=== PATIENT | female | born 1990 | race Caucasian/White ===

== ENCOUNTER 2018-01-15 17:02 | Emergency (ER) | payer MEDICAID, SELFPAY ==
[2018-01-15 17:03] VITALS: BP 155/73; PULSE 108; RESP 16; TEMP 37.2; O2SAT 98; BMI 33.2
[2018-01-15 17:13] VITALS: O2SAT 96
--- NOTE | 2018-01-15 17:17 | ED.VISSUMM ---
- ER Visit Summary Date of Service: 01/15/18 Chief Complaint: Shortness of breath History of Present Illness: The patient is a 27 F with history of asthma presents with an asthma exacerbation that started last night. No fever or chills she has a cough which is nonproductive. She is 28 weeks . She has no abdominal pain no urinary symptoms no vaginal bleeding. Physical Examination: She appears in some respiratory distress. Moist mucous membranes, no obvious facial deformity No C-spine tenderness supple neck. Regular rate and rhythm without any obvious murmurs Bilateral wheezing, speaks in full sentences without any difficulty but has some obvious mild respiratory distress Abdomen soft and nontender no guarding or rebound. It is gravid above the umbilicus Moves all extremities without any difficulty or pain. Skin does not show any obvious rashes or lesions, no trauma. Alert oriented ?3 with no gross focal deficit Emergency Department Course and Treatment: She received nebulizers and Kenalog IM. She significantly improved. At this time states is chronic and recurrent consistent with her normal asthma she is and I am reluctant to do an x-ray since she does not meet criteria. She has a normal heart rate and will be discharged in stable condition. She has an inhaler at home. Disposition: Discharge stable condition Impression: Asthma exacerbation This note was generated with [employer] dictation software. It may contain incorrect words, spelling, and punctuation that were not noted in review of the chart prior to signing ED Disposition - Plan for ED Patient: Disposition: Home or Assisted Living Chief Complaint: Asthma Instructions: ED Bronchitis Asthmatic Referrals: Addi Prabhakar MD [STAFF PHYSICIAN] - 3-5 Days
[2018-01-15] MEDS: Ipratropium/Albuterol Sulfate 3 ML AMPUL.NEB INHALATION (17:27)
[2018-01-15 17:30] VITALS: PULSE 105; RESP 24; O2SAT 96
[2018-01-15] MEDS: Triamcinolone Acetonide 40 MG/ML Vial IM (17:44)
[2018-01-15 17:55] VITALS: PULSE 117; RESP 20; O2SAT 97
[2018-01-15] MEDS: Albuterol 2.5 MG/3 ML VIAL.NEB. INHALATION ×2 (17:55→18:36)
[2018-01-15 18:36] VITALS: PULSE 125; RESP 18
[2018-01-15 19:03] VITALS: BP 125/82; PULSE 121; RESP 18; O2SAT 99
--- NOTE | 2018-01-16 14:10 | CM.ED ---
ED CALLBACK: Follow-up call placed to patient. Patient states she is feeling much better today. She states she has used her inhaler a few times, but feels this is due to weather changes as she just moved back to [place] from [place]. Upon inquiring whether the patient has initiated care here, the patient tells me she does not yet have an strike out machine operator. We discussed local options and I gave her my call back number. I encouraged patient to contact me if she has any questions or needs assistance finding an strike out machine operator. Patient states she grew up in the foster system in [place] and has medicaid anywhere she goes. She states she needs to have it transferred from [place] to here and has begun that process. Patient denies further needs or questions at this time.
== END 2018-01-15 19:06 | disposition home or self-care (01) ==
PROVIDERS: Emergency Provider Emergency Medicine
DX: O99.513 Diseases of the respiratory system complicating pregnancy, third trimester (principal); J45.901 Unspecified asthma with (acute) exacerbation; Z3A.28 28 weeks gestation of pregnancy
CPT/HCPCS: 94640; 96372; 99282

== ENCOUNTER 2018-03-02 22:17 | Outpatient (CLI) | payer MEDICAID, SELFPAY ==
[2018-03-02 22:46] VITALS: BMI 35.0
[2018-03-02] MEDS: 0.9% NaCl Peripheral Flush Adult/Peds IV (23:15)
[2018-03-02 23:32] LABS: Bacteria 0 SEEN /hpf (None Seen); Mucous, Urine 0 SEEN /hpf (<or=2+); Red Blood Cells-Urine 0 SEEN /hpf (0-5)
[2018-03-02 23:35] LABS: Hematocrit 36.9 % (37-47); Hemoglobin 12.2 g/dl (12.0-15.0); Mean Corp Hgb Conc 33.1 g/gl (32-36); Mean Corpuscular Hgb 28.7 pg (27.0-32.0); Mean Corpuscular Volume 86.8 fL (81-99); Mean Platelet Vol. 9.9 fl (6.2-12.0); Platelet Count 252 K/mm3 (150-450); RBC Distribution Width SD 47.5 fl (35.1-43.9); Red Blood Count 4.25 M/mm3 (4.2-5.4); Scan Indicated on CBC? Y/N NO; White Blood Count 11.8 K/mm3 (4.4-11.0)
[2018-03-02 23:37] LABS: Color, Urine Yellow (Yellow); Glucose, Dipstick Normal (Normal); Ketone-Dipstick Negative (Negative); Leukocyte Esterase-Dipstick 100 /ul (Negative); Nitrite-Dipstick Negative (Negative); Occult Blood-Urine Negative /ul (Negative); Protein-Dipstick Negative (Negative); Urine Bilirubin Dipstick Negative (Negative); Urine Clarity Sl. Cloudy (Clear); Urine Urobilinogen Normal (Normal)
[2018-03-03 00:12] LABS: Amorphous Sediment 2+; Squamous Epithelial Cells - UA 25-50 SEEN /hpf (5-10); White Blood Cells 0-5 SEEN /hpf (0-5)
[2018-03-03] MEDS: Lactated Ringers 1,000 ML 999 ML IV (00:37)
--- NOTE | 2018-03-03 02:43 | OB.TRI.HP_ITS ---
History of Present Illness Date of Service: 03/03/18 Was patient seen by the physician?: Yes Reason For Visit: R/O LABOR Date of Service: 03/02/18 Final RACHEL: 04/09/18 Gestational age: 34 Weeks and 5 Days History of Present Illness: 27-year-old 1 para 0 at 34-5/7 weeks gestation presents tonight complaining of abdominal pain. She states it started suddenly and sharp and it was right lower quadrant in her groin area. It was worse when she walked. She denied any gross vaginal bleeding or leaking of fluid. She had good movement. She had been eating and drinking normally today. She denied any regular contractions. Allergies prednisone Adverse Reaction (Verified 01/15/18 17:05) Nausea Laboratory Studies: Laboratory Tests 03/02/18 03/02/18 Range/Units 23:14 22:25 WBC 11.8 H (4.4-11.0) K/mm3 RBC 4.25 (4.2-5.4) M/mm3 Hgb 12.2 (12.0-15.0) g/dl Hct 36.9 L (37-47) % MCV 86.8 (81-99) fL MCH 28.7 (27.0-32.0) pg MCHC 33.1 (32-36) g/gl RDW 15.0 H (11.6-14.6) % RDW Differential 47.5 H (35.1-43.9) fl Plt Count 252 (150-450) K/mm3 MPV 9.9 (6.2-12.0) fl Urine Color Yellow (Yellow) Urine Clarity Sl. Cloudy (Clear) Urine pH 7.0 (5.0 - 8.0) Ur Specific [place] 1.010 (1.002-1.030) Urine Protein Negative (Negative) mg/dl Urine Glucose (UA) Normal (Normal) mg/dl Urine Ketones Negative (Negative) mg/dl Urine Occult Blood Negative (Negative) /ul Urine Nitrite Negative (Negative) Urine Bilirubin Negative (Negative) mg/dL Urine Urobilinogen Normal (Normal) mg/dl Ur Leukocyte Esterase 100 H (Negative) /ul Urine RBC 0 SEEN (0-5) /hpf Urine WBC 0-5 SEEN (0-5) /hpf Ur Squamous Epith Cells 25-50 SEEN (5-10) /hpf Amorphous Sediment 2+ Urine Bacteria 0 SEEN (None Seen) /hpf Urine Mucus 0 SEEN (<or=2+) /hpf Review of Systems Constitutional: Denies: Chills, Fever Gastrointestinal: Denies: Constipation, Diarrhea, Dyspepsia, Nausea, Vomiting Genitourinary: Reports: - - She denied any abnormal vaginal discharge, itching or burning. Denies: Dysuria, Frequency, Hematuria Physical Exam General: Alert, Cooperative, No apparent distress Abdomen: Soft, Non Tender, Non-Distended, Gravid, Appropriate for Gestational Age, - - No hernia, rebound or guarding. Extremities:: No edema Estimated gestational size: Appropriate for gestational size Presentation: Cephalic NST - FHR Rate Baby A Baseline: 140 Variability:: Moderate Decelerations:: None NST Reactive:: Yes FHR Category:: Category I Uterine Activity:: Initially irregular contractions and irritability, then quiet Impression/Plan 27-year-old 1 para 0 at 34-5/7 weeks gestation with right lower quadrant pain and threatened labor. Contractions resolved with IV hydration. Patient is feeling much better. Encourage patient to push fluids and follow-up at the next appointment. Right-sided abdominal and groin pain is likely round ligament and/or musculoskeletal from . She was discharged home with labor per instructions and follow-up in our office as scheduled or as needed. Patient was comfortable with plan.
== END 2018-03-03 02:10 | disposition home or self-care (01) ==
LOC: WPOUT 22:35 → WP 22:35
PROVIDERS: Visit Provider Obstetrics & Gynecology
DX: O60.03 Preterm labor without delivery, third trimester (principal); O26.893 Other specified pregnancy related conditions, third trimester; R10.31 Right lower quadrant pain; Z3A.34 34 weeks gestation of pregnancy
CPT/HCPCS: 96360; 36415; 59025; 59050; 81001; 85027; 86850; 86900; 99218; J7120; A4216; G0378

== ENCOUNTER 2018-03-26 19:55 | Outpatient (CLI) | payer MEDICAID, SELFPAY ==
[2018-03-26 22:36] VITALS: BMI 35.9
--- NOTE | 2018-04-04 05:49 | OB.TRI.NOTE ---
- Problem List (1) False labor after 37 completed weeks of gestation Status: Acute History of Present Illness Date of Service: 03/26/18 Was patient seen by the physician?: No Reason For Visit: R/O LABOR Date of Service: 03/26/18 Final RACHEL: 04/09/18 Final RACHEL Source: US <20 weeks Gestational age: 39 Weeks and 2 Days History of Present Illness: Shirin is a 27 y/o presents reporting strong uncomfortable contractions on and off for the last few days. Patient reports no vaginal bleeding, vaginal discharge or decreased movement. Allergies prednisone Adverse Reaction (Verified 01/15/18 17:05) Nausea Review of Systems Constitutional: Denies: Chills, Fever, Weight Change HEENT: Denies: Head Aches, Sinus Congestion, Sinus Drainage Cardiovascular: Denies: Chest Pain, Palpitations Respiratory: Denies: Cough, Shortness of breath at rest, Sputum production Gastrointestinal: Denies: Abdominal Pain, Nausea, Vomiting Genitourinary: Denies: Dysuria Musculoskeletal: Denies: Joint Pain, Joint Tenderness Skin: Denies: Rash, Wounds Neurological: Denies: Numbness, Tingling, Focal weakness Psychiatric: Denies: Anxiety, Depression, Homicidal Ideations, Suicidal Ideations Hematologic/ Lymphatic: Denies: Easy Bruising, Easy Bleeding Unable to obtain accurate/complete ROS d/t: RPS collected by nursing staff - see nursing notes Physical Exam Vitals: See nursing notes for vital signs and PE NST - FHR Rate Baby A Baseline: 130 Variability:: Moderate Accelerations:: 15 x 15 Decelerations:: None NST Reactive:: Yes, Appropriate for gestational age FHR Category:: Category I Uterine Activity:: Irregular ctx noted on tocometer, uterine irritability Impression/Plan 27 y/o @ 38 wks by LMP and 1st trimester u/s dating, False Labor, Category I FHT P: 1) Discharge patient to home with labor and [facility] teaching precautions 2) Follow-up as scheduled with [facility] as scheduled Juhi ATKINSON
== END 2018-03-26 22:50 | disposition home or self-care (01) ==
LOC: WPOUT 20:29 → WP 20:29
PROVIDERS: Visit Provider Obstetrics & Gynecology
DX: O47.1 False labor at or after 37 completed weeks of gestation (principal); Z3A.38 38 weeks gestation of pregnancy
CPT/HCPCS: 59025; 59050; 99218; G0378

== ENCOUNTER 2018-04-07 14:10 | Outpatient (CLI) | payer MEDICAID, SELFPAY ==
[2018-04-07 14:41] VITALS: BMI 35.6
[2018-04-07 15:46] VITALS: BP 129/79; PULSE 80; RESP 18; TEMP 37.4; O2SAT 98
--- NOTE | 2018-04-09 11:30 | OB.TRI.NOTE ---
- Problem List (1) Irregular contractions Status: Acute History of Present Illness Date of Service: 04/07/18 Was patient seen by the physician?: No Reason For Visit: RULE OUT Date of Service: 04/07/18 Final RACHEL: 04/09/18 Final RACHEL Source: US <20 weeks Gestational age: 40 Weeks and 0 Days History of Present Illness: Presented for irregular contractions. No vaginal bleeding, leakage of fluid, or decreased movement. Allergies prednisone Adverse Reaction (Verified 01/15/18 17:05) Nausea Physical Exam Vitals: Vital Signs Temp Pulse Resp BP Pulse Ox 99.3 F H 80 18 129/79 H 98 04/07/18 15:46 04/07/18 15:46 04/07/18 15:46 04/07/18 15:46 04/07/18 15:46 NST - FHR Rate Baby A Baseline: 140 Variability:: Moderate Accelerations:: 15 x 15 Decelerations:: None NST Reactive:: Yes Uterine Activity:: Irregular Impression/Plan A:False Labor Reactive NST P: 1) D/C home. Labor instructions reviewed.
--- NOTE | 2018-04-12 18:46 | OB.TRI.NOTE ---
History of Present Illness Date of Service: 04/07/18 Was patient seen by the physician?: No Reason For Visit: RULE OUT Date of Service: 04/07/18 Final RACHEL: 04/09/18 Final RACHEL Source: US <20 weeks Gestational age: 38 5/7 Allergies prednisone Adverse Reaction (Verified 01/15/18 17:05) Nausea Physical Exam Vitals: Vital Signs Temp Pulse Resp BP Pulse Ox 99.3 F H 80 18 129/79 H 98 04/07/18 15:46 04/07/18 15:46 04/07/18 15:46 04/07/18 15:46 04/07/18 15:46 NST - FHR Rate Baby A Baseline: 135 bpm Variability:: Moderate Accelerations:: 15 x 15 Decelerations:: None NST Reactive:: Yes FHR Category:: Category I Uterine Activity:: irreg ctxs Impression/Plan 27 YOF primigravida @ 39 5/7 weeks w/ false labor NST reactive d/c home, f/u as scheduled or prn
--- OUTSIDE RECORDS SUMMARY | 2018-06-02 13:53 | XMS RPT_ITS ---
:1990 Author Organization OHIP Care Team Providers Name Role Phone JUHI EPPERSON (CNM) Attending Unavailable JUHI EPPERSON (CNM) Referring Unavailable JUHI EPPERSON (CNM) Attending Unavailable JUHI EPPERSON (CNM) Referring Unavailable YULISSA STOKES Attending Unavailable JUHI EPPERSON (CNM) Referring Unavailable SILVERIO DÍAZ Attending Unavailable JUHI EPPERSON (CNM) Attending Unavailable SARAVANAN PUENTES Attending Unavailable JUHI EPPERSON (CNM) Attending Unavailable JUHI EPPERSON (CNM) Attending Unavailable SARAVANAN PUENTES Attending Unavailable JUHI EPPERSON (CNM) Attending Unavailable DEIRDRE, KARMON Attending Unavailable ORLY MORAN (DIALYSIS EQUIPMENT TECHNICIAN) Attending Unavailable Deirdre, Karmon Attending Unavailable Deirdre, Karmon Referring Unavailable Primay Care Physicia, No Primary Care Unavailable Addi Sharif Attending Unavailable Primay Care Physicia, No Primary Care Unavailable Primay Care Physicia, No Primary Care Unavailable Deirdre, Karmon Admitting Unavailable Deirdre, Karmon Attending Unavailable Deirdre, Karmon Referring Unavailable Denisse Nolasco Attending Unavailable Primay Care Physicia, No Primary Care Unavailable Deirdre, Karmon Attending Unavailable Primay Care Physicia, No Primary Care Unavailable Javy, Desiree Attending Unavailable Palafox, Desiree Referring Unavailable Primay Care Physicia, No Primary Care Unavailable Palafox, Desiree Attending Unavailable Primay Care Physicia, No Primary Care Unavailable PROBLEMS PROBLEMS DATE TYPE CONDITION / CODE ATTENDING STATUS SOURCE 04/24/2018 Unknown Z34.03 - Rubén Gilmore Active Maura Encounter for [facility] normal first Repository , third trimester / Z34.03(ICD-10) 01/30/2018 Active Encounter for Active [facility] supervision of [facility] normal first Repository , third trimester / Z34.03(ICD-10) 04/13/2018 Unknown R06.02 - Addi Sharif Active Maura Shortness of Community breath / [facility] R06.02(ICD-10) Repository PROCEDURES PROCEDURES No Procedure Records FoundRESULTS RESULTS PROGRESS Observed: 04/21/2018 Status: COMPLETED Source: [place] 4:22 PM [facility] REPOSITORY HNO ID: [id number] Author: Orly (Antonieta) Dean Service: (none) Author Type: Nurse Practitioner Type: Progress Notes Filed: 04/21/2018 4:51 PM Note Text: DATE OF SERVICE: 04/21/2018 PROBLEM: Win Power presents for postop visit. SURGERY AND DATE: Section 04/15/18 SUBJECTIVE/INTERVAL HISTORY: Win Power reports that she feels well. No fever or chills. No shortness of breath, cough, or chest pain. Has asthma and using inhaler and Singulair as per her usual. No incisional redness, swelling, or drainage. Patient reports that her appetite is good. See HPI No abdominal pain, nausea, vomiting, diarrhea, or constipation. See HPI and No dysuria, gross hematuria, urinary frequency, urinary urgency, or incontinence. Had BM today. well. OBJECTIVE: VITALS: 100/60 HEENT: Normocephalic, atraumatic, mucus membranes moist and no lesions NECK: Supple, no adenopathy; thyroid symmetric, normal size, no bruits LUNGS: Clear to auscultation bilaterally. HEART: Regular rate and rhythm, no murmurs. ABDOMEN: Incision healing well. Mepilex dressing removed and given incision care instructions. Tiny area of scant drainage to right side of incision when dressing removed - steristrips applied. LOWER EXTREMITIES: No pitting edema, no palpable cords and no skin changes. ASSESSMENT/PLAN: 1. Post-operative state - ICD9: V45.89, ICD10: Z98.890 - doing well, incision healing. Post-op restrictions and incision care reviewed. Follow-up at 6 week visit. Orly Moran APRN.DIALYSIS EQUIPMENT TECHNICIAN DISCHARGE SUMMARY Observed: 04/19/2018 Status: F Source: [place] 8:55 AM [facility] REPOSITORY [facility] Medical Records Department [address] [place] [id number] Discharge Summary 04/19/18 0843 MR#: [id number] Acct: [id number] Name: WIN POWER Rep #: [id number] : 1990 27 From: Juhi Epperson CNM PCP: Care Physician, No Primary Status: ADM IN Location: [place] [address] Discharge Summary Date of Admission: 04/15/18 Date of Discharge: 04/19/18 Summary: Patient presented to triage for reports of decreased movement at 40+5 weeks, decision was made for IOL at that time. Patient labor course uneventful until second stage; prolonged 2nd stage of labor noted with pushing efforts >3.5 hours. Decision made for Primary LTCS for Second Stage Arrest. Viable baby boy born on 04/15/18 and normal PP course has been noted. Plan to discharge patient home today, POD #4 in stable condition. Subjective: Patient reports milk is in; patient has leaking noted bilaterally. Patient reports no issues with ambulation or urination. Patient pain well controlled with pain medications. Patient denies PHAM, scotoma or dizziness. Denies bleeding or drainage from incision. Objective: Nipples without cracks or blisters, no erythema noted BL Abdomen NT x 4 quadrants, FF 2FB below umbilicus, incisional dressing dry and intact - no blood or exudate noted on bandage +2/4 reflexes in LE, trace pedal edema, negative calf tenderness BL in LE scant rubra lochia - Physical Exam General: Alert, Oriented x3, Cooperative HEENT: Atraumatic, Normocephalic Neck: Supple Lungs: Normal air movement Cardiovascular: Regular rate, No murmurs Abdomen: Bowel Sounds Present, Soft, Non Tender Extremities: No edema, Capillary Refill Less than 3 Seconds Skin: No rashes, No breakdown Musculoskeletal: No Tenderness to Palpation of Joints or Extremities Neurological: Cranial nerves II-XII grossly intact Psych/Mental Status: Normal Affect, Appropriate Vital Signs Temp Pulse Resp BP Pulse Ox 98 F 87 16 112/75 95 04/19/18 02:03 04/19/18 02:03 04/19/18 02:03 04/19/18 02:03 04/19/18 02:03 Oxygen Delivery Method Room Air Weight: 194 lb 3.636 oz Body Mass Index (BMI) 36.6 Intake and Output for Last 24 Hours Intake Total Balance 04/19/18 0855 <Electronically signed by Juhi Epperson CNM> Date Juhi Epperson CNM Cosigner Signature (if applicable): Date CC: CHAPITO Epperson; No Primary Care Physician Signed PROGRESS Observed: 04/18/2018 Status: COMPLETED Source: [place] 3:49 PM [facility] REPOSITORY O ID: [id number] Author: Jatin Abbott LPN Service: (none) Author Type: (none) Type: Progress Notes Filed: 04/18/2018 3:51 PM Note Text: Pt delivered via C/S at [facility] on 04/15/[address] Stoddard. See OB Outcome note. Jatin Abbott LPN DISCHARGE INSTRUCTION Observed: 04/18/2018 Status: F Source: [place] 8:04 AM [facility] REPOSITORY [facility] Medical Records Department [address] [place] [address] Instructions for Home/Discharge Instructions 04/18/18 0803 MR#: [id number] Acct: [id number] Name: WIN POWER Rep #: [id number] : 1990 27 From: Rubén Gilmore PCP: Care Physician, No Primary Status: ADM IN Discharge Diet: No Restrictions Discharge Activity: May not drive while taking narcotic pain medications., May Shower May resume sexual activity in: 4-6 weeks Weight Bearing Status: Weight bearing as tolerated Additional Instructions: If you experience any of the following, contact your healthcare provider. * Bleeding that soaks a pad every hour for 2 hours * Fever 100.4 or higher * Unrelieved incision or abdominal pain * Swelling, redness, discharge or bleeding from your incision or episiotomy site * Your incision begins to separate * Problems urinating (including inability to urinate or burning while urinating). * Visual changes * Severe headache * Flu-like symptoms * Pain or redness in one of both of your breasts * Pain, warmth, tenderness or swelling in your legs, especially the calf area * Frequent nausea and vomiting * Symptoms of depression or anxiety If you experience any of the following, call 911 or go to the nearest Emergency Room. * Chest pain * Problems breathing * Seizure activity * Partial or complete paralysis of a body part, slurred speech, weakness or drooping of the face, or a sudden inability to walk or hold your balance Allergies/Adverse Reactions: Allergies prednisone Adverse Reaction (Verified 01/15/18 17:05) Nausea Medications to take at Discharge Albuterol Inhaler [Ventolin Hfa] 1 - 2 puff INHALATION Q6H PRN PRN #1 inhaler 03/22/13 Albuterol Aerosols [Ventolin Aerosols] 2.5 mg INHALATION Q6H PRN PRN 05/03/13 Loratadine [Claritin] 10 mg PO DAILY 03/02/18 Vits [Prenatabs FA ] 1 tablet PO DAILY 03/02/18 Docusate Sodium [Colace] 100 mg PO BID PRN PRN #60 cap 04/18/18 Ferrous Sulfate 325 mg PO DAILY@0800 #30 tab 04/18/18 Oxycodone HCl/Acetaminophen [Percocet 5/325] 1 tab PO Q6H PRN PRN 7 Days #28 tab 04/18/18 The following prescriptions were given: Oxycodone HCl/Acetaminophen [Percocet 5/325] 1 tab PO Q6H PRN PRN 7 Days #28 tab PRN Reason: Pain Docusate Sodium [Colace] 100 mg PO BID PRN PRN #60 cap PRN Reason: Constipation Ferrous Sulfate 325 mg PO DAILY@0800 #30 tab Follow-Up: Call to make an appointment with your doctor for an incision check in 1-2 weeks. You will also need a 6 week post- follow up appointment. Test results from this visit will be discussed in further detail at your follow-up appointment, if applicable. Primary Care Physician: Care Physician,No Primary [Primary Care Provider] - 04/18/18803 <Electronically signed by Rubén Gilmore > Date Rubén Gilmore CC: No Primary Care Physician HOSP Observed: 04/18/2018 Status: COMPLETED Source: OBION 12:00 AM [facility] REPOSITORY Patient Update (WOOB) WIN POWER ([id number]) 1990 F Date Time Provider Department 04/18/18 RUBÉN GILMORE During your visit today, we recorded the following information about you: Jatin Abbott LPN 04/18/2018 3:51 PM Signed Pt delivered via C/S at [facility] on 04/15/[address] Gilmore and HULL BUILDER. See OB Outcome note. Jatin Abbott LPN Allergies As of Date: 04/18/2018 Noted Allergy Reaction PREDNISONE 01/30/2018 5 - Intolerance Comments: vomiting SEASONAL ALLERGIES 11/17/2009 14 - Other: See Comments Comments: Cats Dogs Birds Dust mites molds (July through March) trees (July, August and September) grasses (September and October) weeds (December, January and February) Date Reviewed: 04/12/2018 Reviewed by: Juhi Epperson - Fully Assessed Prescriptions as of 04/18/2018 Sig: ACETAMINOPHEN 325 MG CAPSULE Take by mouth as needed. ALBUTEROL SULFATE 2.5 MG/3 ML* Use 3 mL via nebulizer every * ALBUTEROL SULFATE HFA 90 MCG/* Inhale 2 Puffs as instructed * LORATADINE 10 MG TABLET Take 1 tablet by mouth once d* VITAMIN,CALCIUM,MINE* Take 1 tablet by mouth. Problem List As Of Date 04/18/2018 Noted Resolved Asthma [J45.909] INVALID FOR* Depression [F32.9] INVALID FOR*09/12/2012 Severe persistent asthma [J45.50] INVALID FOR* Allergic rhinitis, cause unspecified [J30.9] INVALID FOR* Acute atopic conjunctivitis [H10.10] INVALID FOR* with care elsewhere in third*INVALID FOR* More... History of depression [Z86.59] INVALID FOR* More... History of asthma [Z87.09] INVALID FOR* More... Family history of genetic disease [Z84.89] INVALID FOR* More... Single umbilical artery affecting management of*INVALID FOR* More... Encounter Status:Closed by JATIN ABBOTT LPN on 04/18/18 CBC-COMPLETE BLOOD CNT Collected: 04/16/2018 Status: F Source: [place] NO DIFF 5:50 AM [facility] REPOSITORY Order Comment: Comments: Day #1 Reason for Laboratory Test TYPE CODE TESTS RESULT OUT OF RANGE REFERENCE UNITS LAB L100.1000 4.4-11.0 K/mm3 High WBC 12.8 LAB L100.1200 4.2-5.4 M/mm3 Low RBC 2.98 LAB L100.1300 12.0-15.0 g/dl Low HGB 9.0 LAB L100.1400 37-47 % Low HCT 26.5 LAB L100.1500 81-99 fL Normal MCV 88.9 LAB L100.1600 27.0-32.0 pg Normal MCH 30.2 LAB L100.1700 32-36 g/gl Normal MCHC 34.0 LAB L100.1810 11.6-14.6 % High RDW CV 15.0 LAB L100.1820 35.1-43.9 fl High RDW SD 47.5 LAB L100.1900 150-450 K/mm3 Normal PLT 188 LAB L100.2000 6.2-12.0 fl Normal MPV 10.2 Performed By: #### L100.0500 #### [facility] [address] [place], [address] OPERATIVE REPORT Observed: 04/15/2018 Status: F Source: [place] 4:42 PM [facility] REPOSITORY [facility] Medical Records Department [address] [place] [address] Operative Report 04/15/18 1535 MR#: [id number] Acct: [id number] Name: WIN POWER Vera Rep #: [id number] : 1990 27 From: Rubén Gilmore PCP: Care Physician, No Primary Status: ADM IN Location: [id number] Delivery Final RACHEL: 04/09/18 Gestational age: 40 Weeks and 6 Days Indications: Patient admitted for induction for postdates AND decreased FM. After pushing for almost 4 hours fetus was still at 0 station. Indications for : Failure of Descent Description of Procedure: Epidural anesthesia was dosed in the OR. She was prepped and draped in normal sterile fashion in a dorsal lithotomy position with a leftward tilt. After ensuring adequacy of anesthesia the Pfannensteil skin incision was made and carried through to the underlying fascia with a bovie. The fascia was incised in the midline and carried laterally with the Hawthorne scissors. The rectus muscles were in the midline and the peritoneum was entered bluntly. The bladder flap was dissected down carefully with the Metzenbaum scissors and blunt dissection. The uterus was incised in a transverse fashion and then incision extended with cephalocaudad traction. The fetus was vertex and the head was brought to the incision in the flexed position. With good fundal pressure the head easily delivered. Gentle traction placed on head to allow delivery of anterior AND posterior shoulders. No excess traction placed on head at any time. The body delivered easily. The 2VC cord was clamped and cut at 10 second delay. Male infant then handed off to the waiting RN. The placenta was delivered w/ gentle traction and fundal massage and the uterus was exteriorized and cleared of all clots and debris. The uterine incision was closed with 1-0vicryl suture in a running locked fashion. A second imbricating layer of monocryl was placed. The uterus was returned to the peritoneal cavity. The pelvis was irrigated AND then cleared of all clots and debris. The uterine incision was reexamined and found to be hemostatic. Some leoncio was placed over the uterine incision due to the denuded areas. The parietal peritoneum was reapproximated with running vicryl suture. The fascia was closed with looped PDS suture in a running standard fashion. The subcutaneous tissue was examined AND any bleeding bovie cauterized. The subcutaneous tissue was reapproximated with 3-0 plain gut suture. The skin was closed in a subcuticular fashion by the HULL BUILDER with me present in the labor and delivery suite. I performed the remainder of the procedure w/ assistance. Amniotic Membrane Rupture Type: Artificial Amniotic Fluid Description: Lightly stained meconium Placenta Disposition: [facility] Drain: Lauren to straight drain Cord Entanglement: None Cord Vessel Description: 2 Vessels Infant Gender: Male (1 minute): 7 (5 minute): 7 - 9 @ 10 minutes Pre-op Antibiotic Given: Ancef 2 grams IV x1 - Azithromycin 500mg IV x1 Complications: None 04/15/18 1642 <Electronically signed by Rubén Gilmore > Date Rubén Gilmore CC: No Primary Care Physician; Rubén Gilmore Signed HISTORY AND PHYSICAL Observed: 04/14/2018 Status: F Source: [place] EXAM 7:22 PM [facility] REPOSITORY [facility] Medical Records Department [address] [facility] [place] [address] History and Physical 04/14/181917 MR#: [id number] Acct: [id number] Name: WIN POWER Rep #: [id number] : 1990 From: Rubén Gilmore PCP: Care Physician, No Primary Status: ADM IN Location: [place]107-0 History Date of Admission: 04/14/18 Final RACHEL: 04/09/18 Final RACHEL Source: US <20 weeks Gestational age: 40 Weeks and 5 Days History of this : This is a 27 year-old, G [], P [], at 40 weeks gestational age. Allergies prednisone Adverse Reaction (Verified 01/15/18 17:05) Nausea Home Medications: Home Medications Albuterol Inhaler [Ventolin Hfa] 1 - 2 puff INHALATION Q6H PRN PRN #1 inhaler 03/22/13 Albuterol Aerosols [Ventolin Aerosols] 2.5 mg INHALATION Q6H PRN PRN 05/03/13 Loratadine [Claritin] 10 mg PO DAILY 03/02/18 Vits [Prenatabs FA] 1 tablet PO DAILY 03/02/18 Smoking Status: Former smoker Heart Tracin moderate variability, accels TOCO Analysis: Irregular History Past Pregnancies: Past Pregnancies Delivery Name GA/Weeks Outcome Route WeiInfant GeLabor LenAnesthesiDelivery Provider [facility] Location Labs: GBS positive Physical Exam General: Alert, Oriented x3 Abdomen: Soft, Non Tender, Non-Distended - gravid Estimated gestational size: Appropriate for gestational size Cervix Dilation (cm): 3 - AROM thin meconium fluid Station: -2 Effacement (%): 90 Assessment/Plan All Active Problems False labor after 37 completed weeks of gestation (Acute) Irregular contractions (Acute) This is a 27 year old, at 40 AND 5 weeks gestational age. Admit to L AND D Induction for postdates AND tachycardia with decel in the office. On pitocin AND s/p AROM. EFW less than 4500g, patient with adequate pelvis. GBS positive - on pcn Routine care 04/14/181921 <Electronically signed by Rubén Gilmore > Date Rubén Gilmore Cosigner Signature: Date (if applicable) CC: No Primary Care Physician; Rubén Gilmore Signed CBC-COMPLETE BLOOD CNT Collected: 04/14/2018 Status: F Source: [place] NO DIFF 5:32 PM [facility] REPOSITORY TYPE CODE TESTS RESULT OUT OF RANGE REFERENCE UNITS LAB L100.1000 4.4-11.0 K/mm3 Normal WBC 10.5 LAB L100.1200 4.2-5.4 M/mm3 Normal RBC 4.56 LAB L100.1300 12.0-15.0 g/dl Normal HGB 13.2 LAB L100.1400 37-47 % Normal HCT 39.3 LAB L100.1500 81-99 fL Normal MCV 86.2 LAB L100.1600 27.0-32.0 pg Normal MCH 28.9 LAB L100.1700 32-36 g/gl Normal MCHC 33.6 LAB L100.1810 11.6-14.6 % High RDW CV 15.1 LAB L100.1820 35.1-43.9 fl High RDW SD 47.5 LAB L100.1900 150-450 K/mm3 Normal PLT 246 LAB L100.2000 6.2-12.0 fl Normal MPV 10.5 Performed By: #### L100.0500 #### [facility] [address] [place], [place], [id number] TYPE AND SCREEN Collected: 04/14/2018 Status: F Source: [place] 5:32 PM [facility] REPOSITORY Order Comment: Reason for Type AND Screen/Red Cells: ROUTINE TYPE CODE TESTS RESULT OUT OF RANGE REFERENCE UNITS LAB B10.0800 AB Normal BLOOD TYPE GEL POSITIVE LAB B100.4000 Normal Antibody NEGATIVE Screen Performed By: #### B101.7450 #### [facility] [address] [place], [place], [address] PROGRESS Observed: 04/14/2018 Status: COMPLETED Source: OB[place] 4:46 PM [facility] REPOSITORY HNO ID: [id number] Author: Rubén Gilmore Service: (none) Author Type: Physician Type: Progress Notes Filed: 04/14/2018 4:50 PM Note Text: NST SUMMARY PROVIDER ASSESSMENT AND INTERPRETATION Win Power is a 27 year old female, , who is at 40w5d with an RACHEL of 04/09/2018, by Last Menstrual Period dating method. Indications for NST: Decreased Movement Baseline: 170 Variability: Moderate Accelerations: Present 15 X 15 Decelerations: Variable AND possible late Contractions: TOCO: Irregular Interpretation: Equivocal To [facility] for induction of labor SIGNATURE: Rubén Gilmore MD PROGRESS Observed: 04/12/2018 Status: COMPLETED Source: OBION 5:36 PM [facility] [place] REPOSITORY HNO ID: [id number] Author: Juhi Harrell) Jose Service: (none) Author Type: Rail Switch Operator Type: Progress Notes Filed: 04/12/2018 5:37 PM Note Text: CM - S: Win Power presents for a routine OB visit at 40w3d. She denies LOF, VB, DFM or cramping/contractions. Patient reports an increase in cramping and blood-tinged mucus. Patient desires to discuss options for IOL today - Risks/Benefits/Alternatives discussed. Patient and open to IOL at 41 weeks. O: See flow sheet Gen: A+O x 3, NAD Abdomen: NT x 4 quadrants, S=D, THERESA by True's with EFW 7.5# Extremities: No edema in LE A/P: 40w3d IUP. Normal . RTO <1 Weeks for follow up. Call with LOF, VB, DFM or cramping/contractions. 1. Encounter for supervision of normal first in third trimester -[facility] teaching and Labor Precautions reviewed - URINE OB DIP B/O 2. 40 weeks gestation of -IOL scheduled Tuesday PM @ 41 weeks if spontaneous labor doesn't occur. -Postdates management discussed - URINE OB DIP B/O Juhi Epperson APRN.CNM (ROM) RUPTURE OF Collected: 04/09/2018 Status: F Source: [place] [facility]AN[facility] 1:20 PM [facility] REPOSITORY TYPE CODE TESTS RESULT OUT OF RANGE REFERENCE UNITS LAB L205.1310 Negative Normal ROM Negative Result Comment: Amniotic fluid not present indicates No Rupture of Membranes at time of specimen collection. Performed By: #### L205.1000 #### [facility] [address] [place], [place], [address] PROGRESS Observed: 03/21/2018 Status: COMPLETED Source: OBION 9:15 AM [facility] REPOSITORY HNO ID: [id number] Author: Kiley Canseco RN Service: (none) Author Type: (none) Type: Progress Notes Filed: 03/21/2018 9:16 AM Note Text: CLASS Date Attended: March 20, 2018 Introduction Credentials Expectations of a 3-hour class 1. Review of handouts 2. Hospital tour 3. Baby care class Stages of labor video Stages to call the doctor 1. SROM 2. Cervical changes 3. Bleeding vs. bloody show 4. Decreased movement Hospital Procedures 1. Internal/external monitors 2. IV therapy 3. AROM 4. Pitocin Pain Management 1. Epidural 2. Other pain medications 3. No medicinal comfort measures 4. Breathing/pushing Delivery methods 1. 2. Forceps 3. Vacuum extractor Physician presentations 1. OB-network infrastructure architect 2. Record Filing Clerk 1. Mom's first hour 2. baby's first hour 3. baby's discharge protocol Completed childbirth education class. Kiley Canseco RN CNCNPATED Observed: 03/20/2018 Status: COMPLETED Source: OBION 12:00 AM [facility] REPOSITORY Education (WOOB) WIN POWER ([id number]) 1990 F Date Time Provider Department 03/20/18 NURSE PNOB [facility] WOOB Reason for Visit: Class [1645] Progress Notes: Kiley Canseco RN 03/21/2018 9:16 AM Signed CLASS Date Attended: March 20, 2018 Introduction Credentials Expectations of a 3-hour class 1. Review of handouts 2. Hospital tour 3. Baby care class Stages of labor video Stages to call the doctor 1. SROM 2. Cervical changes 3. Bleeding vs. bloody show 4. Decreased movement Hospital Procedures 1. Internal/external monitors 2. IV therapy 3. AROM 4. Pitocin Pain Management 1. Epidural 2. Other pain medications 3. No medicinal comfort measures 4. Breathing/pushing Delivery methods 1. 2. Forceps 3. Vacuum extractor Physician presentations 1. OB-network infrastructure architect 2. Record Filing Clerk 1. Mom's first hour 2. baby's first hour 3. baby's discharge protocol Completed childbirth education class. Kiley Canseco RN During your visit today, we recorded the following information about you: Allergies As of Date: 03/20/2018 Noted Allergy Reaction PREDNISONE 01/30/2018 5 - Intolerance Comments: vomiting SEASONAL ALLERGIES 11/17/2009 14 - Other: See Comments Comments: Cats Dogs Birds Dust mites molds (July through March) trees (July, August and September) grasses (September and October) weeds (December, January and February) Date Reviewed: 03/13/2018 Reviewed by: Juhi PerryEzio Epperson - Fully Assessed Prescriptions as of 03/20/2018 Sig: ACETAMINOPHEN 325 MG CAPSULE Take by mouth as needed. VITAMIN,CALCIUM,MINE* Take 1 tablet by mouth. ALBUTEROL SULFATE HFA 90 MCG/* Inhale 2 Puffs as instructed * ALBUTEROL SULFATE 2.5 MG/3 ML* Use 3 mL via nebulizer every * LORATADINE 10 MG TABLET Take 1 tablet by mouth once d* Encounter Status:Closed by KILEY CANSECO RN on 03/21/18 GROUP B STREP PCR Collected: 03/13/2018 Status: F Source: OBION 4:00 PM [facility] REPOSITORY TYPE CODE TESTS RESULT OUT OF RANGE REFERENCE UNITS LAB GBPCRT Positive for Abnormal Group B Alert GROUP B Streptococcus by STREP PCR PCR. If susceptibility testing is needed and was not requested with initial test order, call lab ([phone]) within 5 days to initiate workup. Performed By: #### GBPCR #### [facility] [address], [place] [address] CBC-COMPLETE BLOOD CNT Collected: 03/02/2018 Status: F Source: MAURA NO DIFF 11:14 PM [facility] REPOSITORY TYPE CODE TESTS RESULT OUT OF RANGE REFERENCE UNITS LAB L100.1000 4.4-11.0 K/mm3 High WBC 11.8 LAB L100.1200 4.2-5.4 M/mm3 Normal RBC 4.25 LAB L100.1300 12.0-15.0 g/dl Normal HGB 12.2 LAB L100.1400 37-47 % Low HCT 36.9 LAB L100.1500 81-99 fL Normal MCV 86.8 LAB L100.1600 27.0-32.0 pg Normal MCH 28.7 LAB L100.1700 32-36 g/gl Normal MCHC 33.1 LAB L100.1810 11.6-14.6 % High RDW CV 15.0 LAB L100.1820 35.1-43.9 fl High RDW SD 47.5 LAB L100.1900 150-450 K/mm3 Normal PLT 252 LAB L100.2000 6.2-12.0 fl Normal MPV 9.9 Performed By: #### L100.0500, B101.7450 #### [facility] [address] [place], [place], [address] TYPE AND SCREEN Collected: 03/02/2018 Status: F Source: KOPPERL 11:14 PM [facility] REPOSITORY Order Comment: Has pt arrived? Y Reason for Type AND Screen/Red Cells: ROUTINE TYPE CODE TESTS RESULT OUT OF RANGE REFERENCE UNITS LAB B10.0800 AB Normal BLOOD TYPE GEL POSITIVE LAB B100.4000 Normal Antibody NEGATIVE Screen Performed By: #### L100.0500, B101.7450 #### [facility] [address] [place], [place], [address] URINALYSIS, COMPLETE Collected: 03/02/2018 Status: F Source: KOPPERL 10:25 PM [facility] REPOSITORY Order Comment: Has pt arrived? Y How was Urine Obtained? PEDIATRICS TEACHER TO SPECIFY TYPE CODE TESTS RESULT OUT OF RANGE REFERENCE UNITS LAB L400.3000 Yellow COLOR Normal Yellow LAB L400.3050 Clear Normal CLARITY Sl. Cloudy LAB L400.3200 Normal mg/dl Normal GLUCOSE, UR Normal LAB L400.3300 Negative mg/dL Normal BILIRUBIN URINE Negative LAB L400.3400 Negative mg/dl Normal KETONE UR Negative LAB L400.3465 1.002-1.030 Normal SP.GR. DIPSTX 1.010 LAB L400.3550 5.0 - 8.0 pH UR Normal 7.0 LAB L400.3600 Negative mg/dl PROT Normal DIPSTX Negative LAB L400.3700 Normal mg/dl Normal UROBILI Normal LAB L400.3750 Negative Normal NITRITE UR Negative LAB L400.3780 Negative /ul Normal OCCULT BLOOD-UR Negative LAB L400.3800 Negative /ul High LEUK ESTERASE 100 LAB L400.4050 0-5 /hpf WBC Normal 0-5 SEEN LAB L400.4100 0-5 /hpf 0 Normal RBC-UA SEEN LAB L400.4150 5-10 /hpf SQUAM Normal EPI 25-50 SEEN LAB L400.4300 None Seen /hpf 0 Normal BACTERIA SEEN LAB L400.4350 <or=2+ /hpf 0 Normal MUCUS, URINE SEEN LAB L400.4900 2+ Normal AMORPHOUS Performed By: #### L400.0001 #### [facility] [address] [facility] [place], [place], [address] Observed: 02/27/2018 Status: F Source: OBION URINE CULTURE 2:30 PM [facility] REPOSITORY Sp. Request/Comment: - Specimen received in preservative Culture Result - >=100,000 CFU/ml Normal urogenital beth Performed By: #### URCUL #### [facility] [address] [place], [place] [address] PROGRESS Observed: 02/16/2018 Status: COMPLETED Source: OBION 5:32 PM [facility] REPOSITORY HNO ID: [id number] Author: Yulissa Stokes Service: (none) Author Type: Physician Type: Progress Notes Filed: 02/16/2018 5:32 PM Note Text: A gamboa intrauterine The size is AGA Estimated Date of Delivery: 04/09/18 EGA = 32w4d The anatomy appears normal in the areas visualized. The amniotic fluid volume is normal. SUA There is no evidence of effusions and/ or hydrops. The placenta is fundal. RECOMMENDATIONS: - Self-assessment of kick counts - Follow up ultrasound as clinically indicated Observed: 02/13/2018 Status: F Source: OBION BACT/CAND VAG GRM ST 9:43 AM [facility] REPOSITORY Sp. Request/Comment: - Swab Smear Result - Stain results consistent with normal vaginal beth. Moderate --> ABNORMAL ALERT Budding yeast --> ABNORMAL ALERT Moderate Polymorphonuclear leukocytes Performed By: #### BVCNSM #### [facility] [address] [place], [place] [address] TOXICOLOGY SCREEN,UR Collected: 01/30/2018 Status: F Source: OBION 1:00 PM [facility] REPOSITORY TYPE CODE TESTS RESULT OUT OF REFERENCE UNITS RANGE LAB UPCP2 Negative Negative Phencyclidin e, Urine Result Comment: Cutoff threshold at 25 ng/mL. LAB UBENZ2 Negative Benzodiazepines, Ur Negative Result Comment: Cutoff threshold at 200 ng/mL. LAB UCOC2 Negative Cocaine, Negative Urine Result Comment: Cutoff threshold at 300 ng/mL. LAB UAMPH2 Negative Amphetamines, Urine Negative Result Comment: Cutoff threshold at 1000 ng/mL. LAB UTHC2 Negative Cannabinoids, Urine Negative Result Comment: Cutoff threshold at 50 ng/mL. LAB UOPI2 Negative Opiates, Negative Urine Result Comment: Cutoff threshold at 300 ng/mL. LAB UBARB2 Negative Barbiturates, Urine Negative Result Comment: Cutoff threshold at 200 ng/mL. LAB UETOH <11 mg/dL <11 Ethanol, Urine LAB UOXYC Negative Oxycodone, Negative Urine Result Comment: Cutoff threshold at 100 ng/mL. Comment: Immunoassay screen only. Cross reactivity with other substances can occur with immunoassay screening. Detection of any drug(s) in this urine toxicology panel is presumptive only. These tests are for med ica purposes only and should not be used for compliance monitoring, legal, or forensic use. Samples should be within normal physiological conditions (e.g. pH). This assay does not include adulteration/specimen validity testing. In clinical settings, confirmatory testing is at the practitioner's discretion [1]. If clinically indicated, confirmation by high specificity, quantitative methodology, which includes adulteration/spec imen validity testing, may be requested on the same specimen through Client Services ([phone]) if contacted within 48 hours of initial testing. [1]Substance Abuse and Mental Health Services Administration (2012). Clinical Drug Testing in Primary Care Technical Assistance Publication Series 32. Department of Health and Human Services, [place], p.10. These tests were developed and their performance characteristics determined by [facility] ([facility]). They have not been cleared or a pproved by the FDA. [facility] is regulated under CLIA as qualified to perform high complexity testing. These tests are used for clinical purposes. They should not be regarded as investigational or for research. Performed By: #### UTOX2 #### [facility] [address] [place] [id number] Observed: 01/30/2018 Status: F Source: OBION URINE CULTURE 1:00 PM [facility] REPOSITORY Sp. Request/Comment: - Specimen received in preservative Culture Result - <10,000 CFU/ml Normal urogenital beth Performed By: #### URCUL #### [place] [id number] [place] [id number] 50G, 1HR GEST. Collected: 01/30/2018 Status: F Source: OBION GSCRN 9:56 AM [facility] REPOSITORY TYPE CODE TESTS RESULT OUT OF REFERENCE UNITS RANGE LAB GLUP 74-134 mg/dL Low Glucose 73 Screen, Preg Result Comment: [place] [employer] (Ha/Coustan) guidelines state a gestational diabetes mellitus positive screen is made, in women not previously diagnosed with overt diabetes, when the 1 hr plasma glucose level is equal to or above 140 mg/dL. The [facility] [employer] Salesperson and [facility] recommends a 135 mg/dL cutoff. Performed By: #### GLTGST #### [place] [id number] [place] [id number] CBC AND DIFFERENTIAL Collected: 01/30/2018 Status: F Source: OBION 9:56 AM [facility] REPOSITORY TYPE CODE TESTS RESULT OUT OF REFERENCE UNITS RANGE LAB WBC 3.70-11.00 k/uL WBC 10.20 LAB RBC 3.90-5.20 m/uL RBC 4.07 LAB HGB 11.5-15.5 g/dL Hemoglobin 12.1 LAB HCT 36.0-46.0 % Hematocrit 36.1 LAB MCV 80.0-100.0 fL MCV 88.7 LAB MCH 26.0-34.0 pG MCH 29.7 LAB MCHC 30.5-36.0 g/dL MCHC 33.5 LAB RDWCV 11.5-15.0 % RDW-CV 14.1 LAB PLTCT 150-400 k/uL Platelet Count 294 LAB MPV 9.0-12.7 fL MPV 10.5 LAB ANEUT % Neut% 72.9 LAB AANEUT 1.45-7.50 k/uL Abs Neut 7.44 LAB ALYMP % Lymph% 16.9 LAB AALYMP 1.00-4.00 k/uL Abs Lymph 1.72 LAB AMONO % Pecos% 6.1 LAB AAMONO <0.87 k/uL Abs Pecos 0.62 LAB AEOS % Eosin% 3.8 LAB AAEOS <0.46 k/uL Abs Eosin 0.39 LAB ABASO % Baso% 0.3 LAB AABASO <0.11 k/uL Abs Baso 0.03 LAB AUNRBC 0 /100 WBC NRBCs 0.0 LAB ABNRBC <0.01 k/uL Absolute nRBC <0.01 LAB DTYP DTYPE Auto Diff Performed By: #### CBCDIF #### [facility] [address] [place], [place] [address] PROGRESS Observed: 01/30/2018 Status: COMPLETED Source: OBION 8:39 AM [facility] REPOSITORY HNO ID: [id number] Author: Juhi Epperson Service: (none) Author Type: Rail Switch Operator Type: Progress Notes Filed: 01/30/2018 8:04 PM Note Text: INITIAL OB ASSESSMENT OB Provider: HPI: Winlexy Power is a 27 year old female here to establish Obstetrical Care. Patient's last menstrual period was 07/03/2017 (lmp unknown). from OB Dating Form. Cycle length: 28 days Complaints: vaginal bleeding at 9 weeks with passage of blood clot, morning sickness for 2 weeks was planned but happened earlier than they thought it would. Obstetric History T0 L0 SAB0 TAB0 Ectopic0 Multiple0 Live Births0 Prior : never History of 4th degree laceration: No Patient's Risk Screening for delivery: History of abnormal pap: No Prior treatment for cervical dysplasia: none. History of STDs: None Tobacco use: No - quit 3 years ago Caffeine use: No - stays away from caffeine Drug use: No Alcohol use: No Multivitamin with Folic acid: Yes Occupation: Unemployed Sikh or heritage: No Would refuse blood transfusion if medically necessary: No BMI 33.71 kg/(m2) Patient BMI over 30? No Marital Status: Partner: Name: Dusty Age: 53 Occupation: Unemployed - establishing his job as recently moved to [place] Gender: male History of STDs: None PAST MEDICAL HISTORY Diagnosis Date - Allergic rhinitis Dr. Castelan - Depression 12/09/2009 resolved - Menarche age 14 - NEGATIVE HISTORY OF 08/29/2009 Normal color vision - Unspecified asthma, with status asthmaticus Dr. Castelan PAST SURGICAL HISTORY Procedure Laterality Date - NONE Current Outpatient Prescriptions on File Prior to Visit: montelukast (SINGULAIR) 10 mg tablet Take 1 tablet by mouth once daily. (Patient not taking: Reported on 01/30/2018 ) phenazopyridine 200 mg tablet Take 1 tablet by mouth three times daily as needed. (Patient not taking: Reported on 01/30/2018 ) albuterol HFA 90 mcg/actuation inhaler Inhale 2 Puffs as instructed every 6 hours as needed for Wheezing/Shortness of Breath. albuterol 2.5 mg /3 mL (0.083 %) nebulizer solution Use 3 mL via nebulizer every 6 hours as needed for Wheezing/Shortness of Breath. 1 vial contains 3 ml. loratadine (CLARITIN) 10 mg tablet Take 1 tablet by mouth once daily as needed (for itching, sneezing or runny nose. ). etonogestrel subdermal implant 68 mg (NEXPLANON) 68 mg by SUBDERMAL route one time only. No current facility-administered medications on file prior to visit. Review of Systems: GENERAL: Negative for: Fever or Chills HEENT: Negative for: Headache, Impaired Vision, Ringing in Ears, Nosebleeds NECK: Negative for: Swelling, Pain, Stiffness RESPIRATORY: Negative for: Cough, Shortness of breath, Wheezing GASTROINTESTINAL: Negative for: Heartburn, Constipation, Diarrhea, Blood in stool, Vomiting MUSCULOSKELETAL: Negative for: Muscle or joint pain, stiffness, Joint swelling NEUROLOGIC/PSYCHIATRIC: Negative for: Weakness, Paralysis, Numbness, Tingling, Tremor, Anxiety, Depression, Memory loss SKIN: Negative for: Rash, Itching GENITOURINARY: Negative for: vaginal itching, vaginal discharge, hematuria or dysuria PHYSICAL EXAM: BP 132/82 Ht 5' 1.811 (1.57m) Wt 183 lb 3.2 oz (83.1kg) LMP 07/03/2017 BMI 33.71 kg/(m2). GENERAL: pleasant female in no apparent distress DERMATOLOGY: Normal, without lesions, non-icteric and non-hirsute NECK: Supple, full range of motion, no adenopathy and thyroid normal CHEST: Normal inspiratory effort BREAST: soft, non-tender, symmetric, no dominant mass, normal nipple-areolar complex, no lymphadenopathy and no nipple discharge ABDOMEN: soft, non-tender and no masses, fundal height 30cm. positioning by True's THERESA NEURO: alert and oriented x3,exam grossly non-focal PELVIS: Deferred Clinical Pelvimetry: Not assessed Limited OB ultrasound exam: not performed ASSESSMENT: 27 year old at 30 wks gestational age, Late Transfer of Care PLAN: 1) Patient oriented to practice. Discussed nutrition, folic acid supplementation, dietary guidelines, exercise, smoking, alcohol, caffeine, and drug use. Discussed routine OB labs including STD/HIV - previously drawn records requested 1 hour GCT and rpt CBC drawn today 2) LARC options discussed - patient unsure. Will discuss further at future visits. 3) Declines flu vaccine and Tdap vaccine Follow up in 2 weeks or sooner prn. Juhi Epperson APRN.CNM SBSANDHYAT Win Gamez Kimani was given the 4P's screening tool. Win answered as follows: OB Opioid Screening - Last Recorded (since 05/05/2017) Did any of your parents have a problem with alcohol or other drug use? (!) Yes (Father was an alcoholic) Does your partner have a problem with alcohol or other drug use? No In the past, have you had difficulties in your life because of alcohol or other drugs, including prescription medications? No In the past month have you drunk any alcohol or used other drugs? No Are you taking medication for pain during the either prescribed or not? No Based on the screen and further questions, she is considered at Low risk due to:No past or current use. Positive reinforcement of current behavior. Plan to rescreen early third trimester. Juhi Epperson APRN.CNM CNNURSE Observed: 01/30/2018 Status: COMPLETED Source: OBION 8:00 AM [facility] REPOSITORY Nurse Visit (WOOB) WIN POWER ([id number]) 1990 F Date Time Provider Department 01/30/18 8:00 AM [facility] During your visit today, we recorded the following information about you: Last Period 07/03/17 Jennifer Griggs RN 01/30/2018 8:31 AM Signed SEQUENTIAL SCREENINGS The [facility] offers sequential screenings for women who are interested in screenings for chromosomal abnormalities and certain defects during a . The sequential screen combines ultrasound and blood tests to determine the risk of chromosomal abnormalities, including Down's Syndrome (Trisomy 21) and Trisomy 18, as well as open neural tube defects including spina bifida. Ultrasound examination is performed between 11 weeks and 13 weeks gestational age. Blood tests are drawn after the ultrasound and again later in the between 15 and 21 weeks gestational age. Please let your physician know if you are interested in this testing. It will require an appointment with our in shop service technician. This is not an ultrasound performed by a physician in our office during a routine visit. SIGNS AND SYMPTOMS OF LABOR 1. Contractions every 10 minutes or more often 2. Clear, pink, or brownish fluid (water) leaking from vagina 3. Feeling that baby is pushing down, pressure 4. Low, dull backache 5. Cramps that feel like a period 6. Cramps with or without diarrhea If you notice any of the above symptoms, contact our office at [phone] and ask to speak with a nurse. After hours, you can call doctors registry at [phone] OR call [facility] at [phone] and ask to have the doctor satellite communications engineer paged. If you consider this an emergency, dial [phone] or go to your nearest emergency department. Cord-Blood Banking Up until recently, the umbilical cord--along with the blood that remained in it after a baby was born and the cord cut--was simply discarded by the hospital. Then, in the late , researchers discovered that cord blood possessed unusual properties that made it useful in the treatment of patients with some cancers and other illnesses. While the actual process of collecting cord blood is straightforward, many parents are not even aware that this option now exists, much less familiar with all the issues involved. The case for saving your baby's cord blood The blood running back and forth between your baby and the placenta is full of immature cells called stem cells. Unlike embryonic stem cells, which have the ability to develop into any type of body cell, cord-blood stem cells already are locked into a certain, vital function: making all the different components of the blood, such as platelets, white blood cells, and red blood cells-serving, in effect, like bone marrow. When transfused into a patient whose own blood cells have faulty genetic coding or have been destroyed by chemotherapy or other cancer treatments, the cord-blood cells can implant themselves in the bone marrow and generate legions of new, healthy cells. These days, cord-blood transplants most commonly are used in cancer patients when a donor can't be found for a bone-marrow transplant. The treatment is particularly effective in young patients-the [facility] Cord Blood [facility] reports a 70 percent success rate in children, but only 20 to 40 percent in adults. Researchers envision improving those odds and see many future applications as well, such as curing sickle cell disease and other blood-related genetic illnesses. So there is a possibility that your child, or someone else, may need these super-healthy and versatile cells one day. The drawbacks Aside from not knowing about this medical option, the main reason most people do not save their baby's stem cells is cost. In a private blood bank, the initial costs run from $275 to $1,500. Most also charge a yearly storage fee of $50 to $95. The advantage of using a private bank is that your sample is saved for only you to use. An alternative to private banking Public cord-blood willson are an alternative. These cost no money to use, but your sample is not specifically saved for you. Another person with a more immediate need may use it. If the time should come that you need stem cells, yours may still be available, or you may use donations from other people without charge. You also can direct your sample to go to a relative with an immediate need if the blood type matches. Anyone else needing to use stem cells from a public bank who has not been a donor must pay for it, sometimes tens of thousands of dollars. Will my family benefit from saving stem cells? Right now, situations in which stem cells would be helpful are quite rare. As mentioned earlier, stem-cell transplants are most commonly used for rare genetic conditions and for some types of cancer, including leukemia and lymphoma. And even with these present uses, many questions remain. In cancer treatment, for example, some researchers are concerned about the wisdom of transplanting back into the child the same cells that already showed a propensity to become malignant. Doctors also aren't sure if the number of cells taken at the time of would be enough to treat a full-grown 16-year-old. It is also not completely clear how active the cells would be after years of being stored. The treatment is so new and rare, we just don't have the data yet to resolve these important issues. What do the experts say? The [place] [employer] encourages philanthropic blood banking in public willson, but only for families with a current or potential need. Blood-bank proponents encourage any kind of banking, pointing out that research is getting closer and closer to many diverse, live-saving applications. How do I decide? Each family must weigh the pros and cons for themselves. Some families say that any cost is worth their peace of mind. Others say that in the face of uncertainty about the effectiveness of the treatment, they will use their resources elsewhere. Some choose the middle ground of donating publicly, knowing that their sample might benefit another family, if not themselves. For more information, ask your doctor or nurse, and be sure to check out our article on the technical aspects of cord-blood banking. Technical Aspects of Cord-Blood Banking If you are interested in storing your baby's umbilical-cord blood because of its possible use in emerging medical treatments, you must make arrangements with a blood bank before your child is born. The collection procedure is quite simple: After delivery of the baby, the umbilical cord is clamped and cut in the usual way. The blood that remains in the umbilical-cord vessels is then collected in sterile containers. The blood may be removed from the cord with a large needle or allowed to flow freely, depending on the company's collection system. The containers may look like large test tubes or like the plastic bags used in a blood bank. It does not cause the mother or the baby any pain to collect the blood, and no blood is taken that the baby needs at the moment. The nurse, cutter operator helper, or physician will then label the samples, check them over with you, and package them for a special pickup arranged with a commercial carrier. When the blood arrives at the blood-bank facility, it is processed and the parents are notified. It is then kept in an advanced storage system for years. How do I know that my sample is safe? Power outages and bankruptcies potentially could threaten any organization, but so far none have been reported. It is to be hoped that the scientists in these willson would arrange for safe transfer to another facility if the need arose. YOU MUST MAKE ARRANGEMENTS AHEAD OF TIME! Public cord-blood willson--DONATION: [employer] [phone] [facility]'s Placental Blood Program, [facility] Umbilical Cord Blood Bank, Private cord-blood willson--SAVING FOR YOUR OWN USE: [employer], (I think this is the least expensive) [employer] [phone] [employer], [phone]) [employer] [place] [facility], [phone], [phone] [place] [facility], Cord Blood Registry, [phone]) [employer], An Internet search may provide you with additional listings. Referring Provider: SELF [200] Allergies As of Date: 01/30/2018 Noted Allergy Reaction PREDNISONE 01/30/2018 5 - Intolerance Comments: vomiting SEASONAL ALLERGIES 11/17/2009 14 - Other: See Comments Comments: Cats Dogs Birds Dust mites molds (July through March) trees (July, August and September) grasses (September and October) weeds (December, January and February) Date Reviewed: 01/30/2018 Reviewed by: Kiersten Zaidi Ma - Fully Assessed Reason for Visit: Care [86] Cmt: Pre-New OB Primary Visit Diagnosis: with care elsewhere, antepartum [Z34.90] Order(s):MELINA PT ED SHOT GRINDER OPERATOR [] Order #: [id number]: 1 MELINA PT ED ANESTHESIA [[id number]] Order #: [id number]: 1 MELINA PT ED SHOT GRINDER OPERATOR [] Order #: [id number]: 1 MELINA WHAT TO EXPECT DURING YOUR HOSPITAL STAY [] Order #: [id number]: 1 MELINA PT ED SHOT GRINDER OPERATOR [] Order #: [id number]: 1 MELINA PT ED SHOT GRINDER OPERATOR [] Order #: [id number]: 1 MELINA PT ED SHOT GRINDER OPERATOR [] Order #: [id number]: 1 Prescriptions as of 01/30/2018 Sig: VITAMIN,CALCIUM,MINE* Take 1 tablet by mouth. ALBUTEROL SULFATE HFA 90 MCG/* Inhale 2 Puffs as instructed * ALBUTEROL SULFATE 2.5 MG/3 ML* Use 3 mL via nebulizer every * LORATADINE 10 MG TABLET Take 1 tablet by mouth once d* MONTELUKAST 10 MG TABLET Take 1 tablet by mouth once d* Patient not taking: Reported on 01/30/2018 PHENAZOPYRIDINE 200 MG TABLET Take 1 tablet by mouth three * Patient not taking: Reported on 01/30/2018 ETONOGESTREL 68 MG SUBDERMAL * 68 mg by SUBDERMAL route one * Problem List As Of Date 01/30/2018 Noted Resolved Asthma [J45.909] INVALID FOR* Depression [F32.9] INVALID FOR*09/12/2012 Severe persistent asthma [J45.50] INVALID FOR* Allergic rhinitis, cause unspecified [J30.9] INVALID FOR* Acute atopic conjunctivitis [H10.10] INVALID FOR* with care elsewhere in third*INVALID FOR* More... History of depression [Z86.59] INVALID FOR* More... History of asthma [Z87.09] INVALID FOR* More... Family history of genetic disease [Z84.89] INVALID FOR* More... Other instructions from your clinician: SEQUENTIAL SCREENINGS The [facility] offers sequential screenings for women who are interested in screenings for chromosomal abnormalities and certain defects during a . The sequential screen combines ultrasound and blood tests to determine the risk of chromosomal abnormalities, including Down's Syndrome (Trisomy 21) and Trisomy 18, as well as open neural tube defects including spina bifida. Ultrasound examination is performed between 11 weeks and 13 weeks gestational age. Blood tests are drawn after the ultrasound and again later in the between 15 and 21 weeks gestational age. Please let your physician know if you are interested in this testing. It will require an appointment with our in shop service technician. This is not an ultrasound performed by a physician in our office during a routine visit. SIGNS AND SYMPTOMS OF LABOR 1. Contractions every 10 minutes or more often 2. Clear, pink, or brownish fluid (water) leaking from vagina 3. Feeling that baby is pushing down, pressure 4. Low, dull backache 5. Cramps that feel like a period 6. Cramps with or without diarrhea If you notice any of the above symptoms, contact our office at [phone] and ask to speak with a nurse. After hours, you can call [facility] at [phone] OR call [facility] at [phone] and ask to have the doctor satellite communications engineer paged. If you consider this an emergency, dial 9-1-1 or go to your nearest emergency department. Cord-Blood Banking Up until recently, the umbilical cord--along with the blood that remained in it after a baby was born and the cord cut--was simply discarded by the hospital. Then, in the late 1980s, researchers discovered that cord blood possessed unusual properties that made it useful in the treatment of patients with some cancers and other illnesses. While the actual process of collecting cord blood is straightforward, many parents are not even aware that this option now exists, much less familiar with all the issues involved. The case for saving your baby's cord blood The blood running back and forth between your baby and the placenta is full of immature cells called stem cells. Unlike embryonic stem cells, which have the ability to develop into any type of body cell, cord-blood stem cells already are locked into a certain, vital function: making all the different components of the blood, such as platelets, white blood cells, and red blood cells-serving, in effect, like bone marrow. When transfused into a patient whose own blood cells have faulty genetic coding or have been destroyed by chemotherapy or other cancer treatments, the cord-blood cells can implant themselves in the bone marrow and generate legions of new, healthy cells. These days, cord-blood transplants most commonly are used in cancer patients when a donor can't be found for a bone-marrow transplant. The treatment is particularly effective in young patients- the [facility] Cord Blood [facility] reports a 70 percent success rate in children, but only 20 to 40 percent in adults. Researchers envision improving those odds and see many future applications as well, such as curing sickle cell disease and other blood-related genetic illnesses. So there is a possibility that your child, or someone else, may need these super-healthy and versatile cells one day. The drawbacks Aside from not knowing about this medical option, the main reason most people do not save their baby's stem cells is cost. In a private blood bank, the initial costs run from $275 to $1,500. Most also charge a yearly storage fee of $50 to $95. The advantage of using a private bank is that your sample is saved for only you to use. An alternative to private banking Public cord-blood willson are an alternative. These cost no money to use, but your sample is not specifically saved for you. Another person with a more immediate need may use it. If the time should come that you need stem cells, yours may still be available, or you may use donations from other people without charge. You also can direct your sample to go to a relative with an immediate need if the blood type matches. Anyone else needing to use stem cells from a public bank who has not been a donor must pay for it, sometimes tens of thousands of dollars. Will my family benefit from saving stem cells? Right now, situations in which stem cells would be helpful are quite rare. As mentioned earlier, stem-cell transplants are most commonly used for rare genetic conditions and for some types of cancer, including leukemia and lymphoma. And even with these present uses, many questions remain. In cancer treatment, for example, some researchers are concerned about the wisdom of transplanting back into the child the same cells that already showed a propensity to become malignant. Doctors also aren't sure if the number of cells taken at the time of would be enough to treat a full-grown 16-year-old. It is also not completely clear how active the cells would be after years of being stored. The treatment is so new and rare, we just don't have the data yet to resolve these important issues. What do the experts say? The [employer] encourages philanthropic blood banking in public willson, but only for families with a current or potential need. Blood-bank proponents encourage any kind of banking, pointing out that research is getting closer and closer to many diverse, live-saving applications. How do I decide? Each family must weigh the pros and cons for themselves. Some families say that any cost is worth their peace of mind. Others say that in the face of uncertainty about the effectiveness of the treatment, they will use their resources elsewhere. Some choose the middle ground of donating publicly, knowing that their sample might benefit another family, if not themselves. For more information, ask your doctor or nurse, and be sure to check out our article on the technical aspects of cord-blood banking. Technical Aspects of Cord-Blood Banking If you are interested in storing your baby's umbilical- cord blood because of its possible use in emerging medical treatments, you must make arrangements with a blood bank before your child is born. The collection procedure is quite simple: After delivery of the baby, the umbilical cord is clamped and cut in the usual way. The blood that remains in the umbilical-cord vessels is then collected in sterile containers. The blood may be removed from the cord with a large needle or allowed to flow freely, depending on the company's collection system. The containers may look like large test tubes or like the plastic bags used in a blood bank. It does not cause the mother or the baby any pain to collect the blood, and no blood is taken that the baby needs at the moment. The nurse, cutter operator helper, or physician will then label the samples, check them over with you, and package them for a special pickup arranged with a commercial carrier. When the blood arrives at the blood- bank facility, it is processed and the parents are notified. It is then kept in an advanced storage system for years. How do I know that my sample is safe? Power outages and bankruptcies potentially could threaten any organization, but so far none have been reported. It is to be hoped that the scientists in these willson would arrange for safe transfer to another facility if the need arose. YOU MUST MAKE ARRANGEMENTS AHEAD OF TIME! Public cord-blood willson--DONATION: [employer] [phone] [facility]'s Placental Blood Program, [facility] Umbilical Cord Blood Bank, Private cord-blood willson--SAVING FOR YOUR OWN USE: [employer], (I think this is the least expensive) [employer] [phone] [employer], (898) [employer] [place] [facility], [phone] 700-[employer], [phone]-BABY [place] [facility], Cord Blood [facility], (830) [employer], An Internet search may provide you with additional listings. Disposition: Return for New OB with Juhi Epperson. Follow-up and Disposition History Recorded Encounter Status:Closed by JENNIFER GRIGGS RN on 01/30/18 EMERGENCY DEPARTMENT Observed: 01/15/2018 Status: F Source: [place] SUMMARY 10:37 PM [facility] REPOSITORY [facility] Medical Records Department [address] [place] [address] Emergency Department Summary 01/15/18 1717 MR#: [id number] Acct: [id number] Name: WIN POWER Rep #: [id number] : 1990 27 From: Addi Sharif MD PCP: Care Physician, No Primary Status: DEP ER - ER Visit Summary Date of Service: 01/15/18 Chief Complaint: Shortness of breath History of Present Illness: The patient is a 27 F with history of asthma presents with an asthma exacerbation that started last night. No fever or chills she has a cough which is nonproductive. She is 28 weeks . She has no abdominal pain no urinary symptoms no vaginal bleeding. Physical Examination: She appears in some respiratory distress. Moist mucous membranes, no obvious facial deformity No C-spine tenderness supple neck. Regular rate and rhythm without any obvious murmurs Bilateral wheezing, speaks in full sentences without any difficulty but has some obvious mild respiratory distress Abdomen soft and nontender no guarding or rebound. It is gravid above the umbilicus Moves all extremities without any difficulty or pain. Skin does not show any obvious rashes or lesions, no trauma. Alert oriented 3 with no gross focal deficit Emergency Department Course and Treatment: She received nebulizers and Kenalog IM. She significantly improved. At this time states is chronic and recurrent consistent with her normal asthma she is and I am reluctant to do an x-ray since she does not meet criteria. She has a normal heart rate and will be discharged in stable condition. She has an inhaler at home. Disposition: Discharge stable condition Impression: Asthma exacerbation This note was generated with Pufetto dictation software. It may contain incorrect words, spelling, and punctuation that were not noted in review of the chart prior to signing ED Disposition - Plan for ED Patient: Disposition: Home or Assisted Living Chief Complaint: Asthma Instructions: ED Bronchitis Asthmatic Referrals: Addi Prabhakar MD [STAFF PHYSICIAN] - 3-5 Days What to do if you have Problems For any increased pain, shortness of breath, bleeding, nausea or vomiting, chest pain, or any unexpected problems, contact your Primary Care Provider. Call [facility] ([phone]) or report to the closest Emergency Room. Call 911 if necessary. 01/15/182236 <Electronically signed by Addi Sharif MD> Date Addi Sharif MD Cosigner Signature (If Indicated): Date CC: No Primary Care Physician ALLERGIES ALLERGIES DATE TYPE / CODE NAME / CODE REACTION SEVERITY SOURCE 01/30/2018 DRUG PREDNISONE INTOLERANCE [facility] INGREDI/419 [facility] [id number]([facility] Repository ED CT) 01/15/2018 Drug prednisone/F0060 Nausea Unknown [facility] Allergy/416 52851(RXNORM) [facility] [id number]([facility] ED CT) Repository 11/17/2009 Environ/420 SEASONAL OTHER: SEE C [facility] [id number]([facility] ALLERGIES [facility] ED CT) Repository ENCOUNTERS ENCOUNTERS ADMIT/DISCHARGE ACCOUNT ADMITTING ENCOUNTER LOCATION SOURCE NUMBER CLASS 04/25/2018/04/25/20 [id number] Ambulatory [facility] [address] [place] [address] ing:WPOUTRoom Repository : [id number] 04/21/2018/04/25/20 [id number] Ambulatory [address] [place] Repository 04/14/2018/04/19/20 [id number] Rubén Gilmore Inpatient [facility] 18 Encounter [facility] ing:WPRoom: Repository [id number]: 1 04/14/2018/04/17/20 [id number] Ambulatory [address] [place] Repository 04/12/2018/04/13/20 [id number] Ambulatory [address] [place] Repository 04/09/2018/04/09/20 [id number] Ambulatory [facility] 18 [facility] ing:WPOUT Repository 04/07/2018/04/07/20 [id number] Ambulatory Maura Maura 18 [facility] ing:WPOUTRoom Repository : [id number] 04/05/2018/04/06/20 [id number] Ambulatory [address] [place] Repository 04/03/2018/04/04/20 [id number] Ambulatory [address] [place] Repository 03/27/2018/03/28/20 [id number] Ambulatory [address] [place] Repository 03/26/2018/03/26/20 [id number] Ambulatory [facility] 18 [facility] ing:WPOUTRoom Repository : [id number] 03/21/2018/03/22/20 [id number] Ambulatory [address] [place] Repository 03/13/2018/03/28/20 [id number] Ambulatory [address] [place] Repository 03/02/2018/03/03/20 [id number] Ambulatory [facility]a [facility] 18 [facility] ing:WPOUTRoom Repository : [id number] 02/27/2018/02/29/20 [id number] Ambulatory [address] [place] Repository 02/16/2018/03/28/20 [id number] Ambulatory [place] 18 [facility] Main [place] Repository 02/13/2018/02/15/20 [id number] Ambulatory [address] [place] Repository 01/30/2018/03/28/20 [id number] Ambulatory [address] [place] Repository 01/30/2018/02/01/20 [id number] Ambulatory [address] [place] Repository 01/30/2018/01/31/20 [id number] Ambulatory [address] Repository 01/15/2018/01/16/20 [id number] Emergency Maura Maura [address] [place] [address] ing:ED Repository PAYERS PAYERS ENCOUNTER GUARANTOR PAYER SUBSCRIBER SOURCE 04/25/2018 WIN Gamez Primary WIN Lorenzo [id number] 1/2 Insurance:MOLINAPolic SHIRESDOB: [facility]ly [facility] JOAN y Number: [id number] [id number] Repository 56193Nom: ([phone]) Date:4533-10-21YO [phone] (HP) [address] [place] [address] 25153AI: 04/25/2018 Secondary NOT GIVENUNK Maura Insurance:SELF PAY [facility] Number: Effective Repository Date:2018-04-25 04/14/2018 WIN Gamez Primary WIN Lorenzo [id number] 1/2 Insurance:MOLINAPolic SHIRESDOB: [facility]ly [facility] y Number: [id number], [place] [id number] Repository 92720Etp: ([phone]) Date:5464-68-31HX [phone] (HP) [address] [place] [address] [id number]: 04/14/2018 Secondary NOT GIVENUNK Maura Insurance:SELF PAY [facility] Number: Effective Repository Date:2018-02-24 04/09/2018 WIN Gamez Primary WIN Lorenzo [id number] 1/2 Insurance:MOLINAPolic SHIRESDOB: [facility]ly [facility] JOAN y Number: [id number], [place] [id number] Repository 69861Gun: ([phone]) Date:5225-94-55WS [phone] (HP) [address] [place] [address] 22030IQ: 04/09/2018 Secondary NOT GIVENUNK [facility] Insurance:SELF PAY [facility] Number: Effective Repository Date:2018-04-09 04/07/2018 WIN Gamez Primary WIN Junioroster [id number] 1/2 Insurance:MOLINAPolic SHIRESDOB: Community JOAN y Number: [id number], [place] [id number] Repository 97665Cdz: ([phone]) Date:3093-22-26EM [phone] () [address] [place] [address] 95037CF: 04/07/2018 Secondary NOT GIVENUNK [facility] Insurance:SELF PAY [facility] Number: Effective Repository Date:2018-04-07 03/26/2018 WIN Gamez Primary WIN J [facility] [id number] 1/2 Insurance:MOLINAPolic SHIRESDOB: [facility]ly [facility] JOAN y Number: [id number], [place] [id number] Repository 28553Sai: ([phone]) Date:8357-82-75XQ [phone] () [address] [place] [address] 18888KO: 03/26/2018 Secondary NOT GIVENUNK [facility] Insurance:SELF PAY [facility] Number: Effective Repository Date:2018-03-26 03/02/2018 WIN Gamez Primary WIN J [facility] [id number] 1/2 Insurance:MOLINAPolic SHIRESDOB: [facility]ly [facility] JOAN y Number: [id number], [place] [id number] Repository 86227Eyj: ([phone]) Date:5988-53-69ZR [phone] () [address] [place] [address] 02425KB: 03/02/2018 Secondary NOT GIVENUNK Maura Insurance:SELF PAY [facility] Number: Effective Repository Date:2018-03-02 01/15/2018 WIN Gamez Primary WIN J [facility] [id number] 1/2 Insurance:MEDICAIDPol SHIRESDOB: Community JOAN icy Number: [id number], [place] [id number] Repository 76270Yvp: ([phone]) Date:2018-01-15 [phone] () 01/15/2018 Secondary NOT GIVENUNK [facility] Insurance[facility]LF PAY [facility]: Effective Repository Date:2018-01-15
== END 2018-04-07 15:55 | disposition home or self-care (01) ==
LOC: WPOUT 14:21 → WP 14:22
PROVIDERS: Referring Provider Advanced Practice Midwife; Visit Provider Advanced Practice Midwife
DX: O47.1 False labor at or after 37 completed weeks of gestation (principal); Z3A.40 40 weeks gestation of pregnancy
CPT/HCPCS: 59025; 59050; 99218; G0378

== ENCOUNTER 2018-04-09 13:00 | Outpatient (CLI) | payer MEDICAID, SELFPAY ==
[2018-04-09 13:19] VITALS: BMI 31.7
[2018-04-09 13:52] LABS: ROM Internal Control Test YES-OK TO RESULT pt. (Internal QC); ROM Patient Test Negative (Negative)
--- NOTE | 2018-04-12 18:42 | OB.TRI.NOTE ---
History of Present Illness Date of Service: 04/09/18 Was patient seen by the physician?: No Reason For Visit: DECREASED MOVEMENT Date of Service: 04/09/18 Final RACHEL: 04/09/18 Final RACHEL Source: US <20 weeks Gestational age: 40 Allergies prednisone Adverse Reaction (Verified 01/15/18 17:05) Nausea Laboratory Studies: Laboratory Tests 04/09/18 Range/Units 13:20 Vag Amniotic Fld Detect Negative (Negative) NST - FHR Rate Baby A Baseline: 135 bpm Variability:: Moderate Accelerations:: 15 x 15 Decelerations:: None NST Reactive:: Yes FHR Category:: Category I Uterine Activity:: irreg ctxs Impression/Plan 27 YOF primigravida @ 40 weeks gestation with decreased FM NST reactive kick counts f/u in office as scheduled or prn
--- OUTSIDE RECORDS SUMMARY | 2018-06-02 23:27 | XMS RPT_ITS ---
[...] Unavailable DEIRDRE, KARMON Attending Unavailable ORLY MORAN (INDUSTRIAL GAS SERVICER SUPERVISOR) Attending Unavailable Deirdre, Karmon Attending Unavailable Deirdre, [...] - Rubén Gilmore Active Maura Encounter for [facility] normal first Repository , third trimester / Z34.03(ICD-10) 01/30/2018 Active Encounter for Active [facility] supervision of [facility] normal first Repository , third trimester / Z34.03(ICD-10) 04/13/2018 Unknown R06.02 - Addi Sharif Active Maura Shortness of Community breath / [facility] R06.02(ICD-10) Repository PROCEDURES PROCEDURES No Procedure Records FoundRESULTS RESULTS PROGRESS Observed: 04/21/2018 Status: COMPLETED Source: [place] 4:22 PM [facility] REPOSITORY HNO ID: [id number] Author: Orly (Antonieta) Dean Service: (none) Author [...] Follow-up at 6 week visit. Orly Moran APRN.INDUSTRIAL GAS SERVICER SUPERVISOR DISCHARGE SUMMARY Observed: 04/19/2018 Status: F Source: [place] 8:55 AM [facility] REPOSITORY [facility] Medical Records Department [address] [place] [address] Discharge Summary 04/19/18 0843 MR#: [id number] Acct: [id number] Name: WIN POWER Rep #: [id number] : 1990 27 From: Juhi Epperson CNM PCP: Care Physician, No Primary Status: ADM IN Location: [place] [address] Discharge Summary Date of Admission: 04/15/18 Date [...] Signed PROGRESS Observed: 04/18/2018 Status: COMPLETED Source: [place] 3:49 PM [facility] REPOSITORY O ID: [id number] Author: Jatin Abbott LPN Service: (none) Author Type: (none) Type: Progress Notes Filed: 04/18/2018 3:51 PM Note Text: Pt delivered via C/S at [facility] on 04/15/[address] Stoddard. See OB Outcome note. Jatin Abbott LPN DISCHARGE INSTRUCTION Observed: 04/18/2018 Status: F Source: [place] 8:04 AM [facility] REPOSITORY [facility] Medical Records Department [address] [place] [address] Instructions for Home/Discharge Instructions 04/18/18 0803 MR#: [id number] Acct: [id number] Name: WIN POWER Rep #: [id number] : 1990 27 From: Rubén Gilmore PCP: [...] Physician HOSP Observed: 04/18/2018 Status: COMPLETED Source: [place] 12:00 AM [facility] REPOSITORY Patient Update (WOOB) WIN POWER ([id number]) 1990 F Date Time Provider Department 04/18/18 RUBÉN GILMORE During your visit today, we recorded the following information about you: Jatin Abbott LPN 04/18/2018 3:51 PM Signed Pt delivered via C/S at [facility] on 04/15/[address] Gilmore and DIGGING MACHINE OPERATOR. See OB Outcome note. Jatin Abbott LPN [...] F Source: [place] NO DIFF 5:50 AM [facility] REPOSITORY Order Comment: Comments: Day #1 Reason [...] MPV 10.2 Performed By: #### L100.0500 #### [facility] [address] [facility] [place], [address] OPERATIVE REPORT Observed: 04/15/2018 Status: F Source: [place] 4:42 PM [facility] REPOSITORY [facility] Medical Records Department [address] [place] [address] Operative Report 04/15/18 1535 MR#: [id number] Acct: [id number] Name: WIN POWER Vera Rep #: [id number] : 1990 27 From: Rubén Gilmore PCP: Care Physician, No Primary Status: ADM IN Location: [id number] Delivery Final RACHEL: 04/09/18 Gestational age: 42 [...] closed in a subcuticular fashion by the DIGGING MACHINE OPERATOR with me present in the labor and [...] AND PHYSICAL Observed: 04/14/2018 Status: F Source: [place] EXAM 7:22 PM [facility] REPOSITORY [facility] Medical Records Department [address] [facility] [place] [address] History and Physical 04/14/181917 MR#: [id number] Acct: [id number] Name: WIN POWER Rep #: [id number] : 1990 From: Rubén Gilmore PCP: Care Physician, No Primary Status: ADM IN Location: [id number] History Date of Admission: 04/14/18 Final RACHEL: [...] WeiInfant GeLabor LenAnesthesiDelivery Provider FOB [facility] Location Labs: GBS positive Physical Exam [...] F Source: [place] NO DIFF 5:32 PM [facility] REPOSITORY TYPE CODE TESTS RESULT OUT OF [...] MPV 10.5 Performed By: #### L100.0500 #### [facility] [address] [place], [place], [id number] TYPE AND SCREEN Collected: 04/14/2018 Status: F Source: [place] 5:32 PM [facility] REPOSITORY Order Comment: Reason for Type AND Screen/Red Cells: ROUTINE TYPE CODE TESTS RESULT OUT OF RANGE REFERENCE UNITS LAB B10.0800 AB Normal BLOOD TYPE GEL POSITIVE LAB B100.4000 Normal Antibody NEGATIVE Screen Performed By: #### B101.7450 #### [facility] [address] [place], [place], [address] PROGRESS Observed: 04/14/2018 Status: COMPLETED Source: [place] 4:46 PM [facility] REPOSITORY HNO ID: [id number] Author: Rubén Gilmore Service: (none) Author Type: [...] late Contractions: TOCO: Irregular Interpretation: Equivocal To [facility] for induction of labor SIGNATURE: Rubén Gilmore MD PROGRESS Observed: 04/12/2018 Status: COMPLETED Source: [place] 5:36 PM [facility] [place] REPOSITORY HNO ID: [id number] Author: Juhi Harrell) Jose Service: (none) Author Type: Consumer Loan Manager Type: Progress Notes Filed: 04/12/2018 5:37 PM [...] supervision of normal first in third trimester -[facility] teaching and Labor Precautions reviewed - URINE OB DIP B/O 2. 40 weeks gestation of -IOL scheduled Tuesday PM @ 41 weeks if spontaneous labor doesn't occur. -Postdates management discussed - URINE OB DIP B/O Juhi Epperson APRN.CNM (ROM) RUPTURE OF Collected: 04/09/2018 Status: F Source: [place] 1:20 PM [facility] REPOSITORY TYPE CODE TESTS RESULT OUT OF RANGE REFERENCE UNITS LAB L205.1310 Negative Normal ROM Negative Result Comment: Amniotic fluid not present indicates No Rupture of Membranes at time of specimen collection. Performed By: #### L205.1000 #### [facility] [address] [place], [place], [address] PROGRESS Observed: 03/21/2018 Status: COMPLETED Source: [place] 9:15 AM [facility] REPOSITORY HNO ID: [id number] Author: Kiley Canseco RN Service: (none) Author [...] Forceps 3. Vacuum extractor Physician presentations 1. OB-wreath machine tender 2. Accounts Payable Representative 1. Mom's first hour 2. baby's first hour 3. baby's discharge protocol Completed childbirth education class. Kiley Canseco RN CNCNPATED Observed: 03/20/2018 Status: COMPLETED Source: [place] 12:00 AM [facility] REPOSITORY Education (WOOB) WIN PWOER ([id number]) 1990 F Date Time Provider Department 03/20/18 NURSE PNOB [facility] WOOB Reason for Visit: Class [8559] Progress Notes: Kiley Canseco RN 03/21/2018 9:16 [...] Forceps 3. Vacuum extractor Physician presentations 1. OB-wreath machine tender 2. Accounts Payable Representative 1. Mom's first hour 2. baby's first [...] STREP PCR Collected: 03/13/2018 Status: F Source: [place] 4:00 PM [facility] REPOSITORY TYPE CODE TESTS RESULT OUT OF RANGE REFERENCE UNITS LAB GBPCRT Positive for Abnormal Group B Alert GROUP B Streptococcus by STREP PCR PCR. If susceptibility testing is needed and was not requested with initial test order, call lab ([phone]) within 5 days to initiate workup. Performed By: #### GBPCR #### [facility] [address] [place], [place] [address] CBC-COMPLETE BLOOD CNT Collected: 03/02/2018 Status: F Source: [place] NO DIFF 11:14 PM [facility] REPOSITORY TYPE CODE TESTS RESULT OUT OF [...] 9.9 Performed By: #### L100.0500, B101.7450 #### [facility] [address] [place], [place], [address] TYPE AND SCREEN Collected: 03/02/2018 Status: F Source: [place] 11:14 PM [facility] REPOSITORY Order Comment: Has pt arrived? Y Reason for Type AND Screen/Red Cells: ROUTINE TYPE CODE TESTS RESULT OUT OF RANGE REFERENCE UNITS LAB B10.0800 AB Normal BLOOD TYPE GEL POSITIVE LAB B100.4000 Normal Antibody NEGATIVE Screen Performed By: #### L100.0500, B101.7450 #### [facility] [address] [place], [place], [address] URINALYSIS, COMPLETE Collected: 03/02/2018 Status: F Source: [place] 10:25 PM [facility] REPOSITORY Order Comment: Has pt arrived? Y How was Urine Obtained? MANAGER WINTER TO SPECIFY TYPE CODE TESTS RESULT OUT [...] Normal AMORPHOUS Performed By: #### L400.0001 #### [facility] [address] [facility] [place], [place], [address] Observed: 02/27/2018 Status: F Source: [place] URINE CULTURE 2:30 PM [facility] REPOSITORY Sp. Request/Comment: - Specimen received in preservative Culture Result - >=100,000 CFU/ml Normal urogenital beth Performed By: #### URCUL #### [facility] [address] [place], [place] [address] PROGRESS Observed: 02/16/2018 Status: COMPLETED Source: [place] 5:32 PM [facility] REPOSITORY HNO ID: [id number] Author: Yulissa Stokes Service: (none) Author Type: [...] clinically indicated Observed: 02/13/2018 Status: F Source: [place] BACT/CAND VAG GRM ST 9:43 AM [facility] REPOSITORY Sp. Request/Comment: - Swab Smear Result - Stain results consistent with normal vaginal beth. Moderate --> ABNORMAL ALERT Budding yeast --> ABNORMAL ALERT Moderate Polymorphonuclear leukocytes Performed By: #### BVCNSM #### [facility] [address] [place], [place] [address] TOXICOLOGY SCREEN,UR Collected: 01/30/2018 Status: F Source: [place] 1:00 PM [facility] REPOSITORY TYPE CODE TESTS RESULT [...] on the same specimen through Client Services ([phone]) if contacted within 48 hours of initial testing. [1]Substance Abuse and Mental Health Services Administration (2012). Clinical Drug Testing in Primary Care Technical Assistance Publication Series 32. Department of Health and Human Services, [place], p.10. These tests were developed and their performance characteristics determined by [facility]'s [facility] [place] (RT PLMI). They have not been cleared or a pproved by the FDA. [facility] is regulated under CLIA as qualified to perform high complexity testing. These tests are used for clinical purposes. They should not be regarded as investigational or for research. Performed By: #### UTOX2 #### [facility] [address] [place] [address] Observed: 01/30/2018 Status: F Source: [place] URINE CULTURE 1:00 PM [facility] REPOSITORY Sp. Request/Comment: - Specimen received in preservative Culture Result - <10,000 CFU/ml Normal urogenital beth Performed By: #### URCUL #### [place] [address] [place] [address] 50G, 1HR GEST. Collected: 01/30/2018 Status: F Source: [place] GSCRN 9:56 AM [facility] REPOSITORY TYPE CODE TESTS RESULT OUT OF REFERENCE UNITS RANGE LAB GLUP 74-134 mg/dL Low Glucose 73 Screen, Preg Result Comment: [place] [employer] of [employer]st[employer]ians and Gynec[employer] (Ha/Coustan) guidelines state a gestational diabetes mellitus positive screen is made, in women not previously diagnosed with overt diabetes, when the 1 hr plasma glucose level is equal to or above 140 mg/dL. The [facility] Outbound Sales Specialist and [facility] [place] recommends a 135 mg/dL cutoff. Performed By: #### GLTGST #### [place] [address] [place] [address] CBC AND DIFFERENTIAL Collected: 01/30/2018 Status: F Source: [place] 9:56 AM [facility] REPOSITORY TYPE CODE TESTS RESULT [...] k/uL Abs Lymph 1.72 LAB AMONO % Yuma% 6.1 LAB AAMONO <0.87 k/uL Abs Yuma 0.62 LAB AEOS % Eosin% 3.8 LAB AAEOS <0.46 k/uL Abs Eosin 0.39 LAB ABASO % Baso% 0.3 LAB AABASO <0.11 k/uL Abs Baso 0.03 LAB AUNRBC 0 /100 WBC NRBCs 0.0 LAB ABNRBC <0.01 k/uL Absolute nRBC <0.01 LAB DTYP DTYPE Auto Diff Performed By: #### CBCDIF #### [facility] [address] [place], [place] [address] PROGRESS Observed: 01/30/2018 Status: COMPLETED Source: [place] 8:39 AM [facility] REPOSITORY HNO ID: [id number] Author: Juhi Epperson Service: (none) Author Type: Consumer Loan Manager Type: Progress Notes Filed: 01/30/2018 8:04 PM [...] Multivitamin with Folic acid: Yes Occupation: Unemployed Baptist or heritage: No Would refuse blood transfusion if medically necessary: No BMI 33.71 kg/(m2) Patient BMI over 30? No Marital Status: Partner: Name: Dusty Age: 53 Occupation: Unemployed - establishing his job as recently moved to [place] Gender: male History of STDs: None PAST [...] APRN.CNM CNNURSE Observed: 01/30/2018 Status: COMPLETED Source: [place] 8:00 AM [facility] REPOSITORY Nurse Visit (WOOB) WIN POWER ([id number]) 1990 F Date Time Provider Department 01/30/18 8:00 AM NURSE PNOB [facility] WSTR WOOB During your visit today, we recorded the following information about you: Last Period 07/03/17 Jennifer Griggs RN 01/30/2018 8:31 AM Signed SEQUENTIAL SCREENINGS The [facility] offers sequential screenings for women [...] It will require an appointment with our pathology lab technician. This is not an ultrasound performed [...] the above symptoms, contact our office at [phone] and ask to speak with a nurse. After hours, you can call doctors registry at [phone] OR call [facility] at [phone] and ask to have the doctor exploration geologist paged. If you consider this an emergency, [...] treatment is particularly effective in young patients-the [facility] Cord Blood Bank reports a 70 percent [...] issues. What do the experts say? The [place] [employer] encourages philanthropic blood banking [...] baby needs at the moment. The nurse, farm hand, or physician will then label the samples, [...] AHEAD OF TIME! Public cord-blood willson--DONATION: [employer] [phone] [facility]'s Placental Blood Program, [facility] Umbilical Cord Blood Bank, Private cord-blood willson--SAVING FOR YOUR OWN USE: Cryo-Cell [employer], (I think this is the least expensive) [employer] [phone] [employer], (101) [employer] [place] Cord Blood Bank, [phone] 700-CORD Cells, [phone]-BABY [place] Cryobank, Cord Blood Registry, (392) CORDBLOOD [employer], An Internet search may provide [...] care elsewhere, antepartum [Z34.90] Order(s):MELINA PT ED LEVERS LACE MACHINE OPERATOR [] Order #: [id number]: 1 MELINA PT ED ANESTHESIA [[id number]] Order #: [id number]: 1 MELINA PT ED LEVERS LACE MACHINE OPERATOR [] Order #: [id number]: 1 MELINA WHAT TO EXPECT DURING YOUR HOSPITAL STAY [] Order #: [id number]: 1 MELINA PT ED LEVERS LACE MACHINE OPERATOR [] Order #: [id number]: 1 MELINA PT ED LEVERS LACE MACHINE OPERATOR [] Order #: [id number]: 1 MELINA PT ED LEVERS LACE MACHINE OPERATOR [] Order #: [id number]: 1 Prescriptions as of 01/30/2018 Sig: VITAMIN,CALCIUM,MINE* [...] instructions from your clinician: SEQUENTIAL SCREENINGS The [facility] offers sequential screenings for women [...] It will require an appointment with our pathology lab technician. This is not an ultrasound performed [...] the above symptoms, contact our office at [phone] and ask to speak with a nurse. After hours, you can call [facility] at [phone] OR call [facility] at [phone] and ask to have the doctor exploration geologist paged. If you consider this an emergency, [...] is particularly effective in young patients- the [facility] Cord Blood Bank reports a 70 percent [...] issues. What do the experts say? The [place] [employer] encourages philanthropic blood banking [...] baby needs at the moment. The nurse, farm hand, or physician will then label the samples, [...] AHEAD OF TIME! Public cord-blood willson--DONATION: [employer] [phone] [facility] Placental Blood Program, [facility] Umbilical Cord Blood Bank, Private cord-blood willson--SAVING FOR YOUR OWN USE: [employer], (I think this is the least expensive) [employer]Bank [phone] [employer], (192) [employer] [place] Cord Blood Bank, [phone]) 700-CORD Cells, [phone]-BABY [place] Cryobank, Cord Blood Registry, (667) CORDBLOOD [employer], An Internet search may provide you with additional listings. Disposition: Return for New OB with Juhi Epperson. Follow-up and Disposition History Recorded Encounter Status:Closed by JENNIFER GRIGGS RN on 01/30/18 EMERGENCY DEPARTMENT Observed: 01/15/2018 Status: F Source: [place] SUMMARY 10:37 PM [facility] REPOSITORY [facility] Medical Records Department [address] [place] [address] Emergency Department Summary 01/15/18 1717 MR#: [id number] Acct: [id number] Name: WIN POWER Rep #: [id number] : 1990 27 From: Addi Sharif MD [...] Asthma exacerbation This note was generated with Minutizer dictation software. It may contain incorrect words, [...] your Primary Care Provider. Call Doctors Registry ([phone]) or report to the closest Emergency Room. Call 911 if necessary. 01/15/182236 <Electronically signed by Addi Sharif MD> Date Addi Sharif MD Cosigner Signature (If Indicated): Date CC: No Primary Care Physician ALLERGIES ALLERGIES DATE TYPE / CODE NAME / CODE REACTION SEVERITY SOURCE 01/30/2018 DRUG PREDNISONE INTOLERANCE [facility] INGREDI/419 [facility] 891706([facility] Repository ED CT) 01/15/2018 Drug prednisone/F0060 Nausea Unknown [place] Allergy/416 64002(RXNORM) [facility] 118259([facility] ED CT) Repository 11/17/2009 Environ/420 SEASONAL OTHER: SEE C [facility] 698024([facility] ALLERGIES [facility] ED CT) Repository ENCOUNTERS ENCOUNTERS ADMIT/DISCHARGE ACCOUNT ADMITTING ENCOUNTER LOCATION SOURCE NUMBER CLASS 04/25/2018/04/25/20 [id number] Ambulatory Boyd Boyd [address] [place] [address] ing:WPOUTRoom Repository : WPOLRM 04/21/2018/04/25/20 [id number] Ambulatory [address] [place] Repository 04/14/2018/04/19/20 [id number] Rubén Gilmore Inpatient Boyd [place] [facility] ing:WPRoom: Repository UB460Eep: 1 04/14/2018/04/17/20 [id number] Ambulatory [address] [place] Repository 04/12/2018/04/13/20 [id number] Ambulatory [address] [place] Repository 04/09/2018/04/09/20 [id number] Ambulatory [place] [facility] ing:WPOUT Repository 04/07/2018/04/07/20 [id number] Ambulatory Maura Maura [facility] ing:WPOUTRoom Repository : WP014 04/05/2018/04/06/20 [id number] Ambulatory [address] [place] Repository 04/03/2018/04/04/20 [id number] Ambulatory [address] [place] Repository 03/27/2018/03/28/20 [id number] Ambulatory [address] [place] Repository 03/26/2018/03/26/20 [id number] Ambulatory Maura [place] [facility] ing:WPOUTRoom Repository : WP015 03/21/2018/03/22/20 [id number] Ambulatory [address] [place] Repository 03/13/2018/03/28/20 [id number] Ambulatory [address] [place] Repository 03/02/2018/03/03/20 [id number] Ambulatory Maura [place] [facility] ing:WPOUTRoom Repository : WP011 02/27/2018/02/29/20 [id number] Ambulatory [address] [place] Repository 02/16/2018/03/28/20 [id number] Ambulatory [place] [facility] [place] Repository 02/13/2018/02/15/20 [id number] Ambulatory [address] [place] Repository 01/30/2018/03/28/20 [id number] Ambulatory [address] [place] Repository 01/30/2018/02/01/20 [id number] Ambulatory [address] [place] Repository 01/30/2018/01/31/20 [id number] Ambulatory [address] Repository 01/15/2018/01/16/20 [id number] Emergency Maura Maura [address] [place] [address] ing:ED Repository PAYERS PAYERS ENCOUNTER GUARANTOR PAYER SUBSCRIBER SOURCE 04/25/2018 WIN Gamez Primary WIN Lorenzo [id number] 1/2 Insurance:MOLINAPolic SHIRESDOB: [facility] JOAN y Number: [id number], [place] [id number] Repository [address]Rxo: ([phone]) Date:5993-51-26VU [phone] (HP) [address] [place] [address]GH: 04/25/2018 Secondary NOT GIVENUNK Maura Insurance:SELF PAY [facility] Number: Effective Repository Date:2018-04-25 04/14/2018 WIN Gamez Primary WIN Lorenzo [id number] 1/2 Insurance:MOLINAPolic SHIRESDOB: [facility] y Number: [id number], [place] [id number] Repository [address]Dvi: ([phone]) Date:8861-55-01MU [phone] (HP) [address] [place] [address] 30000CI: 04/14/2018 Secondary NOT GIVENUNK Maura Insurance:SELF PAY [facility] Number: Effective Repository Date:2018-02-24 04/09/2018 WIN Gamez Primary WIN Lorenzo [id number] 1/2 Insurance:MOLINAPolic SHIRESDOB: [facility] JOAN y Number: [id number], [place] [id number] Repository [address]Cyj: ([phone]) Date:8433-35-67CV [phone] (HP) [address] [place] [address]CI: 04/09/2018 Secondary NOT GIVENUNK Boyd Insurance:SELF PAY [facility] Number: Effective Repository Date:2018-04-09 04/07/2018 WIN Gamez Primary WIN Junioroster [id number] 1/2 Insurance:MOLINAPolic SHIRESDOB: Community JOAN y Number: [id number], [place] [id number] Repository [address]Rga: ([phone]) Date:8154-44-83KQ [phone] () [address] [place] [address] 76797YP: 04/07/2018 Secondary NOT GIVENUNK Boyd Insurance:SELF PAY [facility] Number: Effective Repository Date:2018-04-07 03/26/2018 WIN Gamez Primary WIN J Boyd [id number] 1/2 Insurance:MOLINAPolic SHIRESDOB: [facility] JOAN y Number: [id number], [place] [id number] Repository [address]87[address]Pou: ([phone]) Date:3637-15-38QU [phone] () [address] [place] [address] 78771XO: 03/26/2018 Secondary NOT GIVENUNK Boyd Insurance:SELF PAY [facility] Number: Effective Repository Date:2018-03-26 03/02/2018 WIN Gamez Primary WIN J [place] [id number] 1/2 Insurance:MOLINAPolic SHIRESDOB: [facility] JOAN y Number: [id number], [place] [id number] Repository 30867Pak: [phone]) Date:9853-08-75DM [phone] () [address] [place] [address] 47634SV: 03/02/2018 Secondary NOT GIVENUNK Maura Insurance:SELF PAY [facility] Number: Effective Repository Date:2018-03-02 01/15/2018 WIN Gamez Primary WIN J Boyd [id number] 1/2 Insurance:MEDICAIDPol SHIRESDOB: Community JOAN icy Number: [id number], [place] [id number] Repository 35818Srn: ([phone]) Date:2018-01-15 [phone] () 01/15/2018 Secondary NOT GIVENUNK Boyd Insurance:SELF PAY [facility] Number: Effective Repository Date:2018-01-15
== END 2018-04-09 14:30 | disposition home or self-care (01) ==
LOC: WPOUT 13:18 → WP 04-10 13:04
PROVIDERS: Visit Provider Advanced Practice Midwife
DX: O36.8130 Decreased fetal movements, third trimester, not applicable or unspecified (principal); Z3A.40 40 weeks gestation of pregnancy
CPT/HCPCS: 59025; 59050; 84112; 99218; G0378

== ENCOUNTER 2018-04-14 16:50 | Inpatient (IN) | payer MEDICAID, SELFPAY ==
[2018-04-14 17:18] VITALS: BMI 36.6
[2018-04-14 17:50] LABS: Hematocrit 39.3 % (37-47); Hemoglobin 13.2 g/dl (12.0-15.0); Mean Corp Hgb Conc 33.6 g/gl (32-36); Mean Corpuscular Hgb 28.9 pg (27.0-32.0); Mean Corpuscular Volume 86.2 fL (81-99); Mean Platelet Vol. 10.5 fl (6.2-12.0); Platelet Count 246 K/mm3 (150-450); RBC Distribution Width CV 15.1 % (11.6-14.6); RBC Distribution Width SD 47.5 fl (35.1-43.9); Red Blood Count 4.56 M/mm3 (4.2-5.4); White Blood Count 10.5 K/mm3 (4.4-11.0)
[2018-04-14 18:02] LABS: Scan Indicated on CBC? Y/N NO
[2018-04-14] MEDS: Lactated Ringers 1,000 ML 50 ML IV ×3 (18:03→22:42)
[2018-04-14] MEDS: Oxytocin 30 units/NS 500 ml 30 UNITS/500 ML IV.SOLN IV (18:34)
--- NOTE | 2018-04-14 19:18 | PCM.HP.OB ---
History Date of Admission: 04/14/18 Final RACHEL: 04/09/18 Final RACHEL Source: US <20 weeks Gestational age: 40 Weeks and 5 Days History of this : This is a 27 year-old, G [], P [], at 40 weeks gestational age. Allergies prednisone Adverse Reaction (Verified 01/15/18 17:05) Nausea Home Medications: Home Medications Albuterol Inhaler [Ventolin Hfa] 1 - 2 puff INHALATION Q6H PRN PRN #1 inhaler 03/22/13 Albuterol Aerosols [Ventolin Aerosols] 2.5 mg INHALATION Q6H PRN PRN 05/03/13 Loratadine [Claritin] 10 mg PO DAILY 03/02/18 Vits [Prenatabs FA] 1 tablet PO DAILY 03/02/18 Smoking Status: Former smoker Heart Tracin moderate variability, accels TOCO Analysis: Irregular History Past Pregnancies: Past Pregnancies Delivery Date Name GA/Weeks Outcome Route Weight Gender Labor Length Anesthesia Delivery Location Provider FOB Labs: GBS positive Physical Exam General: Alert, Oriented x3 Abdomen: Soft, Non Tender, Non-Distended - gravid Estimated gestational size: Appropriate for gestational size Cervix Dilation (cm): 3 - AROM thin meconium fluid Station: -2 Effacement (%): 90 Assessment/Plan All Active Problems False labor after 37 completed weeks of gestation (Acute) Irregular contractions (Acute) This is a 27 year old, at 40&5 weeks gestational age. Admit to L&D Induction for postdates & tachycardia with decel in the office. On pitocin & s/p AROM. EFW less than 4500g, patient with adequate pelvis. GBS positive - on pcn Routine care
[2018-04-14] MEDS: Acetaminophen 325 MG Tablet PO (21:45)
[2018-04-15] VITALS (18 sets, daily range): BP systolic 96–145; BP diastolic 57–92; PULSE 98–129; RESP 16–20; TEMP 36.9–37.2; O2SAT 91–98
[2018-04-15] MEDS: Lactated Ringers 1,000 ML 50 ML IV ×3 (03:32→14:03)
[2018-04-15] MEDS: Ondansetron 4 MG/2 ML Vial IV (03:41)
[2018-04-15] MEDS: Amnioinfusion- 0.9% NS 1,000 ML IV.SOLN. INTRA-UTER (04:05)
[2018-04-15] MEDS: fentaNYL-bupivacaine (epidural) 100 ML BAG EPIDURAL ×2 (08:47→11:42)
--- NOTE | 2018-04-15 12:05 | PCM.PN.BLA ---
Progress Note S: Patient comfortable with epidural O: cvx - c/c/0 fhts - 135 with moderate variability at this time tocos - ctxs not tracing well A&P: continue pitocin induction FWB - overall reassuring s/p prolonged decel with pushing. Patient now pushing in hands & knees & fetus tolerating well.
[2018-04-15] MEDS: Sodium Citrate/Citric Acid 30 ML UDC PO (15:20)
--- NOTE | 2018-04-15 15:37 | OP.PCM_ITS ---
Delivery Final RACHEL: 04/09/18 Gestational age: 40 Weeks and 6 Days Indications: Patient admitted for induction for postdates & decreased FM. After pushing for almost 4 hours fetus was still at 0 station. Indications for : Failure of Descent Description of Procedure: Epidural anesthesia was dosed in the OR. She was prepped and draped in normal sterile fashion in a dorsal lithotomy position with a leftward tilt. After ensu ring adequacy of anesthesia the Pfannensteil skin incision was made and carried through to the underlying fascia with a bovie. The fascia was incised in the midline and carried laterally with the Hawthorne scissors. The rectus muscles were in the midline and the peritoneum was entered bluntly. The bladder flap was dissected down carefully with the Metzenbaum scissors and blunt dissection. The uterus was incised in a transverse fashion and then incision extended with cephalocaudad traction. The fetus was vertex and the head was brought to the incision in the flexed position. With good fundal pressure the head easily delivered. Gentle traction placed on head to allow delivery of anterior & posterior shoulders. No excess traction placed on head at any time. The body delivered easily. The 2VC cord was clamped and cut at 10 second delay. Male then handed off to the waiting RN. The placenta was delivered w/ gentle traction and fundal massage and the uterus was exteriorized and cleared of all clots and debris. The uterine incision was closed with 1-0vicryl suture in a running locked fashion. A second imbricating layer of monocryl was placed. The uterus was returned to the peritoneal cavity. The pelvis was irrigated & then cleared of all clots and debris. The uterine incision was reexamined and found to be hemostatic. Some leoncio was placed over the uterine incision due to the denuded areas. The parietal peritoneum was reapproximated with running vicryl suture. The fascia was closed with looped PDS suture in a running standard fashion. The subcutaneous tissue was examined & any bleeding bovie cauterized. The subcutaneous tissue was reapproximated with 3-0 plain gut suture. The skin was closed in a subcuticular fashion by the STAFF NURSE ICU RESOURCE TEAM with me present in the labor and delivery suite. I performed the remainder of the procedure w/ assistance. Amniotic Membrane Rupture Type: Artificial Amniotic Fluid Description: Lightly stained meconium Placenta Disposition: [facility] Drain: Lauren to straight drain Cord Entanglement: None Cord Vessel Description: 2 Vessels Infant Gender: Male (1 minute): 7 (5 minute): 7 - 9 @ 10 minutes Pre-op Antibiotic Given: Ancef 2 grams IV x1 - Azithromycin 500mg IV x1 Complications: None
[2018-04-15] MEDS: Cefazolin 2 GM in 0.9% Normal Saline 100 ML IV (15:44)
[2018-04-15] MEDS: Oxytocin 30 units/NS 500 ml 30 UNITS/500 ML IV.SOLN 167 UNITS IV (15:58)
[2018-04-15] MEDS: Methylergonovine 0.2 MG/ML Ampul IM ×2 (16:01→16:53)
[2018-04-15] MEDS: Ketorolac 30 MG/ML Syringe IV ×2 (16:30→23:14)
--- NOTE | 2018-04-15 16:43 | PCM.IMED.CSR ---
[id number] PostOp Date of Procedure: 04/15/18 Primary Surgeon/Physician: Sascha Sinclair business analytics analyst: Jaquelin Khan Pre-op Diagnosis: Failure of Descent Post-Op Diagnosis: Failure of Descent Surgery/Procedure Performed: Primary low transverse Section Description of Surgical Findings:: Epidural anesthesia was dosed in the OR. She was prepped and draped in normal sterile fashion in a dorsal lithotomy position with a leftward tilt. After ensuring adequacy of anesthesia the Pfannensteil skin incision was made and carried through to the underlying fascia with a bovie. The fascia was incised in the midline and carried laterally with the Hawthorne scissors. The rectus muscles were in the midline and the peritoneum was entered bluntly. The bladder flap was dissected down carefully with the Metzenbaum scissors and blunt dissection. The uterus was incised in a transverse fashion and then incision extended with cephalocaudad traction. The fetus was vertex and the head was brought to the incision in the flexed position. With good fundal pressure the head easily delivered. Gentle traction placed on head to allow delivery of anterior & posterior shoulders. No excess traction placed on head at any time. The body delivered easily. The 2VC cord was clamped and cut at 10 second delay. Male then handed off to the waiting RN. The placenta was delivered w/ gentle traction and fundal massage and the uterus was exteriorized and cleared of all clots and debris. The uterine incision was closed with 1-0vicryl suture in a running locked fashion. A second imbricating layer of monocryl was placed. The uterus was returned to the peritoneal cavity. The pelvis was irrigated & then cleared of all clots and debris. The uterine incision was reexamined and found to be hemostatic. Some leoncio was placed over the uterine incision due to the denuded areas. The parietal peritoneum was reapproximated with running vicryl suture. The fascia was closed with looped PDS suture in a running standard fashion. The subcutaneous tissue was examined & any bleeding bovie cauterized. The subcutaneous tissue was reapproximated with 3-0 plain gut suture. The skin was closed in a subcuticular fashion by the PLANT AND INSTRUMENT ENGINEER with me present in the labor and delivery suite. I performed the remainder of the procedure w/ assistance. Estimated Blood Loss: 800ml Specimens Removed: placenta Drain: Lauren to straight drain Type of Anesthesia: Epidural
[2018-04-15] MEDS: Lactated Ringers 1,000 ML 100 ML IV ×2 (17:10→23:12)
[2018-04-15] MEDS: Albuterol 2.5 MG/3 ML VIAL.NEB. INHALATION (18:37)
--- NOTE | 2018-04-15 18:43 | NURSING ---
pt with audible wheeze, resp therapy called and gave pt a breathing tx for the wheezing
[2018-04-16] VITALS (13 sets, daily range): BP systolic 101–126; BP diastolic 60–81; PULSE 98–112; RESP 16–18; TEMP 36.7–37.7; O2SAT 93–98
[2018-04-16] MEDS: Ketorolac 30 MG/ML Syringe IV ×3 (05:40→18:33)
[2018-04-16 06:01] LABS: Hematocrit 26.5 % (37-47); Mean Corpuscular Hgb 30.2 pg (27.0-32.0); Mean Corpuscular Volume 88.9 fL (81-99); Mean Platelet Vol. 10.2 fl (6.2-12.0); Platelet Count 188 K/mm3 (150-450); RBC Distribution Width SD 47.5 fl (35.1-43.9); Red Blood Count 2.98 M/mm3 (4.2-5.4); White Blood Count 12.8 K/mm3 (4.4-11.0)
[2018-04-16 06:02] LABS: Scan Indicated on CBC? Y/N NO
--- NOTE | 2018-04-16 07:46 | PCM.PN.OB ---
Subjective: Pain controlled. Overall doing well. - Physical Exam General: Alert, Oriented x3 Abdomen: Soft, Non Tender, Non-Distended - ff mid & below umb Extremities: No Calf Tenderness Vital Signs Temp Pulse Resp BP Pulse Ox 98.9 F 110 H 17 118/81 H 94 04/16/18 04:00 04/16/18 05:43 04/16/18 05:43 04/16/18 05:43 04/16/18 03:09 Oxygen Delivery Method Room Air Weight: 194 lb 3.636 oz Body Mass Index (BMI) 36.6 Intake and Output for Last 24 Hours 04/14/18 04/15/18 04/16/18 23:59 23:59 23:59 Intake Total 2100 / 2100 1000 / 1000 Output Total 100 / 100 2350 / 2350 750 / 750 Balance -100 / -100 -250 / -250 250 / 250 Laboratory Tests Past 24 Hrs 04/16/18 05:50 WBC 12.8 H RBC 2.98 L Hgb 9.0 L Hct 26.5 L MCV 88.9 MCH 30.2 MCHC 34.0 RDW 15.0 H RDW Differential 47.5 H Plt Count 188 MPV 10.2 Medical Necessity - Tobacco Use Smoking Status: Former smoker Assessment/Plan All Active Problems (Last Updated 04/14/18 @ 19:18 by Sascha Sinclair) False labor after 37 completed weeks of gestation (Acute) Irregular contractions (Acute) POD#1 Heme - cbc reviewed. start iron when tolerating PO. mild tachycardia likely d/t hb 9 and pain. ID - AF, no signs infection - adequate UOP, d/c mullins later today GI - ADAT Routine care
[2018-04-16] MEDS: Lactated Ringers 1,000 ML 100 ML IV (08:08)
[2018-04-16] MEDS: 0.9% Saline Lock 10 ML Syringe IV ×3 (11:59→18:33)
--- NOTE | 2018-04-16 14:30 | NURSING ---
Lauren discontinued 04/16/18 at 1430.
[2018-04-16] MEDS: Acetaminophen 500 MG Tablet 1000 MG PO (17:23)
[2018-04-16] MEDS: Senna/Docusate Sodium 1 Tablet PO (20:32)
[2018-04-17] MEDS: Ketorolac 30 MG/ML Syringe IV ×3 (00:24→11:41)
[2018-04-17] MEDS: 0.9% Saline Lock 10 ML Syringe IV ×3 (00:25→11:40)
[2018-04-17 02:15] VITALS: BP 104/60; PULSE 101; RESP 18; TEMP 36.9; O2SAT 95
--- NOTE | 2018-04-17 05:05 | NURSING ---
Pt. has a small blood blister on her left nipple. Shells provided to help keep gown from rubbing against the blister. RN informed pt. to continue nursing on that breast to ensure it was being stimulated. Pt. reported throughout the night that the wouldn't latch on that side for more than a minute or two. Pt. nurses independently on right side.
[2018-04-17] MEDS: Ferrous Sulfate 325 MG Tablet PO (08:42)
[2018-04-17] MEDS: Senna/Docusate Sodium 1 Tablet PO (08:42)
--- NOTE | 2018-04-17 08:56 | PCM.PN.OB ---
Subjective: Doing well per patient and nursing staff. Still getting some assistance from nursing staff for care of baby. Ambulating and taking PO without difficulty. Voiding and passing flatus. attentive and helpful. well. Denies PHAM,vis chg's,CP,SOB, increased vaginal bleeding or clots, or leg pain. Pain controlled. Planning D/C home tomorrow. - Physical Exam General: Alert, Oriented x3, Cooperative HEENT: Atraumatic, Normocephalic Neck: Supple Lungs: Clear to auscultation, Normal air movement, No rhonchi, No wheeze Cardiovascular: Regular rate, Regular Rhythm, No murmurs Abdomen: Bowel Sounds Present, Soft, - - Abdominal dressing clean and dry. No drainage. Extremities: Edema - +1 BLE, non pitting. Raquel's negative. Musculoskeletal: No Tenderness to Palpation of Joints or Extremities Neurological: Deep Tendon Reflexes 2+/4 and Symmetrical Psych/Mental Status: Normal Affect, Appropriate Vital Signs Temp Pulse Resp BP Pulse Ox 98.4 F 101 H 18 104/60 95 04/17/18 02:15 04/17/18 02:15 04/17/18 02:15 04/17/18 02:15 04/17/18 02:15 Oxygen Delivery Method Room Air Weight: 194 lb 3.636 oz Body Mass Index (BMI) 36.6 Intake and Output for Last 24 Hours 04/15/18 04/16/18 04/17/18 23:59 23:59 23:59 Intake Total 2100 / 2100 1000 / 1000 Output Total 2350 / 2350 3650 / 3650 Balance -250 / -250 -2650 / -2650 Medical Necessity - Tobacco Use Smoking Status: Former smoker Assessment/Plan All Active Problems (Last Updated 04/14/18 @ 19:18 by Sascha Sinclair) False labor after 37 completed weeks of gestation (Acute) Irregular contractions (Acute) A:Post Op Day #2 Primary Section P: 1) Routine Post op care. 2) Pain management 3) Planning D/C home tomorrow
[2018-04-17 09:47] VITALS: BP 107/71; PULSE 93; RESP 24; TEMP 36.9
[2018-04-17] MEDS: oxyCODONE 5 MG Tablet PO ×2 (11:41→18:54)
[2018-04-17 14:00] VITALS: BP 116/74; PULSE 103; RESP 16; TEMP 37.1
[2018-04-17 20:25] VITALS: BP 116/68; PULSE 114; RESP 16; TEMP 37.7; O2SAT 96
[2018-04-18 02:30] VITALS: BP 112/71; PULSE 100; RESP 16; TEMP 37.1; O2SAT 100
[2018-04-18] MEDS: oxyCODONE 5 MG Tablet PO ×3 (04:12→15:37)
--- NOTE | 2018-04-18 08:02 | PCM.PN.OB ---
Subjective: No complaints - Physical Exam General: Alert, Oriented x3 Abdomen: Soft, Non Tender, Non-Distended - ff mid & below umb; incision - bandage c/d/i Extremities: No Calf Tenderness Vital Signs Temp Pulse Resp BP Pulse Ox 98.8 F 100 16 112/71 100 04/18/18 02:30 04/18/18 02:30 04/18/18 02:30 04/18/18 02:30 04/18/18 02:30 Oxygen Delivery Method Room Air Weight: 194 lb 3.636 oz Body Mass Index (BMI) 36.6 Intake and Output for Last 24 Hours 04/16/18 04/17/18 04/18/18 23:59 23:59 23:59 Intake Total 1000 / 1000 Output Total 3650 / 3650 Balance -2650 / -2650 Medical Necessity - Tobacco Use Smoking Status: Former smoker Assessment/Plan All Active Problems (Last Updated 04/14/18 @ 19:18 by Sascha Sinclair) False labor after 37 completed weeks of gestation (Acute) Irregular contractions (Acute) POD#3 Routine care Possible d/c home later today or tomorrow
--- NOTE | 2018-04-18 08:04 | DCINST_ITS ---
Discharge Diet: No Restrictions Discharge Activity: May not drive while taking narcotic pain medications., May Shower May resume sexual activity in: 4-6 weeks Weight Bearing Status: Weight bearing as tolerated Additional Instructions: If you experience any of the following, contact your healthcare provider. * Bleeding that soaks a pad every hour for 2 hours * Fever 100.4 or higher * Unrelieved incision or abdominal pain * Swelling, redness, discharge or bleeding from your incision or episiotomy site * Your incision begins to separate * Problems urinating (including inability to urinate or burning while urinating). * Visual changes * Severe headache * Flu-like symptoms * Pain or redness in one of both of your breasts * Pain, warmth, tenderness or swelling in your legs, especially the calf area * Frequent nausea and vomiting * Symptoms of depression or anxiety If you experience any of the following, call 911 or go to the nearest Emergency Room. * Chest pain * Problems breathing * Seizure activity * Partial or complete paralysis of a body part, slurred speech, weakness or drooping of the face, or a sudden inability to walk or hold your balance Allergies/Adverse Reactions: Allergies prednisone Adverse Reaction (Verified 01/15/18 17:05) Nausea Medications to take at Discharge Albuterol Inhaler [Ventolin Hfa] 1 - 2 puff INHALATION Q6H PRN PRN #1 inhaler 03/22/13 Albuterol Aerosols [Ventolin Aerosols] 2.5 mg INHALATION Q6H PRN PRN 05/03/13 Loratadine [Claritin] 10 mg PO DAILY 03/02/18 Vits [Prenatabs FA ] 1 tablet PO DAILY 03/02/18 Docusate Sodium [Colace] 100 mg PO BID PRN PRN #60 cap 04/18/18 Ferrous Sulfate 325 mg PO DAILY@0800 #30 tab 04/18/18 Oxycodone HCl/Acetaminophen [Percocet 5/325] 1 tab PO Q6H PRN PRN 7 Days #28 tab 04/18/18 The following prescriptions were given: Oxycodone HCl/Acetaminophen [Percocet 5/325] 1 tab PO Q6H PRN PRN 7 Days #28 tab PRN Reason: Pain Docusate Sodium [Colace] 100 mg PO BID PRN PRN #60 cap PRN Reason: Constipation Ferrous Sulfate 325 mg PO DAILY@0800 #30 tab Follow-Up: Call to make an appointment with your doctor for an incision check in 1-2 weeks. You will also need a 6 week post- follow up appointment. Test results from this visit will be discussed in further detail at your follow- up appointment, if applicable. Primary Care Physician: Care Physician,No Primary [Primary Care Provider] -
[2018-04-18] MEDS: Ferrous Sulfate 325 MG Tablet PO (09:19)
[2018-04-18] MEDS: Senna/Docusate Sodium 1 Tablet PO (09:20)
[2018-04-18 09:30] VITALS: BP 110/75; PULSE 115; RESP 18; TEMP 37.3
[2018-04-18] MEDS: Ibuprofen 600 MG Tablet PO ×2 (10:22→20:25)
[2018-04-18 14:00] VITALS: BP 111/75; PULSE 93; RESP 18; TEMP 36.8
--- NOTE | 2018-04-18 16:28 | CASEMGMT ---
Social Work Labor and Delivery Unit Spoke with patient/mother of baby (MOB) and father of baby (FOB) in the hallway today. Parents report things are going well, but that MOB is planning to stay another day. FOB has to go back to work tomorrow and both parents want MOB to have one more day of support/extra set of hands. Let MOB and and FOB know that this technical document writer will see MOB prior to discharge for provision of resources discussed during social work assessment (completed on 04.17.18). Plan: Continue to follow this family. -JERAMY Bauer, ANALYTICS INTERN
[2018-04-18 20:30] VITALS: BP 119/80; PULSE 97; RESP 16; TEMP 37.4; O2SAT 99
[2018-04-19 02:03] VITALS: BP 112/75; PULSE 87; RESP 16; TEMP 36.6; O2SAT 95
--- NOTE | 2018-04-19 08:43 | PCM.DC.BLA ---
Discharge Summary Date of Admission: 04/15/18 Date of Discharge: 04/19/18 Summary: Patient presented to triage for reports of decreased movement at 40+5 weeks, decision was made for IOL at that time. Patient labor course uneventful until second stage; prolonged 2nd stage of labor noted with pushing efforts >3.5 hours. Decision made for Primary LTCS for Second Stage Arrest. Viable baby boy born on 04/15/18 and normal PP course has been noted. Plan to discharge patient home today, POD #4 in stable condition. Subjective: Patient reports milk is in; patient has leaking noted bilaterally. Patient reports no issues with ambulation or urination. Patient pain well controlled with pain medications. Patient denies PHAM, scotoma or dizziness. Denies bleeding or drainage from incision. Objective: Nipples without cracks or blisters, no erythema noted BL Abdomen NT x 4 quadrants, FF 2FB below umbilicus, incisional dressing dry and intact - no blood or exudate noted on bandage +2/4 reflexes in LE, trace pedal edema, negative calf tenderness BL in LE scant rubra lochia - Physical Exam General: Alert, Oriented x3, Cooperative HEENT: Atraumatic, Normocephalic Neck: Supple Lungs: Normal air movement Cardiovascular: Regular rate, No murmurs Abdomen: Bowel Sounds Present, Soft, Non Tender Extremities: No edema, Capillary Refill Less than 3 Seconds Skin: No rashes, No breakdown Musculoskeletal: No Tenderness to Palpation of Joints or Extremities Neurological: Cranial nerves II-XII grossly intact Psych/Mental Status: Normal Affect, Appropriate Vital Signs Temp Pulse Resp BP Pulse Ox 98 F 87 16 112/75 95 04/19/18 02:03 04/19/18 02:03 04/19/18 02:03 04/19/18 02:03 04/19/18 02:03 Oxygen Delivery Method Room Air Weight: 194 lb 3.636 oz Body Mass Index (BMI) 36.6 Intake and Output for Last 24 Hours 04/17/18 04/18/18 04/19/18 23:59 23:59 23:59 Intake Total Balance
--- NOTE | 2018-04-19 08:56 | PCM.PN.OB ---
Subjective: Patient sitting up in bed without complaints, milk is in and patient reports that baby is latching well. Incision pain well controlled with PO meds, patient desires discharge to home today. Objective: Nipples without cracks or blisters, no erythema Abdomen NT x 4 quadrants, incisional dressing dry and intact FF midline 2FB below umbilicus +2/4 reflexes in LE or edema, no calf pain to palpation scant rubra lochia - Physical Exam General: Alert, Oriented x3, Cooperative HEENT: Atraumatic, Normocephalic Neck: Supple Lungs: Normal air movement Cardiovascular: Regular rate, Regular Rhythm Abdomen: Soft, Non Tender Extremities: No edema, Capillary Refill Less than 3 Seconds Skin: No rashes, No breakdown Musculoskeletal: No Tenderness to Palpation of Joints or Extremities Neurological: Cranial nerves II-XII grossly intact Psych/Mental Status: Normal Affect, Appropriate Vital Signs Temp Pulse Resp BP Pulse Ox 98 F 87 16 112/75 95 04/19/18 02:03 04/19/18 02:03 04/19/18 02:03 04/19/18 02:03 04/19/18 02:03 Oxygen Delivery Method Room Air Weight: 194 lb 3.636 oz Body Mass Index (BMI) 36.6 Intake and Output for Last 24 Hours 04/17/18 04/18/18 04/19/18 23:59 23:59 23:59 Intake Total Balance Medical Necessity - Tobacco Use Smoking Status: Former smoker Assessment/Plan All Active Problems (Last Updated 04/14/18 @ 19:18 by Sascha Sinclair) False labor after 37 completed weeks of gestation (Acute) Irregular contractions (Acute) 27 y/o s/p LTCS for secondary stage arrest, POD #4 P: 1) Discharge patient to home pending discharge 2) Anticipatory discharge teaching done 3) RTC at 1 weeks for incision check and then 6 weeks PP for PP visit Juhi ATKINSON
[2018-04-19 09:15] VITALS: BP 111/68; PULSE 94; RESP 16; TEMP 37.2
[2018-04-19] MEDS: oxyCODONE 5 MG Tablet PO ×2 (09:43→15:55)
[2018-04-19] MEDS: Ferrous Sulfate 325 MG Tablet PO (12:17)
[2018-04-19] MEDS: Senna/Docusate Sodium 1 Tablet PO (12:18)
[2018-04-19 15:10] VITALS: BP 125/87; PULSE 111; RESP 20; TEMP 37.2
== END 2018-04-19 18:15 | disposition home or self-care (01) | DRG 540 ==
PROVIDERS: Admitting Provider Obstetrics & Gynecology; Referring Provider Obstetrics & Gynecology; Visit Provider Obstetrics & Gynecology
DX: O48.0 Post-term pregnancy (principal); O76 Abnormality in fetal heart rate and rhythm complicating labor and delivery; O63.1 Prolonged second stage (of labor); O99.824 Streptococcus B carrier state complicating childbirth; O77.0 Labor and delivery complicated by meconium in amniotic fluid; O36.8190 Decreased fetal movements, unspecified trimester, not applicable or unspecified; J45.909 Unspecified asthma, uncomplicated; K21.9 Gastro-esophageal reflux disease without esophagitis; Z87.891 Personal history of nicotine dependence; Z3A.40 40 weeks gestation of pregnancy; Z37.0 Single live birth
CPT/HCPCS: 59025; 59050; 85027; 86850; 86900; 94640; 99218; J7030; J7120; A4216; G0378; J2405

== ENCOUNTER 2018-04-25 16:30 | Outpatient (CLI) | payer MEDICAID, SELFPAY ==
--- OUTSIDE RECORDS SUMMARY | 2018-07-28 05:14 | XMS RPT_ITS ---
[...] Unavailable JUHI EPPERSON (CNM) Attending Unavailable DEIRDRE, RUBÉN Attending Unavailable ORLY MORAN ([facility]) Attending Unavailable DEIRDRE, RUBÉN Attending Unavailable Deirdre, Rickmon Attending Unavailable Deirdre, Rickmon Referring Unavailable Primay Care Physicia, No Primary Care Unavailable Addi Sharif Attending Unavailable Primay Care Physicia, No Primary Care Unavailable Primay Care Physicia, No Primary Care Unavailable Rubén Gilmore Admitting Unavailable Rubén Gilmore Attending Unavailable Deirdre, Karmon Referring Unavailable Denisse Nolasco Attending Unavailable Primay Care Physicia, No Primary Care Unavailable Deirdre, Rubén Attending Unavailable Primay Care Physicia, No Primary Care Unavailable Desiree Palafox Attending Unavailable Desiree Palafox Referring Unavailable Primay Care Physicia, No Primary Care Unavailable Desiree Palafox Attending Unavailable Primay Care Physicia, No Primary Care Unavailable PROBLEMS PROBLEMS DATE TYPE CONDITION / CODE ATTENDING STATUS SOURCE 04/24/2018 Unknown Z34.03 - Rubén Gilmore Active Maura Encounter for [facility] normal first Repository , third trimester / Z34.03(ICD-10) 01/30/2018 Active Encounter for Active [facility] supervision of [facility] normal first Repository , third trimester / Z34.03(ICD-10) 04/13/2018 Unknown R06.02 - Addi Sharif Active [facility] breath / [facility] R06.02(ICD-10) Repository PROCEDURES PROCEDURES No Procedure Records FoundRESULTS RESULTS PROGRESS Observed: 05/30/2018 Status: COMPLETED Source: MOBILE 3:59 PM [facility] REPOSITORY HNO ID: [id number] Author: Rubén Gilmore Service: (none) Author Type: Physician Type: Progress Notes Filed: 05/30/2018 4:58 PM Note Text: Obstetric History T1 L1 SAB0 TAB0 Ectopic0 Multiple0 Live Births1 Name of Baby Donovan: Kiet Date: 04/15/18 GA: 40w6d Delivery: C- Section, Low Transverse Apgar1: 7 Apgar5: 7 Living: Living VISIT Win Power is a 27 year old year old here for visit. Delivery Summary: Recovery: Feeding: Breast feeding problems: None Menses since delivery: Not resumed Menstrual pattern prior to : Irregular periods [place] since delivery: attempted, decreased libido Depression: denies symptoms of depression. See depression screening tab. She has some anxiety. Emotional support: Yes Bowel symptoms: Negative for abdominal discomfort, blood in stools or black stools and change in bowel habits Bladder symptoms: No dysuria, gross hematuria, urinary frequency, urinary urgency, or incontinence Other issues:decreased libido Last Pap: 3 years ago PAST MEDICAL HISTORY Diagnosis Date - Allergic rhinitis Dr. Castelan - Depression 12/09/2009 resolved - Menarche age 14 - NEGATIVE HISTORY OF 08/29/2009 Normal color vision - Unspecified asthma, with status asthmaticus Dr. Castelan PAST SURGICAL HISTORY Procedure Laterality Date - DELIVERY ONLY 04/15/2018 C/S low transverse - NONE FAMILY HISTORY Problem Relation Age of Onset - Diabetes Maternal Grandmother - Heart Paternal Grandmother [place] - Psychiatry Father - No Known Problems Mother - other (manic depression) Sister - No Known Problems Brother - Skin Cancer Maternal Grandfather - Stroke Paternal Grandfather - Asthma Sister - other (form of giantism cali-hypertrophy) Sister - No Known Problems Sister SOCIAL HISTORY Social History Marital status: Spouse name: Dusty Years of education: 12 Number of children: Occupational History Occupation Employer Comment unemployed Social History Main Topics Smoking status: Former Smoker Packs/day: 0.00 Years: 2.00 Quit date: 2015 Smokeless tobacco: Never Used Alcohol use: Yes Comment: occasionally, but not while Drug use: No Sexual activity: Yes Partners with: Male Other Topics Concern No BLOOD TRANSFUSIONS No CAFFEINE No OCCUPATIONAL EXPOSURE No HOBBY HAZARD No SLEEP CONCERN No STRESS CONCERN No WEIGHT CONCERN No DIET No BACK CARE No BIKE HELMET Yes SEAT BELT Yes SELF EXAMS No Social History Narrative Lives in Boyfriend, has a bird and frog PHYSICAL EXAMINATION: There were no vitals taken for this visit. GENERAL: pleasant, female in no apparent distress HEENT: Normocephalic, atraumatic, mucus membranes moist and no lesions NECK: Supple, full range of motion, no adenopathy and thyroid normal DERMATOLOGY: Normal, without lesions, non-icteric and non-hirsute BREAST: soft, non-tender, symmetric, no dominant mass, normal nipple-areolar complex, no lymphadenopathy and no nipple discharge CHEST: Normal inspiratory effort ABDOMEN: soft, non-tender and no masses. No incisional redness, swelling, or drainage. PELVIC: external genitalia normal, normal Bartholin's glands, urethra, [place]'s glands, no vulvar lesions, no cervical lesions, good vaginal support, physiologic discharge present, normal appearing perineal body and perianal region BIMANUAL: uterus normal size, shape and consistency, no adnexal masses and non-tender NEURO: alert and oriented x3,exam grossly non-focal EXTREMITIES: normal ASSESSMENT AND PLAN: 27 year old status post CS with normal course. Contraception plan: condoms ; declines other options. Discussed importance of interpregnancy interval. Pap today Follow up: RTC for annual exams and PRN Anxiety - counseling information given. Reviewed SI/HI precautions. Rubén Gilmore MD PROGRESS Observed: 04/21/2018 Status: COMPLETED Source: MOBILE 4:22 PM [facility] REPOSITORY HNO ID: [id number] Author: Orly Zaidi) Dean Service: (none) Author Type: Nurse Practitioner [...] Follow-up at 6 week visit. Orly Moran APRN.[facility] DISCHARGE SUMMARY Observed: 04/19/2018 Status: F Source: [place] 8:55 AM [facility] REPOSITORY [facility] Medical Records Department [address] [place] [address] Discharge Summary 04/19/18 0843 MR#: [id number] Acct: [id number] Name: WIN POWER Rep #: [id number] : 1990 27 From: Juhi Epperson CNM PCP: Care Physician, No Primary Status: ADM IN Y Location: [place] [address] Discharge Summary Date of Admission: 04/15/18 Date [...] Signed PROGRESS Observed: 04/18/2018 Status: COMPLETED Source: MOBILE 3:49 PM [facility] REPOSIT[facility] O ID: [id number] Author: Jatin Abbott LPN Service: (none) Author Type: (none) Type: Progress Notes Filed: 04/18/2018 3:51 PM Note Text: Pt delivered via C/S at [facility] on 04/15/[address] Stoddard. See OB Outcome note. Jatin Abbott LPN DISCHARGE INSTRUCTION Observed: 04/18/2018 Status: F Source: [place] 8:04 AM [facility] REPOSITORY [facility] Medical Records Department [address] [place] [address] Instructions for Home/Discharge Instructions 04/18/18 0803 MR#: [id number] Acct: [id number] Name: WIN POWER Rep #: [id number] : 1990 27 From: Rubén Gilmore PCP: [...] Physician HOSP Observed: 04/18/2018 Status: COMPLETED Source: MOBILE 12:00 AM [facility] REPOSITORY Patient Update (WOOB) WIN POWER ([id number]) 1990 F Date Time Provider Department 04/18/18 RUBÉN GILMORE During your visit today, we recorded the following information about you: Jatin Abbott LPN 04/18/2018 3:51 PM Signed Pt delivered via C/S at [facility] on 04/15/[address] Gilmore and GLORIA. See OB Outcome note. Jatin Abbott LPN [...] F Source: MAURA NO DIFF 5:50 AM [facility] REPOSITORY Order Comment: Comments: Day #1 Reason [...] MPV 10.2 Performed By: #### L100.0500 #### [facility] [place], [address] OPERATIVE REPORT Observed: 04/15/2018 Status: F Source: MAURA 4:42 PM [facility] REPOSITORY [facility] Medical Records Department [address] [place] [address] Operative Report 04/15/18 1535 MR#: [id number] Acct: [id number] Name: WIN POWER Rep #: [id number] : 1990 27 From: Rubén Gilmore PCP: Care Physician, No Primary Status: ADM IN Location: PF668-0 Delivery Final RACHEL: 04/09/18 Gestational age: 40 [...] closed in a subcuticular fashion by the OPERATOR WEAPON LOCATING RADAR with me present in the labor and [...] AND PHYSICAL Observed: 04/14/2018 Status: F Source: [place] EXAM 7:22 PM [facility] REPOSITORY [facility] Medical Records Department [address] [place] [address] History and Physical 04/14/181917 MR#: [id number] Acct: [id number] Name: WIN POWER Rep #: [id number] : 1990 27 From: Rubén Gilmore PCP: Care Physician, No Primary Status: ADM IN Y Location: MS096-2 History Date of Admission: 04/14/18 Final RACHEL: [...] Route WeiInfant GeLabor LenAnesthesiDelivery Provider FOB Date [facility] Location Labs: GBS positive Physical [...] by Rubén Gilmore > Date Rubén Gilmore Cosign Signature: Date (if applicable) CC: No Primary Care Physician; Rubén Gilmore Signed CBC-COMPLETE BLOOD CNT Collected: 04/14/2018 Status: F Source: MAURA NO DIFF 5:32 PM [facility] REPOSITORY TYPE CODE TESTS RESULT OUT [...] MPV 10.5 Performed By: #### L100.0500 #### [facility] [address] [place], [place], [address] TYPE AND SCREEN Collected: 04/14/2018 Status: F Source: [place] 5:32 PM [facility] REPOSITORY Order Comment: Reason for Type AND Screen/Red Cells: ROUTINE TYPE CODE TESTS RESULT OUT OF RANGE REFERENCE UNITS LAB B10.0800 AB Normal BLOOD TYPE GEL POSITIVE LAB B100.4000 Normal Antibody NEGATIVE Screen Performed By: #### B101.7450 #### [facility] [address] [place], [place], [address] PROGRESS Observed: 04/14/2018 Status: COMPLETED Source: MOBILE 4:46 PM [facility] REPOSITORY HNO ID: [id number] Author: Rubén Gilmore Service: (none) Author Type: [...] late Contractions: TOCO: Irregular Interpretation: Equivocal To [facility] for induction of labor SIGNATURE: Rubén Gilmore MD PROGRESS Observed: 04/12/2018 Status: COMPLETED Source: MOBILE 5:36 PM [facility] REPOSITORY HNO ID: [id number] Author: Juhi (Chapito) Jose Service: (none) Author Type: Records Manager Type: Progress Notes Filed: 04/12/2018 5:37 [...] supervision of normal first in third trimester -[facility] teaching and Labor Precautions reviewed - URINE OB DIP B/O 2. 40 weeks gestation of -IOL scheduled Tuesday PM @ 41 weeks if spontaneous labor doesn't occur. -Postdates management discussed - URINE OB DIP B/O Juhi Epperson, CAMACHO (ROM) RUPTURE OF Collected: 04/09/2018 Status: F Source: [facility] 1:20 PM [facility] REPOSITORY TYPE CODE TESTS RESULT OUT OF RANGE REFERENCE UNITS LAB L205.1310 Negative Normal ROM Negative Result Comment: Amniotic fluid not present indicates No Rupture of Membranes at time of specimen collection. Performed By: #### L205.1000 #### [facility] [address] [place], [address] PROGRESS Observed: 03/21/2018 Status: COMPLETED Source: MOBILE 9:15 AM [facility] REPOSITORY HNO ID: [id number] Author: Kiley Canseco RN Service: (none) Author [...] Forceps 3. Vacuum extractor Physician presentations 1. OB-outboard motorboat rigger 2. Supervisor Cigarette Making Department 1. Mom's first hour 2. baby's first hour 3. baby's discharge protocol Completed childbirth education class. Kiley Canseco RN CNCNPATED Observed: 03/20/2018 Status: COMPLETED Source: MOBILE 12:00 AM [facility] REPOSITORY Education (WOOB) WIN POWER ([id number]) 1990 F Date Time Provider Department 03/20/18 NURSE PNOB [facility] WSTR WOOB Reason for Visit: Class [4072] Progress Notes: Kiley Canseco RN 03/21/2018 9:16 [...] Forceps 3. Vacuum extractor Physician presentations 1. OB-outboard motorboat rigger 2. Supervisor Cigarette Making Department 1. Mom's first hour 2. baby's first [...] February) Date Reviewed: 03/13/2018 Reviewed by: Juhi Epperson - Fully Assessed [...] STREP PCR Collected: 03/13/2018 Status: F Source: MOBILE 4:00 PM [facility] REPOSITORY TYPE CODE TESTS RESULT OUT OF RANGE REFERENCE UNITS LAB GBPCRT Positive for Abnormal Group B Alert GROUP B Streptococcus by STREP PCR PCR. If susceptibility testing is needed and was not requested with initial test order, call lab ([phone]) within 5 days to initiate workup. Performed By: #### GBPCR #### [facility] [address] [place], [place] [address] CBC-COMPLETE BLOOD CNT Collected: 03/02/2018 Status: F Source: [place] NO DIFF 11:14 PM [facility] REPOSITORY TYPE CODE TESTS RESULT OUT [...] 9.9 Performed By: #### L100.0500, B101.7450 #### [facility] [address] [place], [address] TYPE AND SCREEN Collected: 03/02/2018 Status: F Source: [place] 11:14 PM [facility] REPOSITORY Order Comment: Has pt arrived? Y Reason for Type AND Screen/Red Cells: ROUTINE TYPE CODE TESTS RESULT OUT OF RANGE REFERENCE UNITS LAB B10.0800 AB Normal BLOOD TYPE GEL POSITIVE LAB B100.4000 Normal Antibody NEGATIVE Screen Performed By: #### L100.0500, B101.7450 #### [facility] [address] [place], [address] URINALYSIS, COMPLETE Collected: 03/02/2018 Status: F Source: [place] 10:25 PM [facility] REPOSITORY Order Comment: Has pt arrived? Y How was Urine Obtained? DATA WAREHOUSE ADMINISTRATOR TO SPECIFY TYPE CODE TESTS RESULT OUT [...] Normal AMORPHOUS Performed By: #### L400.0001 #### [facility] [address] [place], [address] Observed: 02/27/2018 Status: F Source: MOBILE URINE CULTURE 2:30 PM [facility] REPOSITORY Sp. Request/Comment: - Specimen received in preservative Culture Result - >=100,000 CFU/ml Normal urogenital beth Performed By: #### URCUL #### [facility] [address], [place] [address] PROGRESS Observed: 02/16/2018 Status: COMPLETED Source: MOBILE 5:32 PM [facility] REPOSITORY HNO ID: [id number] Author: Yulissa Stokes Service: (none) Author Type: [...] clinically indicated Observed: 02/13/2018 Status: F Source: MOBILE BACT/CAND VAG GRM ST 9:43 AM [facility] REPOSITORY Sp. Request/Comment: - Swab Smear Result - Stain results consistent with normal vaginal beth. Moderate --> ABNORMAL ALERT Budding yeast --> ABNORMAL ALERT Moderate Polymorphonuclear leukocytes Performed By: #### BVCNSM #### [facility] [address], [place] [address] TOXICOLOGY SCREEN,UR Collected: 01/30/2018 Status: F Source: MOBILE 1:00 PM [facility] REPOSITORY TYPE CODE TESTS RESULT OUT OF [...] presumptive only. These tests are for med ical purposes only and should not be used [...] on the same specimen through Client Services ([phone]) if contacted within 48 hours of initial testing. [1]Substance Abuse and Mental Health Services Administration (2012). Clinical Drug Testing in Primary Care Technical Assistance Publication Series 32. Department of Health and Human Services, [place], p.10. These tests were developed and their performance characteristics determined by [facility]'s [facility] [place] ( [facility]). They have not been cleared or a pproved by the FDA. [facility] is regulated under CLIA as qualified to perform high complexity testing. These tests are used for clinical purposes. They should not be regarded as investigational or for research. Performed By: #### UTOX2 #### [facility] [address] [place], [place] [address] Observed: 01/30/2018 Status: F Source: MOBILE URINE CULTURE 1:00 PM [facility] REPOSITORY Sp. Request/Comment: - Specimen received in preservative Culture Result - <10,000 CFU/ml Normal urogenital beth Performed By: #### URCUL #### [facility] [address] [place], [place] [address] 50G, 1HR GEST. Collected: 01/30/2018 Status: F Source: MOBILE GSCRN 9:56 AM [facility] REPOSITORY TYPE CODE TESTS RESULT OUT OF REFERENCE UNITS RANGE LAB GLUP 74-134 mg/dL Low Glucose 73 Screen, Preg Result Comment: [place] Congress of Obstetricians and Gynecologists (Ha/Coustan) guidelines state a gestational diabetes mellitus positive screen is made, in women not previously diagnosed with overt diabetes, when the 1 hr plasma glucose level is equal to or above 140 mg/dL. The [facility] [place] recommends a 135 mg/dL cutoff. Performed By: #### GLTGST #### [facility] [address] [place], [place] [address] CBC AND DIFFERENTIAL Collected: 01/30/2018 Status: F Source: MOBILE 9:56 AM [facility] REPOSITORY TYPE CODE TESTS RESULT OUT OF [...] k/uL Abs Lymph 1.72 LAB AMONO % Bosque% 6.1 LAB AAMONO <0.87 k/uL Abs Bosque 0.62 LAB AEOS % Eosin% 3.8 LAB AAEOS <0.46 k/uL Abs Eosin 0.39 LAB ABASO % Baso% 0.3 LAB AABASO <0.11 k/uL Abs Baso 0.03 LAB AUNRBC 0 /100 WBC NRBCs 0.0 LAB ABNRBC <0.01 k/uL Absolute nRBC <0.01 LAB DTYP DTYPE Auto Diff Performed By: #### CBCDIF #### [facility] [address] [place], [place] [address] PROGRESS Observed: 01/30/2018 Status: COMPLETED Source: MOBILE 8:39 AM [facility] REPOSITORY HNO ID: [id number] Author: Juhi (Chapito) Jose Service: (none) Author Type: Records Manager Type: Progress Notes Filed: 01/30/2018 8:04 PM Note Text: INITIAL OB ASSESSMENT OB Provider: HPI: Win Power is a 27 year old female [...] Multivitamin with Folic acid: Yes Occupation: Unemployed Taoist or heritage: No Would refuse blood transfusion if medically necessary: No BMI 33.71 kg/(m2) Patient BMI over 30? No Marital Status: Partner: Name: Don Age: 53 Occupation: Unemployed - establishing his job as recently moved to [place] Gender: male History of STDs: None PAST [...] 2 weeks or sooner prn. Juhi Epperson APRN.CHAPITO SBSANDHYAT Win Power was given the 4's screening tool. Win answered as follows: OB [...] to rescreen early third trimester. Juhi Epperson APRN.CHAPITO CNNURSE Observed: 01/30/2018 Status: COMPLETED Source: MOBILE 8:00 AM [facility] REPOSITORY Nurse Visit (WOOB) WIN POWER ([id number]) 1990 F Date Time Provider Department 01/30/18 8:00 AM NURSE PNOB [facility] WSTR WOOB During your visit today, we recorded the following information about you: Last Period 07/03/17 Jennifer Griggs RN 01/30/2018 8:31 AM Signed SEQUENTIAL SCREENINGS The [facility] offers sequential screenings for women [...] It will require an appointment with our cardiovascular technician. This is not an ultrasound performed [...] the above symptoms, contact our office at [phone] and ask to speak with a nurse. After hours, you can call [facility] at [phone] OR call [facility] at [phone] and ask to have the doctor floral designer salesperson paged. If you consider this an emergency, [...] treatment is particularly effective in young patients-the [facility] Cord Blood Bank reports a 70 [...] issues. What do the experts say? The [place] Academy [employer] Pediatric[employer] encourages philanthropic blood banking [...] baby needs at the moment. The nurse, seamless tube mill operator, or physician will then label the samples, [...] AHEAD OF TIME! Public cord-blood willson--DONATION: [employer] [phone] [facility]'s Placental Blood Program, [facility] Umbilical Cord Blood Bank, Private cord-blood willson--SAVING FOR YOUR OWN USE: [employer], (I think this is the least expensive) [employer] [phone] [employer], (789) [employer] [place] Cord Blood Bank, [phone] 700-CORD Cells, [phone] [place] Cryobank, Cord Blood Registry, (091) CORDBLOOD [employer], An Internet search may provide [...] care elsewhere, antepartum [Z34.90] Order(s):MELINA PT ED SHRIMP PACKER [] Order #: [id number]: 1 MELINA PT ED ANESTHESIA [[id number]] Order #: [id number]: 1 MELINA PT ED SHRIMP PACKER [] Order #: [id number]: 1 MELINA WHAT TO EXPECT DURING YOUR HOSPITAL STAY [] Order #: [id number]: 1 MELINA PT ED SHRIMP PACKER [] Order #: [id number]: 1 MELINA PT ED SHRIMP PACKER [] Order #: [id number]: 1 MELINA PT ED SHRIMP PACKER [] Order #: [id number]: 1 Prescriptions as of 01/30/2018 Sig: VITAMIN,CALCIUM,MINE* [...] instructions from your clinician: SEQUENTIAL SCREENINGS The [facility] offers sequential screenings for women [...] It will require an appointment with our cardiovascular technician. This is not an ultrasound performed [...] the above symptoms, contact our office at [phone] and ask to speak with a nurse. After hours, you can call doctors registry at [phone] OR call [facility] at [phone] and ask to have the doctor floral designer salesperson paged. If you consider this an emergency, dial [phone]--1 or go to your nearest emergency department. [...] is particularly effective in young patients- the [facility] Cord Blood Bank reports a 70 [...] issues. What do the experts say? The [place] [employer] Pediatrics encourages philanthropic blood banking [...] baby needs at the moment. The nurse, seamless tube mill operator, or physician will then label the samples, [...] AHEAD OF TIME! Public cord-blood willson--DONATION: [employer] [phone] [facility] Placental Blood Program, [facility] Umbilical Cord Blood Bank, Private cord-blood willson--SAVING FOR YOUR OWN USE: [employer], (I think this is the least expensive) [employer] [phone] [employer], (250) [employer] [place] Cord Blood Bank, [phone] 700-CORD Cells, [phone] [place] Cryobank, Cord Blood Registry, (716) CORDBLOOD [employer], An Internet search may provide you with additional listings. Disposition: Return for New OB with Juhi Epperson. Follow-up and Disposition History Recorded Encounter Status:Closed by JENNIFER GRIGGS RN on 01/30/18 EMERGENCY DEPARTMENT Observed: 01/15/2018 Status: F Source: [place] SUMMARY 10:37 PM [facility] REPOSITORY [facility] Medical Records Department [address] [place] [address] Emergency Department Summary 01/15/18 1717 MR#: [id number] Acct: [id number] Name: WIN POWER Rep #: [id number] : 1990 27 From: Addi Sharif MD [...] Asthma exacerbation This note was generated with Moonshoot dictation software. It may contain incorrect words, [...] your Primary Care Provider. Call [facility] ([phone]) or report to the closest Emergency Room. Call 911 if necessary. 01/15/182236 <Electronically signed by Addi Sharif MD> Date Addi Sharif MD Cosigner Signature (If Indicated): Date CC: No Primary Care Physician ALLERGIES ALLERGIES DATE TYPE / CODE NAME / CODE REACTION SEVERITY SOURCE 01/30/2018 DRUG PREDNISONE INTOLERANCE [facility] INGREDI/419 [facility] 633650([facility] Repository ED CT) 01/15/2018 Drug prednisone/F0060 Nausea Unknown [place] Allergy/416 09362(RXNORM) [facility] 097679([facility] ED CT) Repository 11/17/2009 Environ/420 SEASONAL OTHER: SEE C [facility] 715605([facility] ALLERGIES [place]) Repository ENCOUNTERS ENCOUNTERS ADMIT/DISCHARGE ACCOUNT ADMITTING ENCOUNTER LOCATION SOURCE NUMBER CLASS 05/30/2018/05/31/[id number] [place] Repository 04/25/2018/04/25/[id number] ing:WPOUTRoom Repository : WPOLRM 04/21/2018/04/25/20 [id number] Ambulatory [address] Repository 04/14/2018/04/19/20 [id number] Rubén Gilmore Inpatient [place] [facility] Encounter [facility] ing:WPRoom: Repository [id number]: 1 04/14/2018/04/17/20 [id number] Ambulatory [address] Repository 04/12/2018/04/13/20 [id number] Ambulatory [address] Repository 04/09/2018/04/09/20 [id number] Ambulatory [address] ing:WPOUT Repository 04/07/2018/11/30 [id number] Ambulatory Maura Roosevelt 18 [facility] ing:WPOUTRoom Repository : [id number] 04/05/2018/04/06/20 [id number] Ambulatory [address] [place] Repository 04/03/2018/04/04/20 [id number] Ambulatory [address] [place] Repository 03/27/2018/03/28/20 [id number] Ambulatory [address] [place] Repository 03/26/2018/03/26/20 [id number] Ambulatory Roosevelt Maura 18 [facility] ing:WPOUTRoom Repository : [id number] 03/21/2018/03/22/20 [id number] Ambulatory [address] [place] Repository 03/13/2018/03/28/20 [id number] Ambulatory [address] Repository 03/02/2018/03/03/20 [id number] Ambulatory Roosevelt Roosevelt[address] ing:WPOUTRoom Repository : WP011 02/27/2018/02/29/20 [id number] Ambulatory [address] [place] Repository 02/16/2018/03/28/20 [id number] Ambulatory [address] [place] Repository 02/13/2018/02/15/20 [id number] Ambulatory [address] [place] Repository 01/30/2018/03/28/20 [id number] Ambulatory [address] [place] Repository 01/30/2018/02/01/20 [id number] Ambulatory [address] [place] Repository 01/30/2018/01/31/20 [id number] Ambulatory [address] [place] Repository 01/15/2018/01/16/20 [id number] Emergency Maura Maura[address] ing:ED Repository PAYERS PAYERS ENCOUNTER GUARANTOR PAYER SUBSCRIBER SOURCE 04/25/2018 WIN Gamez Primary WIN [id number] 05/10 Insurance:Sascha HANKS: Criss FRANCO y Number: [id number], [place] [id number] Repository 30910Zzy: [phone]) Date:0968-08-38SU [phone] ([facility] [address] [place] [address] [id number]: 04/25/2018 Secondary NOT GIVENUNK Roosevelt Insurance:SELF PAY [facility] Number: Effective Repository Date:2018-04-25 04/14/2018 WIN Vera Primary WIN Gamez Roosevelt [id number] 1/2 Insurance:MOLINAPolic SHIRESDOB: Community JOAN y Number: [id number], [place] [id number] Repository 08392Rpn: ([phone]) Date:9355-74-38DQ [phone] () [address] [place] [address] [id number]: 04/14/2018 Secondary NOT GIVENUNK Roosevelt Insurance:SELF PAY [facility] Number: Effective Repository Date:2018-02-24 04/09/2018 WIN Gamez Primary WIN Gamez Maura [id number] 1/2 Insurance:MOLINAPolic SHIRESDOB: Community JOAN y Number: [id number], [place] [id number] Repository 20321Qgd: ([phone]) Date:0107-89-52JT [phone] () [address] [place] [address] [id number]: 04/09/2018 Secondary NOT GIVENUNK Roosevelt Insurance:SELF PAY [facility] Number: Effective Repository Date:2018-04-09 04/07/2018 WIN Gamez Primary WIN Gamez Roosevelt [id number] 1/2 Insurance:MOLINAPolic SHIRESDOB: Community JOAN y Number: [id number], [place] [id number] Repository 51994Fyu: ([phone]) Date:4677-30-80VL [phone] () [address] [place] [address] [id number]: 04/07/2018 Secondary NOT GIVENUNK Roosevelt Insurance:SELF PAY [facility] Number: Effective Repository Date:2018-04-07 03/26/2018 WIN Gamez Primary WIN Gamez Maura [id number] 1/2 Insurance:MOLINAPolic SHIRESDOB: Community JOAN y Number: [id number], [place] [id number] Repository 47140Dmc: ([phone]) Date:3329-92-26TP [phone] () [address] [place] [address] [id number]: 03/26/2018 Secondary NOT GIVENUNK Maura Insurance:SELF PAY [facility] Number: Effective Repository Date:2018-03-26 03/02/2018 WIN Gamez Primary WIN J Roosevelt [id number] 1/2 Insurance:MOLINAPolic SHIRESDOB: [facility] JOAN y Number: [id number], [place] [id number] Repository 48979Shx: ([phone]) Date:4929-35-41YA [phone] () [address] [place] [address] [id number]: 03/02/2018 Secondary NOT GIVENUNK Maura Insurance:SELF PAY [facility] Number: Effective Repository Date:2018-03-02 01/15/2018 WIN Gamez Primary WIN J Maura [id number] 1/2 Insurance:MEDICAIDPol SHIRESDOB: [facility] JOAN icy Number: [id number], [place] [id number] Repository 46850Vbh: ([phone]) Date:2018-01-15 [phone] () 01/15/2018 Secondary NOT GIVENUNK Roosevelt Insurance:SELF PAY [facility] Number: Effective Repository Date:2018-01-15
== END 2018-04-25 17:45 | disposition home or self-care (01) ==
LOC: WPOUT 16:30 → WP 16:31
PROVIDERS: Referring Provider Obstetrics & Gynecology; Visit Provider Obstetrics & Gynecology
DX: Z39.1 Encounter for care and examination of lactating mother (principal)
CPT/HCPCS: 96152

== ENCOUNTER 2018-06-23 16:29 | Emergency (ER) | payer MEDICAID, SELFPAY ==
[2018-06-23 16:30] VITALS: BP 172/93; PULSE 84; RESP 16; TEMP 36.2; O2SAT 95; BMI 31.0
--- NOTE | 2018-06-23 16:43 | RAD_ITS ---
STUDY: X-RAY CHEST REASON FOR EXAM: Female, 27 years old. Bronchitis. Short of breath. TECHNIQUE: Single AP portable view of the chest. COMPARISON: None. FINDINGS: The lungs are clear and expanded. There is no demonstrated pleural abnormality. Normal size heart. Normal mediastinum and clifford. Normal visualized pulmonary arteries. Normal visualized aortic arch and descending thoracic aorta. Normal visualized thoracic spine. Normal visualized ribs, clavicles, and shoulders. There is no demonstrated abnormality of the visualized soft tissue structures of the upper abdomen. RAD/Chest 1 View (Portable) IMPRESSION: Normal x-ray examination of the chest. Electronically Signed: Destin Harris MD at 17:04 EST , Service support ,
[2018-06-23 17:21] VITALS: TEMP 36.3; O2SAT 95
--- NOTE | 2018-06-23 17:21 | ED.DCSUM_ITS ---
- ER Visit Summary Date of Service: 06/23/18 Chief Complaint: Cough History of Present Illness: The patient is a 27 F who has had cough for the past 2 weeks. She states the cough was nonproductive but started being productive today. She does hear herself wheezing. She has a history of asthma. She has been using her inhaler more often. She has had mild temperature elevations at home. She has been using Tylenol at home. Physical Examination: Vital signs reviewed. HEENT exam unremarkable. Heart is regular rate and rhythm without murmurs. Lungs have slight expiratory wheezing. Abdomen is soft and nontender. Extremities reveal no edema. Skin exam normal. Neurologic exam normal. Test Results: Chest x-ray reveals no acute findings Emergency Department Course and Treatment: The patient likely has a viral etiology. I will treat her with Medrol and albuterol at home. She will follow- up with her PCP. Treatment Plan: [] Disposition: Discharge Impression: Acute bronchitis This note was generated with [employer] dictation software. It may contain incorrect words, spelling, and punctuation that were not noted in review of the chart prior to signing ED Disposition - Plan for ED Patient: Referrals: Care Physician,No Primary [Primary Care Provider] -
--- NOTE | 2018-06-23 17:21 | ED.DEP ---
ED Disposition - Plan for ED Patient: Disposition: Home or Assisted Living Instructions: ED Bronchitis Asthmatic Prescriptions: RX: Albuterol Inhaler [Ventolin Hfa] 1 - 2 puff INHALATION Q4H PRN PRN #1 inhaler PRN Reason: Wheezing MethylPREDNISolone DosePak [Medrol DosePak] 4 mg PO UD #1 box Referrals: Care Physician,No Primary [Primary Care Provider] -
[2018-06-23 17:53] VITALS: PULSE 110; RESP 17; O2SAT 94
== END 2018-06-23 17:54 | disposition home or self-care (01) ==
PROVIDERS: Emergency Provider Emergency Medicine
DX: J20.9 Acute bronchitis, unspecified (principal)
CPT/HCPCS: 71045; 94760; 99282

== ENCOUNTER 2019-03-04 10:51 | Emergency (ER) | payer MEDICAID, SELFPAY ==
[2019-03-04 10:52] VITALS: BP 125/74; PULSE 97; RESP 24; TEMP 36.6; O2SAT 99; BMI 31.1
--- NOTE | 2019-03-04 11:05 | RAD_ITS ---
STUDY: X-RAY CHEST REASON FOR EXAM: Female, 28 years old. Shortness of breath and cough for a couple days TECHNIQUE: PA and lateral views of the chest. COMPARISON: 06/23/2018 FINDINGS: The lungs are clear and expanded. There is no demonstrated pleural abnormality. Normal size heart. Normal mediastinum and clifford. Normal visualized pulmonary arteries. Normal visualized aortic arch and descending thoracic aorta. Normal visualized thoracic spine. Normal visualized ribs, clavicles, and shoulders. There is no demonstrated abnormality of the visualized soft tissue structures of the upper abdomen. RAD/Chest PA and Lateral IMPRESSION: No airspace consolidation or pleural effusion. Electronically Signed: Christiano Stone MD (Brooks) at 12:26 EDT , Service support ,
--- NOTE | 2019-03-04 11:06 | US_ITS ---
STUDY: FIRST TRIMESTER OBSTETRICAL ULTRASOUND REASON FOR EXAM: Female, 28 years old pelvic pain with coughing, positive hCG LMP: 01/16/2019 TECHNIQUE: Transabdominal TECHNICAL QUALITY: Adequate. PRIOR ULTRASOUND: None. FINDINGS: No intrauterine gestational sac/embryo seen. The uterus measures 6.9 x 4.9 x 3.6 cm. There is no demonstrated uterine fibroid. The cervix is closed. The right ovary measures 3.1 x 2.2 x 1.8 cm. Isoechoic lesion of the right ovary measuring 1 cm could represent a corpus luteum cyst. There is no visualized right adnexal mass or complex lesion. The left ovary measures 2.8 x 2.5 x 1.2 cm. There is no left ovarian cyst. There is no visualized left adnexal mass or complex lesion. Moderate free fluid within the pelvis. US/Transvaginal w/Preg US IMPRESSION: No intrauterine gestational sac/embryo. Moderate pelvic free fluid. Could represent early , however, ectopic should also be considered. Sonographic and serologic follow-up recommended. Electronically Signed: Christiano Stone MD (Brooks) at 13:41 EDT , Service support ,
--- NOTE | 2019-03-04 11:08 | ED.DCSUM_ITS ---
History of Present Illness Chief Complaint: Asthma Informant: Patient Onset: Weeks - 2, worse in past 3 days Context: Gradual Onset Timing: Continuous Quality: wheezing Location: chest Current Severity: Moderate Maximum Severity: Moderate Worsened by: coughing, exertion Relieved by: albuterol but not much Associated Symptoms: productive cough Narrative: Patient does have seasonal allergies, has been having a productive cough and increasing asthma symptoms over the past couple weeks. No fevers. Some chest tightness when she is wheezing but no other chest pains. No lower extremity edema. Her last menstrual period was January 16, and she missed her usually regular cycle this month, initially took a test that was negative but just recently took 2 urine tests at home that were both positive and now she has been having pain in her left pelvis only with coughing for the past week or so. No vaginal bleeding or other discharge. No urinary symptoms. She had a ultrasound and an hCG prior, ultrasound was unremarkable, the hCG was just barely positive. This was about 2-3 weeks ago. - Past Medical History (1) Asthma Status: Chronic (2) Seasonal allergies Status: Chronic Past Medical History - Allergies and Home Meds Allergies/Adverse Reactions: Allergies prednisone Adverse Reaction (Verified 03/04/19 10:55) Nausea Primary Care Physician: Sascha Sinclair [STAFF PHYSICIAN] - 2 Days Lives: With Family Smoking Status: Never smoker Drugs: None Review of Systems General: Denies: Chills, Fever, Sweats Eyes: Denies: Visual changes - bilaterally, Diplopia ENT: Denies: Rhinorrhea, Sore throat Cardiovascular: Denies: Chest pain, Palpitations Respiratory: Reports: Dyspnea, Cough, Sputum, Dyspnea on exertion. Denies: Orthopnea Gastrointestinal: Reports: Abdominal pain. Denies: Nausea, Vomiting, Diarrhea, Melena, Hematochezia Genitourinary: Reports: - - no vaginal bleeding. Denies: Dysuria, Hematuria, Frequency Musculoskeletal: Denies: Neck pain, Back pain, Swelling, Extremity Pain Skin: Denies: Rash, Wounds Neurological: Denies: Headache, Weakness, Numbness Physical Exam Vital Signs/Narrative: Vital Signs Temp Pulse Resp BP Pulse Ox 03/04/19 10:52 98 F 97 24 H 125/74 H 99 Inital Vital Signs reviewed: Yes General: Well nourished, Well developed, Acute Distress - mild resp distress, speaking in 7-10 word sentences Head: Normocephalic, Atraumatic Eyes: Perrl, EOMI ENT: Moist mucous membranes, No rhinorrhea Neck: Supple, Nontender Cardiovascular: Regular rate, Regular rhythm, No murmurs Respiratory: Chest nontender, Wheezing. Negative for: Rales, Rhonchi Abdomen: Soft, Nondistended, Normal bowel sounds, Tender - just left of suprapubic, Guarding - voluntary. Negative for: Rebound tenderness Back: Nontender, Normal Inspection Extremities: Nontender, No edema. Negative for: Calf Tenderness Skin: Normal color, No rash, No Trauma Neurological: Alert, Oriented x3, Cranial nerves II-XII grossly intact, Normal Strength, Normal Sensation Psychological: Normal affect, Normal Mood Diagnostic/Tx/Re-eval Impressions Chest X-Ray 03/04/19 11:05 IMPRESSION: No airspace consolidation or pleural effusion. Electronically Signed: Christiano Stone MD (Brooks) at 12:26 EDT , Service support , Obstetrics Ultrasound 03/04/19 11:06 IMPRESSION: No intrauterine gestational sac/embryo. Moderate pelvic free fluid. Could represent early , however, ectopic should also be considered. Sonographic and serologic follow-up recommended. Electronically Signed: Christiano Stone MD (Brooks) at 13:41 EDT , Service support , 03/04/19 11:05 Chest PA and Lateral [RAD] Stat 03/04/19 11:06 US Vaginal [Transvaginal w/Preg US] [US] Stat Laboratory Results 03/04/19 03/04/19 03/04/19 11:20 11:39 11:39 HCG, Quant 431 H Serum , Qual Cancelled Urine Test Positive H - Medical Decision Making After a duo nebulizer treatment she is not wheezing anymore feels a lot better. Chest x-ray shows no pneumonia. Likely viral illness or seasonal allergies exacerbating her asthma, she does not tolerate oral prednisone well so we gave her an injection of Kenalog which should help her asthma. With regards to the early and pain, it certainly could be muscle strain, but with her tenderness at rest, ultrasound and quant were obtained after confirming a positive test, the ultrasound is negative except for some free fluid, but no signs of an obvious ectopic nor intrauterine but her quant is only 431. Therefore, I would not expect to see anything right now. At 48-hour repeat quant is indicated. She is clinically and hemodynamically stable to follow-up as an outpatient. Discussed with Dr. Velázquez who is in agreement with this plan and they will set up the blood draw as an outpatient to be obtained in 2 days. She will follow-up after that. ED Disposition - Plan for ED Patient: Disposition: Home or Assisted Living Diagnosis: Pelvic pain affecting , Asthma exacerbation, Acute bronchitis Instructions: ASTHMA, Acute (Adult), ABDOMINAL PAIN, Early Referrals: Sascha Sinclair [STAFF PHYSICIAN] - 5-7 Days (This week-the office will call you about the appointment) Additional Instructions: You have an order for the blood test to be obtained at the [facility] laboratory on Tuesday. You will not have an appointment with the doctor that same day.
[2019-03-04 11:20] VITALS: PULSE 93; RESP 16
[2019-03-04] MEDS: Ipratropium/Albuterol Sulfate 3 ML AMPUL.NEB INHALATION (11:20)
[2019-03-04 11:31] LABS: Internal QC Validated? YES +Cl - CLEAR BKGD; Pregnancy, Urine Positive Negative
[2019-03-04] MEDS: Triamcinolone Acetonide 40 MG/ML Vial IM (11:41)
[2019-03-04 12:14] LABS: hCG Titer Quant., Serum 431 mIU/mL (1-3)
[2019-03-04 14:11] VITALS: RESP 18
== END 2019-03-04 14:12 | disposition home or self-care (01) ==
PROVIDERS: Emergency Provider Emergency Medicine; Family Provider Family Medicine; PCP Family Medicine
DX: O26.899 Other specified pregnancy related conditions, unspecified trimester (principal); O99.519 Diseases of the respiratory system complicating pregnancy, unspecified trimester; J45.901 Unspecified asthma with (acute) exacerbation; J20.9 Acute bronchitis, unspecified; Z3A.00 Weeks of gestation of pregnancy not specified
CPT/HCPCS: 71046; 76817; 81025; 84702; 94640; 96372; 99282

== ENCOUNTER 2019-03-05 14:50 | Day surgery (SDC) | payer MEDICAID, SELFPAY ==
[2019-03-04 10:52] VITALS: BMI 31.1
[2019-03-05] VITALS (11 sets, daily range): BP systolic 110–139; BP diastolic 71–86; PULSE 81–120; RESP 16–19; TEMP 36.1–37.2; O2SAT 91–99; BMI 31.1
--- NOTE | 2019-03-05 15:00 | FAL_PTH ---
PATIENT: WIN POWER LOC: [facility] [place] U#:[id number] AGE/SX: 28/F ROOM: RE03/05/[address]: Dr. Saira Pizarro, MDDOB: 1990 BED: DIS: 03/05/2019 SPEC #: [id number] RECD: 03/06/19 07:53 STATUS: MARGARETH JA #: [id number] BHARGAVI: 03/05/19 15:[address]: Saira Pizarro DEPT: SURGICAL PATHOLOGY RECD BY: Gilmar Ornelas ENTERED: 03/06/19 08:03 SP TYPE: ECTOPIC OTHR DR: Dr. David Alexis MD Tissues: ECTOPIC PREG Procedures: Surgery Specimen Level IV HEADER OPERATION: Laparoscopic left salpingectomy, removal ectopic PRE-OP DIAGNOSIS: Ruptured ectopic TISSUE SUBMITTED: Left fallopian tube, ectopic MICROSCOPIC DIAGNOSIS Left fallopian tube, salpingectomy: Chorionic villi consistent with tubal . VIOLA:tiburcio 03/07/19 COMMENT Case has been reviewed in consultation with Dr. Mahajan who concurs with the above diagnosis. IDC:VIOLA MICROSCOPIC DESCRIPTION Slides are reviewed. GROSS DESCRIPTION Received in fixative is one container labeled with the patient's name and designated left fallopian tube and ectopic . The specimen consists of a fallopian tube measuring 5.5 cm in length and up to 1 cm in diameter. The fimbrial end is identified. The central portion of the fallopian tube is congested and distended and measures up to 1.3 cm in diameter. Also present in the container are multiple blood clots measuring in aggregate 6 x 4 x 2 cm. Record Label Intern sections are submitted in four cassettes as follows: 1 & 2 - entire fallopian tube, 3 & 4 - blood clots. / VIOLA:tiburcio 03/06/19 TC:5 CPT: 71641
[2019-03-05] MEDS: Ipratropium/Albuterol Sulfate 3 ML AMPUL.NEB INHALATION (15:23)
--- NOTE | 2019-03-05 15:32 | HP.PCM_ITS ---
History and Physical Date of Admission: 03/05/19 Pre-Op History and Physical ? HPI: The patient is a 28 year old female presenting for pre-operative visit. She is scheduled for?laparoscopy with removal of ectopic , possible salpingectomy, for?acute pelvic pain and suspected ruptured ectopic on?03/05/2019. ??Procedure discussed along with risks, benefits and complications. ?Other alternatives discussed for management. Consent form signed??Yes.? PAST?MEDICAL?HISTORY PAST MEDICAL HISTORY Diagnosis Date ? Allergic rhinitis ? ? Dr. Castelan ? Depression 12/09/2009 ? resolved ? Ex-smoker 11/01/2018 ? Started at age 16 up to 05/10 PPD quit at age 25 ? Family history of genetic disease 01/30/2018 ? 01/30/2018Patient's sister diagnosed with hemihypertrophy. TKRN ? Menarche age 14 ? Mild persistent asthma without complication 04/04/2013 ? NEGATIVE HISTORY OF 08/29/2009 ? Normal color vision ? ? PAST?SURGICAL?HISTORY PAST SURGICAL HISTORY Procedure Laterality Date ? DELIVERY ONLY ? 04/15/2018 ? C/S low transverse ? ? CURRENT?MEDICATIONS Current Outpatient Medications Medication Sig Dispense Refill ? fluconazole (DIFLUCAN) 100 mg tablet Take 2 (100 mg) tablets on day one, then one tablet daily for the next 13 days 15 tablet 0 ? ketotifen fumarate (ZADITOR) 0.025 % (0.035 %) ophthalmic solution Use 1 Drop in both eyes twice daily. 1 Bottle 0 ? nystatin (MYCOSTATIN) 100,000 unit/mL suspension Apply to nipples after nursing 50 mL 0 ? loratadine (CLARITIN) 10 mg tablet Take 1 tablet by mouth once daily. 30 tablet 0 ? fluticasone (FLONASE) 50 mcg/actuation nasal spray Use 2 Sprays in each nostril once daily. Rinse mouth after use. 1 Bottle 0 ? albuterol HFA (PROVENTIL HFA, VENTOLIN HFA) 90 mcg/actuation inhaler Inhale 2 Puffs as instructed every 6 hours as needed for Wheezing/Shortness of Breath. 1 Inhaler 5 ? acetaminophen (TYLENOL) 325 mg cap Take by mouth as needed. ? ? ? Akfdmlgb-Qj-Zca-Fe-FA ( VITAMIN) tab Take 1 tablet by mouth. ? ? ? albuterol 2.5 mg /3 mL (0.083 %) nebulizer solution Use 3 mL via nebulizer every 6 hours as needed for Wheezing/Shortness of Breath. 1 vial contains 3 ml. 100 Vial 0 ? No current facility-administered medications for this visit.? ? ALLERGIES:?Prednisone; Seasonal Allergies ? PERSONAL HISTORY:? SOCIAL?HISTORY Social History ??Socioeconomic History ?Marital status: ?Spouse name: Don ?Number of children: Not on file ?Years of education: 12 ?Highest education level: Not on file ??Occupational History ?Occupation: unemployed ??Social Needs ?Financial resource strain: Not on file ?Food insecurity: ?Worry: Not on file ?Inability: Not on file ?Transportation needs: ?Medical: Not on file ?Non-medical: Not on file ??Tobacco Use ?Smoking status: Former Smoker ?Years: 2.00 ?Quit date: 2015 ?Years since quittin.8 ?Smokeless tobacco: Never Used ??Substance and Sexual Activity ?Alcohol use: Yes ?Comment: occasionally, but not while ?Drug use: No ?Sexual activity: Yes ?Partners: Male ??Lifestyle ?Physical activity: ?Days per week: Not on file ?Minutes per session: Not on file ?Stress: Not on file ??Relationships ?Social connections: ?Talks on phone: Not on file ?Gets together: Not on file ?Attends shinto service: Not on file ?Active member of club or organization: Not on file ?Attends meetings of clubs or organizations: Not on file ?Relationship status: Not on file ?Intimate partner violence: ?Fear of current or ex partner: Not on file ?Emotionally abused: Not on file ?Physically abused: Not on file ?Forced sexual activity: Not on file ??Other Topics ?Concerns: ?ADL RESPONSE: No ?ADL RESPONSE: No ?ADL RESPONSE: No ?ADL RESPONSE: No ?ADL RESPONSE: No ?ADL RESPONSE: No ?ADL RESPONSE: No ?ADL RESPONSE: No ?ADL RESPONSE: No ?ADL RESPONSE: No ?ADL RESPONSE: Not Asked ?ADL RESPONSE: Yes ?ADL RESPONSE: Yes ?ADL RESPONSE: No ??Social History Narrative ?Lives in Boyfriend, has a bird and frog ? FAMILY HISTORY:? FAMILY?HISTORY FAMILY HISTORY Problem Relation Age of Onset ? Diabetes Maternal Grandmother ? ? Coronary Artery Disease Paternal Grandmother ?had MA ? Psychiatry Father ? ? No Known Problems Mother ? ? other (manic depression) Sister ? ? No Known Problems Brother ? ? Skin Cancer Maternal Grandfather ? ? Stroke Paternal Grandfather ? ? Asthma Sister ? ? other (form of giantism cali-hypertrophy) Sister ? ? No Known Problems Sister ? ? Alzheimer's Disease No Family History ? ? Colon Cancer No Family History ? ? Breast Cancer No Family History ? ? Ovarian cancer No Family History ? ? Uterine Cancer No Family History ? ? Hypertension No Family History ? ? Hyperlipidemia No Family History ? ? Kidney Disease No Family History ? ? Seizures No Family History ? ? Thyroid No Family History ? ? ? GENERAL: denies fevers or chills ENDOCRINOLOGY: no heat or cold intolerance, on steroids for asthma Cardiology : denies palpitations or chest pain Respiratory: some wheezing and cough, nonproductive - no abnormal vaginal discharge, itching or burning, no dysuria or hematuria Hematology: denies history of prolonged bleeding or easy bruising or VTE Allergy: Denies history of personal or family history of allergy to anesthesia ? ? BP 110/64 ? Wt 165 lb (74.8 kg) ? LMP 01/15/2019 ? BMI 30.67 kg/m? ? GENERAL: pleasant, ?female in mild distress HEENT: Normocephalic, atraumatic, mucus membranes moist and no lesions NECK: Supple, full range of motion, no adenopathy and thyroid normal DERMATOLOGY: Normal, without lesions, non-icteric and non-hirsute CHEST: Some wheezing, some tachypnea ABDOMEN: soft, no hernia, no masses, Moderate tenderness in LLQ, rebound Absent, guarding Absent and pannus mild PELVIC: external genitalia normal, normal mons pubis, normal hair distribution pattern normal Bartholin's glands, urethra, Ball Club's glands, no vulvar lesions, no cervical lesions, good vaginal support, normal vaginal rugae, pink, smooth, closed pale cervix, normal appearing perineal body and perianal region, small amount of blood in the vault BIMANUAL: uterus normal size, shape and consistency, no adnexal masses and moderate tenderness to palpation of the uterus, the uterus is small and mobile. ?Severe pain in the left adnexal region. ?No discrete masses able to be palpated but I did not try to press firmly in the area since I was suspicious of a rupturing ectopic . RECTOVAGINAL: deferred. Transvaginal ultrasound shows moderate amount of free fluid in the cul-de-sac, thickened endometrial stripe, no intrauterine gestational sac is noted. ? ? IMPRESSION:?Ruptured ectopic ? PLAN:???The risks/benefits/alternatives and personal involved for the planned?laparoscopic evacuation of ectopic and possible salpingectomy?were reviewed with the patient. Her questions were answered to her satisfaction and she desires to proceed. ?Consent was signed. ?I reviewed with her postop instructions and expectations. ? ? I have reviewed and updated past medical and surgical history, medications and allergies?
[2019-03-05] MEDS: Lactated Ringers 1,000 ML 75 ML IV (15:35)
[2019-03-05 15:56] LABS: Hematocrit 40.9 % (37-47); Hemoglobin 13.9 g/dL (12.0-15.0); Mean Corpuscular Hgb 28.5 pg (27.0-32.0); Mean Corpuscular Volume 83.8 fL (81-99); Mean Platelet Vol. 9.1 fl (6.2-12.0); Platelet Count 359 K/mm3 (150-450); RBC Distribution Width CV 12.8 % (11.6-14.6); RBC Distribution Width SD 38.5 fl (35.1-43.9); Red Blood Count 4.88 M/mm3 (4.2-5.4); White Blood Count 10.7 K/mm3 (4.4-11.0)
[2019-03-05 16:12] LABS: hCG Titer Quant., Serum 449 mIU/mL (1-3)
[2019-03-05] MEDS: Bupivacaine Mpf 0.5% 30 ML VIAL (16:28)
--- NOTE | 2019-03-05 16:49 | PCM.OPRPT ---
Report of Operation Date of Procedure: 03/05/19 Pre-Operative Diagnosis: Pelvic pain, ruptured ectopic Post-Operative Diagnosis: same Surgery/Procedure Performed:: Laparoscopic left salpingectomy with removal of ectopic Description of Surgical Findings:: approximately 50cc Hemoperitoneum evacuated- Left ruptured ectopic identified. Right tube with some clubbing noted on fibriated end and adhesion to round ligament with simple paratubal cyst assistant restaurant general manager: Maryjo Lyons assistant restaurant general manager: rajani Romero ms 3 Type of Anesthesia:: General Special Medications: 0.5% marcaine Specimen's removed: left fallopian tube and ectopic Drains: none Estimated Blood Loss (mL): 10 Fluids Replaced: 800 Description of Procedure: Operative note: After informed consent was obtained patient was taken to the operating room she was placed in supine position she was given anesthesia. She was then placed in the [facility] stirrups and she was prepped and draped in normal sterile fashion. Bladder was drained prior to the start of procedure approximately 25 cc of clear yellow urine was expelled. At this time attention was turned to the vaginal portion where weighted speculum placed at posterior fornix vagina single-tooth tenaculum was used to gently grasp the internal the cervix. Uterine manipulator was placed without difficulty. Legs then placed in parallel with the abdomen the tenaculum and the weighted speculum were removed. 2 towel clamps were placed superior to umbilicus. After Marcaine was injected intraumbilical a small incision was made and a 5 mm trocar was placed under direct visualization. CO2 gas was used to insufflate the intra-abdominal cavity. Upon inspection omenatal adhesions to anterior abdominal wall noted, hemoperitoneum and left fallopian tube ectopic noted. At this time then the LLQ and RLQ ports were placed again Marcaine was injected small incision was made a knife and the 5 mm trocar was placed. clots noted coming out of fimbriated end of left tube, swelling and discoloration mid portion of tube noted- containing likely ectopic. Ligasure was used to coagulate and ligate along mesosalpinx to remove tube and ectopic. Good hemostasis was appreciated. right tube and ovary evaluted- small paratubal cyst with adhesion to round ligament- and mild clubbing at fimbriated end. LLQ port was extended to allow 10mm bag introduction- at this time the specimen was placed in bag and removed intact. Copious irrigation was then performed. Good hemostasis was appreciated. Gunnar Nettles was then used to close the left lower quadrant port using 0 Vicryl suture. At this time procedure was deemed complete successful. The gas was desufflated on from the intra-abdominal cavity. The trochars were removed. Skin was closed using 4-0 Monocryl in a subcutaneous fashion. Dermabond glue was placed. Instrument lap and needle counts were correct ?2. The uterine manipulator was removed. Vaginal sweep was performed it was negative. There were no complications anticipated normal postoperative course for this patient. Grafts/Implants Used: none - Complications none - Admit VTE Documentation VTE Present on Admission: Yes VTE Mechan Device Prophylaxis: SCD's VTE Pharm Prophylaxis ordered?: No
--- NOTE | 2019-03-05 17:02 | PCM.DC.TUB ---
Discharge Diet: No Restrictions, - - Increase fluid intake for 48 hours. Discharge Activity: Return to Normal Activity, May Drive - when you are no longer taking narcotic pain medications., May Shower, May Take a Tub Bath - in 7 days., - - Ambulate often the next week after surgery. May shower in (days): 1 May resume sexual activity in: 4 weeks Lifting Restrictions: 25 Additional Activity Instructions:: Nothing in the vagina for the next 5 days. Call your doctor if your incision/area has: Continuous Slow Oozing, Sudden Increased Bleeding, Increased Pain/ Swelling, Increased Redness, Foul Smelling Discharge, Swelling at the incision site Call your doctor if you observe: Fever of 101 or Higher, Using more than one pad per hour Cleanse incision/area with: - - do not pick off skin glue - may shower and let soap and water run over and dab dry. Allergies/Adverse Reactions: Allergies prednisone Adverse Reaction (Verified 03/04/19 10:55) Nausea Medications to take at Discharge Loratadine [Claritin] 10 mg PO DAILY 03/02/18 Albuterol Inhaler [Ventolin Hfa] 1 - 2 puff INHALATION Q4H PRN PRN #1 inhaler 06/23/18 Ibuprofen [Motrin] 800 mg PO Q8H PRN PRN #30 tab 03/05/19 The following prescriptions were given: Ibuprofen [Motrin] 800 mg PO Q8H PRN PRN #30 tab PRN Reason: Pain Transmission Status: Pending to [facility] Primary Care Physician: David Alexis MD [Primary Care Provider] - Test Results: Test results from this visit will be discussed in further detail at your follow-up appointment, if applicable. Please Follow Up With: Saira Pizarro MD When: 2 weeks call for appt [phone]
== END 2019-03-05 20:50 | disposition home or self-care (01) ==
LOC: SDC 14:53 → AC 14:53
PROVIDERS: Family Provider Family Medicine; PCP Family Medicine; Referring Provider Obstetrics & Gynecology; Visit Provider Obstetrics & Gynecology
PROC: 10T24ZZ Resection of Products of Conception, Ectopic, Percutaneous Endoscopic Approach (ICD-10-PCS; CPT 59150; principal; 2019-03-05 14:45)
DX: O00.90 Unspecified ectopic pregnancy without intrauterine pregnancy (principal); J45.30 Mild persistent asthma, uncomplicated; Z79.899 Other long term (current) drug therapy; Z87.891 Personal history of nicotine dependence
CPT/HCPCS: 59151; 84702; 85027; 86850; 86900; 86901; 88305; 94640; J7120; J2405

== ENCOUNTER 2019-10-10 17:38 | Emergency (ER) | payer MEDICAID, SELFPAY ==
[2019-03-05 15:20] VITALS: BMI 31.1
[2019-10-10 17:38] VITALS: BP 131/86; PULSE 92; RESP 18; TEMP 36.1; O2SAT 95; BMI 29.3
--- NOTE | 2019-10-10 18:09 | US_ITS ---
STUDY: FIRST TRIMESTER OBSTETRICAL ULTRASOUND REASON FOR EXAM: Female, 28 years old PELVIC PAIN-LLQ HX C SECTION LT TUBE REMOVED-ECTOPIC LMP: TECHNIQUE: Transvaginal TECHNICAL QUALITY: Adequate. PRIOR ULTRASOUND: None. FINDINGS: There is visualization of a single gestational sac in a normal intrauterine position. The mean sac diameter (MSD) measures 2.26 cm, indicating an estimated gestational age (EGA) of 7 weeks, 2 days. The gestational sac shape is within normal limits. There is a visualized yolk sac. The yolk sac measures 4 mm. The placenta is non-visualized. There is visualization of a live embryo. The crown-rump length (CRL) measures 5.5 mL, indicating an estimated gestational age (EGA) of 6 weeks, 3 days. There is demonstrated cardiac activity with a heart rate of 141 bpm. The estimated gestation age (EGA) by LMP is 7 weeks, 0 days. The estimated date of delivery (RACHEL) by LMP is May 28, 2020. The estimated gestation age (EGA) by US is 6 weeks, 6 days. The estimated date of delivery (RACHEL) by US is May 29, 2020. The uterus measures 8.5 x 7.2 x 5 cm. There is no demonstrated uterine fibroid. The cervix is closed. The right ovary measures 3.2 x 2.3 x 2 cm. There is no right ovarian cyst. There is no visualized right adnexal mass or complex lesion. The left ovary measures 3.1 x 2.7 x 2.1 cm. Small cyst measuring 1.7 x 1.7 x 1.8 cm likely corpus luteum There is no visualized left adnexal mass or complex lesion. There is minimal free fluid in the cul de sac. US/Transvaginal w/Preg US IMPRESSION: Viable intrauterine gestation approximately 7 weeks gestational age. Small left ovarian cyst likely corpus luteum. Electronically Signed: David Salazar MD at 19:09 EDT , Service support ,
--- NOTE | 2019-10-10 18:19 | ED.VISSUMM ---
- ER Visit Summary Date of Service: 10/10/19 Chief Complaint: Pelvic pain History of Present Illness: The patient is a 28 F presenting with pelvic pain. She complains of left lower pelvic pain. She states this started 3 days ago. She denies vaginal bleeding. She is approximately 7 weeks by dates. She is G3, P1 Ab1. History of ectopic . She states her quant was drawn on September 23 and was 1126, on September 25 it was repeated and was 2626. She denies other complaints. Physical Examination: Vitals are stable. Patient is afebrile. Alert no acute distress. HEENT exam is unremarkable. Neck is supple. Lungs are clear and equal bilaterally. Heart is regular rate and rhythm. Abdomen is soft mild left lower quadrant tenderness with no guarding or rebound Extremities are unremarkable. Skin is warm and dry. No focal neurologic deficit. Remainder of exam is unremarkable. Emergency Department Course and Treatment: Pelvic ultrasound shows viable intrauterine gestation approximately 7 weeks gestational age. Small left ovarian cyst [place] [address]. Blood type AB+. On reevaluation, patient is resting comfortably. She is advised to take Tylenol as needed. Advised to follow up with her DIRECTOR OF FOOD AND [employer]. Advised return to ED if worsening complaints. Disposition: Discharge home Impression: Intrauterine This note was generated with appbackr dictation software. It may contain incorrect words, spelling, and punctuation that were not noted in review of the chart prior to signing ED Disposition - Plan for ED Patient: Instructions: Care for a Healthy Baby Referrals: David Alexis MD [Primary Care Provider] - Denisse Nolasco MD [STAFF PHYSICIAN] -
[2019-10-10 19:40] VITALS: RESP 17
[2019-10-10 19:54] VITALS: BP 115/76; PULSE 77; RESP 17; O2SAT 96
--- NOTE | 2019-10-10 20:13 | ED.DEP ---
ED Disposition - Plan for ED Patient: Instructions: Care for a Healthy Baby Referrals: David Alexis MD [Primary Care Provider] - Denisse Nolasco MD [STAFF PHYSICIAN] -
[2019-10-10 20:28] VITALS: RESP 16
== END 2019-10-10 20:28 | disposition home or self-care (01) ==
PROVIDERS: Emergency Provider Emergency Medicine; PCP Family Medicine
DX: O26.891 Other specified pregnancy related conditions, first trimester (principal); N83.202 Unspecified ovarian cyst, left side; O99.511 Diseases of the respiratory system complicating pregnancy, first trimester; J45.909 Unspecified asthma, uncomplicated; Z79.899 Other long term (current) drug therapy; Z3A.01 Less than 8 weeks gestation of pregnancy
CPT/HCPCS: 76817; 84702; 86900; 86901; 99282; A4216

== ENCOUNTER → 2019-11-15 15:22 | Outpatient (CLI) | payer MEDICAID, SELFPAY ==
[2019-11-15 15:19] VITALS: BMI 28.9
[2019-11-15 16:22] LABS: Absolute Lymphocyte Count 1.81 X10^3/uL (0.83-4.51); Absolute Neutrophil Count 5.7 X10^3/uL (2.0-7.7); Basophil# 0.03 X10^3/uL; Basophil% 0.4 % (0-1); Eosinophils% 3.6 % (0-5); Hematocrit 40.2 % (37-47); Hemoglobin 13.7 g/dL (12.0-15.0); Lymphocyte # 1.81 X10^3/ul (4.0); Lymphocyte % 21.8 % (19-41); Mean Corp Hgb Conc 34.1 g/dL (32-36); Mean Corpuscular Hgb 29.5 pg (27.0-32.0); Mean Corpuscular Volume 86.5 fL (81-99); Mean Platelet Vol. 9.7 fl (6.2-12.0); Monocyte# 0.43 X10^3/uL; Monocyte% 5.2 % (0-10); NRBC Flagged by Analyzer 0 % (0-5); Neutrophil # 5.72 X10^3/uL (2.7-7.7); Neutrophil % 68.8 % (47-70); Platelet Count 309 K/mm3 (150-450); RBC Distribution Width CV 12.7 % (11.6-14.6); RBC Distribution Width SD 39.2 fl (35.1-43.9); Red Blood Count 4.65 M/mm3 (4.2-5.4); White Blood Count 8.3 K/mm3 (4.4-11.0)
[2019-11-15 17:26] LABS: Amphetamine Urine VISTA NEGATIVE (<1000 ng/mL); Barbiturate Urine VISTA NEGATIVE (< 200 ng/mL); Benzodiazepine Urine VISTA NEGATIVE (< 200 ng/mL); Cocaine Urine VISTA NEGATIVE (< 300 ng/mL); Ecstacy Urine VISTA NEGATIVE (< 500 ng/mL); Methadone Urine VISTA NEGATIVE (< 300 ng/mL); PCP Urine VISTA NEGATIVE (< 25 ng/mL); THC Urine VISTA NEGATIVE (< 50 ng/mL); Vista UDS pH Range 6
[2019-11-16 10:23] LABS: HIV - WCH Non-Reactive (Nonreactive); Hepatitis B Surface Antigen Non-Reactive (Nonreactive); Hepatitis C Antibody Non-Reactive (Nonreactive); Rubella IgG 25.5 IU/mL
[2019-11-22 03:25] LABS: Rapid Plasmin Reagin (RPR) NONREACTIVE (NONREACTIVE)
== END ==
PROVIDERS: Referring Provider Nurse Practitioner Women's Health; Visit Provider Nurse Practitioner Women's Health
DX: Z34.90 Encounter for supervision of normal pregnancy, unspecified, unspecified trimester (principal)
CPT/HCPCS: 36415; 80307; 85025; 86592; 86703; 86762; 86803; 86850; 86900; 86901; 87086; 87340

== ENCOUNTER → 2020-02-11 | Outpatient (CLI) | payer MEDICAID, SELFPAY ==
[2020-02-11 16:14] VITALS: BMI 31.4
== END | disposition home or self-care (01) ==
LOC: LABSPEC 16:55
PROVIDERS: PCP Internal Medicine; Referring Provider Obstetrics & Gynecology; Visit Provider Obstetrics & Gynecology
DX: O26.899 Other specified pregnancy related conditions, unspecified trimester (principal); R10.2 Pelvic and perineal pain; Z3A.00 Weeks of gestation of pregnancy not specified
CPT/HCPCS: 87086; 87088

== ENCOUNTER 2020-03-04 20:42 | Outpatient (CLI) | payer MEDICAID, SELFPAY ==
[2020-02-11 16:14] VITALS: BMI 31.4
[2020-03-04 21:10] VITALS: BP 123/76; PULSE 95; PULSE 96; TEMP 37.2; O2SAT 98
[2020-03-04 21:14] VITALS: BMI 32.5
[2020-03-04 21:51] LABS: Mucous, Urine 0 SEEN /hpf (<or=2+); Red Blood Cells-Urine 0 SEEN /hpf (0-5); White Blood Cells 0 SEEN /hpf (0-5)
[2020-03-04] MEDS: cycloBENZAPRine HCl 10 MG Tablet PO (21:52)
[2020-03-04 21:57] LABS: Absolute Lymphocyte Count 2.14 X10^3/uL (0.83-4.51); Absolute Neutrophil Count 7.6 X10^3/uL (2.0-7.7); Basophil# 0.02 X10^3/uL; Basophil% 0.2 % (0-1); Eosinophil# 0.36 X10^3/uL; Eosinophils% 3.3 % (0-5); Hematocrit 34.6 % (37-47); Hemoglobin 11.6 g/dL (12.0-15.0); Lymphocyte # 2.14 X10^3/ul (4.0); Lymphocyte % 19.8 % (19-41); Mean Corp Hgb Conc 33.5 g/dL (32-36); Mean Corpuscular Hgb 29.4 pg (27.0-32.0); Mean Corpuscular Volume 87.8 fL (81-99); Mean Platelet Vol. 9.9 fl (6.2-12.0); Monocyte# 0.64 X10^3/uL; Monocyte% 5.9 % (0-10); NRBC Flagged by Analyzer 0 % (0-5); Neutrophil # 7.59 X10^3/uL (2.7-7.7); Neutrophil % 70.3 % (47-70); Platelet Count 283 K/mm3 (150-450); RBC Distribution Width CV 13.2 % (11.6-14.6); RBC Distribution Width SD 42.2 fl (35.1-43.9); Red Blood Count 3.94 M/mm3 (4.2-5.4); White Blood Count 10.8 K/mm3 (4.4-11.0)
[2020-03-04 22:06] LABS: Color, Urine Yellow (Yellow); Glucose, Dipstick Normal (Normal); Ketone-Dipstick Negative (Negative); Leukocyte Esterase-Dipstick 100 /ul (Negative); Nitrite-Dipstick Negative (Negative); Occult Blood-Urine Negative /ul (Negative); Protein-Dipstick Negative (Negative); Urine Bilirubin Dipstick Negative (Negative); Urine Clarity Clear (Clear); Urine Urobilinogen 1 mg/dl (Normal); Urine pH 6.5 (5.0 - 8.0)
[2020-03-04 22:07] LABS: Fibrinogen 509 mg/dl (203-444)
[2020-03-04 22:44] LABS: Bacteria 1+ /hpf (None Seen); Calcium Oxalate Crystals Ur 2+ /hpf (<or=2+); Squamous Epithelial Cells - UA 5-10 SEEN /hpf (5-10)
--- NOTE | 2020-03-06 13:00 | OB.TRI.PN ---
Progress Notes Date of Service: 03/04/20 Progress Note: patient seen for abdominal pain reassuring FHT no vb ua and culture sent no contractions dc home fu as scheduled Laboratory Studies: Laboratory Tests 03/04/20 03/04/20 03/04/20 Range/Units 21:45 21:45 21:45 WBC 10.8 (4.4-11.0) K/mm3 RBC 3.94 L (4.2-5.4) M/mm3 Hgb 11.6 L (12.0-15.0) g/dL Hct 34.6 L (37-47) % MCV 87.8 (81-99) fL MCH 29.4 (27.0-32.0) pg MCHC 33.5 (32-36) g/dL RDW Std Deviation 42.2 (35.1-43.9) fl RDW Coeff of Von 13.2 (11.6-14.6) % Plt Count 283 (150-450) K/mm3 MPV 9.9 (6.2-12.0) fl Immature Gran % (Auto) 0.500 (0.0-0.9) % Neut % (Auto) 70.3 H (47-70) % Lymph % (Auto) 19.8 (19-41) % Davidson % (Auto) 5.9 (0-10) % Eos % (Auto) 3.3 (0-5) % Baso % (Auto) 0.2 (0-1) % Absolute Neuts (auto) 7.6 (2.0-7.7) X10^3/uL Absolute Lymphs (auto) 2.14 (0.83-4.51) X10^3/uL Nucleated RBC % 0 (0-5) % Fibrinogen 509 H (203-444) mg/dl Urine Color Yellow (Yellow) Urine Clarity Clear (Clear) Urine pH 6.5 (5.0 - 8.0) Ur Specific [place] 1.020 (1.002-1.030) Urine Protein Negative (Negative) mg/dl Urine Glucose (UA) Normal (Normal) mg/dl Urine Ketones Negative (Negative) mg/dl Urine Occult Blood Negative (Negative) /ul Urine Nitrite Negative (Negative) Urine Bilirubin Negative (Negative) mg/dL Urine Urobilinogen 1 H (Normal) mg/dl Ur Leukocyte Esterase 100 H (Negative) /ul Urine RBC 0 SEEN (0-5) /hpf Urine WBC 0 SEEN (0-5) /hpf Ur Squamous Epith Cells 5-10 SEEN (5-10) /hpf Calcium Oxalate Crystal 2+ (<or=2+) /hpf Urine Bacteria 1+ (None Seen) /hpf Urine Mucus 0 SEEN (<or=2+) /hpf
== END 2020-03-04 22:25 | disposition home or self-care (01) ==
LOC: WPOUT 20:51 → OBT 21:08
PROVIDERS: PCP Internal Medicine; Visit Provider Obstetrics & Gynecology
DX: O26.899 Other specified pregnancy related conditions, unspecified trimester (principal); R10.9 Unspecified abdominal pain; Z3A.00 Weeks of gestation of pregnancy not specified
CPT/HCPCS: 36415; 59025; 59050; 81001; 85025; 85384; 87086; 87088; 99218; G0378

== ENCOUNTER → 2020-03-07 10:43 | Outpatient (CLI) | payer MEDICAID, SELFPAY ==
[2020-03-05 10:21] VITALS: BMI 32.6
[2020-03-07 11:26] LABS: Absolute Lymphocyte Count 1.45 X10^3/uL (0.83-4.51); Basophil# 0.02 X10^3/uL; Basophil% 0.2 % (0-1); Eosinophil# 0.27 X10^3/uL; Eosinophils% 2.7 % (0-5); Hematocrit 37.5 % (37-47); Hemoglobin 12.1 g/dL (12.0-15.0); Lymphocyte # 1.45 X10^3/ul (4.0); Lymphocyte % 14.2 % (19-41); Mean Corp Hgb Conc 32.3 g/dL (32-36); Mean Corpuscular Hgb 28.6 pg (27.0-32.0); Mean Corpuscular Volume 88.7 fL (81-99); Mean Platelet Vol. 10.2 fl (6.2-12.0); Monocyte# 0.36 X10^3/uL; Monocyte% 3.5 % (0-10); NRBC Flagged by Analyzer 0 % (0-5); Neutrophil # 8.01 X10^3/uL (2.7-7.7); Neutrophil % 78.7 % (47-70); Platelet Count 310 K/mm3 (150-450); RBC Distribution Width CV 13.3 % (11.6-14.6); RBC Distribution Width SD 43.6 fl (35.1-43.9); Red Blood Count 4.23 M/mm3 (4.2-5.4); White Blood Count 10.2 K/mm3 (4.4-11.0)
[2020-03-07 11:33] LABS: Glucose Challenge Gest 1H 50g 161 mg/dL (70-140)
== END ==
PROVIDERS: PCP Internal Medicine; Referring Provider Obstetrics & Gynecology; Visit Provider Obstetrics & Gynecology
DX: O09.90 Supervision of high risk pregnancy, unspecified, unspecified trimester (principal); Z13.1 Encounter for screening for diabetes mellitus; Z3A.00 Weeks of gestation of pregnancy not specified
CPT/HCPCS: 36415; 82950; 85025

== ENCOUNTER → 2020-03-12 10:06 | Outpatient (CLI) | payer MEDICAID, SELFPAY ==
[2020-03-07 11:30] VITALS: BMI 32.5
[2020-03-12 11:05] LABS: Glucose GTT-Gestation. Fasting 87 mg/dL (<105)
[2020-03-12 12:43] LABS: Glucose GTT-Gestational 1 Hr 160 mg/dL (<190)
[2020-03-12 13:02] LABS: Glucose GTT-Gestational 2 Hr 120 mg/dL (<165)
[2020-03-12 13:56] LABS: Glucose GTT-Gestational 3 Hr 64 L (<145)
== END ==
PROVIDERS: PCP Internal Medicine; Visit Provider Obstetrics & Gynecology
DX: Z13.1 Encounter for screening for diabetes mellitus (principal)
CPT/HCPCS: 36415; 82951; 82952

== ENCOUNTER 2020-04-05 14:25 | Outpatient (CLI) | payer MEDICAID, SELFPAY ==
[2020-03-20 09:51] VITALS: BMI 33.0
[2020-04-05 14:54] VITALS: BMI 33.6
[2020-04-05 14:57] VITALS: O2SAT 98
[2020-04-05 15:00] VITALS: BP 124/78; PULSE 98; TEMP 36.8
[2020-04-05 15:19] LABS: ROM Internal Control Test YES-OK TO RESULT pt. (Internal QC); ROM Patient Test Negative (Negative)
--- NOTE | 2020-04-07 07:28 | OB.TRI.PN_ITS ---
Progress Notes Date of Service: 04/05/20 Progress Note: Patient presents for triage evaluation secondary to possible ROM FHT: 130 Moderate variability reactive no decelerations category I tracing [place]: no regular Contractions Assessment and plan: rom plus negative threatened labor Reactive NST, reassuring maternal and status patient discharged to home to follow-up as scheduled. See problem list details for additional plan information. Laboratory Studies: Laboratory Tests 04/05/20 Range/Units 14:40 Vag Amniotic Fld Detect Negative (Negative) - Problem List (1) False labor Status: Acute (2) Abnormal glucose affecting Status: Acute Comment: Normal 3 hr GTT (3) History of Status: Acute Comment: RLTCS with SM 05/22/20 @ 7:30 (4) History of ectopic Status: Acute Comment: 02/2019 lap left salpingectomy (5) Status: Acute Comment: Plans Carrier and NIPT. declines afp. nl anatomy. (6) Supervision of high risk , antepartum Status: Acute Comment: PRR RACHEL 05/28/20 boy Mayito PC: Kiet. Spouse: Dusty Ortiz (7) Asthma Status: Chronic Qualifiers: Asthma severity: moderate Asthma persistence: persistent Asthma complication type: uncomplicated Qualified Code(s): J45.40 - Moderate persistent asthma, uncomplicated (8) Seasonal allergies Status: Chronic Multi Select Codes - Urinary/Genital Urinary/Genital CPT Codes: 85436-18 non-stress test Interp
== END 2020-04-05 15:40 | disposition home or self-care (01) ==
LOC: WPOUT 14:38 → WP 04-06 19:53
PROVIDERS: PCP Internal Medicine; Referring Provider Obstetrics & Gynecology; Visit Provider Obstetrics & Gynecology
DX: O47.9 False labor, unspecified (principal); Z3A.00 Weeks of gestation of pregnancy not specified
CPT/HCPCS: 59050; 84112; 99218; G0378

== ENCOUNTER 2020-04-25 20:46 | Outpatient (CLI) | payer MEDICAID, SELFPAY ==
[2020-04-24 10:14] VITALS: BMI 32.8
[2020-04-25 21:09] VITALS: BP 131/80; PULSE 93; PULSE 99; O2SAT 98
[2020-04-25 21:22] VITALS: BP 123/76; PULSE 95
[2020-04-25 21:40] VITALS: BMI 34.4
[2020-04-25 21:42] LABS: Color, Urine Yellow (Yellow); Glucose, Dipstick Normal (Normal); Ketone-Dipstick Negative (Negative); Leukocyte Esterase-Dipstick 100 /ul (Negative); Nitrite-Dipstick Negative (Negative); Occult Blood-Urine Negative /ul (Negative); Protein-Dipstick Negative (Negative); Urine Bilirubin Dipstick Negative (Negative); Urine Clarity Clear (Clear); Urine Urobilinogen Normal (Normal); Urine pH 6.5 (5.0 - 8.0)
[2020-04-25 21:53] VITALS: BP 123/81; PULSE 94
[2020-04-25 22:05] LABS: ROM Internal Control Test YES-OK TO RESULT pt. (Internal QC); ROM Patient Test Negative (Negative)
--- NOTE | 2020-04-28 08:48 | OB.TRI.PN ---
Progress Notes Date of Service: 04/26/20 Progress Note: Patient presents for triage evaluation secondary to leakage of fluid. ROM plus negative. Not deangelo regularly on toco. FHT: Moderate variability reactive no decelerations category I tracing [place]: Irregular Contractions Assessment and plan: Reactive NST, reassuring maternal and status patient discharged to home to follow-up in office next week. See problem list details for additional plan information. Laboratory Studies: Laboratory Tests 04/25/20 04/25/20 Range/Units 21:30 21:30 Urine Color Yellow (Yellow) Urine Clarity Clear (Clear) Urine pH 6.5 (5.0 - 8.0) Ur Specific [place] 1.020 (1.002-1.030) Urine Protein Negative (Negative) mg/dl Urine Glucose (UA) Normal (Normal) mg/dl Urine Ketones Negative (Negative) mg/dl Urine Occult Blood Negative (Negative) /ul Urine Nitrite Negative (Negative) Urine Bilirubin Negative (Negative) mg/dL Urine Urobilinogen Normal (Normal) mg/dl Ur Leukocyte Esterase 100 H (Negative) /ul Vag Amniotic Fld Detect Negative (Negative) Multi Select Codes - Urinary/Genital Urinary/Genital CPT Codes: 59111-22 non-stress test Interp
== END 2020-04-25 22:15 | disposition home or self-care (01) ==
LOC: WPOUT 20:58 → WP 21:01
PROVIDERS: PCP Internal Medicine; Visit Provider Obstetrics & Gynecology
DX: O26.899 Other specified pregnancy related conditions, unspecified trimester (principal); Z3A.00 Weeks of gestation of pregnancy not specified
CPT/HCPCS: 59025; 59050; 81002; 84112; 99218; G0378

== ENCOUNTER → 2020-04-30 | Outpatient (CLI) | payer MEDICAID, SELFPAY ==
[2020-04-30 10:30] VITALS: BMI 34.9
== END | disposition home or self-care (01) ==
LOC: LABSPEC 14:24
PROVIDERS: PCP Internal Medicine; Referring Provider Nurse Practitioner Women's Health; Visit Provider Nurse Practitioner Women's Health
DX: Z34.93 Encounter for supervision of normal pregnancy, unspecified, third trimester (principal); Z3A.36 36 weeks gestation of pregnancy
CPT/HCPCS: 87081

== ENCOUNTER 2020-05-09 20:40 | Inpatient (IN) | payer MEDICAID, SELFPAY ==
[2020-05-07 10:07] VITALS: BMI 35.3
[2020-05-09] VITALS (9 sets, daily range): BP systolic 113–139; BP diastolic 56–94; PULSE 74–109; RESP 12–20; TEMP 36.8–37.2; O2SAT 95–99; BMI 34.9
[2020-05-09 20:35] LABS: ROM Internal Control Test YES-OK TO RESULT pt. (Internal QC); ROM Patient Test Negative (Negative)
[2020-05-09] MEDS: Acetaminophen 500 MG Tablet 1000 MG PO (20:55)
[2020-05-09] MEDS: Lactated Ringers 1,000 ML 999 ML IV (20:58)
--- NOTE | 2020-05-09 21:00 | PCM.HPOB.BLA ---
- Problem List (1) Active labor at term Status: Acute (2) History of Status: Acute Comment: RLTCS with SM 05/22/20 @ 7:30 (3) History of ectopic Status: Acute Comment: 02/2019 lap left salpingectomy (4) Status: Acute Qualifiers: Comment: Plans Carrier and NIPT. declines afp. nl anatomy. (5) Supervision of high risk , antepartum Status: Acute Comment: PRR RACHEL 05/28/20 boy Mayito PC: Kiet. Spouse: Dusty Ortiz (6) Asthma Status: Chronic Qualifiers: (7) Seasonal allergies Status: Chronic History and Physical Date of Admission: 05/09/20 Intake Vital Signs 05/07/20 Height 5 ft 1 in 05/07/20 Weight: 187 lb 2 oz 05/07/20 BMI 35.3 05/07/20 BP 130/80 H Intake Visit Reasons: 37 WK OB, SM out of office Typer Required: No Is patient in pain?: No Allergies prednisone Adverse Reaction (Verified 05/07/20 10:08) Nausea Medications Loratadine [Claritin] 10 mg PO DAILY 03/02/18 [History Confirmed 05/07/20] acetaminophen 325 mg capsule 325 mg PO ONCE PRN 11/15/19 [History Confirmed 05/07/20] prenat.vits,sebastián,ikf-whbt-vnxmt 1 tab PO DAILY 11/15/19 [History Confirmed 05/07/20] albuterol sulfate 90 mcg/actuation aerosol inhaler 2 puff INHALATION Q6H PRN #8.5 g 02/07/20 [Rx Confirmed 05/07/20] budesonide 90 mcg/actuation breath activated powder inhaler 2 inh INHALATION BID #1 ea 02/07/20 [Rx Confirmed 05/07/20] Last Menstral Period: 08/22/19 Zika: Zika virus screening: Negative : No PFSH PFSH Medical History Anxiety and depression (Acute) Asthma (Acute) Surgical History Ectopic (Acute) History of (Acute) Family History Grandfather CVA (cerebral vascular accident) Skin cancer Grandmother Diabetes Heart disease Lung cancer Sister Bipolar 1 disorder Unknown Alcoholism Depression Social History (Updated 05/07/20 @ 12:[address] Danelle Ryan MD) household members: spouse, children housing: house number of children: 1 current occupational status: unemployed history of recent travel: No sexually active: Yes Smoking Status: Former smoker alcohol intake: never what type of physical activity do you participate in: none seatbelt use: always do you feel safe at home: Yes Pregancy History 3 Elective abortions Hx Para 1 Spontaneous abortions Hx # Term Pregnancies 1 Ectopic pregnancies 1 Hx # Pregnancies 0 Multiple births # of living children 1 Past Pregnancies Del. Date Name GA/Weeks Outcome Route Bth Weight Infant Gen Labor Lgth Anesthesia Del Locatn Provider FOB 04/15/18 Kiet Wilson 40 live - full term 7'3 Male 20 epidural [facility] Dr Yahir Ortiz HPI 37 WK OB, SM out of office: Details: WIN POWER is a 29 year old who presents for routine OB visit. OB Visit RACHEL Calculator Estimated Delivery Date Method Current WG Current Estimate 05/28/20 LMP (Certain) 37w 0d Other Estimates 05/26/20 Ultrasound #1 37w 2d Expected Delivery Route/Plan RLTCS with SM at 39 weeks Specific Issue/Plans flu vaccine: declined tdap vaccine: declined rhogam: na LARC form signed: declined movement and labor precautions reviewed. Problem list reviewed and updated with the most current plan of care details and appropriate orders placed. Relevant counseling for the gestational age provided. Continue routine care and follow up unless otherwise noted in visit notes/problem list details Initial Weight: 150 lb Date EGA Weight BP Urine Prot Glucose FHR FuHt Pres Dilation Effaced St Visit Note 11/15/19 12w 1d 153 lb 4 oz (+3 lb 4 oz) 108/60 108/60 Negative Negative 158 Brief US to confirm FHT. No VB, LOF. Recent exam at [facility]. Needs NOB labs. Wants to meet both SM and GP before deciding who will do CS. 12/14/19 16w 2d 158 lb 2 oz (+8 lb 2 oz) 116/70 Negative Negative 155 SM- no vb cramping 01/18/20 21w 2d 163 lb (+13 lb) 120/72 Negative Negative 140 SM- no vb lof good fm no regular ctx asthma worsening, SM- no vb lof good fm no regular ctx asthma worsening, start inhaler daily 02/07/20 24w 1d 166 lb (+16 lb) 102/70 Negative Negative 150 25 SM- no vb lof good fm no regular ctx, asthma better 02/11/20 24w 5d 168 lb (+18 lb) 122/82 Negative Negative 150 26 SM- seen for pelvic pain and right back pain radiating into front , ua and culture sent 03/07/20 28w 2d 172 lb (+22 lb) 120/68 Negative Negative 145 28 SM- no vb lof good fm no regular ctx some crmaping on and off 03/20/20 30w 1d 175 lb (+25 lb) 120/72 Negative Negative 145 30 Breech 0.5 0 -4 SM- no vb lof good fm no regular ctx some increased discharge 04/24/20 35w 1d 185 lb (+35 lb) 110/77 140 35 SM- no vb lof good fm no regular ctx 04/30/20 36w 0d 185 lb (+35 lb) 136/70 Trace Negative 36 0.5 MH-DFM. No VB, LOF or reg CTX. GBS. NST today 05/07/20 37w 0d 187 lb 2 oz (+37 lb 2 oz) 130/80 Negative Negative 145 37 Cephalic 1 50 -2 GP - no LOF, VB, DFM, ctx. Baby initially tachycardic on monitor - NST done with baseline 145 Diagnostics Diagnostics Diagnostics Gest Glucose Tolerance MG/DL 03/12/20 Glucose 1 Hr 50 gm 161 mg/dL (70-140) H 03/07/20 Hgb 12.1 g/dL (12.0-15.0) 03/07/20 Hct 37.5 % (37-47) 03/07/20 Details: HIV: Urine Culture: Sequential Screen: NIPT Screen: ROS Const Reports system reviewed and no additional complaints, except as docu Eyes Reports system reviewed and no additional complaints, except as docu ENT Reports system reviewed and no additional complaints, except as docu Card Reports system reviewed and no additional complaints, except as docu Resp Reports system reviewed and no additional complaints, except as docu GI Reports system reviewed and no additional complaints, except as docu Reports system reviewed and no additional complaints, except as docu, Denies abnormal vaginal bleeding, Denies painful urination, Denies pelvic pain, Denies vaginal discharge, Denies vaginal odor, Denies vaginal itching Musc Reports system reviewed and no additional complaints, except as docu Skin/Breast Reports system reviewed and no additional complaints, except as docu Neuro Yes system reviewed and no additional complaints, except as docu Psych Reports system reviewed and no additional complaints, except as docu Endo Reports system reviewed and no additional complaints, except as docu Exam Const General: cooperative, healthy appearing, comfortable, no acute distress, well developed, well groomed Nutritional Appearance: average body habitus, well nourished Orientation: alert, awake, oriented x3 HENMT Head: normal to inspection, normocephalic, atraumatic Eyes Pupils: PERRL, accommodation normal Resp Effort & Inspection: normal respiratory effort, able to speak in complete sentences, symmetric chest movement Cardio Rate: regular rate GI Palpation: soft, no guarding, no masses, nontender Skin General: no rashes or lesions noted, elasticity normal, turgor normal Neuro General: alert, awake, oriented x3 Cranial Nerves: CN's II-XI intact bilaterally, sense of smell intact, PERRL, accommodation normal, EOM intact bilaterally Speech: speech normal Gait: normal gait Psych Appearance: grossly normal, well kempt Mental Status: mental status grossly normal Mood: congruent mood Affect: normal affect Speech and Movement: speech and movement normal Attitude: cooperative Thought Process: normal Thought Content: normal Judgment: judgment good Office Procedures OB NST Non-Stress Test Indications for Monitoring: Yes other ( tachycardia) Heart Rate Baseline: 145 Heart Rate Variability: moderate Movement: Present Heart Rate Accelerations: Present Decelerations: Absent Contractions: Absent Impression: Yes Reactive Non-Stress Test Results POC Urinalysis 2 Dip (Clinic) Office Urine Glucose Negative Last Edit by Zenobia Pino on 05/07/20 10:23 Office Urine Protein Negative Last Edit by Zenobia Pino on 05/07/20 10:23 Assessment & Plan Problems 1. History of Z98.891 RLTCS with SM 05/22/20 @ 7:30 2. 37 weeks gestation of Z3A.37 Plans Carrier and NIPT. declines afp. nl anatomy. 3. Supervision of high risk , antepartum O09.90 PRR RACHEL 05/28/20 boy Mayito PC: Kiet. Spouse: Dusty Ortiz 4. History of ectopic Z87.59 02/2019 lap left salpingectomy 5. Asthma J45.909 6. Seasonal allergies J30.2 UPDATE- I have seen the patient and performed any clinically relevant updates to the history and physical exam. Danelle Ryan MD
[2020-05-09 21:14] LABS: Absolute Lymphocyte Count 2.32 X10^3/uL (0.83-4.51); Absolute Neutrophil Count 7.3 X10^3/uL (2.0-7.7); Basophil# 0.04 X10^3/uL; Basophil% 0.4 % (0-1); Eosinophil# 0.21 X10^3/uL; Hematocrit 37.3 % (37-47); Hemoglobin 12.5 g/dL (12.0-15.0); Lymphocyte # 2.32 X10^3/ul (4.0); Lymphocyte % 22.1 % (19-41); Mean Corp Hgb Conc 33.5 g/dL (32-36); Mean Corpuscular Hgb 27.7 pg (27.0-32.0); Mean Corpuscular Volume 82.5 fL (81-99); Monocyte# 0.58 X10^3/uL; Monocyte% 5.5 % (0-10); NRBC Flagged by Analyzer 0 % (0-5); Neutrophil # 7.32 X10^3/uL (2.7-7.7); Neutrophil % 69.7 % (47-70); Platelet Count 290 K/mm3 (150-450); RBC Distribution Width CV 14.8 % (11.6-14.6); RBC Distribution Width SD 43.5 fl (35.1-43.9); Red Blood Count 4.52 M/mm3 (4.2-5.4); White Blood Count 10.5 K/mm3 (4.4-11.0)
--- NOTE | 2020-05-09 21:23 | PCM.OPRPT ---
Problem List (1) Active labor at term Status: Acute (2) History of Status: Acute Comment: RLTCS with SM 05/22/20 @ 7:30 (3) History of ectopic Status: Acute Comment: 02/2019 lap left salpingectomy (4) Status: Acute Qualifiers: Comment: Plans Carrier and NIPT. declines afp. nl anatomy. (5) Supervision of high risk , antepartum Status: Acute Comment: PRR RACHEL 05/28/20 boy Mayito PC: Kiet. Spouse: Dusty Ortiz (6) Asthma Status: Chronic Qualifiers: (7) Seasonal allergies Status: Chronic Delivery Classification: MEETA Final RACHEL: 05/28/20 Gestational age: 37 Weeks and 2 Days Type of Anesthesia:: Spinal Date of Procedure: 05/09/20 Pre-Operative Diagnosis: Term , history of x1, declines TOLAC, active labor Post-Operative Diagnosis: Same Indications: 29-year-old G3, P1 at 37 weeks gestation presenting with contractions and found to be in active labor. Patient has a history of x1 and declines trial of labor. Risk, benefits, indications, and alternatives to the were discussed with the patient gave bleeding, infection, and visceral or vascular injury. She voices understanding and agrees to proceed. Indications for : Repeat Elective Description of Procedure: The patient is a G3, P1 at 37 weeks gestation who presented for repeat for active labor. Spinal anesthesia was placed without difficulty. Lauren catheter was placed. The patient was placed in the dorsal supine position with leftward tilt. Patient was prepped and draped in the normal sterile fashion. Pfannenstiel skin incision was made with the scalpel and carried through to the underlying layer of fascia with the scalpel. Fascia was nicked in the midline and the incision extended laterally. The rectus bellies were dissected off superiorly and inferiorly with out complication both sharply and bluntly. The peritoneum was entered digitally. The incision was stretched and a low transverse uterine incision was made with the scalpel. The 's head was delivered atraumatically followed by the anterior and posterior shoulders without complication the rest of the infant delivered. The cord was clamped and cut and the infant was handed off to awaiting nurse. The placenta was delivered spontaneously immediately following and was noted to be intact and have a three-vessel cord. The uterus was exteriorized cleared of all clots and debris, and the incision was closed in a double layer closure using #1 Monocryl. The ovaries and fallopian tubes were noted to be within normal limits. The uterus was returned to the maternal abdomen and gutters were cleared of all clots and debris. The peritoneum was closed with 3-0 Monocryl in a running fashion. Gloves were changed prior to fascial closure. Fascia was closed with 0 PDS in a running fashion. Subcutaneous tissue was copiously irrigated and the skin was closed with 3-0 Monocryl in a subcuticular fashion. Mepilex dressing was applied without complication. Patient was taken to recovery in stable condition. Amniotic Membrane Rupture Type: Artificial Amniotic Fluid Description: Clear Placenta Disposition: [facility] Fluids Replaced: 1500 Cord Entanglement: None Cord Vessel Description: 3 Vessels Esitmated Blood Loss (ml): 800 Infant Gender: Male Delayed cord clamping: Yes Antibiotic Given: Ancef 2 grams IV x1 Pt instructed on risks of surgery: Bleeding, Anesthesia Risks, Infection, Need for Future C-Sections, Injury to surrounding structure(s) including bowel and bladder Complications: None - Admit VTE Documentation VTE Present on Admission: No VTE Mechan Device Prophylaxis: SCD's VTE Pharm Prophylaxis ordered?: No Multi Select Codes - Urinary/Genital Urinary/Genital CPT Codes: 20258 delivery+ Care([facility])
--- NOTE | 2020-05-09 21:29 | DCINST_ITS ---
Discharge Diet: No Restrictions Discharge Activity: May Not Drive - for 2 weeks or while taking narcotic pain meds., May Shower, May Take a Tub Bath - in 7 days. May resume sexual activity in: 4-6 weeks Lifting Restrictions: 20 pounds Additional Activity Instructions:: Nothing in the vagina for 4-6 weeks. You may return to work/school in 6 weeks. Call your doctor if your incision/area has: Continuous Slow Oozing, Sudden Increased Bleeding, Increased Pain/ Swelling, Increased Redness, Foul Smelling Discharge Call your doctor if you observe: Fever of 101 or Higher Suture Line Care: Avoid Pulling/Pushing, Avoid Pinching/Bending Additional Instructions: If you experience any of the following, contact your healthcare provider. * Bleeding that soaks a pad every hour for 2 hours * Fever 100.4 or higher * Unrelieved incision or abdominal pain * Swelling, redness, discharge or bleeding from your incision or episiotomy site * Your incision begins to separate * Problems urinating (including inability to urinate or burning while urinating). * Visual changes * Severe headache * Flu-like symptoms * Pain or redness in one of both of your breasts * Pain, warmth, tenderness or swelling in your legs, especially the calf area * Frequent nausea and vomiting * Symptoms of depression or anxiety If you experience any of the following, call 911 or go to the nearest Emergency Room. * Chest pain * Problems breathing * Seizure activity * Partial or complete paralysis of a body part, slurred speech, weakness or drooping of the face, or a sudden inability to walk or hold your balance Allergies/Adverse Reactions: Allergies prednisone Adverse Reaction (Verified 05/09/20 19:41) Nausea Medications to take at Discharge Loratadine [Claritin] 10 mg PO DAILY 03/02/18 acetaminophen 325 mg capsule 325 mg PO ONCE PRN 11/15/19 prenat.vits,sebastián,wra-bbga-gthsh 1 tab PO DAILY 11/15/19 albuterol sulfate 90 mcg/actuation aerosol inhaler 2 puff INHALATION Q6H PRN #8.5 g 02/07/20 budesonide 90 mcg/actuation breath activated powder inhaler 2 inh INHALATION BID #1 ea 02/07/20 Follow-Up: Call to make an appointment with your doctor for an incision check in 1-2 weeks. You will also need a 6 week post- follow up appointment. Test results from this visit will be discussed in further detail at your follow- up appointment, if applicable. Primary Care Physician: Hema Bird MD [Primary Care Provider] -
[2020-05-09] MEDS: Sodium Citrate/Citric Acid 30 ML UDC PO (21:33)
[2020-05-09] MEDS: Cefazolin 2 GM in 0.9% Normal Saline 100 ML IV (21:41)
[2020-05-09] MEDS: Oxytocin 30 units/NS 500 ml 30 UNITS/500 ML IV.SOLN 167 UNITS IV (22:52)
[2020-05-09 23:07] LABS: Chlamydia Trachomatis by PCR Negative (Negative); Neisserai gonorrhoeae by PCR Negative (Negative); Probe Check PASS; Sample Adequacy Control PASS; Specimen Processing Control PASS
[2020-05-10] VITALS (16 sets, daily range): BP systolic 99–139; BP diastolic 54–94; PULSE 74–101; RESP 12–20; TEMP 36.4–37.3; O2SAT 96–100
[2020-05-10] MEDS: Ondansetron 4 MG/2 ML Vial IV (01:15)
[2020-05-10] MEDS: DiphenhydrAMINE 25 MG Capsule PO (01:35)
--- NOTE | 2020-05-10 02:08 | NURSING ---
pt has indwelling urinary catheter
[2020-05-10] MEDS: Acetaminophen 500 MG Tablet 1000 MG PO ×4 (02:10→22:27)
[2020-05-10] MEDS: Lactated Ringers 1,000 ML 100 ML IV (02:13)
[2020-05-10] MEDS: proCHLORPERazine 10 MG/2 ML Vial IV (03:38)
[2020-05-10] MEDS: Nalbuphine 10 MG/ML Ampul 5 MG IV ×2 (03:50→13:35)
[2020-05-10] MEDS: Ketorolac 30 MG/ML Syringe IV ×3 (05:35→18:06)
[2020-05-10 06:07] LABS: Hematocrit 33.9 % (37-47); Mean Corp Hgb Conc 32.4 g/dL (32-36); Mean Corpuscular Hgb 27.1 pg (27.0-32.0); Mean Corpuscular Volume 83.5 fL (81-99); Mean Platelet Vol. 10.5 fl (6.2-12.0); Platelet Count 241 K/mm3 (150-450); RBC Distribution Width CV 14.7 % (11.6-14.6); RBC Distribution Width SD 44.7 fl (35.1-43.9); Red Blood Count 4.06 M/mm3 (4.2-5.4); White Blood Count 13.6 K/mm3 (4.4-11.0)
[2020-05-10] MEDS: Loratadine 10 MG Tablet PO (09:16)
[2020-05-10] MEDS: Senna/Docusate Sodium 1 Tablet PO (09:17)
[2020-05-10] MEDS: Budesonide Respules 0.5 MG/2 ML AMPUL.NEB. INHALATION ×2 (09:25→20:24)
--- NOTE | 2020-05-10 09:55 | PN.OBGYN_ITS ---
Patient Problems: Active and Suspected Problems (Last Reviewed 05/07/20 @ 10:07 by Zenobia Pino) Active labor at term (Acute) History of (Acute) RLTCS with SM 05/22/20 @ 7:30 (Acute) Plans Carrier and NIPT. declines afp. nl anatomy. Supervision of high risk , antepartum (Acute) PRR RACHEL 05/28/20 boy Mayito PC: Kiet. Spouse: Dusty Ortiz History of ectopic (Acute) 02/2019 lap left salpingectomy Subjective: Patient doing well without complaints. Tolerating PO. Lauren in place. Has not yet attempted ambulation. Breast feeding well. Denies chest pain, shortness of breath, calf pain/swelling, fevers, chills, lightheadedness. Objective: Laboratory Tests 05/10/20 05/09/20 05/09/20 Range/Units 05:53 20:57 20:57 WBC 13.6 H 10.5 (4.4-11.0) K/mm3 RBC 4.06 L 4.52 (4.2-5.4) M/mm3 Hgb 11.0 L 12.5 (12.0-15.0) g/dL Hct 33.9 L 37.3 (37-47) % MCV 83.5 82.5 (81-99) fL MCH 27.1 27.7 (27.0-32.0) pg MCHC 32.4 33.5 (32-36) g/dL RDW Std Deviation 44.7 H 43.5 (35.1-43.9) fl RDW Coeff of Von 14.7 H 14.8 H (11.6-14.6) % Plt Count 241 290 (150-450) K/mm3 MPV 10.5 11.0 (6.2-12.0) fl Immature Gran % (Auto) 0.300 (0.0-0.9) % Neut % (Auto) 69.7 (47-70) % Lymph % (Auto) 22.1 (19-41) % [place] % (Auto) 5.5 (0-10) % Eos % (Auto) 2.0 (0-5) % Baso % (Auto) 0.4 (0-1) % Absolute Neuts (auto) 7.3 (2.0-7.7) X10^3/uL Absolute Lymphs (auto) 2.32 (0.83-4.51) X10^3/uL Nucleated RBC % 0 (0-5) % Vag Amniotic Fld Detect (Negative) Chlam trachomat DNA PCR (Negative) N.gonorrhoeae DNA (PCR) (Negative) Blood Type AB POSITIVE Antibody Screen NEGATIVE 05/09/20 05/09/20 Range/Units 19:53 19:45 WBC (4.4-11.0) K/mm3 RBC (4.2-5.4) M/mm3 Hgb (12.0-15.0) g/dL Hct (37-47) % MCV (81-99) fL MCH (27.0-32.0) pg MCHC (32-36) g/dL RDW Std Deviation (35.1-43.9) fl RDW Coeff of Von (11.6-14.6) % Plt Count (150-450) K/mm3 MPV (6.2-12.0) fl Immature Gran % (Auto) (0.0-0.9) % Neut % (Auto) (47-70) % Lymph % (Auto) (19-41) % [place] % (Auto) (0-10) % Eos % (Auto) (0-5) % Baso % (Auto) (0-1) % Absolute Neuts (auto) (2.0-7.7) X10^3/uL Absolute Lymphs (auto) (0.83-4.51) X10^3/uL Nucleated RBC % (0-5) % Vag Amniotic Fld Detect Negative (Negative) Chlam trachomat DNA PCR Negative (Negative) N.gonorrhoeae DNA (PCR) Negative (Negative) Blood Type Antibody Screen - Physical Exam Vitals/I&O's: Vital Signs Temp Pulse Resp BP Pulse Ox 97.7 F L 83 18 111/73 98 05/10/20 09:32 05/10/20 09:32 05/10/20 09:32 05/10/20 09:32 05/10/20 09:32 Oxygen Delivery Method Room Air Weight: 185 lb 3.2 oz Body Mass Index (BMI) 34.9 Intake and Output for Last 24 Hours 05/08/20 05/09/20 05/10/20 23:59 23:59 23:59 Intake Total 1110 / 1110 500 / 500 Output Total 550 / 550 Balance 1110 / 1110 -50 / -50 General: Alert, Oriented x3, Cooperative, No apparent distress, Well developed, Well nourished HEENT: Atraumatic, PERRLA, EOMI, Normocephalic Neck: Supple, No JVD Lungs: Normal air movement Cardiovascular: Regular Rhythm Abdomen: Soft, Non Tender, Non-Distended, - - incision c/d/i, fundus firm Extremities: No edema, No Calf Tenderness Neurological: Cranial nerves II-XII grossly intact, Neuro grossly intact Psych/Mental Status: Normal Affect, Appropriate Microbiology Past 72 Hours 05/09/20 20:55 Mucosa - Nose SARS-CoV-2 Antigen (Rapid) - Final Laboratory Results 05/09/20 19:45: Chlam trachomat DNA PCR Negative, N.gonorrhoeae DNA (PCR) Negative 05/09/20 19:53: Vag Amniotic Fld Detect Negative 05/09/20 20:57: WBC 10.5, RBC 4.52, Hgb 12.5, Hct 37.3, MCV 82.5, MCH 27.7, MCHC 33.5, RDW Std Deviation 43.5, RDW Coeff of Von 14.8 H, Plt Count 290, MPV 11.0, Immature Gran % (Auto) 0.300, Neut % (Auto) 69.7, Lymph % (Auto) 22.1, [place] % (Auto) 5.5, Eos % (Auto) 2.0, Baso % (Auto) 0.4, Absolute Neuts (auto) 7.3, Absolute Lymphs (auto) 2.32, Nucleated RBC % 0 05/09/20 20:57: Blood Type AB POSITIVE, Antibody Screen NEGATIVE 05/10/20 05:53: WBC 13.6 H, RBC 4.06 L, Hgb 11.0 L, Hct 33.9 L, MCV 83.5, MCH 27.1, MCHC 32.4, RDW Std Deviation 44.7 H, RDW Coeff of Von 14.7 H, Plt Count 241, MPV 10.5 Current Medications Acetaminophen (Acetaminophen 500 Mg Tablet) 1,000 mg PO Q6H [facility] Last Admin: 05/10/20 09:17 Dose: 1,000 mg Documented by: Albuterol Sulfate (Albuterol 2.5 Mg/3 Ml Vial.Neb.) 2.5 mg INHALATION Q4H PRN PRN PRN Reason: SHORTNESS OF BREATH Bisacodyl (Bisacodyl 10 Mg Suppository) 10 mg RECTAL UD PRN PRN Reason: If no BM Budesonide (Budesonide Respules 0.5 Mg/2 Ml Ampul.Neb.) 0.5 mg INHALATION Q12H.RT [facility] Diphenhydramine HCl (Diphenhydramine 25 Mg Capsule) 25 mg PO Q6H PRN PRN PRN Reason: ITCHING Stop: 05/10/20 23:57 Last Admin: 05/10/20 01:35 Dose: 25 mg Documented by: Diphenhydramine HCl (Diphenhydramine 25 Mg Capsule) 25 mg PO Q6H PRN PRN PRN Reason: ITCHING Stop: 05/11/20 02:41 Enoxaparin Sodium (Enoxaparin 40 Mg/0.4 Ml Syringe) 40 mg SC DAILY [facility] Hydrocortisone (Hydrocortisone 2.5% Crm) 1 applic TOPICAL TID PRN PRN; Protocol PRN Reason: Discomfort Lactated Ringer's () 1,000 mls @ 100 mls/hr IV .Q10H [facility] Last Admin: 05/10/20 02:13 Dose: 100 mls/hr Documented by: Ketorolac Tromethamine (Ketorolac 30 Mg/Ml Syringe) 30 mg IV Q6H [facility] Stop: 05/10/20 17:01 Last Admin: 05/10/20 05:35 Dose: 30 mg Documented by: Loratadine (Loratadine 10 Mg Tablet) 10 mg PO DAILY [facility] Last Admin: 05/10/20 09:16 Dose: 10 mg Documented by: Methylergonovine Maleate (Methylergonovine 0.2 Mg/Ml Ampul) 0.2 mg IM X1 PRN PRN Reason: Uterine Atony Nalbuphine HCl (Nalbuphine 10 Mg/Ml Ampul) 5 mg IV Q3H PRN PRN PRN Reason: ITCHING Stop: 05/10/20 23:57 Last Admin: 05/10/20 03:50 Dose: 5 mg Documented by: Nalbuphine HCl (Nalbuphine 10 Mg/Ml Ampul) 5 mg IV Q3H PRN PRN PRN Reason: ITCHING Stop: 05/11/20 02:41 Naloxone HCl (Naloxone 0.4 Mg/Ml Syringe) 0.02 mg IV Q1M PRN PRN Reason: RR <10 and pt unresponsive Naloxone HCl (Naloxone 0.4 Mg/Ml Syringe) 0.02 mg IV Q1M PRN PRN Reason: RR <10 and pt unresponsive Naproxen (Naproxen 250 Mg Tablet) 500 mg PO Q8H [facility] Ondansetron HCl (Ondansetron 4 Mg/2 Ml Vial) 4 mg IV Q4H PRN PRN PRN Reason: Nausea Last Admin: 05/10/20 01:15 Dose: 4 mg Documented by: Oxycodone HCl (Oxycodone 5 Mg Tablet) 5 - 10 mg PO Q4H PRN PRN PRN Reason: Pain Score 4-10 Prochlorperazine Edisylate (Prochlorperazine 10 Mg/2 Ml Vial) 10 mg IV Q6H PRN PRN PRN Reason: NAUSEA Last Admin: 05/10/20 03:38 Dose: 10 mg Documented by: Senna/Docusate Sodium (Senna/Docusate Sodium 1 Tablet) 0 tablet PO DAILY [facility] Last Admin: 05/10/20 09:17 Dose: 2 tablet Documented by: Simethicone (Simethicone 80 Mg Tablet) 80 mg PO PCHS PRN PRN Reason: Indigestion/stomach pain Sodium Chloride (0.9% Saline Lock 10 Ml Syringe) 5 - 15 ml IV UD PRN PRN Reason: SALINE FLUSH Medical Necessity - Tobacco Use Smoking Status: Former smoker Assessment/Plan All Active Problems (Last Reviewed 05/07/20 @ 10:07 by Zenobia Pino) Active labor at term (Acute) History of (Acute) (Acute) Supervision of high risk , antepartum (Acute) History of ectopic (Acute) False labor (Resolved) s/p LTCS PPD #1 1. routine post care 2. breast feeding- support given 3. rh positive 4. rubella immune
[2020-05-10] MEDS: Enoxaparin 40 MG/0.4 ML Syringe SC (10:44)
[2020-05-10] MEDS: 0.9% Saline Lock 10 ML Syringe IV ×3 (11:05→18:06)
--- NOTE | 2020-05-10 12:40 | CASEMGMT ---
Social Work Brief Assessment Labor and Delivery Unit Refer documentation below for further details. Date of Referral/Notification: 05/09/2020 Time of Referral: 23:45 Reason for Referral: History of Post- Anxiety, depression. Baby transferred to [facility]. Date of Intervention: 05/10/2020 Time of Intervention: 12:40p Informant: Medical record and mother of baby (MOB) Assessment: Met with MOB and FOB, Dusty Ortiz in room. Introduced role and reason for referral. MOB logging into [facility] to view Mayito mac in NICU upon this worker entering room. Emotional support provided. FOB reports has been getting updates and plans to leave later today to visit baby. MOB discussed history of Post- anxiety with first child, son-Kiet. MOB reports to have sought counseling services through her [employer] at that time. MOB reports is ?feeling good? and does not have concerns for her mental health at this time. MOB states sonKiet is connected with [facility] and has already discussed possibility of Mayito shah getting signed up with [facility] worker, Delaney. MOB denies need for referral. MOB and FOB coping appropriately with baby?s transfer to [facility]. MOB hopeful for discharge tomorrow from hospital. MOB inquiring about breast pump, nursing was updated in room and will follow up. Nursing updated on this worker?s assessment. No additional concerns. Plan: MOB anticipates discharge tomorrow. FOB to visit Mayito mac today. No further needs requested or indicated.
--- NOTE | 2020-05-10 15:36 | NURSING ---
IBCLC round on mother. Has a consistent pumping plan in place. Has been pumping every 2-3 hours , has been nursing her toddler as well throughout so was able to pump 1 oz shortly after delivery of . Mother axious to be able to get back to baby and to her toddler at home. Was wanting to get another breast pump from her insurance but used her medicaid 2 years ago. It is only covered once every 5 years so instructed her on use of the hand pump she got with pump kit, explained use of hospital pumps in NICU, hand expression and advised her to contact [facility] jorge to see about pump rental if needed due to baby's NICU admission. Mother aware of support resources available once d/c. Denies problems or concerns with pumping and handles pump equipment well.
[2020-05-11] MEDS: Naproxen 250 MG Tablet 500 MG PO ×2 (00:15→08:25)
[2020-05-11 02:30] VITALS: BP 101/69; PULSE 70; RESP 16; TEMP 36.9
[2020-05-11] MEDS: Acetaminophen 500 MG Tablet 1000 MG PO ×2 (05:13→10:23)
[2020-05-11 08:26] VITALS: BP 105/73; PULSE 82; RESP 18; TEMP 36.7; O2SAT 97
--- NOTE | 2020-05-11 09:50 | PCM.PN.OB ---
Patient Problems: Active and Suspected Problems (Last Reviewed 05/07/20 @ 10:07 by Zenobia Pino) Active labor at term (Acute) History of (Acute) RLTCS with SM 05/22/20 @ 7:30 (Acute) Plans Carrier and NIPT. declines afp. nl anatomy. Supervision of high risk , antepartum (Acute) PRR RACHEL 05/28/20 boy Mayito PC: Kiet. Spouse: Dusty Ortiz History of ectopic (Acute) 02/2019 lap left salpingectomy Subjective: Patient doing well without complaints. Tolerating PO. Ambulating and voiding without difficulty. Breast feeding well. Denies chest pain, shortness of breath, calf pain/swelling, fevers, chills, lightheadedness. Objective: Laboratory Tests 05/10/20 05/09/20 05/09/20 Range/Units 05:53 20:57 20:57 WBC 13.6 H 10.5 (4.4-11.0) K/mm3 RBC 4.06 L 4.52 (4.2-5.4) M/mm3 Hgb 11.0 L 12.5 (12.0-15.0) g/dL Hct 33.9 L 37.3 (37-47) % MCV 83.5 82.5 (81-99) fL MCH 27.1 27.7 (27.0-32.0) pg MCHC 32.4 33.5 (32-36) g/dL RDW Std Deviation 44.7 H 43.5 (35.1-43.9) fl RDW Coeff of Von 14.7 H 14.8 H (11.6-14.6) % Plt Count 241 290 (150-450) K/mm3 MPV 10.5 11.0 (6.2-12.0) fl Immature Gran % (Auto) 0.300 (0.0-0.9) % Neut % (Auto) 69.7 (47-70) % Lymph % (Auto) 22.1 (19-41) % [place] % (Auto) 5.5 (0-10) % Eos % (Auto) 2.0 (0-5) % Baso % (Auto) 0.4 (0-1) % Absolute Neuts (auto) 7.3 (2.0-7.7) X10^3/uL Absolute Lymphs (auto) 2.32 (0.83-4.51) X10^3/uL Nucleated RBC % 0 (0-5) % Vag Amniotic Fld Detect (Negative) Chlam trachomat DNA PCR (Negative) N.gonorrhoeae DNA (PCR) (Negative) Blood Type AB POSITIVE Antibody Screen NEGATIVE 05/09/20 05/09/20 Range/Units 19:53 19:45 WBC (4.4-11.0) K/mm3 RBC (4.2-5.4) M/mm3 Hgb (12.0-15.0) g/dL Hct (37-47) % MCV (81-99) fL MCH (27.0-32.0) pg MCHC (32-36) g/dL RDW Std Deviation (35.1-43.9) fl RDW Coeff of Von (11.6-14.6) % Plt Count (150-450) K/mm3 MPV (6.2-12.0) fl Immature Gran % (Auto) (0.0-0.9) % Neut % (Auto) (47-70) % Lymph % (Auto) (19-41) % [place] % (Auto) (0-10) % Eos % (Auto) (0-5) % Baso % (Auto) (0-1) % Absolute Neuts (auto) (2.0-7.7) X10^3/uL Absolute Lymphs (auto) (0.83-4.51) X10^3/uL Nucleated RBC % (0-5) % Vag Amniotic Fld Detect Negative (Negative) Chlam trachomat DNA PCR Negative (Negative) N.gonorrhoeae DNA (PCR) Negative (Negative) Blood Type Antibody Screen - Physical Exam Vitals/I&O's: Vital Signs Temp Pulse Resp BP Pulse Ox 98.1 F 82 18 105/73 97 05/11/20 08:26 05/11/20 08:26 05/11/20 08:26 05/11/20 08:26 05/11/20 08:26 Oxygen Delivery Method Room Air Weight: 185 lb 3.2 oz Body Mass Index (BMI) 34.9 Intake and Output for Last 24 Hours 01/01/21 01/02/21 01/03/21 23:59 23:59 23:59 Intake Total 1110 / 1110 2986.67 / 2986.67 Output Total 1550 / 1550 Balance 1110 / 1110 1436.67 / 1436.67 General: Alert, Oriented x3, Cooperative, No apparent distress, Well developed, Well nourished HEENT: Atraumatic, PERRLA, EOMI, Normocephalic Neck: Supple, No JVD Lungs: Normal air movement Cardiovascular: Regular rate Abdomen: Soft, Non Tender, Non-Distended, - - incision c/d/i with dressing in place, fundus firm Extremities: No edema, No Calf Tenderness Neurological: Cranial nerves II-XII grossly intact, Neuro grossly intact Psych/Mental Status: Normal Affect, Appropriate Microbiology Past 72 Hours 05/09/20 20:55 Mucosa - Nose SARS-CoV-2 Antigen (Rapid) - Final Current Medications Acetaminophen (Acetaminophen 500 Mg Tablet) 1,000 mg PO Q6H [facility] Last Admin: 05/11/20 05:13 Dose: 1,000 mg Documented by: Albuterol Sulfate (Albuterol 2.5 Mg/3 Ml Vial.Neb.) 2.5 mg INHALATION Q4H PRN PRN PRN Reason: SHORTNESS OF BREATH Bisacodyl (Bisacodyl 10 Mg Suppository) 10 mg RECTAL UD PRN PRN Reason: If no BM Budesonide (Budesonide Respules 0.5 Mg/2 Ml Ampul.Neb.) 0.5 mg INHALATION Q12H.RT [facility] Last Admin: 05/10/20 20:24 Dose: 0.5 mg Documented by: Enoxaparin Sodium (Enoxaparin 40 Mg/0.4 Ml Syringe) 40 mg SC DAILY [facility] Last Admin: 05/10/20 10:44 Dose: 40 mg Documented by: Hydrocortisone (Hydrocortisone 2.5% Crm) 1 applic TOPICAL TID PRN PRN; Protocol PRN Reason: Discomfort Loratadine (Loratadine 10 Mg Tablet) 10 mg PO DAILY [facility] Last Admin: 05/10/20 09:16 Dose: 10 mg Documented by: Methylergonovine Maleate (Methylergonovine 0.2 Mg/Ml Ampul) 0.2 mg IM X1 PRN PRN Reason: Uterine Atony Naloxone HCl (Naloxone 0.4 Mg/Ml Syringe) 0.02 mg IV Q1M PRN PRN Reason: RR <10 and pt unresponsive Naloxone HCl (Naloxone 0.4 Mg/Ml Syringe) 0.02 mg IV Q1M PRN PRN Reason: RR <10 and pt unresponsive Naproxen (Naproxen 250 Mg Tablet) 500 mg PO Q8H [facility] Last Admin: 05/11/20 08:25 Dose: 500 mg Documented by: Ondansetron HCl (Ondansetron 4 Mg/2 Ml Vial) 4 mg IV Q4H PRN PRN PRN Reason: Nausea Last Admin: 05/10/20 01:15 Dose: 4 mg Documented by: Oxycodone HCl (Oxycodone 5 Mg Tablet) 5 - 10 mg PO Q4H PRN PRN PRN Reason: Pain Score 4-10 Prochlorperazine Edisylate (Prochlorperazine 10 Mg/2 Ml Vial) 10 mg IV Q6H PRN PRN PRN Reason: NAUSEA Last Admin: 05/10/20 03:38 Dose: 10 mg Documented by: Senna/Docusate Sodium (Senna/Docusate Sodium 1 Tablet) 0 tablet PO DAILY [facility] Last Admin: 05/10/20 09:17 Dose: 2 tablet Documented by: Simethicone (Simethicone 80 Mg Tablet) 80 mg PO PCHS PRN PRN Reason: Indigestion/stomach pain Last Admin: 05/10/20 22:31 Dose: 80 mg Documented by: Sodium Chloride (0.9% Saline Lock 10 Ml Syringe) 5 - 15 ml IV UD PRN PRN Reason: SALINE FLUSH Last Admin: 05/10/20 18:06 Dose: 10 ml Documented by: Medical Necessity - Tobacco Use Smoking Status: Former smoker Assessment/Plan All Active Problems (Last Reviewed 05/07/20 @ 10:07 by Zenobia Pino) Active labor at term (Acute) History of (Acute) (Acute) Supervision of high risk , antepartum (Acute) History of ectopic (Acute) False labor (Resolved) s/p LTCS PPD # 2 1. routine post care 2. breast feeding- support given 3. rh positive 4. rubella immune
[2020-05-11] MEDS: Senna/Docusate Sodium 1 Tablet PO (10:14)
[2020-05-11] MEDS: Loratadine 10 MG Tablet PO (10:14)
[2020-05-11] MEDS: Enoxaparin 40 MG/0.4 ML Syringe SC (10:25)
[2020-05-11] MEDS: oxyCODONE 5 MG Tablet PO (10:25)
[2020-05-11 10:41] VITALS: PULSE 82; RESP 19
[2020-05-11] MEDS: Budesonide Respules 0.5 MG/2 ML AMPUL.NEB. INHALATION (10:41)
[2020-05-11 12:27] VITALS: BP 124/79; PULSE 95; RESP 20; TEMP 36.8; O2SAT 96
== END 2020-05-11 12:35 | disposition home or self-care (01) | DRG 540 ==
LOC: WPOUT 20:44 → WP 20:44
PROVIDERS: Admitting Provider Obstetrics & Gynecology; PCP Internal Medicine; Referring Provider Obstetrics & Gynecology; Visit Provider Obstetrics & Gynecology
DX: O34.211 Maternal care for low transverse scar from previous cesarean delivery (principal); O99.52 Diseases of the respiratory system complicating childbirth; J45.909 Unspecified asthma, uncomplicated; Z87.891 Personal history of nicotine dependence; Z3A.37 37 weeks gestation of pregnancy; Z37.0 Single live birth
CPT/HCPCS: 59025; 59050; 84112; 85025; 85027; 86850; 86900; 86901; 87426; 87491; 87591; 94640; 99218; J7120; A4216; G0378; J2405

== ENCOUNTER → 2020-12-19 10:43 | Outpatient (CLI) | payer MEDICAID, SELFPAY ==
[2020-12-19 10:18] VITALS: BMI 33.2
[2020-12-19 12:30] LABS: Absolute Lymphocyte Count 2.31 X10^3/uL (0.83-4.51); Basophil# 0.06 X10^3/uL; Basophil% 0.6 % (0-1); Eosinophil# 0.45 X10^3/uL; Eosinophils% 4.8 % (0-5); Hematocrit 42.1 % (37-47); Hemoglobin 13.8 g/dL (12.0-15.0); Lymphocyte # 2.31 X10^3/ul (0.83-4.51); Lymphocyte % 24.6 % (19-41); Mean Corp Hgb Conc 32.8 g/dL (32-36); Mean Corpuscular Hgb 27.9 pg (27.0-32.0); Mean Corpuscular Volume 85.2 fL (81-99); Monocyte# 0.55 X10^3/uL; Monocyte% 5.9 % (0-10); NRBC Flagged by Analyzer 0 % (0-5); Neutrophil # 5.99 X10^3/uL (2.7-7.7); Neutrophil % 63.8 % (47-70); Platelet Count 387 K/mm3 (150-450); RBC Distribution Width CV 12.9 % (11.6-14.6); RBC Distribution Width SD 39.4 fl (35.1-43.9); Red Blood Count 4.94 M/mm3 (4.2-5.4); White Blood Count 9.4 K/mm3 (4.4-11.0)
[2020-12-19 12:41] LABS: Hemoglobin A1c 5.2 % (3.8-5.6)
[2020-12-19 12:58] LABS: ALB/GLOB Ratio 0.9 RATIO (0.9-2.4); AST(SGOT) 15 U/L (15-37); Alanine Aminotransfer ALT/SGPT 25 U/L (13-56); Albumin, Serum 3.7 g/dL (3.2-5.0); Alkaline Phosphatase 76 U/L (45-117); Anion Gap 5 (5-15); BUN 15 mg/dL (7-18); Chloride 105 mmol/L (98-107); Creatinine, Serum 0.65 mg/dL (0.55-1.02); EST Glomerular Filtration Rate 115 mL/min (>60); Est Glom Filt Rate - Afr Amer 139 mL/min (>60); Globulin 4.2 g/dL (2.2-4.2); Glucose 81 mg/dL (74-106); Potassium 3.8 mmol/L (3.5-5.1); Protein, Total 7.9 g/dL (6.4-8.2); Sodium Level 137 mmol/L (136-145); Thyroid Stim Hormone (TSH) 1.16 uIU/mL (0.358-3.74)
[2020-12-19 14:16] LABS: Vitamin B12 313 pg/mL (211-911); Vitamin D,25 Hydroxy 28.8 ng/mL
== END ==
PROVIDERS: PCP Internal Medicine; Referring Provider Nurse Practitioner Family; Visit Provider Nurse Practitioner Family
DX: R53.83 Other fatigue (principal); R73.09 Other abnormal glucose; E56.9 Vitamin deficiency, unspecified; F32.9 Major depressive disorder, single episode, unspecified
CPT/HCPCS: 36415; 80053; 82306; 82607; 83036; 84443; 85025

== ENCOUNTER 2022-01-21 08:00 | Outpatient (RCR) | payer MEDICAID, SELFPAY ==
--- NOTE | 2022-01-21 09:05 | BH.SGPN.GN ---
Behaviors/Verbalizations/Mental Status: [] Eye contact is good. Motor activity is appropriate. Appearance is casual. Speech is Appropriate. Mood is depressed. Affect is congruent. Thoughts are linear and logical. No evidence of psychosis. Reviewed daily check in sheet and no reports of suicidal ideations or intent. Client Response/Progress/Benefit: [] Pt participated at times during the group discussion. Attentive. Daily symptom tracker notes 3/5 for anxiety and irritability; 2/5 for depression. Pt shared that today was her first day in IOP level of care. Shared that she has been struggling with depression and crying spells recently. Tearful. States that January is the anniversary of her 's a year ago and I feel like I'm not enough for my kids. Pt is raising two children. She discussed how her depression has impacted her mental health as well as erratic moods. Group was empathetic and provided support which was beneficial. o progress noted as this was her first day. Will continue in IOP to prevent decompensation, increase healthy coping, and stabilize mood. Narrative Note: []
--- NOTE | 2022-01-25 09:10 | BH.SGPN.GN ---
Behaviors/Verbalizations/Mental Status: []Pt alert and oriented, casually dressed and groomed. Eye contact fair to good. Motor activity appropriate. Speech within normal limits. Affect constricted, mood depressed and anxious. Thoughts linear, logical, no signs of hallucinations or delusions. Reviewed pt?s symptom tracker, no risk for suicidal ideation, plan, or intent as of 01/25/22. Client Response/Progress/Benefit: []Pt responded well to session AEB pt sharing thoughts and feelings, as well as listening attentively to others. Pt stated current mental health wins include achieving small cleaning goals, as well as taking the steps to begin addressing her mental health sx. Pt went on to indicate struggling with the grieving process as the one year anniversary of her ?s is next week. Shared that she has struggled with knowing how to grieve or process this and feels she is trying to avoid her emotions all together. Receptive of and appearing to benefit from group support and feedback provided. Progress limited as pt new to IOP program. Pt to continue IOP to increase healthy coping repetoire, stabilize mood, and prevent decompensation. Narrative Note: []
--- NOTE | 2022-01-25 10:10 | BH.SGPN.GN ---
Behaviors/Verbalizations/Mental Status: []Client alert and oriented, casually dressed and groomed. Eye contact good. Motor activity appropriate. Speech within normal limits. Affect congruent, mood euthymic, slightly anxious. Thoughts linear, logical, no signs of hallucinations or delusions. Client Response/Progress/Benefit: []Client receptive to session AEB contributing to discussion and listening attentively to others. Taking notes. Worked with group to brainstorm the positive and negative aspects of stress on physical and mental health. Group did well to identify the benefits of stress as well as the impact of distress on performance and mental health. Client identified their personal top stressors as: husbands anniversary coming up, the dishes, and spending too much money. Client reports when the stress overflows client reacts by impulsively spending more money which she recognizes causes increased stress in the long-term. Client seemed to benefit from increased awareness of current stressors and impact stress has on mental health. Recommended to continue IOP tx to increase healthy coping skills, improve emotion regulation and prevent decompensation.
--- NOTE | 2022-01-25 11:20 | BH.SGPN.GN ---
Behaviors/Verbalizations/Mental Status: []Pt alert and oriented, casually dressed and groomed. Eye contact good. Motor activity appropriate. Speech within normal limits. Affect congruent, mood euthymic. Thoughts linear, logical, no signs of hallucinations or delusions. Client Response/Progress/Benefit: []Pt participated at times during group discussions. Attentive during psychoeducation on the 4 A's of Coping with Stress (Avoid, Alter, Adapt, Accept). Participated in experiential activity in which group members had to utilize stress management skills in the moment. Pt did well to problem-solve and express ideas to peers. Pt engaged in review of the 4 A?s and picked wanting to work on altering her perspective on doing her dishes which pt hopes will help her wash them. Benefited from processing in the moment stress management strategies and identifying new ways to cope with stress. Will continue in IOP tx to prevent decompensation, gain healthy coping skills, and improve overall functioning. Narrative Note: []
--- NOTE | 2022-01-26 09:00 | BH.SGPN.GN ---
Behaviors/Verbalizations/Mental Status: [] Eye contact is good. Motor activity is appropriate. Appearance is casual. Speech is Appropriate. Mood is depressed. Affect is congruent. Thoughts are linear and logical. No evidence of psychosis. Reviewed daily check in sheet and no reports of suicidal ideations or intent. Client Response/Progress/Benefit: [] Pt was an active participant in group discussion. Attentive. Provided appropriate feedback. Emotion for today is apprehensive. Mental health win was completing small things around the house. Shared that this is a win as she has struggled with motivation and completing tasks. She immediately minimized her wins stating there are things most people should do everyday Group reframed her cognitive distortions and discussed how those wins are very important. She also shared depression and anxiety related to her child taking his first school picture this week. States that it has been tough experiencing these firsts without her as he is .Beneifted from group support, encouragement, and feedback. Will continue in IOP to prevent decompensation, stabilize mood, and improve functioning. Narrative Note: []
--- NOTE | 2022-01-26 11:02 | BH.SGPN.GN ---
Behaviors/Verbalizations/Mental Status: []Client alert and oriented, casually dressed and groomed. Eye contact good. Motor activity appropriate. Speech within normal limits. Affect congruent, mood anxious and depressed. Thoughts linear, logical, no signs of hallucinations or delusions. Client Response/Progress/Benefit: []Client responded well to session AEB completing the resilience worksheet provided. Client participated in the discussion of how each resiliency component can help increase personal resiliency and worked cooperatively with group to identify strategies to enhance each of the components discussed. Client reported she feels she is doing well with the resilience traits of ?make connections? and ?move towards your goals?. Client stated she would like to continue to develop resilience trait of ?take care of yourself? by challenging herself to pay more attention to her emotions and develop a more consistent exercise routine. Client seemed to benefit from discussing strategies for improving personal resilience and identifying resilience traits client already possesses. Progress limited as pt still new to IOP program. Will continue IOP tx to prevent decompensation, continue to promote use of healthy coping skills, and reduce depressive sx. Narrative Note: []
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
--- NOTE | 2022-01-27 11:10 | BH.SGPN.GN ---
Behaviors/Verbalizations/Mental Status: []Client alert and oriented, casually dressed and groomed. Eye contact good. Motor activity appropriate. Speech within normal limits. Affect congruent, mood anxious. Thoughts linear, logical, no signs of hallucinations or delusions. Client Response/Progress/Benefit: []Client engaged during activity and contributed as group brainstormed ideas on how to cope with internal barriers that keep clients stuck from moving towards goals. Able to identify barriers to desired reality. Client identified wanting to work on overcoming the barrier of taking on other?s stressors by more consistently challenging herself to say ?no? to others. Shared that this will help her to feel a little more confident in herself and her abilities, as well as reduce stress levels. Benefited from group by identifying obstacles and solutions to desired reality. Client will continue IOP tx to continue to improve use of healthy coping skills, as well as further improve mood management and overall functioning. Narrative Note: []
[2022-01-27 11:40] VITALS: BP 140/89; PULSE 85
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
--- NOTE | 2022-01-27 12:09 | BH.DR.ITP ---
Initial Treatment Plan Patient Information Visit Information: ADMISSION DATE: EXPECTED LOS: 4-6 weeks Problems/Symptoms Problem #1:: Mood instability Symptom:: Sadness, hopelessness, worthlessness, apathy, guilt, recent passive thoughts of , occasional irritability and erratic moods, biological disruption of sleep Problem #2:: Anxiety Symptom:: Worry, rumination, avoidance
--- NOTE | 2022-01-27 14:23 | BH.MTP ---
Master Treatment Plan - Patient Information Program Physician:: Dr. Tootie Burleson Primary Therapist:: BILL Velez - Psychiatric Diagnoses Psychiatric Diagnoses:: Bipolar, NOS (F31.9), Generalized anxiety disorder, PTSD Diagnosis Code(s):: F 31.9 - Estimated LOS Estimated LOS (in weeks):: 6 Problem/Goal #1 - Problem/Goal #1 Stated Goal:: Client will increase mood stability, decrease depressive symptoms, irritability, and improve stress management through Intensive Outpatient Program AEB decrease in DSM Depression and Irritability scales. Description of Barriers: hx of poor communication and unhealthy coping skills. Grief. Limited support. Functional Impact: The patient is a 31-year-old , female who was referred to the [facility] IOP program by her primary care provider for worsening depression following the of her 1 year ago and recent passive thoughts of . Patient has a history of depression, PTSD and ADHD. The patient is now raising her 2 sons, ages 2 and 4, as a single parent which has been a primary stressor for her. The anniversary of her ?s is approaching which is also a stressor. Pt reports for the past several months she has experienced apathy, difficulty accomplishing her activities of daily living, difficulty getting out of bed, hopelessness, worthlessness, guilt, excessive worry and rumination, anger and irritability, as well as mood swings. Reports worsening sx since running out of Seroquel several days ago. Pt reports she has a significant trauma hx which has impacted her ability to trust others and notes PTSD sx associated with this. Additional stressors include finances as pt is not working and interpersonal relationships. Pt would like to work on improving emotion regulation, boundaries, self-confidence, and stress management skills. - Objectives Objective #1 Stated Objective: Client will reduce anger outbursts and irritability due to Bipolar, NOS through IOP. Interventions: Through individual and group counseling Client will learn and implement 2 stress management and calming skills to prevent escalation to point of outburst and manage daily stressors. Discharge Criteria: Pt will identify 2 strategies to improve stress management and calm self when feeling overwhelmed AEB self report and reduction in DSM scores for irritability, as well as use these consistently. Target Date: 03/04/22 Review Date: 02/11/22 Objective #2 Stated Objective: Client will increase mood stability, improve management of depressive symptoms, and reduce passive thoughts of . Interventions: Through group and individual counseling Client will learn and utilize 2-3 healthy coping strategies to better manage depressive symptoms, and identify ways to engage in habits that improve overall mood as shown by reduced DSM-5 scores. Discharge Criteria: Pt will be able to identify and consistently apply at least 2 healthy coping skills for depressive episodes. Target Date: 03/04/22 Review Date: 02/11/22 Problem/Goal #2 - Problem/Goal #2 Stated Goal:: Client will increase emotional regulation and reduce intensity and duration of anxiety symptoms as evidenced by pt's self report and reduction in Anxiety subscales of the DSM cross-cutting scales. Description of Barriers: hx of poor communication and unhealthy coping skills. Grief. Limited support. Functional Impact: The patient is a 31-year-old , female who was referred to the [facility] IOP program by her primary care provider for worsening depression following the of her 1 year ago and recent passive thoughts of . Patient has a history of depression, PTSD and ADHD. The patient is now raising her 2 sons, ages 2 and 4, as a single parent which has been a primary stressor for her. The anniversary of her ?s is approaching which is also a stressor. Pt reports for the past several months she has experienced apathy, difficulty accomplishing her activities of daily living, difficulty getting out of bed, hopelessness, worthlessness, guilt, excessive worry and rumination, anger and irritability, as well as mood swings. Reports worsening sx since running out of Seroquel several days ago. Pt reports she has a significant trauma hx which has impacted her ability to trust others and notes PTSD sx associated with this. Additional stressors include finances as pt is not working and interpersonal relationships. Pt would like to work on improving emotion regulation, boundaries, self-confidence, and stress management skills. - Objectives Objective #1 Stated Objective: Client will identify 2-3 anxiety triggers and 2 calming coping skills to reduce anxiety as shown by decreased DSM-5 cross cutting symptom measure scores. Interventions: Through individual and group counseling client will increase awareness of anxiety triggers and educate client on the ways anxiety impacts overall health. Therapist will teach client various calming and mindfulness strategies to promote emotional regulation and reduction of anxiety. Therapist will encourage client to implement healthy coping skills on a regular basis. Discharge Criteria: Client will be able to identify 2-3 anxiety triggers and be able to consistently utilize 2 calming skills. Target Date: 03/04/22 Review Date: 02/11/22
--- NOTE | 2022-01-27 14:23 | BH.MDN ---
Multi-Disciplinary Note - Note 60-min Individual Time Started:: 09:10 Date: 01/28/22 Purpose of session/treatment goals addressed:: To gather information on pt's current stressors, symptoms, triggers, and tx goals. Another goal was to build rapport and provide emotional support. Eye Contact:: Good - tearful at times throughout discussion. Motor Activity:: Appropriate Appearance:: Casual Speech:: Appropriate Mood:: Anxious, Depressed Affect:: Congruent Thoughts:: Linear, Logical, No evidence of hallucinations/delusions noted Staff Interventions:: motivational interviewing, psychoeducation on: - boundaries, CBT techniques, rapport building, strengths perspective, treatment planning, goal setting Client Response:: Pt responded well to session, open to meeting with therapist. Pt reports she has enjoyed IOP so far and the activities have helped pt gain more awareness of her own behaviors contributing to her mental health struggles. Pt described she has been struggling with depression, overwhelming anxiety, and anger over the past year following the loss of her . Pt reports difficulties in managing the caregiver responsibilities of her two young children, ages 2 & 3, since becoming the sole parental figure in their life. Reports often becoming stressed to the point of yelling or throwing objects across the room. Denies ever becoming aggressive or yelling at her children and recognizes her current difficulties in regulating her emotions are potentially impacting her children?s mental health and behaviors. Reports wanting to learn parenting skills, such as effective stress management and emotion regulation. Pt also reports wanting to improve her ability to establish and maintain healthy boundaries with others as she feels she often takes on other?s problems, further increasing her own stress levels. Discussed an additional stressor as the upcoming one-year anniversary of her ?s , next week. Receptive of discussing the importance of self-care and creating a healthy coping plan for that day. Pt plans to come to [facility] tx, as well as spend time with her [id number]. She reports often avoiding her grief. Reports feeling lonely but struggles to reach out to supports as she does not want to be a burden. Pt receptive to learning about the importance of healthy boundaries in improving self-confidence and self-worth. Receptive of resources for parenting classes in the area. Pt will work on self-reflection exercise for homework. Risks/Concerns:: Pt denies any active suicidal ideations, plan, or intent as of 01/27/22. No HI. Future oriented. Progress Toward Goals/Plan:: Pt is starting her second week of IOP tx and reports she is enjoying the groups so far. Pt identifies her treatment goals as learning healthy coping skills to manage emotions, specifically anger, improve boundaries, better manage daily stressors. Pt currently endorses irritability, anger outbursts, ruminations, racing thoughts, low self-esteem, and grief. Pt will need outpatient counseling and psychiatry when she finishes IOP. Pt will continue IOP tx to prevent decompensation, gain healthy coping skills, and reduce negative thinking. Time Stopped:: 10:00
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
--- NOTE | 2022-02-01 09:00 | BH.SGPN.GN ---
Behaviors/Verbalizations/Mental Status: []Pt alert and oriented, disheveled appearance. Eye contact good. Motor activity appropriate. Speech within normal limits. Affect constricted, mood detached. Thoughts linear, logical, no signs of hallucinations or delusions. Reviewed pt?s symptom tracker, no risk for suicidal ideation, plan, or intent as of Client Response/Progress/Benefit: []Pt responded well to session, attentive and providing supportive statements. Pt reports feeling detached this morning as it is the anniversary of her late 's . Pt shared she thought she would more tearful, but so far she has had moments of leah. Group helped pt process her complex emotions with grief and provided emotional support. Pt's mental health win today is that she hired someone to help her with housework to reduce stress at home. Appeared to benefit from connecting with peers and being with people today on the anniversary of a loss. Will continue IOP tx to prevent decompensation, increase healthy coping skills, and improve daily functioning. Narrative Note: []
--- NOTE | 2022-02-01 10:10 | BH.SGPN.GN ---
Behaviors/Verbalizations/Mental Status: []Client alert and oriented, casually dressed and groomed. Eye contact good. Motor activity appropriate. Speech normal. Affect congruent, mood anxious and depressed, Thoughts linear, logical, no signs of hallucinations or delusions. Client Response/Progress/Benefit: []Client was engaged participant AEB listening attentively to others and providing input in group. Attentive during psychoeducation on communication styles. Assisted group with identifying barriers of effective communication which included: ?assumptions, shutting down, and mood.? Client identified they most often use aggressive or passive-aggressive communication styles, which often leads to guilt and additional interpersonal stressors.? Client reports using aggressive communication when feeling they are not being heard or communicating with their partner. Reports trying to be more assertive within interpersonal relationships and advocating for their mental health needs. Benefited from increased awareness of different communication barriers, styles, and the importance of communicating effectively to improve mental wellness. Will continue IOP tx to prevent decompensation and maintain gains, as well as increase healthy communication, and stabilize functioning. Narrative Note: []
--- NOTE | 2022-02-01 10:10 | BH.SGPN.GN ---
Behaviors/Verbalizations/Mental Status: []Client alert and oriented, casually dressed and groomed. Eye contact good. Motor activity appropriate. Speech within normal limits. Affect congruent, mood anxious and depressed, Thoughts linear, logical, no signs of hallucinations or delusions Client Response/Progress/Benefit: []Client responded well to session AEB client listening attentively to others and providing input during group discussion on the pay offs and costs of the different communication styles. Client recognizes negative impact on her patience levels with others when she doesn't use healthy communication. Client did well in the activity to be assertive and ask for clarification/provide suggestions to the group. Recognizes if group couldn?t actively listen to one another in the activity, they wouldn?t have been successful. Attentive during psychoeducation on interpersonal DBT skill ELOY. Client set a goal to work on being more mindful with goal of trying to remain mindful of staying on topic and not ?going down rabbit trails? in a discussion. Client seemed to benefit from increasing awareness of healthy strategies to improve communication. Client will continue IOP tx to improve successful communication, better regulate emotions, improve interpersonal relationships, and prevent decompensation. Narrative Note: []
--- NOTE | 2022-02-02 10:10 | BH.SGPN.GN ---
Behaviors/Verbalizations/Mental Status: [] Client alert and oriented, casually dressed and groomed. Eye contact good. Motor activity appropriate. Speech within normal limits. Affect congruent, mood euthymic. Thoughts linear, logical, no signs of hallucinations or delusions. Client Response/Progress/Benefit: [] Client responded well to session AEB sharing and listening attentively to others. Client provided examples of benefits of having social support. Client also participated in group discussion regarding the different kinds of supports in our safety net and the things that weaken or prevent us from using our supports with identifying that toxic people as hurting our net. Clinician provided psychoeducation on types of support including internal and external support, with client identifying family and hobbies as other supports. Client participated in experiential activity illustrating the importance of having multiple social supports. Client provided supportive feedback and problem solving throughout group activity. Client participated in group processing of the activity. Client appeared to benefit from increased knowledge of the benefits of social support and greater self-awareness. Will continue IOP treatment to continue increasing self-esteem and decreasing negative self-talk to improve daily functioning. Narrative Note: []
--- NOTE | 2022-02-02 11:10 | BH.SGPN.GN ---
Behaviors/Verbalizations/Mental Status: [] Client alert and oriented, casually dressed and groomed. Eye contact good. Motor activity appropriate. Speech within normal limits. Affect congruent, mood euthymic. Thoughts linear, logical, no signs of hallucinations or delusions. Client Response/Progress/Benefit: [] Client was an active participant throughout AEB contributing to discussion, providing personal examples, and taking notes. Client provided input during discussion on the types of support our supports can provide. Client able to identify current support system and barriers that get in the way of using supports by drawing out their own support net. Client reported after identifying what type of supports they receive; they gained awareness that they could benefit from more emotional supports. Client identified steps to achieve this by reaching out to her mom, being honest with herself, and spend time with friends. Client shared increasing these supports will help her feel more connected to others. Client seemed to benefit from identifying the type of support client needs to work on improving. Client recommended to continue IOP tx to prevent decompensation, minimize cognitive distortions, and increase emotional regulation skills. Narrative Note: []
--- NOTE | 2022-02-02 14:43 | BH.MDN ---
Multi-Disciplinary Note - Note 45-min Individual Time Started:: 08:51 Date: 02/02/22 Purpose of session/treatment goals addressed:: Reviewed current stressors and discussed healthy boundary setting regarding recent impulsive spending. Eye Contact:: Good Motor Activity:: Appropriate Appearance:: Casual Speech:: Appropriate Mood:: Euthymic, Anxious Affect:: Congruent Thoughts:: Linear, Logical, No evidence of hallucinations/delusions noted Staff Interventions:: thought challenging, psychoeducation on: - Cognitive triangle, CBT techniques, strengths perspective, goal setting - regarding financial spending Client Response:: Pt receptive of session, engaged throughout. Reports feeling anxious and somewhat guilty this morning following an incident the previous night in which pt overspent. Shared impulsively buying her children a playhouse, which is one of many items she has recently impulsively purchased totaling over $50,000 in the past year. Pt expressed guilt and fear that if she does not curb her spending soon, she will not have any of her ?s life insurance money left for her children when they are older. Pt discussed that she has never had this much money in her possession before and is struggling with wanting the instant gratification of purchasing ?fun things? for herself and her children. Pt recently getting into online gambling, which has contributed to the impulsive spending as well. Reports wanting to end the impulsive behaviors and find healthier activities to engage in. Pt disclosed that she feels her spending has been a distraction and means of numbing herself and avoid addressing her unprocessed grief and depression. Pt reports she has wanted to just ?get over it? and feels that she should no longer be struggling as it has been a year since her . Willing to challenge thought of what grieving ?should? look like and able to recognize there is not a ?correct? way to feel at any time following a loss. Pt receptive of discussing safeguards for reducing impulsive spending, including deleting online gambling apps and scheduling to meet with a personal financial advisor at her bank to create a trust fund for her children so she wont be tempted to misspend the money she intends for them to get. Additionally discussed other ways to get sensation of experiencing ?small wins? throughout the day as this is what pt reports enjoying most about gambling. Reports plans to find free games she can play on her phone, as well as a daily accomplishment log for homework. Risks/Concerns:: Denies any SI, plan, or intent. No risks or concerns noted. Progress Toward Goals/Plan:: Some progress noted in pt self-report of improved use of emotion regulation skills when feeling overwhelmed by her children. Reports 5-senses technique and removing herself from the environment have been helpful in preventing her from verbally lashing out at them. Discussed plans to contact Zoya before Tuesday to schedule an intake appointment for the [facility] program, as well as individual outpatient counseling services. 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 Pt has however continued to struggle with impulsive spending and using shopping as a means of distracting from and avoiding her emotions and continued grief. Pt able to identify the costs on her mental health, self-confidence, and relationships of continuing this behavior. Reports willingness to begin replacing unhealthy coping behaviors with healthier skills as she reports wanting to be a positive example for her children. Plan is to to continue in IOP to prevent decompensation, increase consistent use of healthy coping, and provide support. Time Stopped:: 09:38
--- NOTE | 2022-02-03 09:02 | BH.SGPN.GN ---
Behaviors/Verbalizations/Mental Status: []Pt alert and oriented, casually dressed and groomed. Eye contact good. Motor activity appropriate. Speech within normal limits. Affect congruent, mood euthymic. Thoughts linear, logical, no signs of hallucinations or delusions. Reviewed pt?s symptom tracker, no risk for suicidal ideation reported, denies plan, or intent as of 02/03/22 Client Response/Progress/Benefit: []Pt responded well to session, attentive and providing supportive feedback and encouragement to fellow participants throughout. 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 Shared feeling accomplished and excited to begin but stressed about finding consistent childcare for her two young children. Went on to identify additional wins as continuing to use deep breathing skills when agitated with her children, as well as beginning a daily accomplishment log. Pt appeared to benefit from support of the group environment. Pt to continue IOP tx to continue to improve stress management skills, reduce impulsivity, and further improve mood stability. Narrative Note: []
--- NOTE | 2022-02-03 10:10 | BH.SGPN.GN ---
Behaviors/Verbalizations/Mental Status: []Pt alert and oriented, neatly dressed and grooming appears tended to. Eye contact good. Motor activity appropriate. Speech within normal limits. Affect congruent, mood euthymic. Thoughts linear, logical, no signs of hallucinations or delusions. Client Response/Progress/Benefit: []Pt engaged throughout AEB taking notes, listening attentively, and providing input throughout. Attentive during psychoeducation and discussed the importance of goal-setting with the group. Group identified potential benefits of having goals to include: they motivate, increase self-confidence, provide a sense of accomplishment and give direction. Group also worked together to identify barriers to goal-setting which included; high expectations, negative thinking, and lack of motivation. Pt identified personal barriers to include wanting instant gratification and goals being too much energy. Benefited from increased awareness of benefits and barriers to goal-setting. Pt will continue in IOP tx to increase mood stability, reduce impulsivity, and improve daily functioning. Narrative Note: []
== END 2022-02-05 23:59 ==
LOC: BHIOP 08:00
PROVIDERS: PCP Internal Medicine; Visit Provider Psychiatry & Neurology Psychiatry
DX: F31.9 Bipolar disorder, unspecified (principal); F41.1 Generalized anxiety disorder; F43.10 Post-traumatic stress disorder, unspecified; F43.21 Adjustment disorder with depressed mood
CPT/HCPCS: 90792; H2012; H2020; S9480; T1002; 90834; 90837

== ENCOUNTER → 2022-01-22 | Outpatient (CLI) | payer MEDICAID, SELFPAY ==
[2022-01-22 15:14] LABS: Internal QC Validated? YES +Cl - CLEAR BKGD; Pregnancy, Urine Negative Negative
== END | disposition home or self-care (01) ==
LOC: LABSPEC 14:34
PROVIDERS: PCP Internal Medicine; Referring Provider Nurse Practitioner Family; Visit Provider Nurse Practitioner Family
DX: N91.2 Amenorrhea, unspecified (principal)
CPT/HCPCS: 81025

== ENCOUNTER 2022-02-08 09:01 | Outpatient (RCR) | payer MEDICAID, SELFPAY ==
[2022-02-06 01:49] VITALS: BP 140/89; PULSE 85
--- NOTE | 2022-02-08 09:49 | BH.COMM ---
Communication Note - Communication with Client Communication Note: Pt scheduled for IOP tx on this date however did not show or call to cancel. Therapist reached out and pt indicated she is home sick with her children.
--- NOTE | 2022-02-10 11:30 | BH.COMM ---
Communication Note - Communication with Client Communication Note: Pt canceled yesterday and today due to ongoing illness. Reports plans to rest and recoup the remainder of the week and will return to group next week once her sx improve. Will continue to follow-up as needed.
--- NOTE | 2022-02-16 13:46 | BH.MDN_ITS ---
Multi-Disciplinary Note - Note 30-min Individual Time Started:: 09:25 Date: 02/16/22 Purpose of session/treatment goals addressed:: Review current progress and symptoms in IOP. Addressed treatment plan goals 1 and 2 and discussed strategies for overcoming identified barriers to mental health tx goals. Eye Contact:: Good Motor Activity:: Appropriate Appearance:: Casual Speech:: Appropriate Mood:: Anxious, Dysthymic Affect:: Congruent Thoughts:: Linear, Logical, No evidence of hallucinations/delusions noted Staff Interventions:: thought challenging, CBT techniques, reviewed DSM-5, goal setting, other - connected client with outpatient parenting, case management, counseling, and psychiatry services. Client Response:: Pt receptive of session, engaged throughout. Reports that she is feeling better today, but things got a little dark over the weekend?. Went on to indicate being isolated much of the weekend and experiencing more negative thoughts when by herself. Pt discussed thoughts of ?I?m not enough for my kids? are often worse when by herself and that she has historically tried to use distraction to numb herself when experiencing difficult thoughts and emotions. Reports at one point struggling intrusive thoughts of self-harming, but did not act on these thoughts and instead went shopping. Initially tried to justify using shopping to cope; however, able to recognize this as an unhealthy form of distraction as pt self-reports problems with managing her finances. Pt set a goal in last session to meet with someone from her bank to establish a trust for her children and discuss financial planning; however, denies having done so. Shared she has been busier with starting a new job and has struggled to make it a priority. Noted that discussing her financial situation also reinforces feelings of not being ?good enough? for her children. Pt discussed learning to be more independent since her passed as he was the one to manage finances. Pt worked with therapist to challenge her expectations of what a ?good enough? mother is, reflecting that she has been putting pressure on herself to fill all the roles her had without any help. Able to identify that a ?good enough? parent also seeks out assistance and asks for help with the things they can?t or don?t know how to do independently. Discussed setting small daily goals rather looking at a large list of obligations and feeling too overwhelmed to accomplish anything. Additionally reports plans to return to her daily accomplishment log as she had not been keeping up with it consistently over the past week and feels that this could have a positive impact on her mood as well. Risks/Concerns:: no risks or concerns noted. Pt denies any active SI, plan, or intent as of this date, 02/16/22. Progress Toward Goals/Plan:: Progress noted as pt reports reduced depression and anxiety since entering the program. DSM-5 scores reflect a 50% reduction in depressive sx, 25% reduction in anger/irritability, and 43% reduction in anxiety. Pt reports improve ability to regulate emotions when overwhelmed or stressed out by daily parenting tasks, identifying the 5-senses skill as particularly effective for calming both herself and her son. Reports learning healthy coping skills to manage emotions which has decreased urge to self-harm, and improved coping abilities when these urges do arise. Medication compliant. Engaged and consistent with attendance, outside of missing this past week due to illness. Reports that groups have been helpful for support and education. Mood remains inconsistent. Continues to report depression, irritability, and anxiety which lead to isolation, increased spending, and decreased functioning. While these have decreased in frequency they are still happening on an almost daily basis. Pt reports struggling to follow through with small goals such as scheduling appointments for establishing outpatient counseling and financial advising. 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 Continued care recommended to further improve healthy coping and reduce unhea lthy avoidance habits, improve mood stability, and prevent decompensation. Time Stopped:: 10:00
--- NOTE | 2022-02-17 10:05 | BH.SGPN.GN ---
Behaviors/Verbalizations/Mental Status: [] Client alert and oriented, neatly dressed and groomed. Eye contact good. Motor activity appropriate. Speech within normal limits. Affect congruent, mood euthymic. Thoughts linear, logical, no signs of hallucinations or delusions. Client Response/Progress/Benefit: [] Client was an active participant in group discussions. Attentive during psychoeducation on 4 types of conflict styles (Competing, Collaborating, Avoiding, and Accommodating). Worked with group to define conflict and identify how conflict is helpful. With peers identified barriers to addressing or managing conflict which included: wanting to avoid difficult feelings/emotions, lack of communication skills, and cognitive distortions. Client believes they use the avoiding style the most. Client shared this style causes them to have increased stress in conflict and more irritable. Benefited from group due to increase insight and awareness of benefits to conflict, conflict styles, and obstacles to managing conflict. Will continue in IOP to increase overall functioning, gain healthier core beliefs, and increase self-esteem. Narrative Note: []
--- NOTE | 2022-02-17 10:58 | BH.COMM ---
Communication Note - Communication with Client Communication Note: Pt had an initial appointment with outpatient psychiatry today to get set up for long-term care. Due to seeing psych this AM she was taken off program psychiatrist's schedule for this week and next unless any issues would arise.
--- NOTE | 2022-02-17 11:10 | BH.SGPN.GN ---
Behaviors/Verbalizations/Mental Status: [] Client alert and oriented, neatly dressed and groomed. Eye contact good. Motor activity appropriate. Speech within normal limits. Affect congruent, mood euthymic. Thoughts linear, logical, no signs of hallucinations or delusions. Client Response/Progress/Benefit: [] Client engaged in session AEB contributing to discussion and engaging in activity. Client did well to review current conflict style and its impact on mental health. Attentive and taking notes during discussion on strategies for more effectively managing conflict in personal life. Client participated in activity and did well to be assertive and collaborating. Client given handout on fair fighting rules and identified that they want to work on not yelling and watch their tone of voice when dealing with conflict. Appeared to benefit from gaining strategies to help client better manage conflict. Will continue IOP tx to increase self care and prevent decompensation. Narrative Note: []
--- NOTE | 2022-02-18 09:05 | BH.SGPN.GN ---
Behaviors/Verbalizations/Mental Status: [] Eye contact is good. Motor activity is appropriate. Appearance is casual. Speech is Appropriate. Mood is euthymic. Affect is full. Thoughts are linear and logical. No evidence of psychosis. Reviewed daily check in sheet and no reports of SI. Client Response/Progress/Benefit: [] pt was an active participant in group discussions. Attentive. Provided appropriate feedback. Daily symptom tracker notes 5 for irritability and /5 for depression. Mental health win was ?meeting with new psychiatrist? yesterday. [place] comfortable and states that ?he did well explaining things?. Emotion for today is ?neutral?. She has followed through with responsibilities, been more social, and has utilized coping skills such as opposite-action all week which has improved her mood. Shared that last week and weekend she was depressed, isolation, and hopeless. Insight on the effectiveness of skills on her overall functioning. Benefited from group support, encouragement, and feedback. Will continue in IOP to prevent decompensation, stabilize mood, and improve functioning. Narrative Note: []
--- NOTE | 2022-02-18 10:05 | BH.SGPN.GN ---
Behaviors/Verbalizations/Mental Status: [] Client alert and oriented, casually dressed and groomed. Eye contact good. Motor activity appropriate. Speech within normal limits. Affect congruent, mood euthymic. Thoughts linear, logical, no signs of hallucinations or delusions. Client Response/Progress/Benefit: [] Client was an active participant in group discussions and activity. Attentive during psychoeducation. Client along with peers were able to identify several negatives on the picture given to the group. Client and peers also identified positives in the picture and made the connect that finding positives is much more difficult. Interactive discussion on the definition of perspective, how perspective is formed, and why perspective is important in treatment. Client shared how her perspective was shaped based off of things she has been told by others. Client along with peers also identified that perspective can either motivate and encourage treatment or be a barrier to receiving help. Client along with group members came up with benefits of having a hopeful perspective for their mental health, which included feeling more encouraged, feeling less depressed, and increased motivation. Will continue in IOP to prevent decompensation, increase overall functioning and increase use of healthy coping skills. Narrative Note: []
--- NOTE | 2022-02-18 11:05 | BH.SGPN.GN ---
Behaviors/Verbalizations/Mental Status: [] Client alert and oriented, casually dressed and groomed. Eye contact good. Motor activity appropriate. Speech within normal limits. Affect congruent, mood euthymic. Thoughts linear, logical, no signs of hallucinations or delusions Client Response/Progress/Benefit: [] Client was attentive and contributed in small and larger group discussion. Client completed strengths exploration worksheet and identified personal strengths to include: Empathy and creativity. Client able to acknowledge how these strengths are helping her and can continue to help client in her mental health journey. Shared wanting to focus on utilizing her support system to help reinforce her strengths. Benefited from identifying personal strengths and strategies for enhancing use of identified strengths. Client to continue IOP tx to increase overall functioining, increase self-confidence, and reduce negative thinking patterns. Narrative Note: []
--- NOTE | 2022-02-24 13:46 | BH.TPR ---
Treatment Plan Review Date of Admission:: 01/27/22 Date of Treatment Plan Review:: 02/24/22 Admitting Diagnoses:: Bipolar, NOS (F31.9), Generalized anxiety disorder, PTSD Current Diagnoses:: Bipolar, NOS (F31.9), Generalized anxiety disorder, PTSD Patient's Response to Treatment:: Pt has responded well to treatment AEB reduction of DSM-5 scores and self-report of improved symptoms since admission. Pt contributes well during individual sessions and actively contributes during group sessions. Pt has struggled to maintain consistent in attendance due to multiple factors including limited childcare, illness, and scheduling conflicts. When in attendance, pt is often early for groups, provides insight, and completes all worksheets provided. Pt reports trying to apply coping skills outside of IOP, though struggles still with consistency. Pt reports overall mood is improved and pt is doing better at managing daily stressors without escalating and lashing out due to anxiety and irritability. Status of Current Problems and Symptoms: Pt's symptoms are still present but resolving. Pt's overall ability to identify and cope with stressors and triggers impacting her thoughts and emotions has significantly improved. Pt reports improved use of grounding and stress management skills, reduced depression, and improved independent decision making. Pt has secured employment and successfully followed through with scheduling outpatient counseling and psychiatry appointments. Pt continues to struggle with impulse control when stressed and reports misspending as a result. Problem #1 Problem Name:: depression, irritability, mood stability Status of Goals:: Objective 1-complete with ongoing work encouraged. Pt reports reduced irritability and improved stress management in the moment. Shared using grounding skills with her children which has aided in reducing stress as well. Discussed trying to proactively plan for known stressors and has hired someone to help around the house to aid in reducing stress and improving mood management as well. Pt has seen a 23% reduction in sx of irritability as a result. Objective 2 ? Pt can identify and reports using several skills for managing sx of depression. Reports trying to make more time for self-care and is using positive affirmations to improve self-confidence as well. Continues to struggle with complex grief triggers but reports improving on management of these as well. Does continue to struggle with impulsive spending when feeling low or sad. Depressive sx reduced by 50%. Team Recommendations:: Treatment team recommends pt continue working on consistent application of stress management skills to regulate moods. Also encourage pt to continue working on self-care. Problem #2 Problem Name:: Anxiety Status of Goals:: complete with ongoing work encouraged. DSM-5 scores for anxiety reduced by 43%. Pt can identify triggers for anxiety and panic. Pt reports reduced worry and improved ability to use problem solving skills to address and manage stressors before escalating to point of panic. Struggles with inconsistency in this area and still has moments she uses avoidance or distraction when feeling overwhelmed or anxious. Team Recommendations:: Treatment team recommends that pt continue working on implementing healthy coping skills on a consistent basis to promote gains.
--- NOTE | 2022-03-01 10:20 | BH.SGPN.GN ---
Behaviors/Verbalizations/Mental Status: []Pt alert and oriented, neatly dressed and hair unkempt. Eye contact good. Motor activity appropriate. Speech within normal limits. Affect congruent, mood euthymic. Thoughts linear, logical, no signs of hallucinations or delusions. Client Response/Progress/Benefit: []Pt responded well to session, contributing to discussion and engaged during the activity. Group identified the benefits of change which included: less stress, healthier wellbeing, and a better future. Worked with the group to identify barriers to change and pt identified personal barriers as fear of the unknown and having to acknowledge the change is needed. Pt participated along with group in activity where they identified and discussed the emotions related to change. Pt participated in discussion on the change process and personal experiences with implementing change in past. Benefited from increased awareness and understanding of emotions, benefits, and barriers related to change. Will continue IOP tx to improve emotional regulation skills, increase self-care, and reduce isolation. ?? Narrative Note: []
--- NOTE | 2022-03-01 13:55 | BH.MDN ---
Multi-Disciplinary Note - Note 45-min Individual Time Started:: 08:38 Date: 03/01/22 Purpose of session/treatment goals addressed:: Addressed treatment plan goals 1 and 2 and addressed barriers impacting motivation to change. Created small change goals. Eye Contact:: Good Motor Activity:: Appropriate Appearance:: Disheveled - reporting wearing dirty clothes as pt has not done laundry in several weeks, Casual Speech:: Appropriate Mood:: Euthymic, Anxious Affect:: Congruent Thoughts:: Linear, Logical, No evidence of hallucinations/delusions noted Staff Interventions:: thought challenging, motivational interviewing - behavior chain analysisregarding current avoidance of [id number] tasks, goal setting Client Response:: Pt receptive of session, open to meeting with therapist and actively engaged throughout. Pt shared she and her children are still recovering from being ill this past week which is why she was unable to attend group. Expressed wanting to ensure she successfully completes the IOP program despite recent absences, as she has found it to be helpful thus far and she feels she would benefit from being able to say she has successfully accomplished this. Noted a history of starting things and not following through with completing them. Pt provided examples of several projects in her house she has started and has only partially completed; such as putting in new jim, doing the dishes, and keeping up with the laundry. Pt shared that she often avoids doing the tasks that finds boring or unenjoyable until she has no choice but to complete them, citing putting off doing her laundry for 3 weeks and now feels overwhelmed and stressed out about catching up with it. Able to identify the impact procrastinating household tasks has on her mental health and ability to manage in the moment stressors. Shared she is less patient and more irritable with her kids as a result. Able to identify mental health and relationship benefits of completing these tasks daily rather than waiting and letting the load build. Worked with therapist to identify barriers to doing so which included lack of motivation, wanting to do something ?fun? instead, becoming distracted by other tasks, setting too high of expectations, and forgetting. Discussed possible solutions for addressing these barriers which included starting with consistently completing two chores each day and identifying specific times for doing so, as well as paring these tasks with more enjoyable things. Pt created a goal to do the dishes and run a load of laundry each day while her son takes his afternoon nap. Shared she can pair this with listening to music or calling her mom. Identified positive self-talk, reminding herself that her ?future self? will thank her, and asking for help as skills she can use when struggling with motivation as well. Risks/Concerns:: no risks or concerns noted. Pt denies any active SI, plan, or intent as of this date, 03/01/22. Progress Toward Goals/Plan:: Progress limited. Pt has miss 2 of the last 5 weeks due to illness and difficulties with childcare. This may be impeding ability to make consistent changes. Pt additionally self-reports low motivation and difficulties in following through with goals she sets for herself, specifically difficulties with the maintenance stage of change. Shared she has been trying to improve consistent use of stress management and healthy boundary setting skills, but struggles in these areas. Reports she has decreased use of shopping as a stress management outlet, but continues to engage in this behavior at times. Pt reports improved mood and decreased depression, but continues to struggle with anxiety associated with increased independent decision making and responsibilities since her passed. Continued care recommended to further improve healthy coping, improve mood stability, and prevent decompensation. Time Stopped:: 09:18
--- NOTE | 2022-03-02 09:00 | BH.SGPN.GN ---
Behaviors/Verbalizations/Mental Status: [] Eye contact is good. Motor activity is appropriate. Appearance is casual. Speech is Appropriate. Mood is euthymic. Affect is full. Thoughts are linear and logical. No evidence of psychosis. Reviewed daily check in sheet and no reports of suicidal ideations or intent. Client Response/Progress/Benefit: [] Pt was an active participant in group discussions. Attentive. Provided appropriate feedback. Daily symptom tracker notes 05/13 for depression, anxiety, and anger. Emotion for today is ?happy?. Mental health wins include ?I?m here today?. Stated that getting up and moving was a challenge however ?I?m glad that I did?. ?I?m starting to see the benefits of opposite action?. She has arranged from upcoming projects which will be beneficial for herself. ?I?m doing better? with managing emotions. She attributes this to IOP and medications. Reports that her mood has been stable with decreased anxiety attacks. When talking about an upcoming stressor she verbalized several cognitive distortions and unrealistic expectations. When group pointed these out this increased her insight and awareness of how this thinking could negatively impact her. Benefited from group support, encouragement, and feedback. Will continue in IOP to prevent decompensation, stabilize mood, and increase healthy coping. Narrative Note: []
--- NOTE | 2022-03-02 09:00 | BH.SGPN.GN ---
Behaviors/Verbalizations/Mental Status: []Pt eye contact good, casually dressed, motor activity appropriate, speech normal rate and tone, mood anxious, congruent affect, thoughts linear and intact, no evidence of delusions or hallucinations. Client Response/Progress/Benefit: [] Client respond well to session as evidenced by listening attentively to others and sharing thoughts and feelings. client stated last week she wasn't at IOP due to being sick all week. Client reported she is feeling better and is glad to be back to group. Client reported mental health positive as getting a load of dishes done. Client reported additional mental health positives as getting most of her painting complete in the kitchen and hired someone to clean her garage. Shared her stressor is her husbands birthday is coming up soon and she is worried about the increased grief during this time. Seemed to benefit from support from peers. Client to continue IOP to continue use of healthy coping skills, improve emotion regulation, and prevent decompensation.
--- NOTE | 2022-03-02 10:10 | BH.SGPN.GN ---
Behaviors/Verbalizations/Mental Status: []Pt alert and oriented, neatly dressed and groomed. Eye contact good. Motor activity appropriate. Speech within normal limits. Affect congruent, mood euthymic. Thoughts linear, logical, no signs of hallucinations or delusions. Client Response/Progress/Benefit: []Pt was an active participant in group discussions. Attentive during psychoeducation. Participated with peers in experiential activity. Pt participated in an interactive discussion with peers in which they worked together to define what coping skills are. Indicates that she, like peers, struggle with replacing unhealthy coping skills. Group then identified unhealthy coping skills which included; avoidance, distraction, taking on others problems, and shutting down. Pt stated unhealthy coping skills are easier, habitual, and quick fixes. Pt reports that how we carry stress matters and it is okay to ask for help. Benefited from increased awareness and education the benefits of have both internal and external coping skills. Will continue in IOP to help pt further improve mood stability, increase self-care, and promote use of healthy coping skills. Narrative Note: []
--- NOTE | 2022-03-02 11:20 | BH.SGPN.GN ---
Behaviors/Verbalizations/Mental Status: []Client alert and oriented, casually dressed and groomed. Eye contact good. Motor activity appropriate. Speech within normal limits. Affect congruent, mood euthymic. Thoughts linear, logical, no signs of hallucinations or delusions. Client Response/Progress/Benefit: []Client responded well to session, attentive AEB participating in activity and providing input in group. Did well to process activity and work with group to relate the strategies used to overcome barriers in the activity to managing change in own life. Client shared a change they would like to make is to ?do the dishes daily?. Client stated currently being in the preparation stage. Identified goal to work on to achieve change behavior would be to remind herself of the importance of maintenance and practice opposite action when not wanting to. Appeared to benefit from identifying a small goal to work towards. Client will continue IOP tx to improve mood stability, improve consistent application of healthy coping skills, and improve daily functioning. Narrative Note: []
--- NOTE | 2022-03-04 10:10 | BH.SGPN.GN ---
Behaviors/Verbalizations/Mental Status: []Pt alert and oriented, casually dressed and groomed. Eye contact good. Motor activity appropriate. Speech within normal limits. Affect congruent, mood euthymic and tired. Thoughts linear, logical, no signs of hallucinations or delusions. Client Response/Progress/Benefit: []Pt responded well to session AEB contributing to discussion, taking notes, and listening attentively to others. Group discussed the benefits of managed anger and anger as a secondary emotion. Pt shared perspective on negatives from acting out in anger as stress and more mental health issues.? Pt completed worksheet on anger triggers and personal warning signs of anger. Pt identified her biggest triggers as being called a liar, when people do not communicate clearly, and when people do not pay her back. Appeared to benefit from increased knowledge of the anger cycle as well as personal triggers. Will continue IOP tx to reduce avoidance and isolation, improve emotional regulation, and improve daily functioning. ? Narrative Note: []
--- NOTE | 2022-03-08 09:05 | BH.SGPN.GN ---
Behaviors/Verbalizations/Mental Status: [] Eye contact is good. Motor activity is appropriate. Appearance is casual. Speech is Appropriate. Mood is euthymic. Affect is full. Thoughts are linear and logical. No evidence of psychosis. Reviewed daily check in sheet and no reports of suicidal ideations or intent Client Response/Progress/Benefit: [] Pt was an active participant in group discussions. Attentive. Daily symptom tracker notes 06/13 for irritability. Provided appropriate feedback. Mental health wins include ?adulting? this weekend. Made appointments that she has been neglecting. Did not isolate. ??I?m not so depressed and haven?t had any panic attacks? in the past week. Utilizing skills. Reframing thoughts. Reports that ?oppositive-action? has been very helpful. Benefited from group support, encouragement, and feedback. Will continue in IOP to prevent decompensation, increase healthy coping, and stabilize mood. Narrative Note: []
== END 2022-03-08 23:59 ==
LOC: BHIOP 09:01
PROVIDERS: PCP Internal Medicine; Visit Provider Psychiatry & Neurology Psychiatry
DX: F31.9 Bipolar disorder, unspecified (principal); F41.1 Generalized anxiety disorder; F43.10 Post-traumatic stress disorder, unspecified
CPT/HCPCS: H2012; H2020; S9480; 90832; 90834

== ENCOUNTER 2022-03-09 08:07 | Outpatient (RCR) | payer MEDICAID, SELFPAY ==
[2022-03-09 00:38] VITALS: BP 140/89; PULSE 85
--- NOTE | 2022-03-11 08:43 | BH.DS ---
Discharge Summary - Demographics Date of Admission:: 01/21/22 Discharge Date: 03/11/22 Presenting Problems at Admission:: The patient is a 31-year-old , female who was referred to the [facility] IOP program by her primary care provider for worsening depression following the of her 1 year ago and recent passive thoughts of . Patient has a history of depression, PTSD and ADHD. The patient is now raising her 2 sons, ages 2 and 4, as a single parent which has been a primary stressor for her. The anniversary of her ?s is approaching which is also a stressor. Pt reports for the past several months she has experienced apathy, difficulty accomplishing her activities of daily living, difficulty getting out of bed, hopelessness, worthlessness, guilt, excessive worry and rumination, anger and irritability, as well as mood swings. Reports worsening sx since running out of Seroquel several days ago. Pt reports she has a significant trauma hx which has impacted her ability to trust others and notes PTSD sx associated with this. Additional stressors include finances as pt is not working and interpersonal relationships. Pt would like to work on improving emotion regulation, boundaries, self-confidence, and stress management skills. Discharge Diagnoses:: Bipolar, NOS (F31.9), Generalized anxiety disorder, PTSD Reason for Discharge:: Has completed all treatment plan goals and no longer meets [facility] level of care. Pt will be discharged from [facility] level of care. - Treatment Progress During Treatment & Response: Pt responded well to treatment. Mostly consistent, though missed group on several occasions due to herself and her children being ill, engaged during IOP. According to DSM-5 outcomes pt had an overall 56% reduction in symptoms. Pt had a 50% reduction in the depression domain, 100% reduction in the anger domain, a 71% reduction in the anxiety domain, and a 100% reduction in repetitive thoughts and behaviors. Pt has started work, returned to hobbies she enjoys, improved personal hygiene/self-care, and reports improved functioning. Pt also able to identify negative thoughts and emotional triggers which can lead to feeling overwhelmed and irritable and skills to manage these thoughts (re-framing, distraction, challenging, and reaching out to supports). Pt reports reduced isolation which has helped her depression. Pt has experienced several stressors since admission, including her late ?s birthday, and has been able to utilize healthy skills as well as reach out to supports to cope. Further discussed a reduction in unhealthy spending habits as well. Pt is setting small self-care goals and making progress in following through with these. We reviewed her strategies to manage her emotions and continue to maintain gains. Since starting IOP pt reports significant progress stating that she has seen improvements in her memory, ability to regulate emotions, decreased avoidance, and less ?scattered thinking?. Issues Still to be Addressed:: Will continue to benefit from ongoing counseling to work on emotion regulation, stress management, healthy decision making, parenting skills, anxiety, grief, and depression. Discharge Recommendations/Instructions:: Pt has appt with Zoya for establishing care and to be assessed for the [facility] parenting group as well as Individual Counseling on 03/15/22. Pt has appt with Psychiatry at [facility] on 03/16/2022. Discharge Handout: Complete Discharge Handout with client on aftercare options and continuity of care.
--- NOTE | 2022-03-11 11:10 | BH.SGPN.GN ---
Behaviors/Verbalizations/Mental Status: []Client alert and oriented, casually dressed and appropriately groomed. Eye contact good. Motor activity appropriate. Speech WNL. Affect congruent, mood euthymic. Thoughts linear, logical, no signs of hallucinations or delusions. Client Response/Progress/Benefit: []Client responded well to session AEB client listening attentively to others and providing input during group discussion on the pay offs and costs of the different communication styles. Client reported in the past she used aggressive communication more often, but now is more assertive. Client stated being able to manage her emotions better has helped her become more assertive with her communication. Client engaged in activity, using assertive communication to accomplish task. Connected with peers comments about importance of using assertive communication. Client seemed to benefit from increasing awareness of healthy strategies to improve communication. Will continue IOP tx to continue use of healthy coping, challenge distorted thoughts, and prevent decompensation.
--- NOTE | 2022-03-12 08:43 | BH.MDN ---
Multi-Disciplinary Note - Note 30-min Individual Time Started:: 10:13 Date: 03/11/22 Purpose of session/treatment goals addressed:: Met with pt to review progress and outcome scores. Pt is set to discharge from IOP today. Eye Contact:: Good Motor Activity:: Appropriate Appearance:: Casual Speech:: Appropriate Mood:: Euthymic Affect:: Congruent Thoughts:: Linear, Logical, No evidence of hallucinations/delusions noted Staff Interventions:: CBT techniques, discharge planning, strengths perspective, reviewed DSM-5 Client Response:: Pt was open to session and responded well. Used the session to review progress on treatment plan goals, review outcome scores, and finalize aftercare. Reviewed areas of progress, in which pt identified that she has seen improvements in her memory, ability to regulate emotions, decreased avoidance, and less ?scattered thinking?. Since starting IOP pt reports significant progress AEB Pt has started work, returned to hobbies she enjoys, improved personal hygiene/self-care, and reports improved functioning. Pt also able to identify negative thoughts and emotional triggers which can lead to feeling overwhelmed and irritable and skills to manage these thoughts (re-framing, distraction, challenging, and reaching out to supports). Pt reports reduced isolation which has helped her depression. Pt has experienced several stressors since admission, including her late ?s birthday, and has been able to utilize healthy skills as well as reach out to supports to cope. Further discussed a reduction in unhealthy spending habits as well. Pt is setting small self-care goals and making progress in following through with these. We reviewed her strategies to manage her emotions and continue to maintain gains. Risks/Concerns:: No risks or concerns noted. Progress Toward Goals/Plan:: Pt responded well to treatment. Mostly consistent, though missed group on several occasions due to herself and her children being ill, engaged during IOP. According to DSM-5 outcomes pt had an overall 56% reduction in symptoms. Pt had a 50% reduction in the depression domain, 100% reduction in the anger domain, a 71% reduction in the anxiety domain, and a 100% reduction in repetitive thoughts and behaviors. Time Stopped:: 10:37
== END 2022-03-11 12:34 | disposition home or self-care (01) ==
LOC: BHIOP 08:07
PROVIDERS: PCP Internal Medicine; Visit Provider Psychiatry & Neurology Psychiatry
DX: F31.9 Bipolar disorder, unspecified (principal); F43.10 Post-traumatic stress disorder, unspecified; F41.1 Generalized anxiety disorder; Z79.899 Other long term (current) drug therapy
CPT/HCPCS: H2012; S9480; 90832

== ENCOUNTER 2022-05-19 17:53 | Emergency (ER) | payer MEDICAID, SELFPAY ==
[2022-05-19 17:54] VITALS: BP 104/85; PULSE 119; RESP 18; TEMP 37.1; O2SAT 96; BMI 30.2
--- NOTE | 2022-05-19 18:30 | EX.ED.DYSGE1 ---
HPI History of Present Illness Chief Complaint: General Illness Informant: patient Narrative Narrative: Patient complaints with primary issue of nausea and vomiting. This started this morning. She is now also developed some watery diarrhea. No blood. She states she cannot keep anything down. She states she is vomiting so hard that she thinks she hurt her back because she has soreness in her left lower back. This started after the vomiting. She urinated this morning but has not urinated much since. But it did not hurt or burn and there was no odor. She has no abdominal pain. Patient was diagnosed with COVID 6 days ago. She states she had a cough with it but not a lot of other symptoms. She is not having the cough now. She does states she has asthma but does not have an albuterol inhaler but does not feel like she is wheezing. She is also had some variation in her menstrual cycle. She will go from spotting to slightly heavier breathing and back. This has been going on for some weeks. She has an appointment to see her [employer] doctor later this week. She is also weaning her toddler off of breast-feeding and they think this is the likely cause. Nothing specifically making any symptoms better or worse other than trying to take any p.o. intake makes the nausea and vomiting worse. [facility] Medical History Asthma Bipolar 2 disorder, major depressive episode Bipolar disorder Bipolar disorder, unspecified Complicated bereavement Depression Elevated glucose Fatigue Generalized anxiety disorder Left foot pain PTSD (post-traumatic stress disorder) Home Medications ProAir HFA 90 mcg/actuation aerosol inhaler (albuterol sulfate) 1 - 2 puff inhalation Q6H PRN shortness of breath or wheezing #8.5 grams 01/22/22 [Rx Last Taken Unknown] albuterol sulfate 90 mcg/actuation aerosol inhaler See Rx Instructions .Route .COMPLEX #8.5 grams 01/22/22 [Rx Last Taken Unknown] etonogestrel 68 mg subdermal implant (Nexplanon) 1 implant subdermal ONCE 02/17/22 [History Last Taken Unknown] guaifenesin 600 mg tablet, extended release 12 hr (Mucus Relief ER) 600 mg PO Q12H PRN 02/17/22 [History Last Taken Unknown] aripiprazole 5 mg tablet (Abilify) 5 mg PO QHS #30 tabs 03/17/22 [Rx Last Taken Unknown] trazodone 50 mg tablet 25 - 100 mg PO QHS PRN insomnia #60 tabs 03/17/22 [Rx Last Taken Unknown] albuterol sulfate 90 mcg/actuation aerosol inhaler (Ventolin HFA) 2 puff inhalation Q4H PRN PRN Wheezing ##1 05/19/22 [Rx Last Taken Unknown] ondansetron 4 mg disintegrating tablet 4 mg PO Q8H PRN nausea and vomiting #10 tabs 05/19/22 [Rx Last Taken Unknown] Allergy/AdvReac Type Severity Reaction Status Date / Time prednisone AdvReac Nausea Verified 05/19/22 17:57 Family History Grandfather CVA (cerebral vascular accident) Skin cancer Grandmother Diabetes Heart disease Lung cancer Sister Bipolar 1 disorder Unknown Alcoholism Depression Surgical History Ectopic History of Social History household members: spouse and children housing: house number of children: 1 history of recent travel: No sexually active: Yes Smoking Status: Current some day smoker tobacco type: cigarettes alcohol intake: never substance use type: does not use what type of physical activity do you participate in: none seatbelt use: always do you feel safe at home: Yes ROS ROS ED Constitutional Constitutional ED: Denies chills or fever(s) Eyes Eyes: Denies change in vision ENT ENT ED: Denies rhinorrhea or sore throat Cardiovascular Cardiovascular: Denies chest pain Respiratory/Chest Respiratory/Chest: Reports cough; Denies dyspnea Gastrointestinal Gastrointestinal: Reports diarrhea, nausea and vomiting; Denies abdominal pain or constipation Genitourinary Genitourinary ED: Denies dysuria, hematuria or urinary frequency Musculoskeletal Musculoskeletal: Denies myalgias Integumentary Denies rash Neurologic Neurologic: Denies headache(s) Psychiatric Psychiatric: Denies suicidal ideation or suicidal thoughts Endocrine Endocrinology: Denies polydipsia or polyuria Hematologic/Lymphatic Hematologic/Lymphatic: Denies easy bleeding or easy bruising Allergic/Immunologic Allergic/Immunologic ED: Denies urticaria EXAM Physical Exam Const Vital Signs: 05/19/22 17:54 05/19/22 18:44 Temperature 98.8 F Temperature Source Temporal Pulse Rate 119 H Respiratory Rate 18 Respiratory Effort Normal Respiratory Pattern Normal Blood Pressure 104/85 H Blood Pressure Mean 91 Pulse Ox 96 Oxygen Delivery Method Room Air Positive well nourished and well developed General Appearance ED: well developed and NAD HEENT Reports dry mucous membranes Mouth ED: Yes dry mucous membranes Mouth: dry mucous membranes Eyes General Eye ED: Negative for pale conjunctiva or scleral icterus Neck supple and no JVD Chest Wall palpation of chest normal Resp normal respiratory effort and clear to auscultation bilaterally Auscultation: Negative for wheezes Cardio regular rhythm Rate: tachycardic GI normal to inspection, nondistended, normoactive bowel sounds, non-tender, non-distended and no masses Inspection: Negative for abdominal distention Palpation: Negative for tender or guarding Narrative: No CVA tender Back/Spine Back/Spine Narrative: Patient has some mild paraspinal tenderness down very low in the lumbar area mostly on the left. It is reproduced with palpation or motion. She has no radicular symptoms. Extremity normal to inspection General Extremety ED: Negative for edema or tenderness General Extremity: Negative for edema Neuro Sensorium / Orientation: alert Psych mental status grossly normal Skin no rashes or lesions noted MDM MDM MDM Narrative Medical decision making narrative: Patient CBC shows mild elevation in the hemoglobin that could be from mild dehydration. But white count platelets are normal. Electrolytes are overall normal including renal function. is negative. Urine shows some nitrites and leukocyte Estrace but no white cells and it is clear. I talked to her again. She is not having dysuria. She had decreased volume of urine. I will send this off for culture but I will not treat as I do not think it represents a UTI. Patient is feeling much better. She drank water here and is not nauseated. Repeated abdominal exam is benign. This certainly could be symptoms with her COVID but it is beyond the point of treatment specifically for that. And all her other symptoms are gone. This may be a nonspecific viral illness. We will get her home on Zofran. I will also refill her inhaler because she happens to be out. We discussed reasons to return. Lab Data Attestation: I reviewed the patient's lab results. Labs: Laboratory Results - last 24 hr 05/19/22 05/19/2205/19/23 18:45 18:45 18:45 WBC 10.0 RBC 5.61 H Hgb 16.0 H Hct 48.2 H MCV 85.9 MCH 28.5 MCHC 33.2 RDW Std Deviation 38.8 RDW Coeff of Von 12.4 Plt Count 283 MPV 9.1 Immature Gran % (Auto) 0.300 Neut % (Auto) 89.6 H Lymph % (Auto) 6.1 L [place] % (Auto) 2.6 Eos % (Auto) 1.2 Baso % (Auto) 0.2 Absolute Neuts (auto) 8.9 H Absolute Lymphs (auto) 0.61 L Nucleated RBC % 0 Sodium 140 Potassium 3.9 Chloride 108 H Carbon Dioxide 27.0 Anion Gap 5 BUN 16 Creatinine 0.79 Estim Creat Clear Calc 79.29 Est GFR (MDRD) Af Amer 110 Est GFR (MDRD) Non-Af 91 BUN/Creatinine Ratio 20.2 H Glucose 106 Calcium 8.9 Serum , Qual NEGATIVE Urine Color Urine Clarity Urine pH Ur Specific [place] Urine Protein Urine Glucose (UA) Urine Ketones Urine Occult Blood Urine Nitrite Urine Bilirubin Urine Urobilinogen Ur Leukocyte Esterase Urine RBC Urine WBC Ur Squamous Epith Cells Urine Bacteria Urine Mucus 05/19/22 19:25 WBC RBC Hgb Hct MCV MCH MCHC RDW Std Deviation RDW Coeff of Von Plt Count MPV Immature Gran % (Auto) Neut % (Auto) Lymph % (Auto) [place] % (Auto) Eos % (Auto) Baso % (Auto) Absolute Neuts (auto) Absolute Lymphs (auto) Nucleated RBC % Sodium Potassium Chloride Carbon Dioxide Anion Gap BUN Creatinine Estim Creat Clear Calc Est GFR (MDRD) Af Amer Est GFR (MDRD) Non-Af BUN/Creatinine Ratio Glucose Calcium Serum , Qual Urine Color Yellow Urine Clarity Clear Urine pH 7.0 Ur Specific [place] 1.010 Urine Protein 30 H Urine Glucose (UA) Normal Urine Ketones 50 H Urine Occult Blood Negative Urine Nitrite Positive H Urine Bilirubin 1 H Urine Urobilinogen Normal Ur Leukocyte Esterase 500 H Urine RBC 0 SEEN Urine WBC 0-5 SEEN Ur Squamous Epith Cells 0-5 SEEN Urine Bacteria 0 SEEN Urine Mucus 0 SEEN Discharge Plan Triage Chief Complaint: General Illness ED Provider: Shaq Mcnamara Dx/Rx/DC Orders Clinical Impression: Nausea & vomiting, Dehydration, History of asthma Instructions: ED Vomiting (Adult) Prescriptions: New albuterol sulfate [Ventolin HFA] 90 mcg/actuation HFA aerosol inhaler 2 puff inhalation Q4H PRN PRN (Reason: Wheezing) Qty: 1 0RF ondansetron 4 mg tablet,disintegrating 4 mg PO Q8H PRN (Reason: nausea and vomiting) Qty: 10 0RF No Action albuterol sulfate 90 mcg/actuation HFA aerosol inhaler See Rx Instructions .ROUTE .COMPLEX Qty: 8.5 3RF Dose Instruction: inhale 2 (TWO) puffs EVERY 6 HOURS NEEDED for SHORTNESS OF BREATH or FOR WHEEZING Rx Instructions: inhale 2 (TWO) puffs EVERY 6 HOURS NEEDED for SHORTNESS OF BREATH or FOR WHEEZING albuterol sulfate [ProAir HFA] 90 mcg/actuation HFA aerosol inhaler 1 - 2 puff inhalation Q6H PRN (Reason: shortness of breath or wheezing) Qty: 8.5 1RF guaifenesin [Mucus Relief ER] 600 mg tablet extended release 12hr 600 mg PO Q12H PRN Label Comments: Take 1 tablet by mouth twice daily for 10 days. Nexplanon 68 mg implant 1 implant subdermal ONCE Rx Instructions: as a single dose trazodone 50 mg tablet 25 - 100 mg PO QHS PRN (Reason: insomnia) Qty: 60 2RF aripiprazole [Abilify] 5 mg tablet 5 mg PO QHS Qty: 30 2RF Primary Care Provider: Hema Bird Referrals: Hema Bird MD [Primary Care Provider] - 3-5 Days if not improving Disposition Disposition: Home, Self Care
[2022-05-19] MEDS: 0.9% Normal Saline 1,000 ML 1000 ML IV (18:42)
[2022-05-19] MEDS: Ondansetron 4 MG/2 ML Vial IV (18:43)
[2022-05-19 18:53] LABS: Absolute Lymphocyte Count 0.61 X10^3/uL (0.83-4.51); Absolute Neutrophil Count 8.9 X10^3/uL (2.0-7.7); Basophil# 0.02 X10^3/uL; Basophil% 0.2 % (0-1); Eosinophil# 0.12 X10^3/uL; Eosinophils% 1.2 % (0-5); Hematocrit 48.2 % (37-47); Lymphocyte # 0.61 X10^3/ul (0.83-4.51); Lymphocyte % 6.1 % (19-41); Mean Corp Hgb Conc 33.2 g/dL (32-36); Mean Corpuscular Hgb 28.5 pg (27.0-32.0); Mean Corpuscular Volume 85.9 fL (81-99); Mean Platelet Vol. 9.1 fl (6.2-12.0); Monocyte# 0.26 X10^3/uL; Monocyte% 2.6 % (0-10); NRBC Flagged by Analyzer 0 % (0-5); Neutrophil # 8.91 X10^3/uL (2.7-7.7); Neutrophil % 89.6 % (47-70); Platelet Count 283 K/mm3 (150-450); RBC Distribution Width CV 12.4 % (11.6-14.6); RBC Distribution Width SD 38.8 fl (35.1-43.9); Red Blood Count 5.61 M/mm3 (4.2-5.4)
[2022-05-19 19:06] LABS: Anion Gap 5 (5-15); BUN 16 mg/dL (7-18); BUN/Creat Ratio 20.2 RATIO (10-20); Calcium,Total 8.9 mg/dL (8.5-10.1); Chloride 108 mmol/L (98-107); Creatinine, Serum 0.79 mg/dL (0.55-1.02); EST Glomerular Filtration Rate 91 mL/min (>60); Est Glom Filt Rate - Afr Amer 110 mL/min (>60); Estimated Creatinine Clearance 79.29 ml/min; Glucose 106 mg/dL (74-106); Potassium 3.9 mmol/L (3.5-5.1); Sodium Level 140 mmol/L (136-145)
[2022-05-19 19:33] LABS: Bacteria 0 SEEN /hpf (None Seen); Mucous, Urine 0 SEEN /hpf (<or=2+); Red Blood Cells-Urine 0 SEEN /hpf (0-5)
[2022-05-19 19:35] LABS: Color, Urine Yellow (Yellow); Glucose, Dipstick Normal (Normal); Ketone-Dipstick 50 mg/dl (Negative); Leukocyte Esterase-Dipstick 500 /ul (Negative); Nitrite-Dipstick Positive (Negative); Occult Blood-Urine Negative /ul (Negative); Protein-Dipstick 30 mg/dl (Negative); Urine Clarity Clear (Clear); Urine Urobilinogen Normal (Normal)
[2022-05-19 19:39] LABS: Internal QC Validated? YES +Cl - CLEAR BKGD; Pregnancy, Serum, hCG Quali. NEGATIVE Negative
[2022-05-19 19:53] LABS: Urine Bilirubin Dipstick 1 mg/dL (Negative)
[2022-05-19 19:54] LABS: Squamous Epithelial Cells - UA 0-5 SEEN /hpf (5-10); White Blood Cells 0-5 SEEN /hpf (0-5)
[2022-05-19 20:00] VITALS: BP 128/72
[2022-05-19 21:18] VITALS: RESP 18
== END 2022-05-19 21:19 | disposition home or self-care (01) ==
PROVIDERS: Emergency Provider Emergency Medicine; PCP Internal Medicine; Visit Provider Emergency Medicine
DX: R11.2 Nausea with vomiting, unspecified (principal); U07.1 COVID-19; E86.0 Dehydration; J45.909 Unspecified asthma, uncomplicated; R19.7 Diarrhea, unspecified
CPT/HCPCS: 80048; 81001; 84703; 85025; 87086; 87088; 96361; 96374; 99283; J7030; A4216; J2405

== ENCOUNTER → 2022-05-24 | Outpatient (CLI) | payer MEDICAID, SELFPAY ==
[2022-05-25 20:07] LABS: Chlamydia By Nucleic Acid AMP Negative (Negative)
[2022-05-25 20:58] LABS: Gonococcus By Nucleic Acid AMP Negative (Negative)
[2022-05-26 17:32] LABS: HPV Reflexed? NOT INDICATED
== END | disposition home or self-care (01) ==
PROVIDERS: PCP Internal Medicine; Referring Provider Nurse Practitioner Women's Health; Visit Provider Nurse Practitioner Women's Health
DX: Z12.4 Encounter for screening for malignant neoplasm of cervix (principal); Z11.3 Encounter for screening for infections with a predominantly sexual mode of transmission
CPT/HCPCS: 87491; 87591; 88175; G0145

== ENCOUNTER 2022-10-10 20:00 | Inpatient (IN) | payer MEDICAID, SELFPAY ==
[2022-10-10 20:01] VITALS: BP 124/94; PULSE 87; RESP 20; TEMP 36.6; O2SAT 97; BMI 33.3
--- NOTE | 2022-10-10 20:13 | EKG12_ITS ---
Test Reason : CP Blood Pressure : / mmHG Vent. Rate : 073 BPM Atrial Rate : 073 BPM P-R Int : 130 ms QRS Dur : 098 ms QT Int : 384 ms P-R-T Axes : 059 084 057 degrees QTc Int : 423 ms Normal sinus rhythm Incomplete right bundle branch block Borderline ECG Confirmed by NANCY MORGAN, GILBERTO ([id number]), supervising film or videotape editor DENNIS PEOPLES ([id number]) on 10/12/2022 8:53:30 AM Referred By: RAMOS Confirmed By:GILBERTO CRUZ MD
--- NOTE | 2022-10-10 21:53 | EX.ED.DYSGE1 ---
HPI History of Present Illness Chief Complaint: General Illness Detail of Chief Complaint: Chest pain, epigastric pain with nausea and vomiting Informant: patient Onset/Context/Timing Onset: Days (4 days ago) Context: Sudden Onset Timing: Intermittent Quality: Chest discomfort central lower, epigastric pain and myalgias and arthralgia Location: Multiple spots Current Severity: Mild Maximum Severity: Moderate Worsened by: Attempting to eat or drink Relieved by: Nothing Associated Symptoms Associated Symptoms: Itching and decreased urine output with orthostatic symptoms Narrative Narrative: Patient is a 31-year-old G3, P2 Ab1 (C ectopic ) whose last normal menstrual period was 2 weeks ago. She presents with anterior low central chest discomfort and epigastric pain. She denies hematemesis, melena hematochezia. She has not had a bowel movement in a couple of days. She has had 2 C-sections and laparoscopic surgery for ectopic . She denies history of partial small bowel obstruction. She denies intolerance to greasy or fried foods. She does endorse myalgias and arthralgias and subjective fever. She states she has not had a bowel movement in a couple of days. She is still passing gas. Last normal menses 2 months ago. She states she has not been sexually active since March. Patient denies headache. She denies ocular, visual auditory symptoms. She denies ringing or ears or decreased hearing. She denies sore throat. She denies cough or shortness of breath. She has not noted a rash. Her children are ill at home. Prior similar symptoms: No Recent Illness/Hospitalization: No PFSH PFS Medical History Asthma Bipolar 2 disorder, major depressive episode Bipolar disorder Bipolar disorder, unspecified Complicated bereavement Fatigue Generalized anxiety disorder History of ectopic PTSD (post-traumatic stress disorder) Home Medications ProAir HFA 90 mcg/actuation aerosol inhaler (albuterol sulfate) 1 - 2 puff inhalation Q6H PRN shortness of breath or wheezing #8.5 grams 01/22/22 [Rx Last Taken Unknown] albuterol sulfate 90 mcg/actuation aerosol inhaler See Rx Instructions .Route .COMPLEX #8.5 grams 01/22/22 [Rx Last Taken Unknown] etonogestrel 68 mg subdermal implant (Nexplanon) 1 implant subdermal ONCE 02/17/22 [History Last Taken Unknown] guaifenesin 600 mg tablet, extended release 12 hr (Mucus Relief ER) 600 mg PO Q12H PRN 02/17/22 [History Last Taken Unknown] trazodone 50 mg tablet 25 - 100 mg PO QHS PRN insomnia #60 tabs 03/17/22 [Rx Last Taken Unknown] ondansetron 4 mg disintegrating tablet 4 mg PO Q8H PRN nausea and vomiting #10 tabs 05/19/22 [Rx Last Taken Unknown] estradiol 1 mg tablet (Estrace) 1 mg PO QDAY #30 tabs 05/24/22 [Rx Last Taken Unknown] aripiprazole 5 mg tablet (Abilify) 5 mg PO QHS #30 tabs 05/26/22 [Rx Last Taken Unknown] albuterol sulfate 90 mcg/actuation aerosol inhaler (Ventolin HFA) 2 puff inhalation Q4H PRN PRN Wheezing ##1 08/11/22 [Rx Last Taken Unknown] Allergy/AdvReac Type Severity Reaction Status Date / Time prednisone AdvReac Nausea Verified 10/10/22 20:04 Family History Grandfather CVA (cerebral vascular accident) Skin cancer Grandmother Diabetes Heart disease Lung cancer Sister Bipolar 1 disorder Unknown Alcoholism Depression Surgical History Ectopic History of History of Social History household members: children housing: house number of children: 2 history of recent travel: No sexually active: Yes Smoking Status: Current some day smoker tobacco type: cigarettes alcohol intake: never substance use type: does not use what type of physical activity do you participate in: none seatbelt use: always do you feel safe at home: Yes additional social history: ROS ROS ED Constitutional Constitutional ED: Reports weight loss and other Details: She reports a 4 to 5 pound weight loss due to nausea and vomiting and inability to eat this past week. ; Denies chills, fever(s), subjective or sweats Eyes Eyes: Denies blurry vision, change in vision or diplopia ENT ENT ED: Denies ear pain, rhinorrhea or sore throat Cardiovascular Cardiovascular: Reports chest pain; Denies orthopnea, palpitations, paroxysmal nocturnal dyspnea or racing heartbeat Respiratory/Chest Respiratory/Chest: Denies cough, dyspnea, dyspnea on exertion, orthopnea or paroxysmal nocturnal dyspnea Gastrointestinal Gastrointestinal: Reports abdominal pain, constipation, nausea and vomiting; Denies diarrhea or melena Genitourinary Genitourinary ED: Denies dysuria, hematuria or urinary frequency Musculoskeletal Musculoskeletal: Reports arthralgias and myalgias Integumentary Denies rash Neurologic Neurologic: Denies paresthesias or weakness Endocrine Endocrinology: Denies cold intolerance or heat intolerance Hematologic/Lymphatic Hematologic/Lymphatic: Reports systems reviewed and no addt'l complaints, except as documented EXAM Physical Exam Const Vital Signs: 10/10/22 20:01 10/10/22 22:07 10/10/22 23:43 Temperature 97.8 F 96.8 F L Temperature Source Temporal Temporal Pulse Rate 87 72 Respiratory Rate 20 H 18 Respiratory Effort Normal Non-Labored Respiratory Pattern Normal Blood Pressure 124/94 H 123/74 H Blood Pressure Mean 104 90 Pulse Ox 97 95 Oxygen Delivery Method Room Air 10/11/22 00:40 Temperature Temperature Source Pulse Rate 75 Respiratory Rate 16 Respiratory Effort Respiratory Pattern Normal Blood Pressure Blood Pressure Mean Pulse Ox Oxygen Delivery Method Positive well nourished, well developed and obese Constitutional Narrative: Patient appears ill. She has multiple areas of erythema due to itching. There is no areas of excoriation. General Appearance ED: well developed; Negative for cyanotic, diaphoretic or pallor Nutritional Appearance: obese HEENT Reports TM's clear and dry mucous membranes Negative for trauma or tenderness Tympanic Membrane ED: Yes TM's clear Mouth ED: Yes dry mucous membranes Mouth: dry mucous membranes Eyes PERRL and EOMs intact bilaterally General Eye ED: Negative for pale conjunctiva or scleral icterus Neck no lymphadenopathy, supple and no JVD Chest Wall inspection of chest normal and palpation of chest normal Resp normal respiratory effort and clear to auscultation bilaterally Cardio regular rate, regular rhythm, S1 normal heart sound, S2 normal heart sound and no murmurs GI no masses; Negative for normal to inspection, nondistended, normoactive bowel sounds, non-tender, non-distended or hepatosplenomegaly Auscultation: hypoactive bowel sounds Palpation: soft and tender epigastric; Negative for splenomegaly, mass or rebound tenderness present Back/Spine no CVA tenderness Extremity normal to inspection General Extremety ED: Negative for edema or tenderness General Extremity: Negative for edema Neuro No oriented x3, No CN's II-XII intact bilaterally and No no sensory deficits noted Sensorium / Orientation: Negative for alert Psych mental status grossly normal Skin no rashes or lesions noted, no wounds and skin turgor normal General Skin Exam: Negative for jaundice or pallor MDM MDM MDM Narrative Medical decision making narrative: Patient presents with nausea vomiting. Clinically is dehydrated. 1 L of normal saline was ordered. Zofran was ordered for the nausea and vomiting. Because she reports dark-colored urine and there is question of scleral icterus will obtain hepatic profile. BMP was obtained to assess renal function as well as CO2 anion gap. UA to assess spec gravity and evidence of ketones. Because she has not had a menses in 2 months test was ordered. Lab Data Attestation: I reviewed the patient's lab results. Lab results narrative: CBC and differential are unremarkable. test was negative. Urine reveals total protein, ketones, occult blood, nitrites, leukoesterase and 2+ bacteria. Patient also had bilirubin in her urine. Liver enzymes reveal elevated total bili of 3.4 with an AST and ALT of 101 and 362 respectively. Alkaline phosphatase elevated 150. Lipase was added. Ultrasound the gallbladder was obtained. Lipase is approximately 2 times normal. Labs: Laboratory Results - last 24 hr 10/10/22 10/10/22 10/10/22 20:15 22:10 22:10 WBC 9.1 RBC 5.58 H Hgb 15.8 H Hct 48.8 H MCV 87.5 MCH 28.3 MCHC 32.4 RDW Std Deviation 40.7 RDW Coeff of Von 12.8 Plt Count 371 MPV 9.8 Immature Gran % (Auto) 0.300 Neut % (Auto) 65.6 Lymph % (Auto) 23.9 [place] % (Auto) 5.6 Eos % (Auto) 3.8 Baso % (Auto) 0.8 Absolute Neuts (auto) 6.0 Absolute Lymphs (auto) 2.18 Nucleated RBC % 0 Sodium 137 Potassium 3.8 Chloride 105 Carbon Dioxide 24.0 Anion Gap 8 BUN 13 Creatinine 0.82 Estim Creat Clear Calc 76.39 Est GFR (MDRD) Af Amer 106 Est GFR (MDRD) Non-Af 87 BUN/Creatinine Ratio 15.9 Glucose 87 Calcium 9.2 Total Bilirubin 3.40 H AST 101 H ALT 362 H Alkaline Phosphatase 150 H Total Protein 8.2 Albumin 3.9 Globulin 4.3 H Albumin/Globulin Ratio 0.9 Lipase Serum , Qual Urine Color Yellow Urine Clarity Clear Urine pH 7.0 Ur Specific [place] 1.015 Urine Protein 30 H Urine Glucose (UA) Normal Urine Ketones 150 A* Urine Occult Blood 10 H Urine Nitrite Positive H Urine Bilirubin 6 H Urine Urobilinogen 8 H Ur Leukocyte Esterase 25 H Urine RBC 0 SEEN Urine WBC 0 SEEN Ur Squamous Epith Cells 0-5 SEEN Urine Bacteria 2+ Urine Mucus 0 SEEN 10/10/22 10/10/22 22:10 22:10 WBC RBC Hgb Hct MCV MCH MCHC RDW Std Deviation RDW Coeff of Von Plt Count MPV Immature Gran % (Auto) Neut % (Auto) Lymph % (Auto) [place] % (Auto) Eos % (Auto) Baso % (Auto) Absolute Neuts (auto) Absolute Lymphs (auto) Nucleated RBC % Sodium Potassium Chloride Carbon Dioxide Anion Gap BUN Creatinine Estim Creat Clear Calc Est GFR (MDRD) Af Amer Est GFR (MDRD) Non-Af BUN/Creatinine Ratio Glucose Calcium Total Bilirubin AST ALT Alkaline Phosphatase Total Protein Albumin Globulin Albumin/Globulin Ratio Lipase 112 H Serum , Qual NEGATIVE Urine Color Urine Clarity Urine pH Ur Specific [place] Urine Protein Urine Glucose (UA) Urine Ketones Urine Occult Blood Urine Nitrite Urine Bilirubin Urine Urobilinogen Ur Leukocyte Esterase Urine RBC Urine WBC Ur Squamous Epith Cells Urine Bacteria Urine Mucus Radiography Diagnostic Testing: Clinical Impression(s) from Imaging Studies Gallbladder Ultrasound 10/10/22 23:15 IMPRESSION: 1. Cholelithiasis with positive sonographic Osman sign. No gallbladder wall thickening or pericholecystic fluid. 2. Probable choledocholithiasis. Electronically Signed: Bryan Mccurdy MD at 0:56 EDT , Ultrasound the gallbladder reveals multiple stones and sludge. Gallbladder wall is within normal size. There appears to be a stone in the common bile duct. Awaiting formal read by radiologist ([id number]) Management Discussion w/another healthcare provider: [employer] (Dr. Rooney who requested that Dr. Billingsley knows about the patient. He was paged.) Discharge Plan Dx/Rx/DC Orders Clinical Impression: Cholelithiasis with choledocholithiasis, Bipolar disorder, Jaundice, Nausea & vomiting, Bacteriuria, Elevated lipase, Ketosis Disposition Disposition: Acute Care [facility]
[2022-10-10] MEDS: 0.9% Normal Saline 1,000 ML 1000 ML IV (22:06)
[2022-10-10] MEDS: Ondansetron 4 MG/2 ML Vial IV (22:06)
[2022-10-10 22:17] LABS: Mucous, Urine 0 SEEN /hpf (<or=2+); Red Blood Cells-Urine 0 SEEN /hpf (0-5); White Blood Cells 0 SEEN /hpf (0-5)
[2022-10-10 22:18] LABS: Color, Urine Yellow (Yellow); Glucose, Dipstick Normal (Normal); Leukocyte Esterase-Dipstick 25 /ul (Negative); Nitrite-Dipstick Positive (Negative); Occult Blood-Urine 10 /ul (Negative); Protein-Dipstick 30 mg/dl (Negative); Specific Gravity, Urine 1.015 (1.002-1.030); Urine Clarity Clear (Clear); Urine Urobilinogen 8 mg/dl (Normal)
[2022-10-10 22:20] LABS: Absolute Lymphocyte Count 2.18 X10^3/uL (0.83-4.51); Basophil# 0.07 X10^3/uL; Basophil% 0.8 % (0-1); Eosinophil# 0.35 X10^3/uL; Eosinophils% 3.8 % (0-5); Hematocrit 48.8 % (37-47); Hemoglobin 15.8 g/dL (12.0-15.0); Lymphocyte # 2.18 X10^3/ul (0.83-4.51); Lymphocyte % 23.9 % (19-41); Mean Corp Hgb Conc 32.4 g/dL (32-36); Mean Corpuscular Hgb 28.3 pg (27.0-32.0); Mean Corpuscular Volume 87.5 fL (81-99); Mean Platelet Vol. 9.8 fl (6.2-12.0); Monocyte# 0.51 X10^3/uL; Monocyte% 5.6 % (0-10); NRBC Flagged by Analyzer 0 % (0-5); Neutrophil # 5.97 X10^3/uL (2.7-7.7); Neutrophil % 65.6 % (47-70); Platelet Count 371 K/mm3 (150-450); RBC Distribution Width CV 12.8 % (11.6-14.6); RBC Distribution Width SD 40.7 fl (35.1-43.9); Red Blood Count 5.58 M/mm3 (4.2-5.4); White Blood Count 9.1 K/mm3 (4.4-11.0)
[2022-10-10 22:36] LABS: Urine Bilirubin Dipstick 6 mg/dL (Negative)
[2022-10-10 22:37] LABS: Ketone-Dipstick 150 mg/dl (Negative)
[2022-10-10 22:39] LABS: Bacteria 2+ /hpf (None Seen); Squamous Epithelial Cells - UA 0-5 SEEN /hpf (5-10)
[2022-10-10 22:40] LABS: Internal QC Validated? YES +Cl - CLEAR BKGD; Pregnancy, Serum, hCG Quali. NEGATIVE Negative
[2022-10-10 22:48] LABS: ALB/GLOB Ratio 0.9 RATIO (0.9-2.4); AST(SGOT) 101 U/L (15-37); Alanine Aminotransfer ALT/SGPT 362 U/L (13-56); Albumin, Serum 3.9 g/dL (3.2-5.0); Alkaline Phosphatase 150 U/L (45-117); Anion Gap 8 (5-15); BUN 13 mg/dL (7-18); BUN/Creat Ratio 15.9 RATIO (10-20); Calcium,Total 9.2 mg/dL (8.5-10.1); Chloride 105 mmol/L (98-107); Creatinine, Serum 0.82 mg/dL (0.55-1.02); EST Glomerular Filtration Rate 87 mL/min (>60); Est Glom Filt Rate - Afr Amer 106 mL/min (>60); Estimated Creatinine Clearance 76.39 ml/min; Globulin 4.3 g/dL (2.2-4.2); Glucose 87 mg/dL (74-106); Potassium 3.8 mmol/L (3.5-5.1); Protein, Total 8.2 g/dL (6.4-8.2); Sodium Level 137 mmol/L (136-145)
--- NOTE | 2022-10-10 23:15 | US_ITS ---
EXAM: US ABDOMEN LIMITED, RIGHT UPPER QUADRANT CLINICAL INDICATION: PAIN TECHNIQUE: Real-time ultrasound of the right upper quadrant with image documentation. COMPARISON: No relevant prior studies available. FINDINGS: LIVER: Unremarkable. There is normal echotexture. No focal hepatic lesion. No intrahepatic biliary ductal dilation. GALLBLADDER: Numerous small stones in the gallbladder. Positive sonographic Osman sign. No gallbladder wall thickening is demonstrated. No pericholecystic fluid. COMMON BILE DUCT: Common bile duct measures up to 5 mm. Probable small stones in the common bile duct. PANCREAS: Unremarkable as visualized. No focal abnormality is demonstrated in the pancreas. No pancreatic ductal dilatation. RIGHT KIDNEY: Unremarkable. There is no hydronephrosis. No shadowing calculus. No focal lesion or perinephric collection is demonstrated. US/Gallbladder IMPRESSION: 1. Cholelithiasis with positive sonographic Osman sign. No gallbladder wall thickening or pericholecystic fluid. 2. Probable choledocholithiasis. Electronically Signed: Bryan Mccurdy MD at 0:56 EDT ,
[2022-10-10] MEDS: Ceftriaxone 1 GM/50 ML BAG IV (23:18)
[2022-10-10 23:43] VITALS: BP 123/74; PULSE 72; RESP 18; TEMP 36; O2SAT 95
[2022-10-10 23:56] LABS: Lipase 112 U/L (13-75)
[2022-10-11] VITALS (14 sets, daily range): BP systolic 114–138; BP diastolic 72–90; PULSE 65–126; RESP 16–21; TEMP 36.1–36.8; O2SAT 96–100; BMI 33.7
[2022-10-11] MEDS: Albuterol 2.5 MG/3 ML VIAL.NEB. INHALATION ×2 (00:39→08:11)
--- NOTE | 2022-10-11 02:06 | EX.ED.DYSGE1 ---
HPI History of Present Illness Chief Complaint: General Illness [facility] Medical History Asthma Bipolar 2 disorder, major depressive episode Bipolar disorder Bipolar disorder, unspecified Complicated bereavement Fatigue Generalized anxiety disorder History of ectopic PTSD (post-traumatic stress disorder) Home Medications ProAir HFA 90 mcg/actuation aerosol inhaler (albuterol sulfate) 1 - 2 puff inhalation Q6H PRN shortness of breath or wheezing #8.5 grams 01/22/22 [Rx Last Taken Unknown] etonogestrel 68 mg subdermal implant (Nexplanon) 1 implant subdermal ONCE 02/17/22 [History Last Taken Unknown] trazodone 50 mg tablet 25 - 100 mg PO QHS PRN insomnia #60 tabs 03/17/22 [Rx Last Taken Unknown] aripiprazole 5 mg tablet (Abilify) 5 mg PO QHS #30 tabs 05/26/22 [Rx Last Taken Unknown] albuterol sulfate 90 mcg/actuation aerosol inhaler (Ventolin HFA) 2 puff inhalation Q4H PRN PRN Wheezing ##1 08/11/22 [Rx Last Taken Unknown] Allergy/AdvReac Type Severity Reaction Status Date / Time prednisone AdvReac Nausea Verified 10/10/22 20:04 Family History Grandfather CVA (cerebral vascular accident) Skin cancer Grandmother Diabetes Heart disease Lung cancer Sister Bipolar 1 disorder Unknown Alcoholism Depression Surgical History Ectopic History of History of Social History household members: children housing: house number of children: 2 history of recent travel: No sexually active: Yes Smoking Status: Current some day smoker tobacco type: cigarettes alcohol intake: never substance use type: does not use what type of physical activity do you participate in: none seatbelt use: always do you feel safe at home: Yes additional social history: EXAM Physical Exam Const Vital Signs: 10/10/22 20:01 10/10/22 22:07 10/10/22 23:43 Temperature 97.8 F 96.8 F L Temperature Source Temporal Temporal Pulse Rate 87 72 Respiratory Rate 20 H 18 Respiratory Effort Normal Non-Labored Respiratory Pattern Normal Blood Pressure 124/94 H 123/74 H Blood Pressure Mean 104 90 Pulse Ox 97 95 Oxygen Delivery Method Room Air 10/11/22 00:40 10/11/22 01:31 Temperature 98.1 F Temperature Source Oral Pulse Rate 75 81 Respiratory Rate 16 16 Respiratory Effort Respiratory Pattern Normal Blood Pressure 124/90 H Blood Pressure Mean 101 Pulse Ox 100 Oxygen Delivery Method Room Air [facility] Lab Data Labs: Laboratory Results - last 24 hr 10/10/22 10/10/22 10/10/22 20:15 22:10 22:10 WBC 9.1 RBC 5.58 H Hgb 15.8 H Hct 48.8 H MCV 87.5 MCH 28.3 MCHC 32.4 RDW Std Deviation 40.7 RDW Coeff of Von 12.8 Plt Count 371 MPV 9.8 Immature Gran % (Auto) 0.300 Neut % (Auto) 65.6 Lymph % (Auto) 23.9 [place] % (Auto) 5.6 Eos % (Auto) 3.8 Baso % (Auto) 0.8 Absolute Neuts (auto) 6.0 Absolute Lymphs (auto) 2.18 Nucleated RBC % 0 Sodium 137 Potassium 3.8 Chloride 105 Carbon Dioxide 24.0 Anion Gap 8 BUN 13 Creatinine 0.82 Estim Creat Clear Calc 76.39 Est GFR (MDRD) Af Amer 106 Est GFR (MDRD) Non-Af 87 BUN/Creatinine Ratio 15.9 Glucose 87 Calcium 9.2 Total Bilirubin 3.40 H AST 101 H ALT 362 H Alkaline Phosphatase 150 H Total Protein 8.2 Albumin 3.9 Globulin 4.3 H Albumin/Globulin Ratio 0.9 Lipase Serum , Qual Urine Color Yellow Urine Clarity Clear Urine pH 7.0 Ur Specific [place] 1.015 Urine Protein 30 H Urine Glucose (UA) Normal Urine Ketones 150 A* Urine Occult Blood 10 H Urine Nitrite Positive H Urine Bilirubin 6 H Urine Urobilinogen 8 H Ur Leukocyte Esterase 25 H Urine RBC 0 SEEN Urine WBC 0 SEEN Ur Squamous Epith Cells 0-5 SEEN Urine Bacteria 2+ Urine Mucus 0 SEEN 10/10/22 10/10/22 22:10 22:10 WBC RBC Hgb Hct MCV MCH MCHC RDW Std Deviation RDW Coeff of Von Plt Count MPV Immature Gran % (Auto) Neut % (Auto) Lymph % (Auto) [place] % (Auto) Eos % (Auto) Baso % (Auto) Absolute Neuts (auto) Absolute Lymphs (auto) Nucleated RBC % Sodium Potassium Chloride Carbon Dioxide Anion Gap BUN Creatinine Estim Creat Clear Calc Est GFR (MDRD) Af Amer Est GFR (MDRD) Non-Af BUN/Creatinine Ratio Glucose Calcium Total Bilirubin AST ALT Alkaline Phosphatase Total Protein Albumin Globulin Albumin/Globulin Ratio Lipase 112 H Serum , Qual NEGATIVE Urine Color Urine Clarity Urine pH Ur Specific [place] Urine Protein Urine Glucose (UA) Urine Ketones Urine Occult Blood Urine Nitrite Urine Bilirubin Urine Urobilinogen Ur Leukocyte Esterase Urine RBC Urine WBC Ur Squamous Epith Cells Urine Bacteria Urine Mucus Radiography Diagnostic Testing: Clinical Impression(s) from Imaging Studies Gallbladder Ultrasound 10/10/22 23:15 IMPRESSION: 1. Cholelithiasis with positive sonographic Osman sign. No gallbladder wall thickening or pericholecystic fluid. 2. Probable choledocholithiasis. Electronically Signed: Bryan Mccurdy MD at 0:56 EDT , Treatment and Re-Evaluation :: Dr. Billingsley was made aware of patient and will see in consultation for ERCP. Dr. Rooney requested Zosyn to be given. Discharge Plan Dx/Rx/DC Orders Clinical Impression: Cholelithiasis with choledocholithiasis, Bipolar disorder, Jaundice, Nausea & vomiting, Bacteriuria, Elevated lipase, Ketosis Disposition Disposition: Acute Care [facility]
--- NOTE | 2022-10-11 02:35 | PCM.HP.STD ---
HPI - General General Date of Admission: 10/11/22 Chief Complaint: Abdominal pain and associated nausea/vomiting x4 days HPI Narrative WIN POWER, is a 31 F who presents to [facility] with complaints of epigastric abdominal pain and associated nausea and vomiting x4 days. She notes the symptoms have also been associated with some subjective chills but no fevers. She states that any food intake triggers her nausea and vomiting, but she has been able to keep down some liquids. She denies any sick contacts. ER work-up is notable for comprehensive metabolic panel showing transaminitis and hyperbilirubinemia. Right upper quadrant ultrasound found evidence of cholelithiasis without gallbladder wall thickening or pericholecystic fluid. Common bile duct was measured at 5 mm, but radiology found evidence of probable gallstones within the duct. I have been asked to evaluate patient for diagnosis of choledocholithiasis. Patient has a history of bipolar 2 and asthma. She reports a surgical history of 2 C-sections as well as an ectopic addressed in 2019 via diagnostic laparoscopy. Patient has a history of chronic back pain which she wonders if this may be connected to her current presentation. ED work-up is further notable for evidence of probable urinary tract infection based on urinalysis and evidence of ketonuria felt to be secondary to patient's poor oral intake. [facility] Medical History Asthma Bipolar 2 disorder, major depressive episode Bipolar disorder Bipolar disorder, unspecified Complicated bereavement Fatigue Generalized anxiety disorder History of ectopic PTSD (post-traumatic stress disorder) Home Medications etonogestrel 68 mg subdermal implant (Nexplanon) 1 implant subdermal ONCE control 02/17/22 [History Last Taken Unknown] albuterol sulfate 90 mcg/actuation aerosol inhaler (Ventolin HFA) 2 puff inhalation Q4H PRN PRN Wheezing ##1 08/11/22 [Rx Last Taken Unknown] aripiprazole 5 mg tablet (Abilify) 5 mg PO QHS bipolar 10/11/22 [History Last Taken Unknown] trazodone 50 mg tablet 50 mg PO QHS PRN insomnia 10/11/22 [History Last Taken Unknown] Allergy/AdvReac Type Severity Reaction Status Date / Time prednisone AdvReac Nausea Verified 10/11/22 02:25 Family History Grandfather CVA (cerebral vascular accident) Skin cancer Grandmother Diabetes Heart disease Lung cancer Sister Bipolar 1 disorder Unknown Alcoholism Depression Surgical History Ectopic History of History of [place] teeth extracted Social History household members: children housing: house number of children: 2 history of recent travel: No sexually active: Yes Smoking Status: Current some day smoker tobacco type: cigarettes alcohol intake: never substance use type: does not use what type of physical activity do you participate in: none seatbelt use: always do you feel safe at home: Yes additional social history: ROS Constitutional Constitutional: Reports chills; Denies fever(s) Gastrointestinal Gastrointestinal: Reports abdominal pain, nausea and vomiting Vital Signs Vital Signs Vital Signs: 10/10/22 20:01 10/10/22 22:07 10/10/22 23:43 Temperature 97.8 F 96.8 F L Temperature Source Temporal Temporal Pulse Rate 87 72 Respiratory Rate 20 H 18 Respiratory Effort Normal Non-Labored Respiratory Pattern Normal Blood Pressure 124/94 H 123/74 H Blood Pressure Mean 104 90 Blood Pressure Source Blood Pressure Position Blood Pressure Location Pulse Ox 97 95 Oxygen Delivery Method Room Air 10/11/22 00:40 10/11/22 01:31 10/11/22 02:33 Temperature 98.1 F 97.7 F L Temperature Source Oral Oral Pulse Rate 75 81 77 Respiratory Rate 16 16 16 Respiratory Effort Respiratory Pattern Normal Blood Pressure 124/90 H 126/80 H Blood Pressure Mean 101 95 Blood Pressure Source Monitor Blood Pressure Position Semi-Fowlers Blood Pressure Location Right Arm Pulse Ox 100 96 Oxygen Delivery Method Room Air Room Air Weight Weight: 178 lb 5.663 oz Body Mass Index (BMI) 33.7 Physical Exam Const alert and oriented x3 Constitutional Narrative: Mild distress from discomfort Results Lab / Micro Data Result Diagrams: 10/10/22 22:10 10/10/22 22:10 Labs: Laboratory Results - last 24 hr 10/10/22 20:15: Urine Color Yellow, Urine Clarity Clear, Urine pH 7.0, Ur Specific [place] 1.015, Urine Protein 30 H, Urine Glucose (UA) Normal, Urine Ketones 150 A*, Urine Occult Blood 10 H, Urine Nitrite Positive H, Urine Bilirubin 6 H, Urine Urobilinogen 8 H, Ur Leukocyte Esterase 25 H, Urine RBC 0 SEEN, Urine WBC 0 SEEN, Ur Squamous Epith Cells 0-5 SEEN, Urine Bacteria 2+, Urine Mucus 0 SEEN 10/10/22 22:10: WBC 9.1, RBC 5.58 H, Hgb 15.8 H, Hct 48.8 H, MCV 87.5, MCH 28.3, MCHC 32.4, RDW Std Deviation 40.7, RDW Coeff of Von 12.8, Plt Count 371, MPV 9.8, Immature Gran % (Auto) 0.300, Neut % (Auto) 65.6, Lymph % (Auto) 23.9, [place] % (Auto) 5.6, Eos % (Auto) 3.8, Baso % (Auto) 0.8, Absolute Neuts (auto) 6.0, Absolute Lymphs (auto) 2.18, Nucleated RBC % 0 10/10/22 22:10: Sodium 137, Potassium 3.8, Chloride 105, Carbon Dioxide 24.0, Anion Gap 8, BUN 13, Creatinine 0.82, Estim Creat Clear Calc 76.39, Est GFR (MDRD) Af Amer 106, Est GFR (MDRD) Non-Af 87, BUN/Creatinine Ratio 15.9, Glucose 87, Calcium 9.2, Total Bilirubin 3.40 H, AST 101 H, ALT 362 H, Alkaline Phosphatase 150 H, Total Protein 8.2, Albumin 3.9, Globulin 4.3 H, Albumin/Globulin Ratio 0.9 10/10/22 22:10: Serum , Qual NEGATIVE 10/10/22 22:10: Lipase 112 H Radiology Impression Gallbladder Ultrasound 10/10/22 23:15 IMPRESSION: 1. Cholelithiasis with positive sonographic Osman sign. No gallbladder wall thickening or pericholecystic fluid. 2. Probable choledocholithiasis. Electronically Signed: Bryan Mccurdy MD at 0:56 EDT , Assessment & Plan Assessment/Plan (1) Cholelithiasis with choledocholithiasis: PLAN: This is a 31-year-old female with past history of bipolar 2 and asthma who presents with signs and symptoms of probable choledocholithiasis as well as mild acute cholecystitis. This diagnosis and its pathophysiology were reviewed with patient. Hand drawings were made to assist with this communication. I shared with patient that she would likely require both an ERCP as well as cholecystectomy this admission. Regarding the former, gastroenterology has been notified about patient's presentation and agreed to assist with the case. In anticipation of possible procedure(s) later today patient will be held n.p.o. upon admission. She will be kept with IV fluid support and monitor carefully given some evidence of dehydration upon this presentation. Neuro: As needed Dilviv, Peeweefeusebia for bipolar 2 Pulm/CV: No current issues FEN/GI: Trend CMP, n.p.o., GI consult, plans for lap lucy with IOC around probable ERCP : Rocephin now Zosyn for probable UTI Heme/ID: Trend CBC, empiric Zosyn coverage Endo: Monitor glucose given findings of ketonuria Proph: SCDs Dispo: Admit to inpatient (2) Bacteriuria: PLAN: Patient dosed Rocephin upon arrival to the ER with urinalysis results. Zosyn administered for patient's biliary issues should provide adequate coverage for presumed UTI. (3) Bipolar 2 disorder, major depressive episode: PLAN: Continue patient's home Abilify
[2022-10-11] MEDS: HYDROmorphone 0.5 MG/0.5 ML SYRINGE IV ×3 (03:12→20:00)
[2022-10-11] MEDS: 0.9% Normal Saline 1,000 ML 125 ML IV ×2 (03:12→11:02)
[2022-10-11] MEDS: 0.9% Saline Lock 10 ML Syringe IV ×3 (07:53→20:00)
[2022-10-11] MEDS: Ondansetron 4 MG/2 ML Vial IV ×2 (07:53→20:00)
--- NOTE | 2022-10-11 07:56 | CON.PCM.GI_ITS ---
HPI Consult Data Date of Consult: 10/11/22 Attending Care Provider: Choledocholithiasis HPI Narrative Reason for Consultation: Choledocholithiasis HPI Narrative: WIN POWER, is a 31 F who presents with 4-day history of epigastric abdominal pain and associated nausea and vomiting x4 days.? She has not changed her medicines she is abdominal surgeries in 2019 laparoscopic evaluation after 2 C-sections for abdominal pain. She said her symptoms started about 4 days ago when she developed worsening right lower quadrant pain and back pain associated with darkened urine and intermittent chills. She went to see her chiropractor because her back pain was getting worse and she was told that she had a pulled muscle. She denies any sick contacts.? ER work-up is notable for comprehensive metabolic panel showing transaminitis and hyperbilirubinemia.? Right upper quadrant ultrasound found evidence of cholelithiasis without gallbladder wall thickening or pericholecystic fluid.? Common bile duct was measured at 5 mm, but radiology found evidence of probable gallstones within the duct.? I was asked to see for ERCP [facility] Medical History Asthma Bipolar 2 disorder, major depressive episode Bipolar disorder Bipolar disorder, unspecified Complicated bereavement Fatigue Generalized anxiety disorder History of ectopic PTSD (post-traumatic stress disorder) Home Medications etonogestrel 68 mg subdermal implant (Nexplanon) 1 implant subdermal ONCE control 02/17/22 [History Last Taken Unknown] albuterol sulfate 90 mcg/actuation aerosol inhaler (Ventolin HFA) 2 puff inhalation Q4H PRN PRN Wheezing ##1 08/11/22 [Rx Last Taken Unknown] aripiprazole 5 mg tablet (Abilify) 5 mg PO QHS bipolar 10/11/22 [History Last Taken Unknown] trazodone 50 mg tablet 50 mg PO QHS PRN insomnia 10/11/22 [History Last Taken Unknown] Allergy/AdvReac Type Severity Reaction Status Date / Time prednisone AdvReac Nausea Verified 10/11/22 02:25 Family History Grandfather CVA (cerebral vascular accident) Skin cancer Grandmother Diabetes Heart disease Lung cancer Sister Bipolar 1 disorder Unknown Alcoholism Depression Surgical History Ectopic History of History of [place] teeth extracted Social History household members: children housing: house number of children: 2 history of recent travel: No sexually active: Yes Smoking Status: Current some day smoker tobacco type: cigarettes alcohol intake: never substance use type: does not use what type of physical activity do you participate in: none seatbelt use: always do you feel safe at home: Yes additional social history: ROS Constitutional Constitutional: Reports chills; Denies fever(s) Gastrointestinal Gastrointestinal: Reports abdominal pain, nausea and vomiting Physical Exam Const alert and oriented x3 Constitutional Narrative: Mild distress from discomfort Lab / Micro Data Result Diagrams: 10/10/22 22:10 10/10/22 22:10 Labs: Laboratory Results - last 24 hr 10/10/22 20:15: Urine Color Yellow, Urine Clarity Clear, Urine pH 7.0, Ur Specific [place] 1.015, Urine Protein 30 H, Urine Glucose (UA) Normal, Urine Ketones 150 A*, Urine Occult Blood 10 H, Urine Nitrite Positive H, Urine Bilirubin 6 H, Urine Urobilinogen 8 H, Ur Leukocyte Esterase 25 H, Urine RBC 0 SEEN, Urine WBC 0 SEEN, Ur Squamous Epith Cells 0-5 SEEN, Urine Bacteria 2+, Urine Mucus 0 SEEN 10/10/22 22:10: WBC 9.1, RBC 5.58 H, Hgb 15.8 H, Hct 48.8 H, MCV 87.5, MCH 28.3, MCHC 32.4, RDW Std Deviation 40.7, RDW Coeff of Von 12.8, Plt Count 371, MPV 9.8, Immature Gran % (Auto) 0.300, Neut % (Auto) 65.6, Lymph % (Auto) 23.9, [place] % (Auto) 5.6, Eos % (Auto) 3.8, Baso % (Auto) 0.8, Absolute Neuts (auto) 6.0, Absolute Lymphs (auto) 2.18, Nucleated RBC % 0 10/10/22 22:10: Sodium 137, Potassium 3.8, Chloride 105, Carbon Dioxide 24.0, Anion Gap 8, BUN 13, Creatinine 0.82, Estim Creat Clear Calc 76.39, Est GFR (MDRD) Af Amer 106, Est GFR (MDRD) Non-Af 87, BUN/Creatinine Ratio 15.9, Glucose 87, Calcium 9.2, Total Bilirubin 3.40 H, AST 101 H, ALT 362 H, Alkaline Phosphatase 150 H, Total Protein 8.2, Albumin 3.9, Globulin 4.3 H, Albumin/Globulin Ratio 0.9 10/10/22 22:10: Serum , Qual NEGATIVE 10/10/22 22:10: Lipase 112 H Radiology Impression Gallbladder Ultrasound 10/10/22 23:15 IMPRESSION: 1. Cholelithiasis with positive sonographic Osman sign. No gallbladder wall thickening or pericholecystic fluid. 2. Probable choledocholithiasis. Electronically Signed: Bryan Mccurdy MD at 0:56 EDT , Assessment & Plan Assessment/Plan (1) Cholelithiasis with choledocholithiasis: (2) Jaundice: (3) Nausea & vomiting: PLAN: Plan 31-year-old presents with 4 days of worsening abdominal pain associated with back pain . Secondary to choledocholithiasis and cholecystitis. Recommend antibiotics and n.p.o. for ERCP. She was explained alternatives, risk, benefits including outstanding bleeding, infection, sepsis, post ERCP pancreatitis, and need for emergent surgery . She will have an ASA of 2 for the procedure. Charges/Coding Visit Charges Inpatient E&M: 30084 Init Hosp L2
[2022-10-11 08:35] LABS: Magnesium 2.2 mg/dL (1.6-2.6); Phosphorus 3.4 mg/dL (2.5-4.9)
--- NOTE | 2022-10-11 10:38 | CASEMGMT ---
BRANDIE ZARATE Assessment: Face to Face with pt for initial transition planning/care coordination assessment. RN ELLIOT introduced self and role at [facility], pt voices understanding and consents to assessment. Pt is A/O x4 and answers all questions appropriately at this time. Pt lying in bed in no distress. Care providers, pharmacy, and demographics verified/updated. Admitting Dx: choledocholithiasis PCP:Marge Specialists:Adry, DUSTER TENDER Preferred Pharmacy: [facility] Insurance: [email or web address] Prescription Benefit: yes LNOK: Manda García, fostermother Living Arrangements: Pt lives with sister in a single story home with 2 steps to enter. Pt reports she is I in ADL's and denies concerns at home. Transportation: Pt drives self and denies concerns with transportation. DME/HHC/SNF: Pt denies having any DME in the home, previous HHC or SNF stays. Pt states no concerns with going home at time of dc. Pt states no further concerns/needs. CM to follow. Advised pt to ask CM if any further question/concerns/needs arise, voices understanding. Pt Goal: Home Plan: Home
[2022-10-11] MEDS: DiphenhydrAMINE 50 MG/ML Syringe 25 MG IV (11:02)
[2022-10-11] MEDS: Ketorolac 15 MG/ML Vial IV (11:30)
[2022-10-11] MEDS: Metoclopramide 10 MG/2 ML Vial IV (11:32)
--- NOTE | 2022-10-11 15:15 | RAD_ITS ---
STUDY: INTRAOPERATIVE CHOLANGIOGRAM. REASON FOR EXAM: Female, 31 years old. Lap lucy with IOC FLUOROSCOPY TIME (if supplied): ( 50.9 seconds ) minutes/seconds. 20.32 mGy TECHNIQUE: An intraoperative cholangiogram was performed by the surgeon. Imaging was submitted. COMPARISON: None. FINDINGS: There are dilated intrahepatic biliary ducts. Dilated common bile duct. Several well-defined filling defects are seen suggests multifocal ductal cholelithiasis. No contrast is seen entering the duodenum. RAD/Cholangiogram/ O R,Initial IMPRESSION: Dilated intra and extrahepatic biliary ducts with a choledocholithiasis and lack of free flow of contrast into the duodenum. Electronically Signed: Pb Patel MD at 8:30 EDT ,
[2022-10-11] MEDS: Bupivacaine Mpf 0.5% 30 ML VIAL (16:20)
--- NOTE | 2022-10-11 16:21 | OP.PCM_ITS ---
Report of Operation Date of Procedure: 10/11/22 Pre-Operative Diagnosis: Choledocholithiasis Post-Operative Diagnosis: 1. Choledocholithiasis 2. Acute cholecystitis Surgery/Procedure Performed:: Laparoscopic cholecystectomy with intraoperative cholangiogram Description of Surgical Findings:: ? Acutely inflamed gallbladder with distention and numerous thin adhesions to the overlying omentum ? Cholangiogram showing filling defect and absence of duodenal filling Surgeon: Bryan Rooney procurement cost coordinator: Elisa Paz procurement cost coordinator: Lottie Mccann Type of Anesthesia: General/Supplemental Anesthesiologist: Soham Plummer Specimen's removed: Gallbladder Drains: None Estimated Blood Loss (mL): 75 Description of Procedure: After proper identification in the preoperative holding area the patient was brought to the operating room where she was positioned supine on the operating room table. Preoperatively SCDs were already intact and antibiotics were administered. General anesthesia was then induced. Patient's abdomen was prepped and draped in usual sterile fashion. A formal timeout was conducted to confirm both patient and the procedure. Procedure was begun with a supraumbilical incision which was extended deeply down to the level of the fascia. The fascia was elevated and incised, as well as the peritoneum. A finger sweep was performed to ensure there were no underlying adhesions and a 12 mm balloon trocar was inserted. Pneumoperitoneum was established at 15 mmHg. 3 additional trocars were placed in the epigastrium (12 mm) and in the right upper quadrant (2 x 5 mm). Inspection of the peritoneum revealed no inadvertent injury to the viscera below. The gallbladder was visualized with [degree of inflammation]. The gallbladder fundus was then grasped and elevated cephalad. Then, using careful dissection the peritoneum was opened and the structures of the hepatocystic triangle were delineated. Once the critical view of safety was obtained, the cystic duct was singly clipped and partially divided with a ductotomy. The proximal duct was milked of any debris until there was [backflow of bile]. A cholangiocatheter was fed into the proximal segment of the cystic duct and clipped into place. Using an Jacobo Jey clamp, a cholangiocatheter was fed into the proximal segment of the cystic duct and clamped into place. Under fluoroscopy a cholangiogram was then obtained showing a [length] cystic duct flowing into a common bile duct with unobstructed antegrade flow of contrast into the duodenum [vs other findings]. There was also retrograde flow through the common hepatic duct into the right and left hepatic ducts. Satisfied with this result, the cholangiocatheter was withdrawn and the proximal cystic duct was sealed with clips and the cystic duct was completely transected. The same process was used for the cystic artery. The gallbladder was then removed from the gallbladder fossa with the use of electrocautery. Selective electrocautery was used to obtain hemostasis in the gallbladder fossa. The gallbladder was placed in an Endo Catch bag and removed from the peritoneum. Morison's pouch was irrigated and the effluent was suctioned free of the peritoneum. Hemostasis was again confirmed. Pneumoperitoneum was evacuated and the fascia of the 12 mm port sites was closed with #1Vicryl in a [id number] fashion. A total of [] mL of anesthetic was injected at the port sites for postoperative pain control. The skin of each port site was then closed in subcuticular fashion using 4-0 Monocryl. Steri-Strips and bandages were applied as dressings. Patient tolerated the procedure well without any apparent complications. On emergence from their anesthetic the patient was taken to PACU for ongoing recovery.
--- NOTE | 2022-10-11 16:21 | PCM.OPRPT ---
Report of Operation Date of Procedure: 10/11/22 Pre-Operative Diagnosis: Choledocholithiasis Post-Operative Diagnosis: 1. Choledocholithiasis 2. Acute cholecystitis Surgery/Procedure Performed:: Laparoscopic cholecystectomy with intraoperative cholangiogram Description of Surgical Findings:: ? Acutely inflamed gallbladder with distention and numerous thin adhesions to the overlying omentum ? Cholangiogram showing filling defect and absence of duodenal filling Surgeon: Bryan Rooney instructor watch assembly: Elisa Paz instructor watch assembly: Lottie Mccann Type of Anesthesia: General/Supplemental Anesthesiologist: Soham Plummer Specimen's removed: Gallbladder Drains: None Estimated Blood Loss (mL): 75 Description of Procedure: After proper identification in the preoperative holding area the patient was brought to the operating room where she was positioned supine on the operating room table. Preoperatively SCDs were already intact and antibiotics were administered. General anesthesia was then induced. Patient's abdomen was prepped and draped in usual sterile fashion. Anesthesia also placed an orogastric tube at this time to decompress the stomach. A formal timeout was conducted to confirm both patient and the procedure. Procedure was begun with a supraumbilical incision which was extended deeply down to the level of the fascia. The fascia was elevated and incised, as well as the peritoneum. A finger sweep was performed to ensure there were no underlying adhesions and a 12 mm balloon trocar was inserted. Pneumoperitoneum was established at 15 mmHg. 3 additional trocars were placed in the epigastrium (5 mm mm) and in the right upper quadrant (2 x 5 mm). Inspection of the peritoneum revealed no inadvertent injury to the viscera below. The gallbladder was visualized with a mild to moderate degree of inflammation with adhesions to the nearby omentum. The gallbladder fundus was then grasped and elevated cephalad. Then, using careful dissection the peritoneum was opened and the structures of the hepatocystic triangle were delineated. Once the critical view of safety was obtained, the cystic duct was singly clipped and partially divided with a ductotomy. The proximal duct was milked of any debris until there was backflow of bile. Using an Jacobo [place] clamp, a cholangiocatheter was fed into the proximal segment of the cystic duct and clamped into place. Under fluoroscopy a cholangiogram was then obtained showing a standard length cystic duct flowing into a dilated common bile duct with filling defect and obstructed antegrade flow of contrast without passage to the duodenum. There was also retrograde flow through the common hepatic duct into the right and left hepatic ducts. Upon making this observation I requested anesthesia dose the patient with 1 mg of glucagon and we then proceeded with a 5-minute wait period to see if this would induce relaxation of the sphincter of Oddi. Unfortunately when the cholangiogram was repeated the result was the same. Therefore the procedure was terminated and the cholangiocatheter was withdrawn. The proximal cystic duct was sealed with clips and the cystic duct was completely transected. The same process was used for the cystic artery. The gallbladder was then removed from the gallbladder fossa with the use of electrocautery. Some additional blunt dissection adjacent to the gallbladder fossa revealed a secondary, more diminutive posterior artery which was also clipped and sharply divided. Selective electrocautery was used to obtain hemostasis in the gallbladder fossa. This proved somewhat more tedious as the gallbladder did not easily come away from the liver surface and it was difficult to identify their interface. Erring on the side of the gallbladder this resulted in a inadvertent rent in the gallbladder fundus posteriorly resulting in local spillage of several stones. These stones were promptly picked up with a laparoscopic grasper and delivered from the peritoneum. The gallbladder was then taken off the gallbladder fossa and I observed that the portion of the back wall of the gallbladder remained adherent to the fossa. The gallbladder was placed in an Endo Catch bag and removed from the peritoneum. Morison's pouch was irrigated and the effluent was suctioned free of the peritoneum. I then used cautery selectively to establish hemostasis within the gallbladder fossa and also cauterized the adherent gallbladder tissue. I checked again for any signs of gallstones that may have spilled, but found none. Hemostasis was again confirmed adjacent our clips. Pneumoperitoneum was evacuated and the fascia of the 12 mm port sites was closed with #1Vicryl in a [id number] fashion. A total of 30 mL of anesthetic was injected at the port sites for postoperative pain control. The skin of each port site was then closed in subcuticular fashion using 4-0 Monocryl. Steri-Strips and bandages were applied as dressings. Patient tolerated the procedure well without any apparent complications. Given her probable diagnosis of choledocholithiasis preop arrangements have been made to have gastroenterology follow directly for endoscopic retrograde cholangiopancreatography and the case was turned over to GI for this purpose. Grafts/Implants Used: None Complications None Admit VTE Documentation VTE Mechan Device Prophylaxis: SCD's Procedures Digestive [id number]-[id number]: 47122 Laparo cholecystectomy/graph
--- NOTE | 2022-10-11 17:00 | RAD_ITS ---
EXAM: INTRAOPERATIVE CHOLANGIOGRAM FLUOROSCOPY TIME: 117 seconds RADIATION DOSE: 28.4 mGy TOTAL NUMBER OF IMAGES: 1 COMPARISON: None. PROVIDED CLINICAL HISTORY: STONES PAIN TECHNIQUE: The examination was performed with physician in attendance. Under fluoroscopic observation, fluoroscopic images were obtained in the operating room. FINDINGS: First image demonstrates surgical instruments overlying the [id number]. Contrast is identified in a cannulated common bile duct. Guidewire deployed. Retrograde contrast is notseen in the pancreatic duct. Contrast is noted in the proximal duodenum. Contrast is seen in the intrahepatic ducts. RAD/ERCP Biliary/Pancreas IMPRESSION: Fluoroscopic assistance images were obtained. Pertinent findings noted above. Electronically Signed: Nicola Bhatti MD at 18:54 EDT ,
--- NOTE | 2022-10-11 17:33 | OP.ERCP_ITS ---
Patient Name: Shirin Harman Procedure Date: 10/11/2022 4:58 PM Date of : 1990 Age: 31 Procedure: ERCP Indications: Bile duct stone(s) Providers: Tim Billingsley DO Medicines: Monitored Anesthesia Care Patient Profile: This is a 31 year old female. Refer to note in patient chart for documentation of history and physical. Patient has symptoms of acute right upper quadrant abdominal pain and acute jaundice. The symptoms first began one week ago. She is status post laparoscopic cholecystectomy recently. Complications: No immediate complications. Procedure: Pre-Anesthesia Assessment: - Prior to the procedure, a History and Physical was performed, and patient medications and allergies were reviewed. The risks and benefits of the procedure and the sedation options and risks were discussed with the patient. All questions were answered and informed consent was obtained. Patient identification and proposed procedure were verified by the physician. Mental Status Examination: normal. Airway Examination: normal oropharyngeal airway and neck mobility. Prophylactic Antibiotics: The patient does not require prophylactic antibiotics. Prior Anticoagulants: The patient has taken no previous anticoagulant or antiplatelet agents. After reviewing the risks and benefits, the patient was deemed in satisfactory condition to undergo the procedure. The anesthesia plan was to use monitored anesthesia care (MAC). Immediately prior to administration of medications, the patient was re-assessed for adequacy to receive sedatives. The heart rate, respiratory rate, oxygen saturations, blood pressure, adequacy of pulmonary ventilation, and response to care were monitored throughout the procedure. The physical status of the patient was re-assessed after the procedure. After obtaining informed consent, the scope was passed under direct vision. Throughout the procedure, the patient's blood pressure, pulse, and oxygen saturations were monitored continuously. The Duodenoscope was introduced through the mouth, and advanced to the duodenum and used to inject contrast into the bile duct. The ERCP was accomplished without difficulty. The patient tolerated the procedure well. Moderate Sedation: Moderate (conscious) sedation was personally administered by an anesthesia professional. The following parameters were monitored: oxygen saturation, heart rate, blood pressure, respiratory rate, EKG, adequacy of pulmonary ventilation, and response to care. Total physician intraservice time was 15 minutes. Scope In: 4:59:18 PM Scope Out: 5:20:31 PM Total Procedure Duration Time 0 hours 21 minutes 13 seconds Findings: The correctional officer chief film was normal. The esophagus was successfully intubated under direct vision. The scope was advanced to a normal major papilla in the descending duodenum without detailed examination of the pharynx, larynx and associated structures, and upper GI tract. The upper GI tract was grossly normal. A straight Roadrunner wire was passed into the biliary tree. The bile duct was then deeply cannulated over the guidewire. Contrast was injected. I personally interpreted the bile duct images. There was brisk flow of contrast through the ducts. Image quality was excellent. Contrast extended to the biliary pancreatic junction. Opacification of the main bile duct was successful. The maximum diameter of the ducts was 9 mm. The lower third of the main bile duct contained multiple stones, the largest of which was 5 mm in diameter. The main bile duct was diffusely dilated, with a stone causing an obstruction. The largest diameter was 8 mm. A cholecystectomy had been performed. A 5 mm biliary sphincterotomy was made with a braided traction (standard) sphincterotome using ERBE electrocautery. Moderate bleeding from the sphincterotomy stopped within 5 minutes. The biliary tree was swept with a 12 mm balloon starting at the bifurcation. Sludge was swept from the duct. All stones were removed. Dilation of the lower third of the main bile duct with 8-10 Fr catheter dilator was successful. One 10 Fr by 5 cm temporary stent with two external flaps and two internal flaps was placed 5 cm into the common bile duct. Bile flowed through the stent. The stent was in good position. Coagulation for hemostasis on the lesser curvature of the stomach using heater probe through the esophagogastroduodenoscope was successful. Impression: - Hemostasis on the lesser curvature of the stomach with a heater probe was performed. - The entire main bile duct was dilated, with a stone causing an obstruction. - The patient has had a cholecystectomy. - Choledocholithiasis was found. Complete removal was accomplished by biliary sphincterotomy and balloon extraction. - A biliary sphincterotomy was performed. - The biliary tree was swept. - The lower third of the main bile duct was successfully dilated. - One temporary stent was placed into the common bile duct. Procedure Code(s): --- Professional --- 98378, Endoscopic retrograde cholangiopancreatography (ERCP); with placement of endoscopic stent into biliary or pancreatic duct, including pre- and post-dilation and guide wire passage, when performed, including sphincterotomy, when performed, each stent 84125, Endoscopic retrograde cholangiopancreatography (ERCP); with removal of calculi/debris from biliary/pancreatic duct(s) 66395, Esophagogastroduodenoscopy, flexible, transoral; with control of bleeding, any method 81752, Endoscopic catheterization of the biliary ductal system, radiological supervision and interpretation CPT copyright 2017 [employer]. All rights reserved. The codes documented in this report are preliminary and upon farm general manager review may be revised to meet current compliance requirements. Tim Billingsley DO 10/11/2022 5:32:55 PM This report has been signed electronically. Number of Addenda: 0 Note Initiated On: 10/11/2022 4:58 PM
--- NOTE | 2022-10-11 17:34 | OP.CCLET_ITS ---
10/11/2022 Hema Bird MD [address] [place] [address] [place] [address] Re : ERCP procedure for Shirin Harman Dear Dr. Bird This procedure was performed on Tuesday, October 11, 2022. My impressions and recommendations are as follows: Impressions : - Hemostasis on the lesser curvature of the stomach with a heater probe was performed. - The entire main bile duct was dilated, with a stone causing an obstruction. - The patient has had a cholecystectomy. - Choledocholithiasis was found. Complete removal was accomplished by biliary sphincterotomy and balloon extraction. - A biliary sphincterotomy was performed. - The biliary tree was swept. - The lower third of the main bile duct was successfully dilated. - One temporary stent was placed into the common bile duct. Recommendations : My findings are described in the full procedure note, which is enclosed. If I can be of further assistance, please feel free to contact me at . Sincerely, Tim Billingsley DO 10/11/2022 5:32:55 PM This report has been signed electronically.
[2022-10-11] MEDS: Lactated Ringers 1,000 ML 15 ML IV (17:39)
--- NOTE | 2022-10-11 18:35 | NURSING ---
remains off unit
[2022-10-11] MEDS: 0.9% Normal Saline 1,000 ML 1 ML IV (19:21)
[2022-10-11] MEDS: Calcium Carbonate 500 MG Tablet PO (21:39)
[2022-10-11] MEDS: ARIPiprazole 5 MG Tablet PO (21:39)
--- NOTE | 2022-10-12 | GALL_PTH ---
PATIENT: WIN POWER LOC: [facility] U#:[id number] AGE/SX: 31/F ROOM: MI316 RE10/11/[address]: Dr. Bryan Rooney MD : 1990 BED: 1 DIS: 10/12/2022 SPEC #: [id number] RECD: 10/12/22 09:19 STATUS: MARGARETH PERES #: [id number] BHARGAVI: 10/12/22 00:[address]: Bryan Rooney DEPT: SURGICAL PATHOLOGY RECD BY: Kelvin Gonzalez ENTERED: 10/12/22 09:20 SP TYPE: ROSSANA GIFFORD DR: MD Dr. Tim Abdalla DO Tissues: Gallbladder, NOS Procedures: Surgery Specimen Level III HEADER OPERATION: Laparoscopic cholecystectomy with IOC PRE-OP DIAGNOSIS: Cholelithiasis with choledocholithiasis TISSUE SUBMITTED: Gallbladder MICROSCOPIC DIAGNOSIS Gallbladder, cholecystectomy: Chronic cholecystitis and cholelithiasis. VIOLA:tiburcio 10/13/2022 MICROSCOPIC DESCRIPTION Slides are reviewed. GROSS DESCRIPTION Received is one container labeled with the patient's name and designated gallbladder. The specimen consists of a previously, partially opened gallbladder measuring 7.5 cm in length and 2.5 cm in diameter. The external surface is pink-hyde, smooth and glistening for the most part. Focally it is granular, hemorrhagic and contains cautery artifact. The gallbladder contains multiple yellow mulberry stones measuring in aggregate 1.5 x 1.2 x 0.5 cm and 0.4 to 0.5 cm in greatest dimension. The mucosa is bile-stained and without any mass lesions. The gallbladder wall measures up to 0.3 cm in thickness. Sammying Machine Operator sections from the gallbladder and the cystic duct are submitted in one cassette. / VIOLA:tiburcio 10/12/2022 TC:3 CPT: 89868
[2022-10-12] MEDS: HYDROmorphone 0.5 MG/0.5 ML SYRINGE IV (00:38)
[2022-10-12] MEDS: 0.9% Saline Lock 10 ML Syringe IV ×3 (00:38→12:38)
[2022-10-12 00:49] VITALS: BP 120/67; PULSE 89; RESP 16; TEMP 36.9; O2SAT 99
[2022-10-12] MEDS: Ondansetron 4 MG/2 ML Vial IV ×2 (06:31→12:37)
[2022-10-12] MEDS: Polyethylene Glycol 3350 17 GM PACKET PO (06:31)
[2022-10-12] MEDS: oxyCODONE 5 MG Tablet PO ×2 (06:31→12:38)
[2022-10-12] MEDS: Acetaminophen 325 MG Tablet 650 MG PO ×2 (06:32→12:37)
[2022-10-12 06:46] VITALS: BP 124/71; PULSE 63; RESP 18; TEMP 36.6; O2SAT 97
[2022-10-12 07:20] LABS: Absolute Lymphocyte Count 1.49 X10^3/uL (0.83-4.51); Absolute Neutrophil Count 8.2 X10^3/uL (2.0-7.7); Basophil# 0.03 X10^3/uL; Basophil% 0.3 % (0-1); Eosinophil# 0.03 X10^3/uL; Eosinophils% 0.3 % (0-5); Hematocrit 39.9 % (37-47); Hemoglobin 13.4 g/dL (12.0-15.0); Lymphocyte # 1.49 X10^3/ul (0.83-4.51); Lymphocyte % 14.3 % (19-41); Mean Corp Hgb Conc 33.6 g/dL (32-36); Mean Corpuscular Hgb 29.4 pg (27.0-32.0); Mean Corpuscular Volume 87.5 fL (81-99); Mean Platelet Vol. 9.9 fl (6.2-12.0); Monocyte% 5.8 % (0-10); NRBC Flagged by Analyzer 0 % (0-5); Neutrophil # 8.24 X10^3/uL (2.7-7.7); Platelet Count 274 K/mm3 (150-450); RBC Distribution Width CV 12.7 % (11.6-14.6); RBC Distribution Width SD 40.1 fl (35.1-43.9); Red Blood Count 4.56 M/mm3 (4.2-5.4); White Blood Count 10.4 K/mm3 (4.4-11.0)
[2022-10-12] MEDS: Albuterol 2.5 MG/3 ML VIAL.NEB. INHALATION (07:38)
[2022-10-12 07:39] VITALS: PULSE 70; RESP 18
[2022-10-12 07:48] LABS: ALB/GLOB Ratio 0.9 RATIO (0.9-2.4); AST(SGOT) 79 U/L (15-37); Alanine Aminotransfer ALT/SGPT 233 U/L (13-56); Albumin, Serum 2.9 g/dL (3.2-5.0); Alkaline Phosphatase 105 U/L (45-117); Anion Gap 5 (5-15); BUN 7 mg/dL (7-18); BUN/Creat Ratio 10.1 RATIO (10-20); Calcium,Total 8.3 mg/dL (8.5-10.1); Chloride 108 mmol/L (98-107); Creatinine, Serum 0.69 mg/dL (0.55-1.02); EST Glomerular Filtration Rate 106 mL/min (>60); Est Glom Filt Rate - Afr Amer 128 mL/min (>60); Estimated Creatinine Clearance 90.78 ml/min; Globulin 3.3 g/dL (2.2-4.2); Glucose 90 mg/dL (74-106); Potassium 3.9 mmol/L (3.5-5.1); Protein, Total 6.2 g/dL (6.4-8.2); Sodium Level 137 mmol/L (136-145)
[2022-10-12 09:04] VITALS: BP 113/79; PULSE 64; RESP 18; TEMP 36.5; O2SAT 100
[2022-10-12] MEDS: Pantoprazole Sodium 40 MG Tablet PO (09:17)
--- NOTE | 2022-10-12 09:47 | DCINST_ITS ---
Discharge Instructions Diet Discharge Diet: No restrictions Activity Discharge Activity: May Not Drive (May not drive while taking narcotic pain medications) and May Shower (May begin showering 48hours postop. Please avoid baths or submerging surgical incisions before skin is completely healed.) May shower in (days): 2 May resume sexual activity in: 2 weeks Ice area for (Minutes): 20 Lifting Restrictions: Limit lifting to <15lbs for 2 weeks following surgery Dressing / Incision Call your doctor if your incision/area has: Sudden Increased Bleeding, Increased Pain/ Swelling, Increased Redness, Foul Smelling Discharge and Swelling at the incision site Call your doctor if you observe: Fever of 101 or Higher, Inability to urinate, Inability to have a bowel movement and Uncontrolled pain Suture Line Care: Avoid Pulling/Pushing Remove Dressing in: 2 days (Please leave steri strips (medical tape) in place until they fall off spontaneously or are removed at your follow-up appointment) Cleanse incision/area with: Keep Dressing Clean & Dry Follow Up Care Please Follow Up With: Bryan Rooney MD When: 2 weeks postop Test Results: Test results from this visit will be discussed in further detail at your follow- up appointment, if applicable. Discharge Plan Admission Admit Date/Time: 10/11/22 02:31 Primary Reason for Your Visit: Cholecystitis with choledocholithiasis Attending Provider: Bryan Rooney Primary Care Provider: Hema Bird Consulting Providers: Tim Billingsley Instructions Additional Instructions / Restrictions: Patient should limit NSAID use for pain relief given finding of gastric ulcers and continue MiraLAX while using narcotic pain medication and experiencing constipation Discharge Orders/Prescriptions Prescriptions: New oxycodone 5 mg Tablet 5 mg PO Q6H PRN PRN (Reason: Pain Score 4-10) 5 Days Qty: 14 0RF Continued Nexplanon 68 mg implant 1 implant subdermal ONCE Rx Instructions: as a single dose trazodone 50 mg tablet 50 mg PO QHS PRN (Reason: insomnia) aripiprazole [Abilify] 5 mg tablet 5 mg PO QHS albuterol sulfate [Ventolin HFA] 90 mcg/actuation HFA aerosol inhaler 2 puff inhalation Q4H PRN PRN (Reason: Wheezing) Qty: 1 0RF pantoprazole 40 mg tablet,delayed release (DR/EC) 40 mg PO BID Qty: 60 2RF Referrals / Follow Up: Hema Bird MD [Primary Care Provider] - Disposition Disposition (needs filled in before D/C Order can be placed): Home, Self Care
--- NOTE | 2022-10-12 09:52 | PCM.DC.SUM ---
Providers Date of Admission: 10/11/22 Primary Care Physician: Dr. Hema Bird MD Consultations 10/11/22 03:07 Consult: Gastroenterology Routine Consulting Provider: Ra Jose Cruzhsaan Reason for Consult: Choledocholithiasis EMERGENT Consult: Yes MD Notified: Yes Date Notified: 10/11/22 Time Notified: 03:07 Method of Notification: ED Physician Initiated Reason For Visit: CHOLEDOCHOLITHIASIS Diagnosis Discharge Diagnosis (1) Cholelithiasis with choledocholithiasis: Status: Acute Code(s): K80.70 - Calculus of gallbladder and bile duct without cholecystitis without obstruction Plan: This is a 31-year-old female with past history of bipolar 2 and asthma who presents with signs and symptoms of probable choledocholithiasis as well as mild acute cholecystitis. This diagnosis and its pathophysiology were reviewed with patient. Hand drawings were made to assist with this communication. I shared with patient that she would likely require both an ERCP as well as cholecystectomy this admission. Regarding the former, gastroenterology has been notified about patient's presentation and agreed to assist with the case. In anticipation of possible procedure(s) later today patient will be held n.p.o. upon admission. She will be kept with IV fluid support and monitor carefully given some evidence of dehydration upon this presentation. Neuro: As needed Dilaudid, Abilify for bipolar 2 Pulm/CV: No current issues FEN/GI: Trend CMP, n.p.o., GI consult, plans for lap lucy with IOC around probable ERCP : Rocephin now Zosyn for probable UTI Heme/ID: Trend CBC, empiric Zosyn coverage Endo: Monitor glucose given findings of ketonuria Proph: SCDs Dispo: Admit to inpatient (2) Jaundice: Status: Acute Code(s): R17 - Unspecified jaundice (3) Nausea & vomiting: Status: Acute Code(s): R11.2 - Nausea with vomiting, unspecified Medications at Discharge Home Medications etonogestrel 68 mg subdermal implant (Nexplanon) 1 implant subdermal ONCE control 02/17/22 aripiprazole 5 mg tablet (Abilify) 5 mg PO QHS bipolar 10/11/22 pantoprazole 40 mg tablet,delayed release 40 mg PO BID #60 tabs 10/11/22 trazodone 50 mg tablet 50 mg PO QHS PRN insomnia 10/11/22 oxycodone 5 mg tablet 5 mg PO Q6H PRN PRN Pain Score 4-10 5 days #14 tabs 10/12/22 albuterol sulfate 90 mcg/actuation aerosol inhaler (Ventolin HFA) See Rx Instructions .Route .COMPLEX #18 GMS 10/13/22 Hospital Course Operations cholecystecomy Summary of Care Provided Minutes Spent on Discharge: 5 Hospital Course: Patient is a 31-year-old female who was evaluated by me early a.m. 10/11/2022 after a presentation late the night before to the emergency department with complaints of abdominal discomfort. ER work-up was consistent with diagnosis of choledocholithiasis. By exam patient had findings concerning for cholecystitis. Therefore, patient was admitted and held n.p.o. in anticipation of intervention. Gastroenterology was consulted and recommended ERCP. In an effort to limit patient's sedation exposure, I recommended laparoscopic cholecystectomy with intraoperative cholangiogram to be followed by ERCP. Patient accepted this recommendation and these procedures were undertaken 10/12/2022. Procedures proceeded in an uncomplicated fashion and patient was admitted to the floor postoperatively for observation. Morning of postoperative day 1 patient experienced expected postoperative discomfort and was overall clinically improved. Therefore, after advancing her diet she was granted discharged home with postoperative follow-up instructions. Physical Exam Const alert, oriented x3 and no apparent distress Resp normal respiratory effort GI GI Narrative: Operative dressings in place without drainage. Soft, appropriately tender to palpation Weight / BMI Weight Weight: 178 lb 5.663 oz Body Mass Index (BMI) 33.7 ABG / Lab / Microbiology Data Result Diagrams: 10/12/22 06:44 10/12/22 06:44 Laboratory: Laboratory Results - last 24 hr 10/12/22 06:44: WBC 10.4, RBC 4.56, Hgb 13.4, Hct 39.9, MCV 87.5, MCH 29.4, MCHC 33.6, RDW Std Deviation 40.1, RDW Coeff of Von 12.7, Plt Count 274, MPV 9.9, Immature Gran % (Auto) 0.300, Neut % (Auto) 79.0 H, Lymph % (Auto) 14.3 L, [place] % (Auto) 5.8, Eos % (Auto) 0.3, Baso % (Auto) 0.3, Absolute Neuts (auto) 8.2 H, Absolute Lymphs (auto) 1.49, Nucleated RBC % 0 10/12/22 06:44: Sodium 137, Potassium 3.9, Chloride 108 H, Carbon Dioxide 24.0, Anion Gap 5, BUN 7, Creatinine 0.69, Estim Creat Clear Calc 90.78, Est GFR (MDRD) Af Amer 128, Est GFR (MDRD) Non-Af 106, BUN/Creatinine Ratio 10.1, Glucose 90, Calcium 8.3 L, Total Bilirubin 1.50 H, AST 79 H, ALT 233 H, Alkaline Phosphatase 105, Total Protein 6.2 L, Albumin 2.9 L, Globulin 3.3, Albumin/Globulin Ratio 0.9 Microbiology: Microbiology 10/10/22 20:15 Urine, Clean Catch Urine Culture - Final Mixed Gram Positive Organisms Radiography Diagnostic Testing: Radiology Impression Cholangiogram 10/11/22 15:15 IMPRESSION: Dilated intra and extrahepatic biliary ducts with a choledocholithiasis and lack of free flow of contrast into the duodenum. Electronically Signed: Pb Patel MD at 8:30 EDT , Endo Retro Cholangiopancreatogram 10/11/22 17:00 IMPRESSION: Fluoroscopic assistance images were obtained. Pertinent findings noted above. Electronically Signed: Nicola Bhatti MD at 18:54 EDT , D/C Instructions Discharge Diet: No restrictions May shower in (days): 2 May resume sexual activity in: 2 weeks Ice area for (Minutes): 20 Call your doctor if your incision/area has: Sudden Increased Bleeding, Increased Pain/ Swelling, Increased Redness, Foul Smelling Discharge and Swelling at the incision site Call your doctor if you observe: Fever of 101 or Higher, Inability to urinate, Inability to have a bowel movement and Uncontrolled pain Suture Line Care: Avoid Pulling/Pushing Cleanse incision/area with: Keep Dressing Clean & Dry Please Follow Up With: Bryan Rooney MD When: 2 weeks postop Meaningful Use Info Meaningful Use Diagnoses (Choose all that apply): None applicable Discharge Plan Admission Admit Date/Time: 10/11/22 02:31 Primary Reason for Your Visit: Cholecystitis with choledocholithiasis Attending Provider: Bryan Rooney Primary Care Provider: Hema Bird Consulting Providers: Tim Billingsley Instructions Additional Instructions / Restrictions: Patient should limit NSAID use for pain relief given finding of gastric ulcers and continue MiraLAX while using narcotic pain medication and experiencing constipation Discharge Orders/Prescriptions Prescriptions: New oxycodone 5 mg Tablet 5 mg PO Q6H PRN PRN (Reason: Pain Score 4-10) 5 Days Qty: 14 0RF Continued Nexplanon 68 mg implant 1 implant subdermal ONCE Rx Instructions: as a single dose trazodone 50 mg tablet 50 mg PO QHS PRN (Reason: insomnia) aripiprazole [Abilify] 5 mg tablet 5 mg PO QHS pantoprazole 40 mg tablet,delayed release (DR/EC) 40 mg PO BID Qty: 60 2RF No Action albuterol sulfate [Ventolin HFA] 90 mcg/actuation HFA aerosol inhaler See Rx Instructions .ROUTE .COMPLEX Qty: 18 0RF Dose Instruction: INHALE 2 PUFFS EVERY 4 HOURS NEEDED FOR WHEEZING Rx Instructions: INHALE 2 PUFFS EVERY 4 HOURS NEEDED FOR WHEEZING Referrals / Follow Up: Hema Bird MD [Primary Care Provider] - Disposition Disposition (needs filled in before D/C Order can be placed): Home, Self Care Charges/Coding Visit Charges Inpatient E&M: 57194 Disch Hosp
--- NOTE | 2022-10-12 11:31 | PHA.DC.MC ---
Pharmacy Service has performed discharge medication reconciliation and counseling for this patient. 1. OXYCODONE 5MG PO Q6H PRN PAIN 4-10 2. PANTOPRAZOLE 40MG PO BID The patient's discharge medication list was reviewed for discrepancies and discrepancies were resolved. Home Medications etonogestrel 68 mg subdermal implant (Nexplanon) 1 implant subdermal ONCE control 02/17/22 albuterol sulfate 90 mcg/actuation aerosol inhaler (Ventolin HFA) 2 puff inhalation Q4H PRN PRN Wheezing ##1 08/11/22 aripiprazole 5 mg tablet (Abilify) 5 mg PO QHS bipolar 10/11/22 pantoprazole 40 mg tablet,delayed release 40 mg PO BID #60 tabs 10/11/22 trazodone 50 mg tablet 50 mg PO QHS PRN insomnia 10/11/22 oxycodone 5 mg tablet 5 mg PO Q6H PRN PRN Pain Score 4-10 5 days #14 tabs 10/12/22 The patient was counseled on the following discharge medications and changes in medications for homegoing were reviewed. The Reason for Use, instructions for use, and potential side effects were reviewed for all new medications. The patient's questions regarding all of their medications were answered. The patient was able to verbally demonstrate an understanding of their discharge medications. Patient counseled by pharmacy delivery driverJed.
--- NOTE | 2022-10-12 11:34 | EX.PCM.PN.GI ---
Subjective Subjective Patient underwent cholecystectomy and ERCP yesterday. Objective Data Objective Data Vital Signs: Vital Signs Temp Pulse Resp BP Pulse Ox O2 Del Method 97.7 F L 64 18 113/79 100 Room Air 10/12/22 09:04 10/12/22 09:04 10/12/22 09:04 10/12/22 09:04 10/12/22 09:04 10/12/22 09:04 Oxygen Delivery Method Room Air Weight: 178 lb 5.663 oz Body Mass Index (BMI) 33.7 Intake & Output: Intake and Output for Last 24 Hours 10/10/22 10/11/22 10/12/22 23:59 23:59 23:59 Intake Total 1050 / 1050 2406.35 / 2406.35 997.08 / 997.08 Balance 1050 / 1050 2406.35 / 2406.35 997.08 / 997.08 Lab / Micro Data Result Diagrams: 10/12/22 06:44 10/12/22 06:44 Labs: Laboratory Results - last 24 hr 10/12/22 06:44: WBC 10.4, RBC 4.56, Hgb 13.4, Hct 39.9, MCV 87.5, MCH 29.4, MCHC 33.6, RDW Std Deviation 40.1, RDW Coeff of Von 12.7, Plt Count 274, MPV 9.9, Immature Gran % (Auto) 0.300, Neut % (Auto) 79.0 H, Lymph % (Auto) 14.3 L, [place] % (Auto) 5.8, Eos % (Auto) 0.3, Baso % (Auto) 0.3, Absolute Neuts (auto) 8.2 H, Absolute Lymphs (auto) 1.49, Nucleated RBC % 0 10/12/22 06:44: Sodium 137, Potassium 3.9, Chloride 108 H, Carbon Dioxide 24.0, Anion Gap 5, BUN 7, Creatinine 0.69, Estim Creat Clear Calc 90.78, Est GFR (MDRD) Af Amer 128, Est GFR (MDRD) Non-Af 106, BUN/Creatinine Ratio 10.1, Glucose 90, Calcium 8.3 L, Total Bilirubin 1.50 H, AST 79 H, ALT 233 H, Alkaline Phosphatase 105, Total Protein 6.2 L, Albumin 2.9 L, Globulin 3.3, Albumin/Globulin Ratio 0.9 Micro: Microbiology 10/10/22 20:15 Urine, Clean Catch Urine Culture - Final Mixed Gram Positive Organisms Radiography Diagnostic Testing: Radiology Impression Cholangiogram 10/11/22 15:15 IMPRESSION: Dilated intra and extrahepatic biliary ducts with a choledocholithiasis and lack of free flow of contrast into the duodenum. Electronically Signed: Pb Patel MD at 8:30 EDT , Endo Retro Cholangiopancreatogram 10/11/22 17:00 IMPRESSION: Fluoroscopic assistance images were obtained. Pertinent findings noted above. Electronically Signed: Nicola Bhatti MD at 18:54 EDT , Physical Exam Const alert and oriented x3 Assessment & Plan Assessment/Plan (1) Cholelithiasis with choledocholithiasis: (2) Jaundice: (3) Nausea & vomiting: PLAN: Plan 31-year-old presents with 4 days of worsening abdominal pain associated with back pain . Secondary to choledocholithiasis and cholecystitis. She underwent successful cholecystectomy. She is not having any complications from cholecystectomy. She underwent ERCP there was no sign of bile leak. There was a stricture and several stones that were removed from the common bile duct. She had an endoscopically placed stent yesterday. Her LFTs are decreasing accordingly. She is doing very well from a GI standpoint and can be discharged to home with outpatient follow-up.
[2022-10-12] MEDS: Metoclopramide 10 MG Tablet PO (12:05)
[2022-10-12] MEDS: Sucralfate 1 GM Tablet PO (12:46)
[2022-10-12 14:01] VITALS: BP 102/58; PULSE 69; RESP 18; TEMP 36.7; O2SAT 97
== END 2022-10-12 14:10 | disposition home or self-care (01) | DRG 263 ==
LOC: ED 10-11 01:11 → MS3 10-11 03:32
PROVIDERS: Internal Medicine Gastroenterology; Admitting Provider Surgery; Emergency Provider Emergency Medicine; PCP Internal Medicine; Visit Provider Surgery
PROC: 0FT44ZZ Resection of Gallbladder, Percutaneous Endoscopic Approach (ICD-10-PCS; CPT 47610; principal; 2022-10-11 14:10)
PROC: 0FC98ZZ Extirpation of Matter from Common Bile Duct, Via Natural or Artificial Opening Endoscopic (ICD-10-PCS; CPT 43260; principal; 2022-10-11 15:40)
DX: K80.43 Calculus of bile duct with acute cholecystitis with obstruction (principal); E88.89 Other specified metabolic disorders; F31.81 Bipolar II disorder; F17.210 Nicotine dependence, cigarettes, uncomplicated; E86.0 Dehydration; J45.909 Unspecified asthma, uncomplicated; N39.0 Urinary tract infection, site not specified; R17 Unspecified jaundice
CPT/HCPCS: 36415; 74300; 74330; 76000; 76705; 80053; 81001; 83690; 83735; 84100; 84703; 85025; 87086; 87088; 88304; 93005; 94640; 94668; 97802; 99285; J7030; J7120; A4216; J2405

== ENCOUNTER → 2023-01-07 | Outpatient (CLI) | payer MEDICAID, SELFPAY ==
[2023-01-07 12:23] LABS: Absolute Lymphocyte Count 1.95 X10^3/uL (0.83-4.51); Basophil# 0.05 X10^3/uL; Basophil% 0.6 % (0-1); Eosinophil# 0.41 X10^3/uL; Eosinophils% 5.2 % (0-5); Hematocrit 44.2 % (37-47); Hemoglobin 14.2 g/dL (12.0-15.0); Lymphocyte # 1.95 X10^3/ul (0.83-4.51); Lymphocyte % 24.6 % (19-41); Mean Corp Hgb Conc 32.1 g/dL (32-36); Mean Corpuscular Hgb 29.2 pg (27.0-32.0); Mean Corpuscular Volume 90.8 fL (81-99); Mean Platelet Vol. 10.1 fl (6.2-12.0); Monocyte# 0.45 X10^3/uL; Monocyte% 5.7 % (0-10); NRBC Flagged by Analyzer 0 % (0-5); Neutrophil # 5.02 X10^3/uL (2.7-7.7); Neutrophil % 63.4 % (47-70); Platelet Count 373 K/mm3 (150-450); RBC Distribution Width SD 42.8 fl (35.1-43.9); Red Blood Count 4.87 M/mm3 (4.2-5.4); White Blood Count 7.9 K/mm3 (4.4-11.0)
[2023-01-07 12:53] LABS: ALB/GLOB Ratio 0.9 RATIO (0.9-2.4); AST(SGOT) 18 U/L (15-37); Alanine Aminotransfer ALT/SGPT 89 U/L (13-56); Albumin, Serum 3.8 g/dL (3.2-5.0); Alkaline Phosphatase 134 U/L (45-117); Anion Gap 6 (5-15); BUN 10 mg/dL (7-18); BUN/Creat Ratio 12.3 RATIO (10-20); Calcium,Total 9.1 mg/dL (8.5-10.1); Chloride 109 mmol/L (98-107); Creatinine, Serum 0.81 mg/dL (0.55-1.02); EST Glomerular Filtration Rate 88 mL/min (>60); Est Glom Filt Rate - Afr Amer 106 mL/min (>60); Globulin 4.2 g/dL (2.2-4.2); Glucose 100 mg/dL (74-106); Potassium 4.3 mmol/L (3.5-5.1); Sodium Level 140 mmol/L (136-145)
== END | disposition home or self-care (01) ==
PROVIDERS: PCP Internal Medicine; Referring Provider Internal Medicine; Visit Provider Internal Medicine
DX: F31.9 Bipolar disorder, unspecified (principal); F41.9 Anxiety disorder, unspecified
CPT/HCPCS: 36415; 80053; 85025

== ENCOUNTER 2023-01-27 10:51 | Day surgery (SDC) | payer MEDICAID, SELFPAY ==
[2023-01-27] VITALS (13 sets, daily range): BP systolic 106–141; BP diastolic 57–99; PULSE 75–99; RESP 15–18; TEMP 36.2–36.6; O2SAT 95–99; BMI 34.1
--- NOTE | 2023-01-27 11:19 | PCM.HP.BLA ---
History and Physical Date of Admission: 01/27/23 31 F who presents with 4-day history of epigastric abdominal pain and associated nausea and vomiting x4 days.? She has not changed her medicines she is abdominal surgeries in 2019 laparoscopic evaluation after 2 C-sections for abdominal pain. She said her symptoms started about 4 days ago when she developed worsening right lower quadrant pain and back pain associated with darkened urine and intermittent chills. She went to see her chiropractor because her back pain was getting worse and she was told that she had a pulled muscle. She denies any sick contacts.? ER work-up is notable for comprehensive metabolic panel showing transaminitis and hyperbilirubinemia.? Right upper quadrant ultrasound found evidence of cholelithiasis without gallbladder wall thickening or pericholecystic fluid.? Common bile duct was measured at 5 mm, but radiology found evidence of probable gallstones within the duct.? I was asked to see for ERCP. She underwent ERCP was discovered to have biliary stricture and multiple common bile duct stones. She underwent removal of the stones and placement of a temporary stent while she underwent a cholecystectomy. She comes back in today without any abdominal pain or problems to have the stent removed. [facility] Medical History Asthma Bipolar 2 disorder, major depressive episode Bipolar disorder Bipolar disorder, unspecified Complicated bereavement Fatigue Generalized anxiety disorder History of ectopic PTSD (post-traumatic stress disorder) Home Medications etonogestrel 68 mg subdermal implant (Nexplanon) 1 implant subdermal ONCE control 02/17/22 [History Last Taken Unknown] albuterol sulfate 90 mcg/actuation aerosol inhaler (Ventolin HFA) 2 puff inhalation Q4H PRN PRN Wheezing ##1 08/11/22 [Rx Last Taken Unknown] aripiprazole 5 mg tablet (Abilify) 5 mg PO QHS bipolar 10/11/22 [History Last Taken Unknown] trazodone 50 mg tablet 50 mg PO QHS PRN insomnia 10/11/22 [History Last Taken Unknown] Allergy/AdvReac Type Severity Reaction Status Date / Time prednisone AdvReac Nausea Verified 10/11/22 02:25 Family History Grandfather CVA (cerebral vascular accident) Skin cancerGrandmother Diabetes Heart disease Lung cancerSister Bipolar 1 disorderUnknown Alcoholism Depression Surgical History Ectopic History of History of [place] teeth extracted Social History household members: children housing: house number of children: 2 history of recent travel: No sexually active: Yes Smoking Status: Current some day smoker tobacco type: cigarettes alcohol intake: never substance use type: does not use what type of physical activity do you participate in: none seatbelt use: always do you feel safe at home: Yes additional social history: ROS Constitutional Constitutional: Reports chills; Denies fever(s) Gastrointestinal Gastrointestinal: Reports abdominal pain, nausea and vomiting Physical Exam Const alert and oriented x3 Constitutional Narrative: Mild distress from discomfort Lab / Micro Data Result Diagrams: 10/10/22 22:10 10/10/22 22:10 Labs: Laboratory Results - last 24 hr 10/10/22 20:15: Urine Color Yellow, Urine Clarity Clear, Urine pH 7.0, Ur Specific [place] 1.015, Urine Protein 30 H, Urine Glucose (UA) Normal, Urine Ketones 150 A*, Urine Occult Blood 10 H, Urine Nitrite Positive H, Urine Bilirubin 6 H, Urine Urobilinogen 8 H, Ur Leukocyte Esterase 25 H, Urine RBC 0 SEEN, Urine WBC 0 SEEN, Ur Squamous Epith Cells 0-5 SEEN, Urine Bacteria 2+, Urine Mucus 0 SEEN 10/10/22 22:10: WBC 9.1, RBC 5.58 H, Hgb 15.8 H, Hct 48.8 H, MCV 87.5, MCH 28.3, MCHC 32.4, RDW Std Deviation 40.7, RDW Coeff of Von 12.8, Plt Count 371, MPV 9.8, Immature Gran % (Auto) 0.300, Neut % (Auto) 65.6, Lymph % (Auto) 23.9, Swain % (Auto) 5.6, Eos % (Auto) 3.8, Baso % (Auto) 0.8, Absolute Neuts (auto) 6.0, Absolute Lymphs (auto) 2.18, Nucleated RBC % 0 10/10/22 22:10: Sodium 137, Potassium 3.8, Chloride 105, Carbon Dioxide 24.0, Anion Gap 8, BUN 13, Creatinine 0.82, Estim Creat Clear Calc 76.39, Est GFR (MDRD) Af Amer 106, Est GFR (MDRD) Non-Af 87, BUN/Creatinine Ratio 15.9, Glucose 87, Calcium 9.2, Total Bilirubin 3.40 H, AST 101 H, ALT 362 H, Alkaline Phosphatase 150 H, Total Protein 8.2, Albumin 3.9, Globulin 4.3 H, Albumin/Globulin Ratio 0.9 10/10/22 22:10: Serum , Qual NEGATIVE 10/10/22 22:10: Lipase 112 H Radiology Impression Gallbladder Ultrasound 10/10/22 23:15 IMPRESSION: 1. Cholelithiasis with positive sonographic Osman sign. No gallbladder wall thickening or pericholecystic fluid. 2. Probable choledocholithiasis. Electronically Signed: Bryan Mccurdy MD at 0:56 EDT , Assessment & Plan Assessment/Plan (1) Cholelithiasis with choledocholithiasis: (2) Jaundice: (3) Nausea & vomiting: PLAN: Plan 31-year-old presents with 4 days of worsening abdominal pain associated with back pain . Secondary to choledocholithiasis and cholecystitis. Recommend ERCP with stent removal. She was explained alternatives, risk, benefits including outstanding bleeding, infection, sepsis, post ERCP pancreatitis, and need for emergent surgery . She will have an ASA of 2 for the procedure. I have examined the patient and the H&P has been reviewed. There are no clinical changes since date of exam.
[2023-01-27 11:25] LABS: Internal QC Validated? YES +Cl - CLEAR BKGD; Pregnancy, Urine Negative Negative
[2023-01-27] MEDS: Lactated Ringers 1,000 ML 15 ML IV (11:35)
--- NOTE | 2023-01-27 12:45 | RAD_ITS ---
STUDY: ERCP REASON FOR EXAM: Female, 32 years old. PAIN FLUOROSCOPY TIME (if supplied): ( 3 minutes and 3 seconds ) minutes/seconds. 42.17 mGy. 3 images were submitted. TECHNIQUE: The production support engineer performed the ERCP for biliary stent placement. COMPARISON: None. FINDINGS: ERCP for biliary stent placement. RAD/ERCP Biliary Only IMPRESSION: ERCP for biliary stent placement. Electronically Signed: Pb Patel MD at 8:26 EDT ,
--- NOTE | 2023-01-27 13:14 | OP.CCLET_ITS ---
01/27/2023 Hema Bird MD [address] [place] [address] [place] [address] Re : ERCP procedure for Shirin Harman Dear Dr. Bird This procedure was performed on January. My impressions and recommendations are as follows: Impressions : - A single segmental biliary stricture was found in the lower third of the main bile duct. The stricture was benign appearing. - The entire main bile duct was moderately dilated, with a stone causing an obstruction. - A biliary sphincterotomy was performed. - One stent was removed from the biliary tree. - One temporary stent was placed into the ventral pancreatic duct. Recommendations : My findings are described in the full procedure note, which is enclosed. If I can be of further assistance, please feel free to contact me at . Sincerely, Tim Billingsley, 01/27/2023 1:13:30 PM This report has been signed electronically.
--- NOTE | 2023-01-27 13:14 | OP.ERCP_ITS ---
Patient Name: Shirin Harman Procedure Date: 01/27/2023 12:15 PM Date of : 1990 Age: 32 Procedure: ERCP Indications: Stent change Providers: Tim Billingsley DO Medicines: Monitored Anesthesia Care Patient Profile: This is a 32 year old female. Refer to note in patient chart for documentation of history and physical. Patient has symptoms of chronic right upper quadrant abdominal pain. Her most recent ERCP for stent and ERCP for stone removal was within the past three months. Complications: No immediate complications. Procedure: Pre-Anesthesia Assessment: - Prior to the procedure, a History and Physical was performed, and patient medications and allergies were reviewed. The patient is competent. The risks and benefits of the procedure and the sedation options and risks were discussed with the patient. All questions were answered and informed consent was obtained. Patient identification and proposed procedure were verified by the physician in the pre-procedure area. Mental Status Examination: alert and oriented. Airway Examination: normal oropharyngeal airway and neck mobility. Respiratory Examination: clear to auscultation. CV Examination: normal. Prophylactic Antibiotics: The patient does not require prophylactic antibiotics. Prior Anticoagulants: The patient has taken no anticoagulant or antiplatelet agents. ASA Grade Assessment: II - A patient with mild systemic disease. After reviewing the risks and benefits, the patient was deemed in satisfactory condition to undergo the procedure. The anesthesia plan was to use monitored anesthesia care (MAC). Immediately prior to administration of medications, the patient was re-assessed for adequacy to receive sedatives. The heart rate, respiratory rate, oxygen saturations, blood pressure, adequacy of pulmonary ventilation, and response to care were monitored throughout the procedure. The physical status of the patient was re-assessed after the procedure. After obtaining informed consent, the scope was passed under direct vision. Throughout the procedure, the patient's blood pressure, pulse, and oxygen saturations were monitored continuously. The Duodenoscope was introduced through the mouth, and advanced to the duodenum and used to inject contrast into the bile duct and ventral pancreatic duct. The ERCP was accomplished without difficulty. The patient tolerated the procedure well. Scope In: 12:30:23 PM Scope Out: 12:59:40 PM Total Procedure Duration Time 0 hours 29 minutes 17 seconds Findings: A biliary stent was visible on the script developer film. The esophagus was successfully intubated under direct vision. The scope was advanced to a normal major papilla in the descending duodenum without detailed examination of the pharynx, larynx and associated structures, and upper GI tract. The upper GI tract was grossly normal. The bile duct was deeply cannulated with the short-nosed traction sphincterotome. Contrast was injected. I personally interpreted the pancreatic duct images. There was brisk flow of contrast through the ducts. Image quality was suboptimal. Contrast extended to the entire biliary tree. Contrast extended to the pancreatic duct. Opacification of the lower third of the main bile duct was successful. The maximum diameter of the ducts was 7 mm. The lower third of the main bile duct contained a single segmental stenosis 6 mm in length. The main bile duct was moderately dilated, with a stone causing an obstruction. The largest diameter was 7 mm. Placement of a long 0.025 inch Jagwire into the biliary tree was attempted. This passed successfully. A 5 mm biliary sphincterotomy was made with a traction (standard) sphincterotome using ERBE electrocautery. There was no post-sphincterotomy bleeding. One stent was removed from the biliary tree using a Raptor grasping device. One 4 Fr by 5 cm temporary stent was placed 5 cm into the ventral pancreatic duct. Clear fluid flowed through the stent. The stent was in good position. Impression: - A single segmental biliary stricture was found in the lower third of the main bile duct. The stricture was benign appearing. - The entire main bile duct was moderately dilated, with a stone causing an obstruction. - A biliary sphincterotomy was performed. - One stent was removed from the biliary tree. - One temporary stent was placed into the ventral pancreatic duct. Procedure Code(s): --- Professional --- 99434, Endoscopic retrograde cholangiopancreatography (ERCP); with placement of endoscopic stent into biliary or pancreatic duct, including pre- and post-dilation and guide wire passage, when performed, including sphincterotomy, when performed, each stent 12774, 59, Endoscopic retrograde cholangiopancreatography (ERCP); with removal of foreign body(s) or stent(s) from biliary/pancreatic duct(s) 52075, 59,51, Endoscopic retrograde cholangiopancreatography (ERCP); with sphincterotomy/papillotomy 50841, 26, Endoscopic catheterization of the pancreatic ductal system, radiological supervision and interpretation CPT copyright 2021 [employer]. All rights reserved. The codes documented in this report are preliminary and upon flour blender review may be revised to meet current compliance requirements. Tim Billingsley DO 01/27/2023 1:13:30 PM This report has been signed electronically. Number of Addenda: 0 Note Initiated On: 01/27/2023 12:15 PM
== END 2023-01-27 15:23 | disposition home or self-care (01) ==
LOC: EN 10:52 → AC 10:57
PROVIDERS: Anesthesiology; PCP Internal Medicine; Referring Provider Internal Medicine Gastroenterology; Visit Provider Internal Medicine Gastroenterology
PROC: (CPT 43260; principal; 2023-01-27 12:10)
DX: Z46.59 Encounter for fitting and adjustment of other gastrointestinal appliance and device (principal); K80.51 Calculus of bile duct without cholangitis or cholecystitis with obstruction; R17 Unspecified jaundice; J45.909 Unspecified asthma, uncomplicated; F17.210 Nicotine dependence, cigarettes, uncomplicated; Z90.49 Acquired absence of other specified parts of digestive tract; Z79.899 Other long term (current) drug therapy
CPT/HCPCS: 43264; 43276; 74328; 76000; 81025; 93005; J7120; J2405

== ENCOUNTER 2023-08-26 15:45 | Emergency (ER) | payer MEDICAID, SELFPAY ==
[2023-08-26 15:46] VITALS: BP 145/98; PULSE 83; RESP 18; TEMP 36.5; O2SAT 98; BMI 33.8
--- NOTE | 2023-08-26 16:30 | RAD_ITS ---
INDICATION: pain EXAMINATION/TECHNIQUE: X-RAY - RIGHT XR Foot Min 3 Views COMPARISON: None. FINDINGS: No acute fracture or malalignment. No blastic or lytic lesions. No degenerative changes are seen. The soft tissues are unremarkable. RAD/Foot min 3 Views IMPRESSION: No acute radiographic abnormalities. Electronically Signed: Liam León MD at 16:50 EDT ,
== END 2023-08-26 18:52 | disposition left against medical advice (07) ==
LOC: ED 19:31
PROVIDERS: PCP Internal Medicine
DX: M79.671 Pain in right foot (principal); Z53.21 Procedure and treatment not carried out due to patient leaving prior to being seen by health care provider
CPT/HCPCS: 73630

== ENCOUNTER 2023-12-02 12:56 | Emergency (ER) | payer MEDICAID, SELFPAY ==
[2023-12-02] VITALS (9 sets, daily range): BP systolic 113–161; BP diastolic 70–110; PULSE 79–112; RESP 16–30; TEMP 36.6; O2SAT 94–99; BMI 32.3
--- NOTE | 2023-12-02 13:11 | EX.ED.DYSGE1 ---
HPI History of Present Illness Chief Complaint: Asthma Informant: patient Narrative Narrative: Patient presents secondary to asthma attack. She has a history of asthma and has recently had URI symptoms. She was seen at urgent care 3 days ago and given albuterol inhaler and prednisone. Prednisone makes her nauseated. She has been tried to take Zofran with it but was not able to tolerate the prednisone today. She was able to keep it down yesterday and states it did seem to help her breathing. This morning she has more lung tightness and wheezing with continued cough. She has not had a noted fever but has felt warm. [facility] Medical History Flu vaccine need Obesity (BMI 30-39.9) Wears glasses Marijuana use Alcohol use History of steroid therapy Restless legs Migraine headache Gastric reflux Smoker Cough Chest congestion Bipolar 2 disorder, major depressive episode Complicated bereavement PTSD (post-traumatic stress disorder) Generalized anxiety disorder Bipolar disorder, unspecified Bipolar disorder Fatigue History of ectopic Asthma Home Medications ?Medication ?Instructions ?Recorded ?Last Taken ?Type etonogestrel 68 mg subdermal 1 implant subdermal ONCE 02/17/22 Unknown History implant (Nexplanon) control pantoprazole 40 mg tablet,delayed 40 mg PO BID #60 tabs 10/11/22 Unknown Rx release trazodone 50 mg tablet 50 mg PO QHS PRN insomnia 10/11/22 Unknown History aripiprazole 5 mg tablet (Abilify) 5 mg PO QHS bipolar #90 tabs 01/07/23 Unknown Rx montelukast 10 mg tablet 10 mg PO QHS #90 tabs 03/21/23 Unknown Rx (Singulair) albuterol sulfate 90 mcg/actuation See Rx Instructions .Route 11/30/23 Unknown Rx aerosol inhaler (Ventolin HFA) .COMPLEX #18 GMS albuterol sulfate 2.5 mg/3 mL 2.5 mg (3 mL) inhalation Q4H PRN 12/02/23 Unknown Rx (0.083 %) solution for nebulization #25 vials benzonatate 200 mg capsule 200 mg PO TID PRN cough #20 caps 12/02/23 Unknown Rx Allergy/AdvReac Type Severity Reaction Status Date / Time prednisone AdvReac Nausea Verified 08/26/23 15:46 Family History Grandfather CVA (cerebral vascular accident) Skin cancer Grandmother Diabetes Heart disease Lung cancer Sister Bipolar 1 disorder Unknown Alcoholism Depression Surgical History History of cholecystectomy [place] teeth extracted History of Ectopic History of Social History household members: children housing: house number of children: 2 history of recent travel: No sexually active: Yes Smoking Status: Current some day smoker tobacco type: cigarettes alcohol intake: never substance use type: does not use what type of physical activity do you participate in: none seatbelt use: always do you feel safe at home: Yes additional social history: ROS ROS ED Constitutional Constitutional ED: Denies chills or fever(s) Eyes Eyes: Denies discharge from eye(s) ENT ENT ED: Reports other Details: Congestion ; Denies discharge from eye(s), rhinorrhea or sore throat Cardiovascular Cardiovascular: Denies chest pain Respiratory/Chest Respiratory/Chest: Reports cough and dyspnea Gastrointestinal Gastrointestinal: Denies abdominal pain, nausea or vomiting Genitourinary Genitourinary ED: Denies dysuria Musculoskeletal Musculoskeletal: Denies back pain or extremity pain Integumentary Denies Abrasions or rash Neurologic Neurologic: Denies headache(s) or weakness Psychiatric Psychiatric: Denies anxiety or depression Allergic/Immunologic Allergic/Immunologic ED: Denies lip swelling or urticaria EXAM Physical Exam Const Vital Signs: 12/02/23 12:57 12/02/23 12:57 12/02/23 12:57 Temperature 98 F 98 F Temperature Source Temporal Temporal Pulse Rate 112 H 108 H 108 H Respiratory Rate 30 H 26 H 26 H Respiratory Effort Respiratory Depth Respiratory Pattern Blood Pressure 161/110 H 150/105 H 150/105 H Blood Pressure Mean 127 120 120 Pulse Ox 95 98 98 Oxygen Delivery Method Room Air Room Air Room Air 12/02/23 13:15 12/02/23 13:15 12/02/23 13:30 Temperature Temperature Source Pulse Rate 90 88 Respiratory Rate 19 H 20 H Respiratory Effort Respiratory Depth Respiratory Pattern Tachypnea Tachypnea Blood Pressure Blood Pressure Mean Pulse Ox 99 Oxygen Delivery Method Room Air 12/02/23 13:30 12/02/23 13:50 12/02/23 13:50 Temperature Temperature Source Pulse Rate 90 Respiratory Rate 18 Respiratory Effort Respiratory Depth Respiratory Pattern Normal Blood Pressure Blood Pressure Mean Pulse Ox 99 97 Oxygen Delivery Method Room Air Room Air 12/02/23 14:08 12/02/23 14:08 12/02/23 14:10 Temperature Temperature Source Pulse Rate 93 Respiratory Rate 18 Respiratory Effort Short of Breath Respiratory Depth Shallow Respiratory Pattern Normal Tachypnea Blood Pressure Blood Pressure Mean Pulse Ox 99 Oxygen Delivery Method Room Air Room Air Positive well nourished and well developed General Appearance ED: well developed HEENT Reports moist mucous membranes Eyes EOMs intact bilaterally Chest Wall inspection of chest normal and palpation of chest normal Resp Resp Narrative: Expiratory wheezes bilaterally, worse on the right. Cardio regular rhythm Rate: tachycardic GI non-tender Palpation: soft Extremity normal to inspection Neuro oriented x3 and no sensory deficits noted Motor Exam: strength 5/5 throughout Psych mental status grossly normal Skin no rashes or lesions noted MDM MDM MDM Narrative Medical decision making narrative: Patient given IM injection of Kenalog. Aerosols ordered. Chest x-ray obtained to evaluate for acute lung pathology, cardiac size, or mediastinal abnormality. Radiography Diagnostic Testing: Clinical Impression(s) from Imaging Studies Chest X-Ray 12/02/23 13:50 IMPRESSION: Normal x-ray examination of the chest. Electronically Signed: Shawn Smith MD at 14:15 EDT Reading Location ID and State: [address] [place] [address] , Service support , Treatment and Re-Evaluation :: On repeat evaluation patient resting more comfortably. Heart rate is in the high 90s. Lung sounds continue to reveal mild expiratory wheezes, although improved air movement is noted. She will be given an additional DuoNeb treatment here. 2 view chest x-ray per my interpretation was no obvious infiltrate. Radiology interpretation reviewed and agrees. Patient will be given a prescription for Tessalon Perles along with albuterol solution for nebulizer which she has at home. I do feel that her symptoms are viral in nature and she does not need an antibiotic. Discharge Plan Triage Chief Complaint: Asthma ED Provider: Kiley Erickson Dx/Rx/DC Orders Clinical Impression: Asthma exacerbation, Viral URI with cough Instructions: ED Asthma, Acute (Adult), ED URI, Viral W/ Wheezing (Adult) Prescriptions: New albuterol sulfate 2.5 mg /3 mL (0.083 %) solution for nebulization 2.5 mg inhalation Q4H PRN Qty: 25 0RF Rx Instructions: Use q4 hours and PRN for wheezing benzonatate 200 mg capsule 200 mg PO TID PRN (Reason: cough) Qty: 20 0RF No Action Nexplanon 68 mg implant 1 implant subdermal ONCE Rx Instructions: as a single dose aripiprazole [Abilify] 5 mg tablet 5 mg PO QHS Qty: 90 1RF montelukast [Singulair] 10 mg tablet 10 mg PO QHS Qty: 90 2RF trazodone 50 mg tablet 50 mg PO QHS PRN (Reason: insomnia) pantoprazole 40 mg tablet,delayed release (DR/EC) 40 mg PO BID Qty: 60 2RF albuterol sulfate [Ventolin HFA] 90 mcg/actuation HFA aerosol inhaler See Rx Instructions .ROUTE .COMPLEX Qty: 18 0RF Dose Instruction: INHALE 2 PUFFS EVERY 4 HOURS NEEDED FOR WHEEZING Rx Instructions: INHALE 2 PUFFS EVERY 4 HOURS NEEDED FOR WHEEZING Primary Care Provider: Hema Bird Referrals: Hema Bird MD [Primary Care Provider] - 1 Week Print Language: Mohawk Disposition Disposition: Home, Self Care
[2023-12-02] MEDS: Ipratropium/Albuterol Sulfate 3 ML AMPUL.NEB INHALATION ×2 (13:20→15:15)
[2023-12-02] MEDS: Albuterol 2.5 MG/3 ML VIAL.NEB. INHALATION ×3 (13:28→14:07)
[2023-12-02] MEDS: Triamcinolone Acetonide 40 MG/ML Vial IM (13:38)
--- NOTE | 2023-12-02 13:50 | RAD_ITS ---
STUDY: X-RAY CHEST REASON FOR EXAM: Female, 32 years old. SOB TECHNIQUE: PA and lateral views of the chest. COMPARISON: March 04, 2019 FINDINGS: The lungs are clear and expanded. There is no demonstrated pleural abnormality. Normal size heart. Normal mediastinum and clifford. Normal visualized pulmonary arteries. Normal visualized aortic arch and descending thoracic aorta. Normal visualized thoracic spine. Normal visualized ribs, clavicles, and shoulders. There is no demonstrated abnormality of the visualized soft tissue structures of the upper abdomen. RAD/Chest PA and Lateral IMPRESSION: Normal x-ray examination of the chest. Electronically Signed: Shawn Smith MD at 14:15 EDT ,
--- NOTE | 2023-12-02 13:58 | CPS ---
prn for wheezes
== END 2023-12-02 15:32 | disposition home or self-care (01) ==
PROVIDERS: Emergency Provider Emergency Medicine; PCP Internal Medicine; Visit Provider Emergency Medicine
DX: J45.901 Unspecified asthma with (acute) exacerbation (principal); J06.9 Acute upper respiratory infection, unspecified; F17.210 Nicotine dependence, cigarettes, uncomplicated; Z79.899 Other long term (current) drug therapy
CPT/HCPCS: 71046; 94640; 96372; 99282

== ENCOUNTER 2024-03-22 08:25 | Emergency (ER) | payer MEDICAID, SELFPAY ==
[2024-03-22 08:26] VITALS: BP 142/90; PULSE 85; RESP 16; TEMP 36.7; O2SAT 98; BMI 32.5
--- NOTE | 2024-03-22 08:40 | RAD_ITS ---
INDICATION: Shortness of breath EXAMINATION/TECHNIQUE: X-RAY - XR Chest 2 Views COMPARISON: December 02, 2023 FINDINGS: LINES/DEVICES: None. LUNGS: No consolidation, edema or effusion. No pneumothorax. MEDIASTINUM AND CARDIOVASCULAR STRUCTURES: Cardiac silhouette not enlarged. Central airways and mediastinal contour are unremarkable. BONES AND SOFT TISSUES: Unremarkable. RAD/Chest PA and Lateral IMPRESSION: No radiographic evidence of acute cardiopulmonary disease. Electronically Signed: Jazmyne Bettencourt MD at 9:17 EST ,
--- NOTE | 2024-03-22 08:51 | ED.VIS.DYS ---
HPI History of Present Illness Chief Complaint: Shortness of Breath Informant: patient Narrative Narrative: Patient 33-year-old female with history of bipolar disorder, anxiety, depression, GERD and asthma presenting with worsening cough, wheezing and concern for asthma exacerbation. Patient states over the past month there has been respiratory illness and pneumonia that everyone in her household has had. Patient states she was treated for pneumonia by her primary care 3 to 4 weeks ago. She was on 2 to 3 days amoxicillin and then switched to azithromycin. She has inhaler and nebulizer as well as daily Symbicort that she uses. She notes she has had worsening coughing and wheezing more recently. She states that she has some sputum production with her cough but it is less than it had been. She states is a mixture of watery and thick and yellow and very sputum production. She Nuys any fever but has had a lot of sweating. Has had nausea secondary to coughing but is not had any vomiting. Has never been admitted for her breathing as an adult. She is concerned she might have pneumonia again or is having an asthma exacerbation. Does not been on any steroids recently. States she cannot take prednisone because it causes her to throw up. Last breathing treatment was last night. No other complaints or concerns reported at this time [facility] Medical History Flu vaccine need Obesity (BMI 30-39.9) Wears glasses Marijuana use Alcohol use History of steroid therapy Restless legs Migraine headache Gastric reflux Smoker Cough Chest congestion Bipolar 2 disorder, major depressive episode Complicated bereavement PTSD (post-traumatic stress disorder) Generalized anxiety disorder Bipolar disorder, unspecified Bipolar disorder Fatigue History of ectopic Asthma Home Medications ?Medication ?Instructions ?Recorded ?Last Taken ?Type etonogestrel 68 mg subdermal 1 implant subdermal ONCE 02/17/22 Unknown History implant (Nexplanon) control albuterol sulfate 2.5 mg/3 mL 2.5 mg (3 mL) inhalation Q4H PRN 12/02/23 Unknown Rx (0.083 %) solution for nebulization #25 vials benzonatate 200 mg capsule 200 mg PO TID PRN cough #20 caps 12/02/23 Unknown Rx budesonide-formoterol HFA 80 2 puff inhalation BID #10.2 grams 01/18/24 Unknown Rx mcg-4.5 mcg/actuation aerosol inhaler (Symbicort) quetiapine 50 mg tablet (Seroquel) 50 mg PO QHS 01/23/24 Unknown History albuterol sulfate 90 mcg/actuation 2 puff inhalation Q3H PRN 02/28/24 Unknown Rx aerosol inhaler (Ventolin HFA) shortness of breath or wheezing #8.5 grams albuterol sulfate 2.5 mg/3 mL 2.5 mg (3 mL) inhalation Q4H PRN 03/22/24 Unknown Rx (0.083 %) solution for nebulization PRN bronchospasm #25 vials albuterol sulfate 90 mcg/actuation 1 - 2 puff inhalation Q4H PRN PRN 03/22/24 Unknown Rx aerosol inhaler (Ventolin HFA) Wheezing #1 inh benzonatate 200 mg capsule 200 mg PO TID PRN cough #20 caps 03/22/24 Unknown Rx dexamethasone 4 mg tablet 4 mg PO DAILY #4 tabs 03/22/24 Unknown Rx Allergy/AdvReac Type Severity Reaction Status Date / Time prednisone AdvReac Nausea Verified 03/22/24 08:26 Family History Grandfather CVA (cerebral vascular accident) Skin cancer Grandmother Diabetes Heart disease Lung cancer Sister Bipolar 1 disorder Unknown Alcoholism Depression Surgical History History of cholecystectomy [place] teeth extracted History of Ectopic History of Social History household members: children housing: house number of children: 2 history of recent travel: No sexually active: Yes Smoking Status: Current some day smoker tobacco type: cigarettes alcohol intake: never substance use type: does not use what type of physical activity do you participate in: none seatbelt use: always do you feel safe at home: Yes additional social history: ROS ROS ED Constitutional Constitutional ED: Reports chills and sweats; Denies fever(s) ENT ENT ED: Reports ear pain right (intermittently - throbbing ); Denies rhinorrhea or sore throat Cardiovascular Cardiovascular: Denies chest pain Respiratory/Chest Respiratory/Chest: Reports cough, dyspnea, sputum and other Details: wheezing Gastrointestinal Gastrointestinal: Reports nausea; Denies abdominal pain or vomiting Integumentary Denies rash EXAM Physical Exam Const Vital Signs: 03/22/24 08:26 03/22/24 08:31 03/22/24 08:57 Temperature 98.0 F Temperature Source Oral Pulse Rate 85 85 Respiratory Rate 16 16 Respiratory Effort Short of Breath Labored Respiratory Depth Deep Respiratory Pattern Normal Blood Pressure 142/90 H Blood Pressure Mean 107 Pulse Ox 98 Oxygen Delivery Method Room Air 03/22/24 09:54 Temperature Temperature Source Pulse Rate 85 Respiratory Rate 16 Respiratory Effort Respiratory Depth Respiratory Pattern Blood Pressure Blood Pressure Mean Pulse Ox Oxygen Delivery Method Positive well nourished and well developed General Appearance ED: well developed and NAD HEENT Reports TM's clear and moist mucous membranes HEENT Narrative: Mild injection of the oropharynx. No tonsillar exudate or erythema/edema appreciated. Tympanic Membrane ED: Yes TM's clear Neck supple Resp normal respiratory effort Resp Narrative: No conversational dyspnea. Diffuse inspiratory expiratory wheezing present. Coarse breath sounds at the bases. Cardio regular rate, regular rhythm and no murmurs GI non-distended Neuro oriented x3 Sensorium / Orientation: alert Motor Exam: Negative for general weakness Psych mental status grossly normal Skin no wounds MDM MDM MDM Narrative Medical decision making narrative: Patient evaluated for worsening wheezing and cough. Was diagnosed with pneumonia 3 to 4 weeks ago and completed course of antibiotics. Has been using her inhaler/nebulizer and Symbicort with continued symptoms. Differential includes asthma exacerbation, pneumonia, pleural effusion and bronchitis. On exam patient is coughing and wheezing. Cough is quite bronchial sounding. She is 98% on room air and afebrile with normal vital signs except for mildly elevated blood pressure 142/90 which is pretty nonspecific. Patient given a DuoNeb with improvement of breath sounds and coughing but some continued wheezing. She is given additional butyryl treatment with further improvement. Two-view chest x-ray viewed by myself as well as radiology does not show any acute process. Patient will be given a dose of Decadron and put on a short burst of this (cannot tolerate prednisone due to nausea/vomiting). I suspect this is more asthma exacerbation versus bronchitis. She has had symptoms for couple weeks now and does not have any acute fever or URI symptoms to lower suspicion for an acute viral syndrome/COVID. Do not think she requires testing at this time. Patient is given a refill for her nebulizer solution as well as albuterol inhaler in addition to a prescription for Tessalon Perles to help with her cough. Given return precautions. Discharged home in stable and improved condition. Radiography Chest X-Ray - ED: 2 View, Read by ED Physician, Read by Radiologist and No Acute Disease Diagnostic Testing: Clinical Impression(s) from Imaging Studies Chest X-Ray 03/22/24 08:40 IMPRESSION: No radiographic evidence of acute cardiopulmonary disease. Electronically Signed: Jazmyne Bettencourt MD at 9:17 EST , Discharge Plan Triage Chief Complaint: Shortness of Breath ED Provider: Torri Mcintyre Dx/Rx/DC Orders Clinical Impression: Asthma exacerbation, Cough Instructions: ED Asthma, Acute (Adult), ED Bronchitis, No Antibiotic (Adult) Prescriptions: New dexamethasone 4 mg tablet 4 mg PO DAILY Qty: 4 0RF albuterol sulfate 2.5 mg /3 mL (0.083 %) solution for nebulization 2.5 mg inhalation Q4H PRN PRN (Reason: bronchospasm) Qty: 25 0RF Rx Instructions: Use q4 hours and PRN for wheezing albuterol sulfate [Ventolin HFA] 90 mcg/actuation HFA aerosol inhaler 1 - 2 puff inhalation Q4H PRN PRN (Reason: Wheezing) Qty: 1 0RF benzonatate 200 mg capsule 200 mg PO TID PRN (Reason: cough) Qty: 20 0RF No Action Nexplanon 68 mg implant 1 implant subdermal ONCE Rx Instructions: as a single dose budesonide-formoterol [Symbicort] 80-4.5 mcg/actuation HFA aerosol inhaler 2 puff inhalation BID Qty: 10.2 10RF albuterol sulfate 2.5 mg /3 mL (0.083 %) solution for nebulization 2.5 mg inhalation Q4H PRN Qty: 25 0RF Rx Instructions: Use q4 hours and PRN for wheezing benzonatate 200 mg capsule 200 mg PO TID PRN (Reason: cough) Qty: 20 0RF quetiapine [Seroquel] 50 mg tablet 50 mg PO QHS Patient Comments: reported per pt. albuterol sulfate [Ventolin HFA] 90 mcg/actuation HFA aerosol inhaler 2 puff inhalation Q3H PRN (Reason: shortness of breath or wheezing) Qty: 8.5 0RF Primary Care Provider: Hema Bird Referrals: Hema Bird MD [Primary Care Provider] - Activity Restrictions/Additional Instructions: Your chest x-ray did not show any pneumonia or fluid on the lungs. I suspect this is more asthma exacerbation versus bronchitis. I do not think require further antibiotics. I have a low suspicion for acute COVID. Take medications as prescribed. Please follow-up with your primary care doctor. Please return if you develop worsening respiratory symptoms or difficulty breathing. The cough might last for 2 to 3 weeks but hopefully within the next week you should start to feel much better. Print Language: Kyrgyz Disposition Disposition: Home, Self Care
[2024-03-22] MEDS: Ipratropium/Albuterol Sulfate 3 ML AMPUL.NEB INHALATION (08:52)
[2024-03-22 08:57] VITALS: PULSE 85; RESP 16
[2024-03-22] MEDS: Albuterol 2.5 MG/3 ML VIAL.NEB. INHALATION (09:51)
[2024-03-22 09:54] VITALS: PULSE 85; RESP 16
[2024-03-22] MEDS: dexAMETHasone 4 MG Tablet PO (10:30)
[2024-03-22 10:56] VITALS: BP 138/77; PULSE 62; RESP 15; TEMP 36.4; O2SAT 98
== END 2024-03-22 10:57 | disposition home or self-care (01) ==
PROVIDERS: Emergency Provider Emergency Medicine; PCP Internal Medicine; Visit Provider Emergency Medicine
DX: J45.901 Unspecified asthma with (acute) exacerbation (principal); F31.81 Bipolar II disorder; Z87.01 Personal history of pneumonia (recurrent); F41.1 Generalized anxiety disorder; K21.9 Gastro-esophageal reflux disease without esophagitis; Z79.51 Long term (current) use of inhaled steroids; Z79.899 Other long term (current) drug therapy; F17.210 Nicotine dependence, cigarettes, uncomplicated
CPT/HCPCS: 71046; 94640; 99283

== ENCOUNTER → 2024-04-25 | Outpatient (CLI) | payer MEDICAID, SELFPAY ==
[2024-04-25 09:28] LABS: Hematocrit 43.5 % (37-47); Hemoglobin 14.9 g/dL (12.0-15.0); Mean Corp Hgb Conc 34.3 g/dL (32-36); Mean Corpuscular Hgb 29.3 pg (27.0-32.0); Mean Corpuscular Volume 85.5 fL (81-99); Mean Platelet Vol. 9.4 fl (6.2-12.0); Platelet Count 346 K/mm3 (150-450); RBC Distribution Width CV 12.3 % (11.6-14.6); RBC Distribution Width SD 38.5 fl (35.1-43.9); Red Blood Count 5.09 M/mm3 (4.2-5.4); White Blood Count 8.8 K/mm3 (4.4-11.0)
[2024-04-25 09:53] LABS: Hemoglobin A1c 5.3 % (3.8-5.6)
[2024-04-25 09:59] LABS: ALB/GLOB Ratio 0.9 RATIO (0.9-2.4); AST(SGOT) 17 U/L (15-37); Alanine Aminotransfer ALT/SGPT 27 U/L (13-56); Albumin, Serum 3.8 g/dL (3.2-5.0); Alkaline Phosphatase 61 U/L (45-117); Anion Gap 3 (5-15); BUN 15 mg/dL (7-18); BUN/Creat Ratio 17.2 RATIO (10-20); Calcium,Total 9.4 mg/dL (8.5-10.1); Chloride 108 mmol/L (98-107); Cholesterol 153 mg/dL (200); Creatinine, Serum 0.87 mg/dL (0.55-1.02); EST Glomerular Filtration Rate 80 mL/min (>60); Est Glom Filt Rate - Afr Amer 97 mL/min (>60); Ferritin 24 ng/mL (8-252); Globulin 4.1 g/dL (2.2-4.2); Glucose 106 mg/dL (74-106); High Density Lipoprotein 49 mg/dL; Iron 49 ug/dL (50-170); Iron Binding Capacity,Total 401 ug/dL (250-450); PERCENT IRON SATURATION 12.2 % (15.0-55.0); Potassium 4.2 mmol/L (3.5-5.1); Protein, Total 7.9 g/dL (6.4-8.2); Sodium Level 138 mmol/L (136-145); Triglycerides 88 mg/dL; Very Low Density Lipoprotein 18 mg/dL (5-40)
[2024-04-26 08:41] LABS: Vitamin B12 456 pg/mL (211-911); Vitamin D,25 Hydroxy 9.2 ng/mL
== END | disposition home or self-care (01) ==
PROVIDERS: PCP Internal Medicine; Referring Provider Pharmacist Pharmacist Clinician (PhC)/ Clinical Pharmacy Specialist; Visit Provider Pharmacist Pharmacist Clinician (PhC)/ Clinical Pharmacy Specialist
DX: R53.83 Other fatigue (principal); Z79.899 Other long term (current) drug therapy
CPT/HCPCS: 36415; 80053; 80061; 82306; 82607; 82728; 82746; 83036; 83540; 83550; 84443; 85027

== ENCOUNTER 2024-06-23 17:19 | Emergency (ER) | payer MEDICAID, SELFPAY ==
[2024-06-23 17:20] VITALS: BP 147/74; PULSE 112; RESP 17; TEMP 36.4; O2SAT 93; BMI 34.4
--- NOTE | 2024-06-23 18:29 | EDS_ITS ---
HPI History of Present Illness Chief Complaint: Nausea/Vomiting Detail of Chief Complaint: Nausea, cough, fever, vomiting Informant: patient Narrative Narrative: Patient presents with complaint of not feeling well for several days. She com [place] of vomiting and diarrhea since yesterday. She has a cough. She had fever up to 103 at home. Her son has influenza A. Patient states she cannot keep anything down and feels very dehydrated. Also states that her asthma is flaring up. She has had prior cholecystectomy. Does not think she is [facility] Medical History Flu vaccine need Obesity (BMI 30-39.9) Wears glasses Marijuana use Alcohol use History of steroid therapy Restless legs Migraine headache Gastric reflux Smoker Cough Chest congestion Bipolar 2 disorder, major depressive episode Complicated bereavement PTSD (post-traumatic stress disorder) Generalized anxiety disorder Bipolar disorder, unspecified Bipolar disorder Fatigue History of ectopic Asthma Home Medications ?Medication ?Instructions ?Recorded ?Last Taken ?Type etonogestrel 68 mg subdermal 1 implant subdermal ONCE 02/17/22 Unknown History implant (Nexplanon) control albuterol sulfate 2.5 mg/3 mL 2.5 mg (3 mL) inhalation Q4H PRN 12/02/23 Unknown Rx (0.083 %) solution for nebulization #25 vials albuterol sulfate 90 mcg/actuation 1 - 2 puff inhalati on Q4H PRN PRN 03/22/24 Unknown Rx aerosol inhaler (Ventolin HFA) Wheezing #1 inh clonidine HCl 0.1 mg tablet 0.1 mg PO QDAY 06/14/24 Un known History lurasidone 40 mg tablet 40 mg PO QPM 06/14/24 Unknow n History albuterol sulfate 2.5 mg/3 mL 2.5 mg (3 mL) inhalation Q4H PRN 06/20/24 Unknown Rx (0.083 %) solution for nebulization PRN bronchospasm # 25 vials albuterol sulfate 90 mcg/actuation 2 puff inhalation Q 3H PRN 06/20/24 Unknown Rx aerosol inhaler (Ventolin HFA) shortness of breath or wheezing #8.5 grams ondansetron 4 mg disintegrating 4 mg PO Q8H PRN PRN Na usea #10 tabs 06/23/24 Unknown Rx tablet Allergy/AdvReac Type Severity Reaction Status Date / Time prednisone AdvReac Nausea Verified 06/23/24 17:22 Family History Grandfather CVA (cerebral vascular accident) Skin cancer Grandmother Diabetes Heart disease Lung cancer Sister Bipolar 1 disorder Unknown Alcoholism Depression Surgical History History of cholecystectomy [place] teeth extracted History of Ectopic History of Social History household members: children housing: house number of children: 2 history of recent travel: No sexually active: Yes Smoking Status: Current some day smoker tobacco type: cigarettes alcohol intake: never substance use type: does not use what type of physical activity do you participate in: none seatbelt use: always do you feel safe at home: Yes additional social history: ROS ROS ED Review of Systems ROS Unobtainable: other Constitutional Constitutional ED: Reports fever(s) and lethargy; Denies chills, sweats or weight loss Eyes Eyes: Denies blurry vision, change in vision or diplopia ENT ENT ED: Denies rhinorrhea or sore throat Cardiovascular Cardiovascular: Denies chest pain, orthopnea or racing heartbeat Respiratory/Chest Respiratory/Chest: Reports cough; Denies dyspnea, dyspnea on exertion, orthopnea or sputum Gastrointestinal Gastrointestinal: Reports diarrhea, nausea and vomiting; Denies abdominal pain Genitourinary Genitourinary ED: Denies dysuria, hematuria or urinary frequency Musculoskeletal Musculoskeletal: Denies arthralgias, back pain, myalgias or neck pain Integumentary Denies abscess, Abrasions or rash Neurologic Neurologic: Denies headache(s) or weakness Psychiatric Psychiatric: Denies anxiety, depression or suicidal thoughts Endocrine Endocrinology: Denies polydipsia, polyphagia or polyuria Hematologic/Lymphatic Hematologic/Lymphatic: Denies easy bleeding, easy bruising or lymphadenopathy Allergic/Immunologic Allergic/Immunologic ED: Denies mouth swelling, tongue swelling or urticaria EXAM Physical Exam Const Vital Signs: 06/23/24 17:20 06/23/24 18:45 Temperature 97.5 F L Temperature Source Temporal Pulse Rate 112 H 71 Respiratory Rate 17 17 Respiratory Pattern Normal Blood Pressure 147/74 H Blood Pressure Mean 98 Pulse Ox 93 Oxygen Delivery Method Room Air Positive well nourished and well developed General Appearance ED: well developed and NAD HEENT Reports TM's clear and moist mucous membranes normocephalic and atraumatic; Negative for trauma or tenderness Tympanic Membrane ED: Yes TM's clear Eyes PERRL and EOMs intact bilaterally General Eye ED: Negative for pale conjunctiva or scleral icterus Neck no lymphadenopathy, supple and no JVD General: Negative for tenderness Chest Wall inspection of chest normal and palpation of chest normal Chest: Negative for tenderness Resp normal respiratory effort and No clear to auscultation bilaterally Resp Narrative: Patient with some faint expiratory wheezes bilaterally. No accessory muscle use or retractions. No significant tachypnea Effort and Inspection: Negative for respiratory distress or pain with movement Auscultation: wheezes; Negative for rhonchi or diminished lung sounds Cardio regular rate, regular rhythm, S1 normal heart sound, S2 normal heart sound and no murmurs Peripheral Pulses: pulses 2+ throughout GI normal to inspection, nondistended, normoactive bowel sounds, soft to palpation, non-tender, non-distended and no masses Back/Spine no CVA tenderness and no thoracic nor lumbar tenderness Extremity normal to inspection General Extremety ED: Negative for edema General Extremity: Negative for edema Neuro oriented x3, CN's II-XII intact bilaterally, no sensory deficits noted and gait normal Sensorium / Orientation: awake, alert, oriented to person, oriented to place and oriented to time Motor Exam: strength 5/5 throughout and strength abnormal Psych mental status grossly normal Skin no rashes or lesions noted and no wounds MDM MDM MDM Narrative Medical decision making narrative: Patient presents with cough and vomiting. Recent exposure to influenza A as her son was recently diagnosed. She feels dehydrated. IV established. She was given a liter normal same fluid bolus. She was given a DuoNeb aerosol and Decadron 10 mg IV. She was given Zofran IV. CBC with differential white count of 13.6 with hemoglobin 15 and platelet count of 267. Chemistries unremarkable. hCG was negative. Patient had COVID flu and RSV testing that was positive for influenza A. Patient has had symptoms for approximately 5 days therefore she is not a candidate for Tamiflu. Recommended pushing fluids. I will write her prescription for Zofran. Lab Data Attestation: I reviewed the patient's lab results. Labs: Laboratory Results - last 24 hr 06/23/24 18:56 WBC 13.6 H RBC 5.27 Hgb 15.3 H Hct 44.9 MCV 85.2 MCH 29.0 MCHC 34.1 RDW Std Deviation 39.0 RDW Coeff of Von 12.6 Plt Count 267 MPV 9.5 Immature Gran % (Auto) 0.400 Neut % (Auto) 85.5 H Lymph % (Auto) 8.4 L Rankin % (Auto) 5.4 Eos % (Auto) 0.1 Baso % (Auto) 0.2 Absolute Neuts (auto) 11.6 H Absolute Lymphs (auto) 1.14 Nucleated RBC % 0 Sodium 135 L Potassium 3.6 Chloride 103 Carbon Dioxide 20.0 L Anion Gap 12 BUN 10 Creatinine 0.79 Estim Creat Clear Calc 100.50 Est GFR (MDRD) Af Amer 109 Est GFR (MDRD) Non-Af 90 BUN/Creatinine Ratio 12.6 Glucose 98 Calcium 9.0 Serum , Qual NEGATIVE Discharge Plan Triage Chief Complaint: Nausea/Vomiting ED Provider: Clementine Martin Dx/Rx/DC Orders Clinical Impression: Influenza A, Vomiting, Asthma exacerbation Instructions: ED Asthma, Acute (Adult), ED Influenza (Adult), ED Vomiting (Adult) Prescriptions: New ondansetron 4 mg tablet,disintegrating 4 mg PO Q8H PRN PRN (Reason: Nausea) Qty: 10 0RF No Action Nexplanon 68 mg implant 1 implant subdermal ONCE Rx Instructions: as a single dose lurasidone 40 mg tablet 40 mg PO QPM clonidine HCl 0.1 mg tablet 0.1 mg PO QDAY albuterol sulfate 2.5 mg /3 mL (0.083 %) solution for nebulization 2.5 mg inhalation Q4H PRN Qty: 25 0RF Rx Instructions: Use q4 hours and PRN for wheezing albuterol sulfate [Ventolin HFA] 90 mcg/actuation HFA aerosol inhaler 1 - 2 puff inhalation Q4H PRN PRN (Reason: Wheezing) Qty: 1 0RF albuterol sulfate [Ventolin HFA] 90 mcg/actuation HFA aerosol inhaler 2 puff inhalation Q3H PRN (Reason: shortness of breath or wheezing) Qty: 8.5 0RF albuterol sulfate 2.5 mg /3 mL (0.083 %) solution for nebulization 2.5 mg inhalation Q4H PRN PRN (Reason: bronchospasm) Qty: 25 0RF Rx Instructions: Use q4 hours and PRN for wheezing Primary Care Provider: Hema Bird Referrals: Hema Bird MD [Primary Care Provider] - 5-7 Days Print Language: Hungarian Disposition Disposition: Home, Self Care
[2024-06-23 18:45] VITALS: PULSE 71; RESP 17
[2024-06-23] MEDS: Ipratropium/Albuterol Sulfate 3 ML AMPUL.NEB INHALATION (18:45)
[2024-06-23] MEDS: dexAMETHasone 10 MG/ML Vial IV (18:52)
[2024-06-23] MEDS: Ondansetron 4 MG/2 ML Vial IV (18:52)
[2024-06-23] MEDS: 0.9% Normal Saline (1000mL) 1,000 ML 1000 ML IV (18:52)
[2024-06-23 19:03] LABS: Absolute Lymphocyte Count 1.14 X10^3/uL (0.83-4.51); Absolute Neutrophil Count 11.6 X10^3/uL (2.0-7.7); Basophil# 0.03 X10^3/uL; Basophil% 0.2 % (0-1); Eosinophil# 0.01 X10^3/uL; Eosinophils% 0.1 % (0-5); Hematocrit 44.9 % (37-47); Hemoglobin 15.3 g/dL (12.0-15.0); Lymphocyte # 1.14 X10^3/ul (0.83-4.51); Lymphocyte % 8.4 % (19-41); Mean Corp Hgb Conc 34.1 g/dL (32-36); Mean Corpuscular Volume 85.2 fL (81-99); Mean Platelet Vol. 9.5 fl (6.2-12.0); Monocyte# 0.73 X10^3/uL; Monocyte% 5.4 % (0-10); NRBC Flagged by Analyzer 0 % (0-5); Neutrophil # 11.61 X10^3/uL (2.7-7.7); Neutrophil % 85.5 % (47-70); Platelet Count 267 K/mm3 (150-450); RBC Distribution Width CV 12.6 % (11.6-14.6); Red Blood Count 5.27 M/mm3 (4.2-5.4); White Blood Count 13.6 K/mm3 (4.4-11.0)
[2024-06-23 19:29] LABS: Internal QC Validated? YES +Cl - CLEAR BKGD; Pregnancy, Serum, hCG Quali. NEGATIVE Negative
[2024-06-23 19:32] LABS: Anion Gap 12 (5-15); BUN 10 mg/dL (7-18); BUN/Creat Ratio 12.6 RATIO (10-20); Chloride 103 mmol/L (98-107); Creatinine, Serum 0.79 mg/dL (0.55-1.02); EST Glomerular Filtration Rate 90 mL/min (>60); Est Glom Filt Rate - Afr Amer 109 mL/min (>60); Glucose 98 mg/dL (74-106); Potassium 3.6 mmol/L (3.5-5.1); Sodium Level 135 mmol/L (136-145)
[2024-06-23 20:10] VITALS: BP 128/76; PULSE 84; RESP 16; TEMP 36.4; O2SAT 98
== END 2024-06-23 20:11 | disposition home or self-care (01) ==
PROVIDERS: Emergency Provider Emergency Medicine; PCP Internal Medicine; Visit Provider Emergency Medicine
DX: J10.1 Influenza due to other identified influenza virus with other respiratory manifestations (principal); R11.2 Nausea with vomiting, unspecified; R19.7 Diarrhea, unspecified; J45.901 Unspecified asthma with (acute) exacerbation; F17.210 Nicotine dependence, cigarettes, uncomplicated; Z90.49 Acquired absence of other specified parts of digestive tract
CPT/HCPCS: 80048; 84703; 85025; 87631; 94640; 96361; 96374; 96375; 99283; J2405

== ENCOUNTER 2024-11-20 11:40 | Emergency (ER) | payer MEDICAID, SELFPAY ==
[2024-11-20 11:40] VITALS: BP 140/91; PULSE 92; RESP 16; TEMP 36.4; O2SAT 97; BMI 31.1
[2024-11-20] MEDS: 0.9% Normal Saline (1000mL) 1,000 ML 999 ML IV (12:35)
[2024-11-20 12:43] LABS: Hematocrit 48.1 % (37-47); Hemoglobin 17.6 g/dL (12.0-15.0); Immature Granulocytes Count 0.050 X10^3/uL (0.0-0.0); Mean Corp Hgb Conc 36.6 g/dL (32-36); Mean Corpuscular Volume 85.0 fL (81-99); Mean Platelet Vol. 10.2 fl (6.2-12.0); NRBC Flagged by Analyzer 0 % (0-5); Platelet Count 434 K/mm3 (150-450); RBC Distribution Width CV 12.4 % (11.6-14.6); RBC Distribution Width SD 38.2 fl (35.1-43.9); Red Blood Count 5.66 M/mm3 (4.2-5.4); White Blood Count 14.4 K/mm3 (4.4-11.0)
--- NOTE | 2024-11-20 12:53 | EX.ED.DYSGE1 ---
HPI History of Present Illness Chief Complaint: Nausea/Vomiting Informant: patient Narrative Narrative: Presents with vomiting diarrhea for the last 5 days. Patient son had similar symptoms after both being [place] 09 weekend. Emesis too many to count with streaks of blood. Diarrhea subsiding. Last time this morning. Unable keep things down. Upper endoscopy a year ago by Dr. Billingsley with gastric ulcers treated for 2 months with Protonix. She has a Nexplanon. Denies recent antibiotics. Denies fever chills or sweats. States 15 pound weight loss since symptoms started. No abdominal pain. Decreased urine output. [facility] Medical History Flu vaccine need Obesity (BMI 30-39.9) Wears glasses Marijuana use Alcohol use History of steroid therapy Restless legs Migraine headache Gastric reflux Smoker Cough Chest congestion Bipolar 2 disorder, major depressive episode Complicated bereavement PTSD (post-traumatic stress disorder) Generalized anxiety disorder Bipolar disorder, unspecified Bipolar disorder Fatigue History of ectopic Asthma Home Medications ?Medication ?Instructions ?Recorded ?Last Taken ?Type etonogestrel 68 mg subdermal 1 implant subdermal ONCE 02/17/22 Unknown History implant (Nexplanon) control albuterol sulfate 2.5 mg/3 mL 2.5 mg (3 mL) inhalation Q4H PRN 12/02/23 Unknown Rx (0.083 %) solution for nebulization #25 vials albuterol sulfate 90 mcg/actuation 1 - 2 puff inhalation Q4H PRN PRN 03/22/24 Unknown Rx aerosol inhaler (Ventolin HFA) Wheezing #1 inh lurasidone 40 mg tablet 40 mg PO QPM 06/14/24 Unknown History albuterol sulfate 2.5 mg/3 mL 2.5 mg (3 mL) inhalation Q4H PRN 06/20/24 Unknown Rx (0.083 %) solution for nebulization PRN bronchospasm #25 vials clonidine HCl 0.1 mg tablet 0.1 mg PO BID 07/18/24 Unknown History albuterol sulfate 90 mcg/actuation 2 puff inhalation Q3H PRN 09/19/24 Unknown Rx aerosol inhaler (Ventolin HFA) shortness of breath or wheezing #8.5 grams ondansetron 4 mg disintegrating 4 mg PO Q8H PRN PRN Nausea #10 tabs 11/20/24 Unknown Rx tablet pantoprazole 40 mg tablet,delayed 40 mg PO DAILY #30 tabs 11/20/24 Unknown Rx release sucralfate 1 gram tablet (Carafate) 1 g PO Q6H #60 tabs 11/20/24 Unknown Rx Allergy/AdvReac Type Severity Reaction Status Date / Time prednisone AdvReac Nausea Verified 11/20/24 11:43 Family History Grandfather CVA (cerebral vascular accident) Skin cancer Grandmother Diabetes Heart disease Lung cancer Sister Bipolar 1 disorder Unknown Alcoholism Depression Surgical History History of cholecystectomy [place] teeth extracted History of Ectopic History of Social History household members: children housing: house number of children: 2 history of recent travel: No sexually active: Yes Smoking Status: Current some day smoker tobacco type: cigarettes alcohol intake: never substance use type: does not use what type of physical activity do you participate in: none seatbelt use: always do you feel safe at home: Yes additional social history: ROS ROS ED Constitutional Constitutional ED: Denies chills, fever(s) or sweats ENT ENT ED: Denies sore throat Cardiovascular Cardiovascular: Denies chest pain, leg edema, palpitations or racing heartbeat Respiratory/Chest Respiratory/Chest: Denies cough, dyspnea or dyspnea on exertion Gastrointestinal Gastrointestinal: Reports diarrhea, nausea and vomiting; Denies abdominal pain Genitourinary Genitourinary ED: Denies dysuria, hematuria or urinary frequency Musculoskeletal Musculoskeletal: Denies back pain, extremity pain or neck pain Integumentary Denies rash or wounds Neurologic Neurologic: Denies headache(s), paresthesias or weakness EXAM Physical Exam Const Vital Signs: 11/20/24 11:40 11/20/24 13:40 11/20/24 15:00 Temperature 97.5 F L 98.4 F Temperature Source Temporal Oral Pulse Rate 92 85 80 Respiratory Rate 16 18 15 Blood Pressure 140/91 H 140/88 H 111/67 Blood Pressure Mean 107 105 81 Pulse Ox 97 100 98 Oxygen Delivery Method Room Air Room Air Room Air 07/15/25 16:25 Temperature 98.4 F Temperature Source Pulse Rate 82 Respiratory Rate 17 Blood Pressure 137/81 H Blood Pressure Mean 99 Pulse Ox 98 Oxygen Delivery Method Positive well nourished and well developed General Appearance ED: well developed and NAD HEENT Reports dry mucous membranes normocephalic and atraumatic Mouth ED: Yes dry mucous membranes Mouth: dry mucous membranes Eyes General Eye ED: Yes normal appearance of both eyes Neck full ROM Chest Wall Chest: Negative for tenderness Resp normal respiratory effort and normal air movement Effort and Inspection: symmetric chest movement; Negative for respiratory distress Cardio regular rate, regular rhythm and no murmurs Peripheral Pulses: pulses 2+ throughout GI normal to inspection, nondistended, normoactive bowel sounds and non-tender GI Narrative: Negative Osman's or McBurney's tenderness Palpation: Negative for guarding or rebound tenderness present Extremity normal to inspection General Extremety ED: Negative for edema or tenderness General Extremity: Negative for edema Neuro oriented x3 and no sensory deficits noted Sensorium / Orientation: awake and alert Skin no rashes or lesions noted and no wounds MDM MDM MDM Narrative Medical decision making narrative: Interventions / MDM: Differential diagnosis: Vomiting and diarrhea, gastritis, history of gastric ulcers, cyclic vomiting Diagnosis considered but do not suspect: no clinical appendicitis or Diverticulitis. My EKG interpretation: N/A Imaging independently reviewed and interpreted by myself: N/A External documents reviewed: N/A Test considered but not ordered:N/A ED course: Vomiting diarrhea sick exposure to his son along with [place] water exposure. No recent antibiotics. Dry mucosal membranes unable keep things down. Decreased urine output. IV established fluids Zofran given. Stool studies ordered including ova parasites. 1425: Labs stable except for slight leukocytosis of 14.4. No urinary symptoms no cough. Likely reactive. Normal renal function with creatinine of 0.93. Lipase normal. Per nursing patient had an emesis reporting bright red however looked in the bag it was dark color minimal amount. No hematemesis. Discussed likely gastritis symptoms for vomiting. Previous history of marijuana, she is then states she has not smoked in a few days or vomiting diarrhea started 5 days ago. She states burning down her abdomen. Nonsurgical abdomen. I will add Pepcid and cyclic vomiting medication of Benadryl and Thorazine. No stool collection at this time. Will reevaluate. Clinically he is feeling better on reevaluation. She was p.o. challenge no difficulties. Encourage continued oral fluids for hydration. Prescription for pantoprazole Carafate and Zofran. She will follow-up with Dr. Billingsley as she is establish with GI service. She will monitor for black or bloody stools. Stools were collected and sent to lab and pending. Re-evaluation: stable Disposition discussed with patient/family/significant other: Patient Case discussed with consulting clinician: N/A This note was generated with [employer] dictation software. It may contain incorrect words, spelling, and punctuation that were not noted in checking the note before signing. Lab Data Attestation: I reviewed the patient's lab results. Labs: Laboratory Results - last 24 hr 11/20/24 12:02 WBC 14.4 H RBC 5.66 H Hgb 17.6 H Hct 48.1 H MCV 85.0 MCH 31.1 MCHC 36.6 H RDW Std Deviation 38.2 RDW Coeff of Von 12.4 Plt Count 434 MPV 10.2 Immature Gran % (Auto) 0.300 Neut % (Auto) 86.0 H Lymph % (Auto) 10.4 L [place] % (Auto) 2.7 Eos % (Auto) 0.3 Baso % (Auto) 0.3 Absolute Neuts (auto) 12.4 H Absolute Lymphs (auto) 1.50 Nucleated RBC % 0 Sodium 140 Potassium 3.8 Chloride 102 Carbon Dioxide 17.0 L Anion Gap 20 H BUN 14 Creatinine 0.93 Estim Creat Clear Calc 81.11 Est GFR (MDRD) Non-Af 84 BUN/Creatinine Ratio 14.8 Glucose 83 Calcium 9.9 Total Bilirubin 0.42 AST 24 ALT 21 Alkaline Phosphatase 68 Total Protein 8.5 H Albumin 4.8 Globulin 3.7 Albumin/Globulin Ratio 1.3 Lipase 18 Serum , Qual NEGATIVE Discharge Plan Triage Chief Complaint: Nausea/Vomiting ED Provider: Richard Gómez Dx/Rx/DC Orders Clinical Impression: Nausea vomiting and diarrhea, Gastritis Instructions: ED Diarrhea, Unknown Cause, ED Vomiting (Adult) Prescriptions: New sucralfate [Carafate] 1 gram tablet 1 g PO Q6H Qty: 60 0RF pantoprazole 40 mg tablet,delayed release (DR/EC) 40 mg PO DAILY Qty: 30 0RF ondansetron 4 mg tablet,disintegrating 4 mg PO Q8H PRN PRN (Reason: Nausea) Qty: 10 0RF No Action Nexplanon 68 mg implant 1 implant subdermal ONCE Rx Instructions: as a single dose lurasidone 40 mg tablet 40 mg PO QPM clonidine HCl 0.1 mg tablet 0.1 mg PO BID albuterol sulfate 2.5 mg /3 mL (0.083 %) solution for nebulization 2.5 mg inhalation Q4H PRN Qty: 25 0RF Rx Instructions: Use q4 hours and PRN for wheezing albuterol sulfate [Ventolin HFA] 90 mcg/actuation HFA aerosol inhaler 1 - 2 puff inhalation Q4H PRN PRN (Reason: Wheezing) Qty: 1 0RF albuterol sulfate 2.5 mg /3 mL (0.083 %) solution for nebulization 2.5 mg inhalation Q4H PRN PRN (Reason: bronchospasm) Qty: 25 0RF Rx Instructions: Use q4 hours and PRN for wheezing albuterol sulfate [Ventolin HFA] 90 mcg/actuation HFA aerosol inhaler 2 puff inhalation Q3H PRN (Reason: shortness of breath or wheezing) Qty: 8.5 0RF Primary Care Provider: Hema Bird Referrals: Hema Bird MD [Primary Care Provider] - Tim Billingsley DO [Med Staff - Active Staff] - 1-2 Weeks Activity Restrictions/Additional Instructions: Your labs are stable slight leukocytosis of 14. Likely reactive. Your pancreas is normal your hemoglobin 17. Your kidney function was normal. Stools are at the lab and pending. Take medications as prescribed. Continue fluids for hydration. Follow-up with Dr. Billingsley for outpatient evaluation. Print Language: Kazakh Disposition Disposition: Home, Self Care Discharge Date/Time: 11/20/24 16:37
[2024-11-20 12:57] LABS: Internal QC Validated? YES +Cl - CLEAR BKGD; Pregnancy, Serum, hCG Quali. NEGATIVE Negative; Record Kit Lot#, Serum Preg. 962302
[2024-11-20] MEDS: Pantoprazole Sodium 40 MG in 0.9% Normal Saline (100mL MB+) 100 ML 300 MG IV (12:58)
[2024-11-20 13:09] LABS: AST(SGOT) 24 U/L (<=31); Alanine Aminotransfer ALT/SGPT 21 U/L (<=34); Albumin, Serum 4.8 g/dL (3.5-5.0); Alkaline Phosphatase 68 U/L (35-104); Anion Gap 20 (5-15); BUN 14 mg/dL (4-19); BUN/Creat Ratio 14.8 RATIO (10-20); Calcium,Total 9.9 mg/dL (7.6-11.0); Carbon Dioxide 17.0 mmol/L (21.0-32.0); Chloride 102 mmol/L (98-108); Estimated Creatinine Clearance 81.11 ml/min (50-250); Globulin 3.7 g/dL (2.2-4.2); Glucose 83 mg/dL (70-99); Lipase 18 U/L (13-75); Potassium 3.8 mmol/L (3.3-5.1)
[2024-11-20 13:40] VITALS: BP 140/88; PULSE 85; RESP 18; TEMP 36.9; O2SAT 100
[2024-11-20] MEDS: Famotidine 200 MG/20 ML MDV 20 MG in 0.9% Normal Saline (Pres. free 8 ML 300 MG IV (14:40)
[2024-11-20 15:00] VITALS: BP 111/67; PULSE 80; RESP 15; O2SAT 98
[2024-11-20 16:25] VITALS: BP 137/81; PULSE 82; RESP 17; TEMP 36.9; O2SAT 98
== END 2024-11-20 16:37 | disposition home or self-care (01) ==
PROVIDERS: Emergency Provider Emergency Medicine; PCP Internal Medicine; Visit Provider Emergency Medicine
DX: K29.70 Gastritis, unspecified, without bleeding (principal); F31.9 Bipolar disorder, unspecified; J45.909 Unspecified asthma, uncomplicated; F41.1 Generalized anxiety disorder; Z79.899 Other long term (current) drug therapy; F17.210 Nicotine dependence, cigarettes, uncomplicated
CPT/HCPCS: 80053; 83630; 83690; 84703; 85025; 87493; 96361; 96365; 96366; 99284; A4216; J2405

== ENCOUNTER → 2025-03-01 | Outpatient (CLI) | payer MEDICAID, SELFPAY ==
[2025-03-01 11:53] LABS: Hematocrit 48.2 % (37-47); Hemoglobin 16.7 g/dL (12.0-15.0); Immature Granulocytes Count 0.060 X10^3/uL (0.0-0.0); Mean Corp Hgb Conc 34.6 g/dL (32-36); Mean Corpuscular Volume 87.6 fL (81-99); Mean Platelet Vol. 10.0 fl (6.2-12.0); NRBC Flagged by Analyzer 0 % (0-5); Platelet Count 377 K/mm3 (150-450); RBC Distribution Width CV 12.1 % (11.6-14.6); RBC Distribution Width SD 38.9 fl (35.1-43.9); Red Blood Count 5.50 M/mm3 (4.2-5.4); White Blood Count 13.1 K/mm3 (4.4-11.0)
[2025-03-01 12:47] LABS: AST(SGOT) 19 U/L (<=31); Alanine Aminotransfer ALT/SGPT 14 U/L (<=34); Albumin, Serum 4.2 g/dL (3.5-5.0); Alkaline Phosphatase 67 U/L (35-104); Anion Gap 13 (5-15); BUN 7 mg/dL (4-19); BUN/Creat Ratio 8.2 RATIO (10-20); Calcium,Total 9.5 mg/dL (7.6-11.0); Carbon Dioxide 22.6 mmol/L (21.0-32.0); Chloride 104 mmol/L (98-108); Free T3 3.4 pg/mL (2.18-3.98); Globulin 3.3 g/dL (2.2-4.2); Glucose 94 mg/dL (70-99); Potassium 3.9 mmol/L (3.3-5.1)
[2025-03-01 12:53] LABS: CRP 5.43 mg/L (0.0-3.0)
[2025-03-04 14:08] LABS: ANTINUCLEAR ANTIBODIES DIRECT Negative (Negative)
== END | disposition home or self-care (01) ==
PROVIDERS: PCP Internal Medicine; Referring Provider Nurse Practitioner Family; Visit Provider Nurse Practitioner Family
DX: J45.909 Unspecified asthma, uncomplicated (principal); R53.83 Other fatigue; E55.9 Vitamin D deficiency, unspecified; K21.9 Gastro-esophageal reflux disease without esophagitis
CPT/HCPCS: 86225; 36415; 80053; 84439; 84443; 84481; 85025; 85652; 86038; 86140; 86235; 86376; 86431; 86800